=== PATIENT | female | born 1930 | race African-American/Black ===

== ENCOUNTER 2016-09-16 14:06 | Inpatient (IN) ==
--- NOTE | 2016-09-16 14:27 | Emergency Department Note ---
Disposition Clinical Impression: EBONIE (acute kidney injury), Small bowel obstruction, Chronic anemia, Ascites Disposition: Admitted As Inpatient Condition: Fair Referrals: NO,PCP [Non-Partnered Physician] - Forms: Work/School Release, ED Satisfaction Letter General Adult HPI - General Chief complaint: ED Abdominal Pain Stated complaint: Bowel obstruction Time Seen by Provider: 09/16/16 14:14 Source: patient Limitations: no limitations - History of Present Illness Pain Scale: 8 - Related Data Home Medications Medication Instructions Recorded Confirmed Aspirin 81 mg PO DAILY 04/06/15 02/02/16 Atorvastatin [Lipitor] 40 mg PO DAILY 04/06/15 02/02/16 Isosorbide DInitrate [Isosorbide 20 mg PO TID 04/06/15 02/02/16 Dinitrate] Losartan [Cozaar] 50 mg PO DAILY 04/06/15 02/02/16 Nitroglycerin 0.4 mg SL Q5MIN PRN 04/06/15 02/02/16 Beclomethasone Diprop 40mcg [QVAR 1 puff IH BID 02/02/16 02/02/16 40 mcg] Carvedilol [Coreg] 6.25 mg PO BIDWM 02/02/16 02/02/16 Furosemide [Lasix] 40 mg PO Q48H 02/02/16 02/02/16 Ipratropium/Albuterol Neb [Duoneb] 3 ml IH TID 02/02/16 02/02/16 Oxygen 2 l NS HS 02/02/16 02/02/16 Previous Rx's Medication Instructions Recorded HydrALAZINE 50 mg PO TID #0 04/07/15 Potassium Chloride 10 meq PO BIDWM #0 04/07/15 Ticagrelor [Brilinta] 90 mg PO BID #60 tablet 04/07/15 Allergies Allergy/AdvReac Type Severity Reaction Status Date / Time amlodipine [From [facility]] Allergy SWELLING Verified 07/31/15 07:55 IN LEGS lisinopril Allergy Cough Verified 04/06/15 06:45 Past Medical History - Past Medical History Medical history: Reports: arthritis, coronary artery disease, hyperlipidemia, hypertension, renal disease Surgical history: Reports: angioplasty/stent, appendectomy, cataract, hysterectomy Psychiatric history: Reports: no psych history - Social History Smoking Status: Never smoker Smokeless Tobacco Status: No Alcohol use: Reports: none Drug use: Reports: none Physical Exam - General Limitations: no limitations General appearance: alert Course Vital Signs Temperature 97.4 F L 09/16/16 14:08 Pulse Rate 70 09/16/16 14:08 Respiratory Rate 16 09/16/16 14:08 Blood Pressure 146/72 09/16/16 14:08 O2 Sat by Pulse Oximetry 89 09/16/16 14:08 Temperature 97.4 F L 09/16/16 14:08 Pulse Rate 61 09/16/16 18:26 Respiratory Rate 16 09/16/16 14:08 Blood Pressure 168/72 09/16/16 18:26 O2 Sat by Pulse Oximetry 94 09/16/16 18:26 Oxygen Delivery Oxygen Delivery Nasal Cannula Medical Decision Making - Lab Data Result diagrams: 09/16/16 15:08 09/16/16 15:08 Lab Results 09/16/16 09/16/16 09/16/16 Range/Units 15:00 15:08 15:08 WBC 5.7 (4.3-11.1) K/mcL RBC 2.99 L (3.82-4.97) M/mcL Hgb 8.3 L (11.5-15.4) g/dL Hct 27.2 L (35.3-44.9) % MCV 91.0 (83.0-100.0) fL MCH 27.8 L (28.0-33.3) pg MCHC 30.5 L (31.6-35.5) g/dL RDW 14.6 H (11.5-14.5) % Plt Count 253 (140-400) K/mcL MPV 10.1 (9.4-12.4) fL Immature Gran % 0.2 (0-4) % Seg Neutrophils % 72.0 % Lymphocytes % 16.4 % Monocytes % 10.6 % Eosinophils % 0.5 % Basophils % 0.3 % Neutrophils # 4.1 (1.6-8.9) K/mcL Lymphocytes # 0.9 (0.6-4.6) K/mcL Monocytes # 0.6 (0.0-1.3) K/mcL Eosinophils # 0.0 (0.0-0.6) K/mcL Basophils # 0.0 (0.0-0.2) K/mcL PT 11.9 (9.4-12.1) Seconds INR 1.1 Sodium (136-145) mEq/L Potassium (3.5-4.5) mEq/L Chloride (98-109) mEq/L Carbon Dioxide (19-29) mEq/L BUN (7-20) mg/dL Creatinine (0.57-1.11) mg/dL Est GFR ( Amer) (> 60) Est GFR (Non-Af Amer) (> 60) BUN/Creatinine Ratio (6-26) Glucose (70-99) mg/dL Calculated Osmolality (280-300) Lactic Acid (0.5-2.2) mmol/L Calcium (8.6-10.8) mg/dL Total Bilirubin (0.2-1.2) mg/dL AST (5-34) Units/L ALT (0-55) Units/L Alkaline Phosphatase (38-126) Units/L Serum Total Protein (6.0-8.3) g/dL Albumin (3.5-5.0) g/dL Globulin (2.4-3.5) g/dL Albumin/Globulin Ratio (1.1-2.2) Lipase (8-78) Units/L Urine Color Yellow (Yellow) Urine Clarity Cloudy A (Clear) Urine pH 5.5 (5.0-8.0) pH Units Ur Specific [place] 1.020 (1.010-1.025) Urine Protein Trace (Neg-Trace) mg/dL Urine Glucose (UA) Normal (Normal) mg/dL Urine Ketones Negative (Negative) mg/dL Urine Blood Trace H (Negative) Urine Nitrite Negative (Negative) Urine Bilirubin Small H (Negative) Urine Urobilinogen Normal (Normal) mg/dL Ur Leukocyte Esterase Negative (Negative) Urine Microscopic RBC 5-15 H (0-3) per hpf Urine Microscopic WBC 0-3 (0-3) per hpf Ur Squamous Epith Cells Many H (None-Few) per lpf Urine Bacteria None Seen (None-Few) per hpf Hyaline Casts None Seen (None-Few) per lpf Urine Yeast Few H (None Seen) per hpf 09/16/16 09/16/16 Range/Units 15:08 15:08 WBC (4.3-11.1) K/mcL RBC (3.82-4.97) M/mcL Hgb (11.5-15.4) g/dL Hct (35.3-44.9) % MCV (83.0-100.0) fL MCH (28.0-33.3) pg MCHC (31.6-35.5) g/dL RDW (11.5-14.5) % Plt Count (140-400) K/mcL MPV (9.4-12.4) fL Immature Gran % (0-4) % Seg Neutrophils % % Lymphocytes % % Monocytes % % Eosinophils % % Basophils % % Neutrophils # (1.6-8.9) K/mcL Lymphocytes # (0.6-4.6) K/mcL Monocytes # (0.0-1.3) K/mcL Eosinophils # (0.0-0.6) K/mcL Basophils # (0.0-0.2) K/mcL PT (9.4-12.1) Seconds INR Sodium 139 (136-145) mEq/L Potassium 4.4 (3.5-4.5) mEq/L Chloride 103 (98-109) mEq/L Carbon Dioxide 24 (19-29) mEq/L BUN 39 H (7-20) mg/dL Creatinine 2.05 H D (0.57-1.11) mg/dL Est GFR ( Amer) 28 L (> 60) Est GFR (Non-Af Amer) 23 L (> 60) BUN/Creatinine Ratio 19 (6-26) Glucose 128 H (70-99) mg/dL Calculated Osmolality 299 (280-300) Lactic Acid 1.2 (0.5-2.2) mmol/L Calcium 9.5 (8.6-10.8) mg/dL Total Bilirubin 0.6 (0.2-1.2) mg/dL AST 12 (5-34) Units/L ALT < 6 (0-55) Units/L Alkaline Phosphatase 70 (38-126) Units/L Serum Total Protein 6.9 (6.0-8.3) g/dL Albumin 3.1 L (3.5-5.0) g/dL Globulin 3.8 H (2.4-3.5) g/dL Albumin/Globulin Ratio 0.8 L (1.1-2.2) Lipase 26 (8-78) Units/L Urine Color (Yellow) Urine Clarity (Clear) Urine pH (5.0-8.0) pH Units Ur Specific [place] (1.010-1.025) Urine Protein (Neg-Trace) mg/dL Urine Glucose (UA) (Normal) mg/dL Urine Ketones (Negative) mg/dL Urine Blood (Negative) Urine Nitrite (Negative) Urine Bilirubin (Negative) Urine Urobilinogen (Normal) mg/dL Ur Leukocyte Esterase (Negative) Urine Microscopic RBC (0-3) per hpf Urine Microscopic WBC (0-3) per hpf Ur Squamous Epith Cells (None-Few) per lpf Urine Bacteria (None-Few) per hpf Hyaline Casts (None-Few) per lpf Urine Yeast (None Seen) per hpf Attestation Statement - Attestation Attestation: I examined this patient and my medical decision-making was reviewed with the FOXER/PA/Advanced Practice Nurse/Resident Physician. I agree with the documented findings, disposition and treatment plan as described except to the extent set forth below. Face to face time provided Patient presents at the recommendation of her primary care provider due to an abnormal abdominal x-ray that was obtained at urgent care. She appears in no acute distress on exam. She was sent with concern for bowel obstruction
--- NOTE | 2016-09-16 14:49 | Emergency Department Note ---
Disposition Clinical Impression: EBONIE (acute kidney injury), Small bowel obstruction, Chronic anemia Ascites Qualifiers: Ascites type: other type Qualified Code(s): R18.8 - Other ascites Disposition: Admitted As Inpatient Condition: Fair Referrals: NO,PCP [Non-Partnered Physician] - Forms: ED Satisfaction Letter, Work/School Release Time of Disposition: 18:41 Abdominal Pain HPI - General Chief Complaint: ED Abdominal Pain Stated Complaint: Bowel obstruction Time Seen by Provider: 09/16/16 14:14 Source: patient Mode of arrival: ambulatory Limitations: no limitations Nursing Notes Reviewed: Yes Vital Signs Reviewed: Yes - History of Present Illness HPI Narrative: Patient is an 86-year-old female past medical history of hypertension, hyperlipidemia, CAD, previous instructed me. She presents today due to abdominal pain and concern for possible bowel obstruction. Patient states that she has been having generalized abdominal pain for the past 4 days, last bowel movement was 4 days ago as well and was "small amounts . Her usual bowel movement. "She followed up with a primary care physician today and had an x- ray obtained that showed concern for small bowel traction. She denies any blood in her stool, she does admit to nausea and vomiting. Denies any episodes like this in the past. Denies any chest pain, shortness breath, fevers, diarrhea. No bowel movement since 4 days ago. Pain Scale: 4 - Related Data Home Medications Medication Instructions Recorded Confirmed Aspirin 81 mg PO DAILY 04/06/15 02/02/16 Atorvastatin [Lipitor] 40 mg PO DAILY 04/06/15 02/02/16 Isosorbide DInitrate [Isosorbide 20 mg PO TID 04/06/15 02/02/16 Dinitrate] Losartan [Cozaar] 50 mg PO DAILY 04/06/15 02/02/16 Nitroglycerin 0.4 mg SL Q5MIN PRN 04/06/15 02/02/16 Beclomethasone Diprop 40mcg [QVAR 1 puff IH BID 02/02/16 02/02/16 40 mcg] Carvedilol [Coreg] 6.25 mg PO BIDWM 02/02/16 02/02/16 Furosemide [Lasix] 40 mg PO Q48H 02/02/16 02/02/16 Ipratropium/Albuterol Neb [Duoneb] 3 ml IH TID 02/02/16 02/02/16 Oxygen 2 l NS HS 02/02/16 02/02/16 Previous Rx's Medication Instructions Recorded HydrALAZINE 50 mg PO TID #0 04/07/15 Potassium Chloride 10 meq PO BIDWM #0 04/07/15 Ticagrelor [Brilinta] 90 mg PO BID #60 tablet 04/07/15 Allergies Allergy/AdvReac Type Severity Reaction Status Date / Time amlodipine [From [facility]] Allergy SWELLING Verified 07/31/15 07:55 IN LEGS lisinopril Allergy Cough Verified 04/06/15 06:45 Constitutional: Denies: fever Eyes: Denies: eye pain ENT ED: Denies: ear pain Cardiovascular: Denies: chest pain, palpitations Respiratory: Denies: cough, dyspnea, wheezes Gastrointestinal: Reports: abdominal pain, nausea, vomiting, constipation. Denies: diarrhea Genitourinary: Denies: urgency, dysuria Musculoskeletal: Denies: back pain Abdominal Pain PMH - Past Medical History Medical history: Reports: arthritis, coronary artery disease, hyperlipidemia, hypertension, renal disease Female Surgical History: Reports: angioplasty/stent, appendectomy, hysterectomy Psychiatric history: Reports: no psych history - Social History Smoking status: Never smoker Alcohol use: Reports: none Drug use: Reports: none Physical Exam - General Limitations: no limitations General appearance: alert - Head Head exam: atraumatic, normocephalic, normal inspection - Eye Eye exam: Present: normal appearance, PERRL, EOMI - ENT ENT exam: normal exam, normal oropharynx, mucous membranes moist - Neck Neck exam: Present: normal inspection, full ROM, trachea midline - Chest Chest inspection: Present: normal inspection, symmetric chest wall rise - Respiratory Respiratory exam: Present: normal lung sounds bilaterally - Cardiovascular Cardiovascular exam: Present: regular rate, normal rhythm, normal heart sounds - Abdominal Exam Abdominal exam: Present: soft, tenderness (Mild generalized tenderness). Absent : distention, guarding, rebound, rigidity - Extremities Exam Extremities exam: Present: normal inspection, full ROM. Absent: tenderness, pedal edema - Neurological Exam Neurological exam: Present: alert, oriented X3 - Psychiatric Psychiatric exam: Present: normal affect, normal mood - Skin Skin exam: Present: warm, dry, intact, normal color Course Course Narrative: Vitals within normal limits on my exam. On exam, patient had mild generalized tenderness of the abdomen. Concern for small bowel section due to tape being obtained this morning. Currently, patient's nausea was controlled with Zofran that she took prior to arrival. She also states that she does not want any pain medication this time. We will obtain basic abdominal labs, basic blood work, CT of abdomen and pelvis for further assessment for bowel obstruction. 16:47 basic labs show chronic anemia that is near baseline for the patient. Patient has AK. Maintenance fluids started and 1 L normal saline bolus was given. Abdominal as within normal limits. CT scan shows signs of small bowel obstruction, currently waiting on official read. We will contact surgery for further care. Likely admit for small bowel obstruction, EBONIE, anemia. 18:13 CT showed: 1. Gastric and small bowel distension with transition distally consistent with a small-bowel obstruction. Contracted colon with colonic diverticulosis and no acute features. No obvious etiology suggesting possible adhesions. 2. Diffuse mesenteric edema and small amount of ascites. This may be related to 3rd spacing of fluid or cardiogenic edema. Cardiomegaly, small bilateral effusions and anasarca. 3. No other acute findings within the abdomen or pelvis. Moderate aortoiliac plaque disease. Status post hysterectomy. I spoke with Dr. Dubose, she requested that due to other medical issues that the patient be admitted to the hospitalist and then she agreed to be a consult. She also requested NG tube placed and NPO. Dr. Silverman accepted for admission. Abdomen/Pelvis CT 09/16/16 16:30 IMPRESSION: 1. Gastric and small bowel distension with transition distally consistent with a small-bowel obstruction. Contracted colon with colonic diverticulosis and no acute features. No obvious etiology suggesting possible adhesions. 2. Diffuse mesenteric edema and small amount of ascites. This may be related to 3rd spacing of fluid or cardiogenic edema. Cardiomegaly, small bilateral effusions and anasarca. 3. No other acute findings within the abdomen or pelvis. Moderate aortoiliac plaque disease. Status post hysterectomy. D/ / 09/16/2016 17:59:52 Zeferino Treadwell MD / tarik Interpreting Provider: Zeferino Treadwell MD Vital Signs Temperature 97.4 F L 09/16/16 14:08 Pulse Rate 70 09/16/16 14:08 Respiratory Rate 16 09/16/16 14:08 Blood Pressure 146/72 09/16/16 14:08 O2 Sat by Pulse Oximetry 89 09/16/16 14:08 Temperature 97.4 F L 09/16/16 14:08 Pulse Rate 61 09/16/16 18:26 Respiratory Rate 16 09/16/16 14:08 Blood Pressure 168/72 09/16/16 18:26 O2 Sat by Pulse Oximetry 94 09/16/16 18:26 Oxygen Delivery Oxygen Delivery Nasal Cannula Abdominal Pain - MDM Narrative Medical decision making narrative: Vitals within normal limits on my exam. On exam, patient had mild generalized tenderness of the abdomen. Concern for small bowel section due to tape being obtained this morning. Currently, patient's nausea was controlled with Zofran that she took prior to arrival. She also states that she does not want any pain medication this time. We will obtain basic abdominal labs, basic blood work, CT of abdomen and pelvis for further assessment for bowel obstruction. 16:47 basic labs show chronic anemia that is near baseline for the patient. Patient has AK. Maintenance fluids started and 1 L normal saline bolus was given. Abdominal as within normal limits. CT scan shows signs of small bowel obstruction, currently waiting on official read. We will contact surgery for further care. Likely admit for small bowel obstruction, EBONIE, anemia. 18:13 CT showed: 1. Gastric and small bowel distension with transition distally consistent with a small-bowel obstruction. Contracted colon with colonic diverticulosis and no acute features. No obvious etiology suggesting possible adhesions. 2. Diffuse mesenteric edema and small amount of ascites. This may be related to 3rd spacing of fluid or cardiogenic edema. Cardiomegaly, small bilateral effusions and anasarca. 3. No other acute findings within the abdomen or pelvis. Moderate aortoiliac plaque disease. Status post hysterectomy. I spoke with Dr. Dubose, she requested that due to other medical issues that the patient be admitted to the hospitalist and then she agreed to be a consult. She also requested NG tube placed and NPO. Dr. Silverman accepted for admission. - Medical Records Medical records reviewed: Yes I reviewed the patient's medical records. - Lab Data Lab results reviewed: Yes I reviewed the patient's lab results. Result diagrams: 09/16/16 15:08 09/16/16 15:08 Lab Results 09/16/16 09/16/16 09/16/16 Range/Units 15:00 15:08 15:08 WBC 5.7 (4.3-11.1) K/mcL RBC 2.99 L (3.82-4.97) M/mcL Hgb 8.3 L (11.5-15.4) g/dL Hct 27.2 L (35.3-44.9) % MCV 91.0 (83.0-100.0) fL MCH 27.8 L (28.0-33.3) pg MCHC 30.5 L (31.6-35.5) g/dL RDW 14.6 H (11.5-14.5) % Plt Count 253 (140-400) K/mcL MPV 10.1 (9.4-12.4) fL Immature Gran % 0.2 (0-4) % Seg Neutrophils % 72.0 % Lymphocytes % 16.4 % Monocytes % 10.6 % Eosinophils % 0.5 % Basophils % 0.3 % Neutrophils # 4.1 (1.6-8.9) K/mcL Lymphocytes # 0.9 (0.6-4.6) K/mcL Monocytes # 0.6 (0.0-1.3) K/mcL Eosinophils # 0.0 (0.0-0.6) K/mcL Basophils # 0.0 (0.0-0.2) K/mcL PT 11.9 (9.4-12.1) Seconds INR 1.1 Sodium (136-145) mEq/L Potassium (3.5-4.5) mEq/L Chloride (98-109) mEq/L Carbon Dioxide (19-29) mEq/L BUN (7-20) mg/dL Creatinine (0.57-1.11) mg/dL Est GFR ( Amer) (> 60) Est GFR (Non-Af Amer) (> 60) BUN/Creatinine Ratio (6-26) Glucose (70-99) mg/dL Calculated Osmolality (280-300) Lactic Acid (0.5-2.2) mmol/L Calcium (8.6-10.8) mg/dL Total Bilirubin (0.2-1.2) mg/dL AST (5-34) Units/L ALT (0-55) Units/L Alkaline Phosphatase (38-126) Units/L Serum Total Protein (6.0-8.3) g/dL Albumin (3.5-5.0) g/dL Globulin (2.4-3.5) g/dL Albumin/Globulin Ratio (1.1-2.2) Lipase (8-78) Units/L Urine Color Yellow (Yellow) Urine Clarity Cloudy A (Clear) Urine pH 5.5 (5.0-8.0) pH Units Ur Specific [place] 1.020 (1.010-1.025) Urine Protein Trace (Neg-Trace) mg/dL Urine Glucose (UA) Normal (Normal) mg/dL Urine Ketones Negative (Negative) mg/dL Urine Blood Trace H (Negative) Urine Nitrite Negative (Negative) Urine Bilirubin Small H (Negative) Urine Urobilinogen Normal (Normal) mg/dL Ur Leukocyte Esterase Negative (Negative) Urine Microscopic RBC 5-15 H (0-3) per hpf Urine Microscopic WBC 0-3 (0-3) per hpf Ur Squamous Epith Cells Many H (None-Few) per lpf Urine Bacteria None Seen (None-Few) per hpf Hyaline Casts None Seen (None-Few) per lpf Urine Yeast Few H (None Seen) per hpf 09/16/16 09/16/16 Range/Units 15:08 15:08 WBC (4.3-11.1) K/mcL RBC (3.82-4.97) M/mcL Hgb (11.5-15.4) g/dL Hct (35.3-44.9) % MCV (83.0-100.0) fL MCH (28.0-33.3) pg MCHC (31.6-35.5) g/dL RDW (11.5-14.5) % Plt Count (140-400) K/mcL MPV (9.4-12.4) fL Immature Gran % (0-4) % Seg Neutrophils % % Lymphocytes % % Monocytes % % Eosinophils % % Basophils % % Neutrophils # (1.6-8.9) K/mcL Lymphocytes # (0.6-4.6) K/mcL Monocytes # (0.0-1.3) K/mcL Eosinophils # (0.0-0.6) K/mcL Basophils # (0.0-0.2) K/mcL PT (9.4-12.1) Seconds INR Sodium 139 (136-145) mEq/L Potassium 4.4 (3.5-4.5) mEq/L Chloride 103 (98-109) mEq/L Carbon Dioxide 24 (19-29) mEq/L BUN 39 H (7-20) mg/dL Creatinine 2.05 H D (0.57-1.11) mg/dL Est GFR ( Amer) 28 L (> 60) Est GFR (Non-Af Amer) 23 L (> 60) BUN/Creatinine Ratio 19 (6-26) Glucose 128 H (70-99) mg/dL Calculated Osmolality 299 (280-300) Lactic Acid 1.2 (0.5-2.2) mmol/L Calcium 9.5 (8.6-10.8) mg/dL Total Bilirubin 0.6 (0.2-1.2) mg/dL AST 12 (5-34) Units/L ALT < 6 (0-55) Units/L Alkaline Phosphatase 70 (38-126) Units/L Serum Total Protein 6.9 (6.0-8.3) g/dL Albumin 3.1 L (3.5-5.0) g/dL Globulin 3.8 H (2.4-3.5) g/dL Albumin/Globulin Ratio 0.8 L (1.1-2.2) Lipase 26 (8-78) Units/L Urine Color (Yellow) Urine Clarity (Clear) Urine pH (5.0-8.0) pH Units Ur Specific [place] (1.010-1.025) Urine Protein (Neg-Trace) mg/dL Urine Glucose (UA) (Normal) mg/dL Urine Ketones (Negative) mg/dL Urine Blood (Negative) Urine Nitrite (Negative) Urine Bilirubin (Negative) Urine Urobilinogen (Normal) mg/dL Ur Leukocyte Esterase (Negative) Urine Microscopic RBC (0-3) per hpf Urine Microscopic WBC (0-3) per hpf Ur Squamous Epith Cells (None-Few) per lpf Urine Bacteria (None-Few) per hpf Hyaline Casts (None-Few) per lpf Urine Yeast (None Seen) per hpf - Radiology Data Radiology results reviewed: Yes I reviewed the patient's radiology results. Abdomen/Pelvis CT 09/16/16 16:30 IMPRESSION: 1. Gastric and small bowel distension with transition distally consistent with a small-bowel obstruction. Contracted colon with colonic diverticulosis and no acute features. No obvious etiology suggesting possible adhesions. 2. Diffuse mesenteric edema and small amount of ascites. This may be related to 3rd spacing of fluid or cardiogenic edema. Cardiomegaly, small bilateral effusions and anasarca. 3. No other acute findings within the abdomen or pelvis. Moderate aortoiliac plaque disease. Status post hysterectomy. D/ / 09/16/2016 17:59:52 Zeferino Treadwell MD / evertonrtmary Interpreting Provider: Zeferino Treadwell MD - EKG Data EKG attestation: Yes I reviewed and interpreted this EKG. EKG results narrative: 09/16/2016 at 14:39. Sinus rhythm. Rate 63. MS interval 181. QRS 150. QTc 465. Left axis deviation. One QRS. No acute ST elevation or depression from previous EKG on 02/02/2016. Kirit - Kirit Situation: Demographics, MOA Background: Presenting Complaint, Relevant PMH, Meds, & Allergies Assessment: Vital Signs, Course and respsone to treatment, Exam Concerns, Patient/Family Expectation, Pertinant Lab Results, Outstanding Labs Recommendation: Barrier(s) to disposition, Recommendation based on pending studies, treatments, or consults Kirit Report Given to: Dr. Andra Beth Repor Time: 18:41
[2016-09-16 15:07] LABS: Bilirubin,Urine Small (Negative); Blood,Urine Trace (Negative); Clarity,Urine Cloudy (Clear); Color,Urine Yellow (Yellow); Glucose,Urine (UA) Normal (Normal); Ketones,Urine Negative (Negative); Leukocyte Esterase,Urine Negative (Negative); Nitrite,Urine Negative (Negative); PH,Urine 5.5 pH Units (5.0-8.0); Protein,Urine Trace mg/dL (Neg-Trace); Urobilinogen,Urine Normal (Normal)
[2016-09-16 15:08] LABS: Bacteria,Urine None Seen per hpf (None-Few); Hyaline Casts,Urine None Seen per lpf (None-Few); Squamous Epithelial Cell,Urine Many per lpf (None-Few); WBC,Urine 0-3 per hpf (0-3)
[2016-09-16 15:16] LABS: Basophils % 0.3 %; Eosinophils % 0.5 %; Hematocrit 27.2 % (35.3-44.9); Hemoglobin 8.3 g/dL (11.5-15.4); Immature Granulocytes % 0.2 % (0-4); Lymphocytes # 0.9 K/mcL (0.6-4.6); Lymphocytes % 16.4 %; Mean Corpuscular HGB Conc 30.5 g/dL (31.6-35.5); Mean Corpuscular Hemoglobin 27.8 pg (28.0-33.3); Mean Platelet Volume 10.1 fL (9.4-12.4); Monocytes # 0.6 K/mcL (0.0-1.3); Monocytes % 10.6 %; Neutrophils # 4.1 K/mcL (1.6-8.9); Platelet Count 253 K/mcL (140-400); Red Blood Count 2.99 M/mcL (3.82-4.97); Red Cell Distribution Width 14.6 % (11.5-14.5)
[2016-09-16] MEDS: 0.9 % Sodium Chloride 1,000 ML IVC SCH ×2 (15:16→20:56)
[2016-09-16 15:19] LABS: Yeast,Urine Few per hpf (None Seen)
[2016-09-16 15:23] LABS: INR 1.1; Prothrombin Time 11.9 Seconds (9.4-12.1)
[2016-09-16 15:30] LABS: Albumin 3.1 g/dL (3.5-5.0); Albumin/Globulin Ratio 0.8 (1.1-2.2); Alkaline Phosphatase 70 Units/L (38-126); Aspartate Amino Transferase 12 Units/L (5-34); BUN/Creatinine Ratio 19 (6-26); Bilirubin,Total 0.6 mg/dL (0.2-1.2); Blood Urea Nitrogen 39 mg/dL (7-20); Calcium 9.5 mg/dL (8.6-10.8); Carbon Dioxide 24 mEq/L (19-29); Chloride 103 mEq/L (98-109); Globulin 3.8 g/dL (2.4-3.5); Glucose 128 mg/dL (70-99); Lipase 26 Units/L (8-78); Osmolality,Calculated 299 (280-300); Potassium 4.4 mEq/L (3.5-4.5); Sodium 139 mEq/L (136-145); Total Protein 6.9 g/dL (6.0-8.3); eGFR For African Americans 28 (> 60); eGFR For Non-African Americans 23 (> 60)
[2016-09-16 15:31] LABS: Alanine Aminotransferase < 6 Units/L (0-55)
[2016-09-16] MEDS ORDERED: 0.9 % Sodium Chloride 1,000 ML IVC ONE (16:47)
--- NOTE | 2016-09-16 18:23 | Electrocardiograph Report ---
[facility] [employer] Test Date: 2016-09-16 Pat Name: Nancy Strickland Department: [id number] Room: Gender: F Field Agent: : [id number] Requested By: Dennis Sebastian Order Number: [id number] Reading MD: Chely Ray DO Measurements Intervals [place] Rate: 63 P: 56 AR: 181 QRS: -36 QRSD: 150 T: 142 QT: 457 QTc: 465 Interpretive Statements SINUS RHYTHM MARKED LEFT AXIS DEVIATION LEFT BUNDLE BRANCH BLOCK Electronically Signed On 09-16-2016 18:22:08 EDT by Chely Ray DO
--- NOTE | 2016-09-16 20:19 | Internal Med History&Physical ---
Date of Encounter: 09/16/16 Time of Encounter: 20:15 Assessment and Plan (1) Small bowel obstruction Current visit: Yes Status: Acute Clinical and radiological findings consistent with small bowel obstruction. Patient had some relief after insertion of NG tube. Continue nothing by mouth. Evaluation by surgery requested, will follow recommendations. IV fluids. Pain control as needed. DVT prophylaxis. Telemetry monitoring. Monitor electrolytes. Supplement electrolytes accordingly. Avoid nephrotoxic agents. GI prophylaxis. Discussed with patient. (2) EBONIE (acute kidney injury) Current visit: Yes Status: Acute Baseline GFR 5, toda'y GFR 28. Likely pre renal in light of poor oral intake and vomiting. Will avoid nephrotoxic agents and give iv fluids. (3) CAD (coronary artery disease) Current visit: No Status: Acute Chest pain free. Qualifiers: Coronary Disease-Associated Artery/Lesion type: [place] artery [place] vs. transplanted heart: [place] heart Associated angina: with unstable angina Qualified Code(s): I25.110 - Atherosclerotic heart disease of [place] coronary artery with unstable angina pectoris (4) Paroxysmal a-fib Current visit: No Status: Acute Prior chart reviewed, cardiology did not recommend prison anticoagulation. Patient on aspirin only. (5) DVT prophylaxis Current visit: Yes Status: Acute Heparin sq. Internal Medicine - H&P: HPI Chief complaint: abd pain Admitted From: Emergency Dept Plans for Post Hospital Care: Home History of present illness: Ms. Strickland is a 86 year old female with medical history significant for HTN, HLD CAD s/p PCI with intracoronary stents and baloon angioplasty (in 2014) presents with complaints of abdominal pain which started 4 days ago. Abdomen the pain is generalized and is associated with nausea and vomiting. Patient states that she vomited 4 times. She also states that yesterday she was feeling hot, however she did not check her temperature. She denies rash, diarrhea, loss of consciousness, chest pain. Patient states that her last bowel movement was 4 days ago. She followed up with a primary care physician today and had an x-ray obtained that showed concern for small bowel obstruction. She presents to the emergency department and initial evaluation, blood pressure was 151/64, heart rate was 65 month OC observation was 99%. Initial blood work revealed a hemoglobin of 8.3, hematocrit 3827.2, WBC count 5.7, platelet count 257. Sodium 139, potassium 4.4, chloride 103, bicarbonate 24, BUN 39, creatinine 2.05, glucose 128. Admitting 2.1, lactic acid 1.2, lipase 26. CT of the abdomen revealed findings consistent with possible small bowel obstruction. The emergency department staff discussed the case with the surgeon public relations representative, recommendation was made to place an NG tube. During my encounter with patient she was pain free. Past Med Surg Social Fam HX - Past Medical History Medical history: arthritis, coronary artery disease, hyperlipidemia, hypertension, renal disease Psychiatric history: no psych history - Past Surgical History Surgical History: angioplasty/stent, appendectomy, cataract, hysterectomy - Social History Smoking Status: Never smoker Smokeless Tobacco Status: No Alcohol use: none Drug use: none - Family History Brother Adopted: No Family Member Ethnicity: Non- Living Status: Hx Family Cardiac Disorders: Yes Hx Family Respiratory Disorders: No Hx Family Cancer: Yes Hx Family GI Disorders: No Hx Family Endocrine Disorder: Yes Hx Family Neuromuscular Disorders: No Hx Family Neurologic Disorders: No Hx Family HEENT Disorders: No Hx Family Autoimmune Disorders: No Internal Medicine - H&P: Meds Aspirin 81 mg PO DAILY 04/06/15 [History] Atorvastatin [Lipitor] 40 mg PO DAILY 04/06/15 [History] Isosorbide DInitrate [Isosorbide Dinitrate] 20 mg PO TID 04/06/15 [History] Losartan [Cozaar] 50 mg PO BID 04/06/15 [History] Nitroglycerin 0.4 mg SL Q5MIN PRN 04/06/15 [History] HydrALAZINE 50 mg PO TID #0 04/07/15 [Rx] Potassium Chloride 10 meq PO BIDWM #0 04/07/15 [Rx] Beclomethasone Diprop 40mcg [QVAR 40 mcg] 1 puff IH BID 02/02/16 [History] Ipratropium/Albuterol Neb [Duoneb] 3 ml IH TID 02/02/16 [History] Oxygen 2 l NS HS 02/02/16 [History] Carvedilol [Coreg] 25 mg PO BID PRN 09/16/16 [History] Chlorthalidone [Chlorthalidone] 25 mg PO DAILY 09/16/16 [History] Cyanocobalamin (B-12) [Vitamin B12] 1,000 mcg PO DAILY 09/16/16 [History] Ergocalciferol (VITAMIN D2) [Vitamin D2] 50,000 unit PO QWEEK 09/16/16 [History] Ondansetron ODT [Zofran ODT] 4 mg PO TID PRN 09/16/16 [History] Allergies amlodipine [From [facility]] Allergy (Verified 07/31/15 07:55) SWELLING IN LEGS lisinopril Allergy (Verified 04/06/15 06:45) Cough All Systems PM: A 10-system review of systems was performed and is negative for pertinent findings except as documented above in the HPI. - Constitutional Constitutional: as per HPI, no chills, no fever(s), no night sweats - EENT Eyes: as per HPI, no change in vision, no discharge, no pain, no photophobia Ears: as per HPI, no ear discharge, no ear pain, no tinnitus Nose, mouth and throat: as per HPI, no dysphagia, no nasal discharge, no neck pain, no sore throat - Breasts Breasts: as per HPI - Cardiovascular Cardiovascular ROS IM: as per HPI, no chest pain, no diaphoresis, no dyspnea, no lightheadedness, no palpitations, no syncope - Respiratory Respiratory: as per HPI, no cough, no dyspnea, no wheezing, no excessive phlegm production - Gastrointestinal Gastrointestinal: as per HPI, abdominal pain, constipation, vomiting, no diarrhea, no hematemesis, no hematochezia, no melena, no nausea - Genitourinary Genitourinary: as per HPI, no change in urinary stream, no dysuria, no flank pain, no hematuria Menstruation: as per HPI - Musculoskeletal Musculoskeletal ROS IM: as per HPI, no numbness, no tingling - Integumentary Integumentary IM: as per HPI, no rash, no unusual bruising - Neurological Neurological ROS: as per HPI, no confusion, no convulsions, no focal weakness, no numbness, no tingling, no tremor(s) - Psychiatric Psychiatric: as per HPI - Endocrine Endocrine IM: as per HPI - Hematologic/Lymphatic Hematologic/Lymphatic: as per HPI, no easy bruising - Allergic/Immunologic Allergic/Immunologic: as per HPI - Constitutional Vitals: Temp Pulse Resp BP Pulse Ox 97.4 F L 61 16 168/72 94 09/16/16 14:08 09/16/16 18:26 09/16/16 19:13 09/16/16 19:13 09/16/16 18:26 General appearance: Present: cooperative, A&O X 3, pleasant, no acute distress Exam: NG tube placed - Head Head exam: Present: atraumatic, normocephalic - Eye Eye exam: Present: PERRL, conjuntiva pink, sclera anicteric Pupils: Present: PERRL - Neck Neck exam general surgery: Present: supple, trachea midline. Absent: lymphadenopathy - Respiratory Respiratory exam: Present: CTAB. Absent: accessory muscle use, rales, rhonchi, wheezes - Cardiovascular Cardiovascular exam: Present: RRR, +S1, +S2. Absent: diastolic murmur, gallop, rubs, systolic murmur - GI/Abdominal GI/Abdominal exam: Present: normal bowel sounds, soft, no peritoneal signs. Absent: distended, tenderness - Extremities Exam Extremities exam: Present: warm, radial pulses palpable and symetrical. Absent : calf tenderness, cyanotic, pedal edema - Neurological Exam Neurological exam: Present: CN II-XII intact, oriented X3, no focal deficits. Absent: pronater drift, facial droop, speech deficit - Skin Skin exam: Present: dry, intact Internal Med - H&P Results - Labs CBC & Chem 7: 09/16/16 15:08 09/16/16 15:08
[2016-09-16] MEDS ORDERED: *HR* Morphine 2 MG/ML SYRINGE IVP PRN (20:27)
[2016-09-16] MEDS ORDERED: Ondansetron 4 MG/2 ML VIAL IVP PRN (20:27)
[2016-09-16] MEDS ORDERED: Naloxone 0.4 MG/ML INJ IVP PRN (20:27)
[2016-09-16] MEDS ORDERED: Nitroglycerin 0.4 MG TAB.SUBL SL PRN (20:30)
[2016-09-16] MEDS: *HR* Heparin 5,000 UNIT/ML VIAL SQ SCH (20:56)
[2016-09-17] MEDS: Ipratropium/Albuterol Neb 3 ML IH SCH ×2 (01:39→10:27)
[2016-09-17] MEDS: *HR* Heparin 5,000 UNIT/ML VIAL SQ SCH ×2 (05:00→17:33)
[2016-09-17 05:04] LABS: Basophils % 0.2 %; Eosinophils % 0.4 %; Hematocrit 27.2 % (35.3-44.9); Hemoglobin 8.3 g/dL (11.5-15.4); Immature Granulocytes % 0.2 % (0-4); Lymphocytes # 0.8 K/mcL (0.6-4.6); Lymphocytes % 16.2 %; Mean Corpuscular HGB Conc 30.5 g/dL (31.6-35.5); Mean Corpuscular Hemoglobin 27.5 pg (28.0-33.3); Mean Corpuscular Volume 90.1 fL (83.0-100.0); Mean Platelet Volume 10.4 fL (9.4-12.4); Monocytes # 0.6 K/mcL (0.0-1.3); Monocytes % 11.8 %; Neutrophils # 3.4 K/mcL (1.6-8.9); Platelet Count 257 K/mcL (140-400); Red Blood Count 3.02 M/mcL (3.82-4.97); Red Cell Distribution Width 14.5 % (11.5-14.5); Segmented Neutrophils % 71.2 %
[2016-09-17 05:07] LABS: INR 1.1; Prothrombin Time 11.9 Seconds (9.4-12.1)
[2016-09-17] MEDS: Famotidine 20 MG/2 ML VIAL IVP SCH (05:09)
[2016-09-17 05:23] LABS: Albumin 2.8 g/dL (3.5-5.0); Albumin/Globulin Ratio 0.8 (1.1-2.2); Alkaline Phosphatase 66 Units/L (38-126); Aspartate Amino Transferase 12 Units/L (5-34); BUN/Creatinine Ratio 20 (6-26); Bilirubin,Total 0.6 mg/dL (0.2-1.2); Blood Urea Nitrogen 36 mg/dL (7-20); Carbon Dioxide 24 mEq/L (19-29); Chloride 106 mEq/L (98-109); Globulin 3.5 g/dL (2.4-3.5); Glucose 101 mg/dL (70-99); Magnesium 1.8 mg/dL (1.6-2.6); Osmolality,Calculated 298 (280-300); Potassium 4.2 mEq/L (3.5-4.5); Sodium 140 mEq/L (136-145); Total Protein 6.3 g/dL (6.0-8.3); eGFR For African Americans 33 (> 60); eGFR For Non-African Americans 27 (> 60)
[2016-09-17 05:38] LABS: Alanine Aminotransferase < 6 Units/L (0-55)
[2016-09-17] MEDS: 0.9 % Sodium Chloride 1,000 ML IVC SCH ×3 (05:54→23:47)
[2016-09-17] MEDS ORDERED: Ipratropium/Albuterol Neb 3 ML IH PRN (10:34)
--- NOTE | 2016-09-17 15:45 | Internal Med Progress Note ---
Date of Encounter: 09/17/16 Time of Encounter: 11:00 - Assessment and plan (1) Small bowel obstruction Current Visit: Yes Status: Acute Assessment and plan: Repeat x-ray done today showed dilated small bowel loops. Surgery following. Continue conservative management for now. Remains nothing by mouth. Moderate risk for complications. (2) EBONIE (acute kidney injury) Current Visit: Yes Status: Acute Assessment and plan: Renal function is improving. Creatinine 1.79 today. Continue IV hydration. (3) CAD (coronary artery disease) Current Visit: No Status: Chronic Assessment and plan: Oral medications are currently being held due to nothing by mouth status. Will add IV beta dylon. No chest pain at this time. Qualifiers: Coronary Disease-Associated Artery/Lesion type: [place] artery [place] vs. transplanted heart: [place] heart Associated angina: with unstable angina Qualified Code(s): I25.110 - Atherosclerotic heart disease of [place] coronary artery with unstable angina pectoris (4) HTN (hypertension) Current Visit: Yes Status: Chronic Assessment and plan: Accelerated hypertension currently. Most likely due to withdrawal from beta dylon and pain related to small bowel obstruction. We will place patient on scheduled dose of IV Lopressor and also add hydralazine IV when necessary for systolic blood pressure greater than 160 Qualifiers: Hypertension type: essential hypertension Qualified Code(s): I10 - Essential (primary) hypertension (5) Paroxysmal a-fib Current Visit: No Status: Chronic Assessment and plan: Rate controlled and regular currently. - Subjective Interval history: Patient is awake and alert. Feels better today. Abdominal discomfort improving. NG tube in place and gastric output is now minimal. Has not passed any flatus or bowel movement yet. - Constitutional Vitals: Temp Pulse Resp BP Pulse Ox 97.9 F 58 16 172/69 97 09/17/16 11:25 09/17/16 11:25 09/17/16 11:25 09/17/16 11:25 09/17/16 11:25 General appearance: Present: cooperative, mild distress, A&O X 3, pleasant, no acute distress, answers questions appropriately - ENT Additional comments: NG tube in place - Neck Neck exam general surgery: Present: supple, trachea midline. Absent: lymphadenopathy - Respiratory Respiratory exam: Present: CTAB. Absent: accessory muscle use, rales, rhonchi, wheezes - Cardiovascular Cardiovascular exam: Present: RRR, +S1, +S2. Absent: diastolic murmur, gallop, rubs, systolic murmur - GI/Abdominal GI/Abdominal exam: Present: diminished bowel sounds, soft, tenderness (Mild generalized), no peritoneal signs - Extremities Exam Extremities exam: Present: warm, radial pulses palpable and symetrical. Absent : calf tenderness, cyanotic, pedal edema - Neurological Exam Neurological exam: Present: alert, oriented X3, no focal deficits. Absent: facial droop, speech deficit - Skin Skin exam: Present: dry, intact Internal Medicine: Result - Labs CBC & Chem 7: 09/17/16 04:25 09/17/16 04:25 Labs: Short CBC 09/17/16 Range/Units 04:25 WBC 4.8 (4.3-11.1) K/mcL Hgb 8.3 L (11.5-15.4) g/dL Hct 27.2 L (35.3-44.9) % Plt Count 257 (140-400) K/mcL Neutrophils # 3.4 (1.6-8.9) K/mcL BMP 09/17/16 04:25 Sodium 140 Potassium 4.2 Chloride 106 Carbon Dioxide 24 BUN 36 H Creatinine 1.79 H Glucose 101 H Calcium 9.0 Liver Function 09/17/16 Range/Units 04:25 Total Bilirubin 0.6 (0.2-1.2) mg/dL AST 12 (5-34) Units/L ALT < 6 (0-55) Units/L Alkaline Phosphatase 66 (38-126) Units/L Albumin 2.8 L (3.5-5.0) g/dL - ABG Interpretation ABG results: PT/INR, D-dimer PT 11.9 Seconds (9.4-12.1) 09/17/16 04:25 - Impressions Impressions KUB X-Ray 09/16/16 20:48 IMPRESSION: Tip and side port of the enteric tube in the gastric body. D/ / Mateo Terry MD / Mateo Terry MD Interpreting Provider: Mateo Terry MD X-Ray 09/17/16 07:00 IMPRESSION: Persistent small bowel distention right side of the abdomen. NG tube remains in place with the distal tip and proximal side-port in the gastric body/fundus. D/ / 09/17/2016 08:33:43 Stevie Jensen MD / julia Interpreting Provider: Stevie Jensen MD Consult Discharge Plan - Plan Referrals: William Galvan MD [Primary Care Provider] - - Attending Attestation This document has been at least partially created by [employer] recognition technology by Dr. Rehman. Errors in grammar, wording or other phrases may exist. If errors are found after the documentation is signed, they will be addressed individually in the addendum section of this document when appropriate.
--- NOTE | 2016-09-17 16:11 | General Surgery Consult Note ---
Date of Encounter: 09/17/16 Time of Encounter: 12:20 Assessment and Plan (1) Small bowel obstruction Current Visit: Yes Status: Acute discussed with patient and her that we will do conservative measures currently npo, ivf hydration prn pain control antiemetics ngt decompression with HOB 30 degrees serial abdominal exams History of Present Illness Consult date: 09/17/16 Reason for consult: abdominal pain History of present illness: Patient is a 86 yo female who presented with abdominal pain, nausea and vomiting. She started this past Monday with lower abdominal crampy pain that radiated across both sides of her abdomen. She was having multiple episodes of nausea and vomiting that day and just thought it was due to something she ate. She saw her PCP the next day or two and imaging was ordered. She was called and told to present to the ED that she had a small bowel obstruction. She denies flatus or bm since at least this past Monday or Monday. She has no fevers, chiills or night sweats. She denies any urinary hesitency or burning with urination. She has never had a bowel obstruction before. Her only previous abdominal surgery was a hysterectomy. She states her last colonoscopy was within the last year with Dr Santana and no pathology found. She feels better since the ngt has been placed and currently denies abdominal pain or nausea. She has lost about 20 lbs over the last 5-6 months. Past Med Surg Social Fam HX - Past Medical History Source: patient Medical history: arthritis, coronary artery disease, hyperlipidemia, hypertension, renal disease Psychiatric history: no psych history - Past Surgical History Surgical History: angioplasty/stent, appendectomy, cataract, hysterectomy - Social History Smoking Status: Never smoker Smokeless Tobacco Status: No Alcohol use: none Drug use: none - Family History Brother Adopted: No Family Member Ethnicity: Non- Living Status: Hx Family Cardiac Disorders: Yes Hx Family Respiratory Disorders: No Hx Family Cancer: Yes Hx Family GI Disorders: No Hx Family Endocrine Disorder: Yes Hx Family Neuromuscular Disorders: No Hx Family Neurologic Disorders: No Hx Family HEENT Disorders: No Hx Family Autoimmune Disorders: No Hx Family Medical Disorders: Yes Medications and Allergies Aspirin 81 mg PO DAILY 04/06/15 [History] Atorvastatin [Lipitor] 40 mg PO DAILY 04/06/15 [History] Isosorbide DInitrate [Isosorbide Dinitrate] 20 mg PO TID 04/06/15 [History] Losartan [Cozaar] 50 mg PO BID 04/06/15 [History] Nitroglycerin 0.4 mg SL Q5MIN PRN 04/06/15 [History] HydrALAZINE 50 mg PO TID #0 04/07/15 [Rx] Potassium Chloride 10 meq PO BIDWM #0 04/07/15 [Rx] Beclomethasone Diprop 40mcg [QVAR 40 mcg] 1 puff IH BID 02/02/16 [History] Ipratropium/Albuterol Neb [Duoneb] 3 ml IH TID 02/02/16 [History] Oxygen 2 l NS HS 02/02/16 [History] Carvedilol [Coreg] 25 mg PO BID PRN 09/16/16 [History] Chlorthalidone [Chlorthalidone] 25 mg PO DAILY 09/16/16 [History] Cyanocobalamin (B-12) [Vitamin B12] 1,000 mcg PO DAILY 09/16/16 [History] Ergocalciferol (VITAMIN D2) [Vitamin D2] 50,000 unit PO QWEEK 09/16/16 [History] Ondansetron ODT [Zofran ODT] 4 mg PO TID PRN 09/16/16 [History] Allergies amlodipine [From [facility]] Allergy (Verified 07/31/15 07:55) SWELLING IN LEGS lisinopril Allergy (Verified 04/06/15 06:45) Cough Review of Systems All systems PM: reviewed and no additional remarkable complaints except as stated All systems PM: A 10-system review of systems was performed and is negative for pertinent findings except as documented above in the HPI. General Surgery Exam Initial Vital Signs Temp Pulse Resp BP Pulse Ox 97.4 F L 70 16 146/72 89 09/16/16 14:08 09/16/16 14:08 09/16/16 14:08 09/16/16 14:08 09/16/16 14:08 - General physical appearance well developed, well nourished, no distress, no pain - Eyes PERRL, normal ocular movement - ENT dry mucosa, atraumatic, normocephalic - Neck trachea midline - Respiratory normal expansion, clear to auscultation - Cardiovascular Cardiovascular exam: Present: RRR, no murmurs/rubs/gallops - Abdomen Abdomen general surgery: Present: soft, tender (minimally). Absent: bowel sounds present, tympanic, guarding, rebound - Integumentary Integumentary general surgery: Present: warm and dry - Neurologic Present: CN 2-12 grossly intact - Musculoskeletal Present: normal posture - Psychiatric Psychiatric general surgery: Present: A&Ox3, speech is normal Exam Initial Vital Signs Temp Pulse Resp BP Pulse Ox 97.4 F L 70 16 146/72 89 09/16/16 14:08 09/16/16 14:08 09/16/16 14:08 09/16/16 14:08 09/16/16 14:08 Results - Labs 09/17/16 04:25 09/17/16 04:25 Vital Signs Temp Pulse Resp BP Pulse Ox 09/17/16 15:50 97.1 F L 60 16 182/70 95 09/17/16 11:25 97.9 F 58 16 172/69 97 09/17/16 10:27 16 172/69 98 09/17/16 09:44 73 160/66 09/17/16 09:08 87 194/82 09/17/16 07:13 97.7 F 65 16 184/77 98 09/17/16 04:04 97.9 F 67 14 175/71 96 09/17/16 01:39 16 97 09/17/16 00:48 98.8 F 76 17 179/70 96 09/16/16 20:16 97.8 F 63 12 187/75 100 09/16/16 19:13 16 168/72 09/16/16 18:26 61 168/72 94 Intake and Output 09/17/16 09/17/16 09/17/16 07:59 15:59 23:59 Intake Total 1000 / 1000 1000 / 1000 Output Total 550 / 550 200 / 200 0 / 0 Balance 450 / 450 800 / 800 0 / 0 Intake: IV Fluids 1000 / 1000 1000 / 1000 0.9 % Sodium Chloride 1, 1000 / 1000 1000 / 1000 000 ML @ 125 mls/hr IVC . Q8H JAMIL Rx#:[id number] Oral 0 / 0 Output: Urine 300 / 300 200 / 200 Gastric Tube Lavage 0 / 0 Amount Left Nare 0 / 0 Gastric Drainage 250 / 250 0 / 0 Other: Weight 66.224 kg Blood Glucose* 100 99 Patient Weight 09/17/16 23:59 Weight 66.224 kg Short CBC 09/17/16 Range/Units 04:25 WBC 4.8 (4.3-11.1) K/mcL Hgb 8.3 L (11.5-15.4) g/dL Hct 27.2 L (35.3-44.9) % Plt Count 257 (140-400) K/mcL Neutrophils # 3.4 (1.6-8.9) K/mcL BMP 09/17/16 Range/Units 04:25 Sodium 140 (136-145) mEq/L Potassium 4.2 (3.5-4.5) mEq/L Chloride 106 (98-109) mEq/L Carbon Dioxide 24 (19-29) mEq/L BUN 36 H (7-20) mg/dL Creatinine 1.79 H (0.57-1.11) mg/dL Glucose 101 H (70-99) mg/dL Calcium 9.0 (8.6-10.8) mg/dL Liver Function 09/17/16 Range/Units 04:25 Total Bilirubin 0.6 (0.2-1.2) mg/dL AST 12 (5-34) Units/L ALT < 6 (0-55) Units/L Alkaline Phosphatase 66 (38-126) Units/L Albumin 2.8 L (3.5-5.0) g/dL - Imaging CT scan - abdomen: report reviewed, image reviewed US - abdomen: report reviewed, image reviewed Consult Discharge Plan - Plan Referrals: William Galvan MD [Primary Care Provider] -
[2016-09-17] MEDS: *HR* Metoprolol 5 MG/5 ML VIAL IVP SCH ×2 (17:33→23:49)
[2016-09-17] MEDS ORDERED: *HR* Metoprolol 5 MG/5 ML VIAL IVP SCH (18:00)
[2016-09-18] MEDS: 0.9 % Sodium Chloride 1,000 ML IVC SCH ×2 (03:01→12:51)
[2016-09-18] MEDS: *HR* Heparin 5,000 UNIT/ML VIAL SQ SCH ×2 (05:32→17:38)
[2016-09-18] MEDS: Famotidine 20 MG/2 ML VIAL IVP SCH (05:32)
[2016-09-18] MEDS: *HR* Metoprolol 5 MG/5 ML VIAL IVP SCH ×3 (05:33→17:37)
[2016-09-18 05:57] LABS: Basophils % 0.1 %; Hematocrit 30.7 % (35.3-44.9); Hemoglobin 9.3 g/dL (11.5-15.4); Immature Granulocytes % 0.7 % (0-4); Lymphocytes # 0.5 K/mcL (0.6-4.6); Lymphocytes % 4.9 %; Mean Corpuscular HGB Conc 30.3 g/dL (31.6-35.5); Mean Corpuscular Hemoglobin 27.7 pg (28.0-33.3); Mean Corpuscular Volume 91.4 fL (83.0-100.0); Mean Platelet Volume 10.1 fL (9.4-12.4); Monocytes # 0.9 K/mcL (0.0-1.3); Monocytes % 8.5 %; Platelet Count 255 K/mcL (140-400); Red Blood Count 3.36 M/mcL (3.82-4.97); Red Cell Distribution Width 14.7 % (11.5-14.5); Segmented Neutrophils % 85.8 %
[2016-09-18 05:59] LABS: Neutrophils # 8.6 K/mcL (1.6-8.9)
[2016-09-18 06:11] LABS: Magnesium 1.7 mg/dL (1.6-2.6); Potassium 4.1 mEq/L (3.5-4.5)
[2016-09-18] MEDS ORDERED: *HR* Metoprolol 5 MG/5 ML VIAL IVP SCH (07:35)
--- NOTE | 2016-09-18 13:00 | Internal Med Progress Note ---
Date of Encounter: 09/18/16 Time of Encounter: 12:30 - Assessment and plan (1) Small bowel obstruction Current Visit: Yes Status: Acute Assessment and plan: No significant overall improvement. KUB x-ray does not show any significant air -fluid levels today. Continue conservative management with NG tube to low intermittent suction. Keep nothing by mouth. Supportive care. Continue IV hydration. Moderate risk for complications. (2) EBONIE (acute kidney injury) Current Visit: Yes Status: Acute Assessment and plan: Renal function remained stable. Patient does have underlying chronic kidney disease stage III based on review of her labs over the past year. Continue IV hydration as patient remains nothing by mouth. Will follow renal function. Avoid nephrotoxic agents. (3) CAD (coronary artery disease) Current Visit: No Status: Chronic Assessment and plan: Continue IV metoprolol. No chest pain at this time Qualifiers: Coronary Disease-Associated Artery/Lesion type: [place] artery [place] vs. transplanted heart: [place] heart Associated angina: with unstable angina Qualified Code(s): I25.110 - Atherosclerotic heart disease of [place] coronary artery with unstable angina pectoris (4) HTN (hypertension) Current Visit: Yes Status: Chronic Assessment and plan: Remains uncontrolled but improved. On IV hydralazine and IV metoprolol. Continue to monitor. No chest pain or shortness of breath. Qualifiers: Hypertension type: essential hypertension Qualified Code(s): I10 - Essential (primary) hypertension (5) Paroxysmal a-fib Current Visit: No Status: Chronic Assessment and plan: Controlled. - Subjective Interval history: Patient has not had any bowel movements and has not passed flatus yet. No new episodes of emesis. She had about 200 mL output overnight through the NG tube. Denies any worsening of abdominal discomfort at this time. - Constitutional Vitals: Temp Pulse Resp BP Pulse Ox 97.8 F 57 16 173/71 98 09/18/16 10:19 09/18/16 11:30 09/18/16 10:32 09/18/16 10:19 09/18/16 10:32 General appearance: Present: cooperative, mild distress, A&O X 3, pleasant, no acute distress, answers questions appropriately - Eye Eye exam: Present: PERRL, conjuntiva pink, sclera anicteric Pupils: Present: PERRL - Neck Neck exam general surgery: Present: supple, trachea midline. Absent: lymphadenopathy - Respiratory Respiratory exam: Present: CTAB. Absent: accessory muscle use, rales, rhonchi, wheezes - Cardiovascular Cardiovascular exam: Present: RRR, +S1, +S2, systolic murmur. Absent: diastolic murmur, gallop, rubs - GI/Abdominal GI/Abdominal exam: Present: distended, hypoactive bowel sounds, soft, tenderness (Generalized), no peritoneal signs - Extremities Exam Extremities exam: Present: warm, radial pulses palpable and symetrical. Absent : calf tenderness, cyanotic, pedal edema - Neurological Exam Neurological exam: Present: alert, oriented X3, no focal deficits. Absent: facial droop, speech deficit Internal Medicine: Result - Labs CBC & Chem 7: 09/18/16 05:43 09/18/16 05:43 Labs: Short CBC 09/18/16 Range/Units 05:43 WBC 10.0 D (4.3-11.1) K/mcL Hgb 9.3 L (11.5-15.4) g/dL Hct 30.7 L (35.3-44.9) % Plt Count 255 (140-400) K/mcL Neutrophils # 8.6 (1.6-8.9) K/mcL BMP 09/18/16 05:43 Sodium 143 Potassium 4.1 Chloride 109 Carbon Dioxide 22 BUN 38 H Creatinine 1.59 H Glucose 98 Calcium 9.0 - ABG Interpretation ABG results: PT/INR, D-dimer PT 11.9 Seconds (9.4-12.1) 09/17/16 04:25 - Impressions Impressions KUB X-Ray 09/18/16 07:36 IMPRESSION: 1. Nonspecific bowel gas pattern, with generalized paucity of bowel gas limiting the exam. 2. NG tube stable in position compared to 09/17/2016. D/ / 09/18/2016 08:37:42 Zeferino Pat MD / julia Interpreting Provider: Zeferino Pat MD X-Ray 09/18/16 10:44 IMPRESSION: NG tube present with distal tip and side-port in the region of the gastric body. D/ / 09/18/2016 11:06:25 Zeferino Pat MD / julia Interpreting Provider: Zeferino Pat MD - VTE Documentation of Mechanical Device: Intermittent pneumatic compression device Consult Discharge Plan - Plan Referrals: William Galvan MD [Primary Care Provider] - - Attending Attestation This document has been at least partially created by [employer] recognition technology by Dr. Rehman. Errors in grammar, wording or other phrases may exist. If errors are found after the documentation is signed, they will be addressed individually in the addendum section of this document when appropriate.
--- NOTE | 2016-09-18 14:40 | General Surgery Progress Note ---
Date of Encounter: 09/18/16 Time of Encounter: 14:00 - Assessment and Plan (1) Small bowel obstruction Current Visit: Yes Status: Acute no improvement in last 24 hrs, will continue with conservative therapy currently npo, ivf hydration prn pain control antiemetics ngt decompression with HOB 30 degrees serial abdominal exams Subjective Narrative: patient denies any flatus or bm she denies any abdominal pain she really isnt trying to wake and talk to me denies nausea Objective Vital Signs - Last 8 Hours Temp Pulse Resp BP Pulse Ox 09/18/16 11:30 57 09/18/16 10:32 16 98 09/18/16 10:19 97.8 F 67 16 173/71 99 Intake and Output 09/17/16 09/18/16 09/18/16 23:59 07:59 15:59 Intake Total 1000 / 1000 1000 / 1000 Output Total 0 / 0 600 / 600 Balance 1000 / 1000 -600 / -600 1000 / 1000 Intake: IV Fluids 1000 / 1000 1000 / 1000 0.9 % Sodium Chloride 1, 1000 / 1000 1000 / 1000 000 ML @ 70 mls/hr IVC . [id number] JAMIL Rx#: [id number] Output: Urine 400 / 400 Gastric Tube Lavage 0 / 0 0 / 0 Amount Left Nare 0 / 0 0 / 0 Gastric Drainage 0 / 0 200 / 200 Other: # Voids 1 Blood Glucose* 98 102 91 - General physical appearance well developed, well nourished, no distress - Eyes PERRL, normal ocular movement - ENT dry mucosa, atraumatic, normocephalic - Neck Neck exam: trachea midline - Respiratory normal expansion, clear to auscultation - Cardiovascular Cardiovascular exam: Present: RRR - Abdomen Abdomen: Present: soft, non tender. Absent: bowel sounds present - Integumentary no rash, no growths - Neurologic CN 2-12 grossly intact - Musculoskeletal normal posture - Psychiatric oriented to time, oriented to person, oriented to place, memory intact - Labs 09/18/16 05:43 09/18/16 05:43 Short CBC 09/18/16 Range/Units 05:43 WBC 10.0 D (4.3-11.1) K/mcL Hgb 9.3 L (11.5-15.4) g/dL Hct 30.7 L (35.3-44.9) % Plt Count 255 (140-400) K/mcL Neutrophils # 8.6 (1.6-8.9) K/mcL BMP 09/18/16 Range/Units 05:43 Sodium 143 (136-145) mEq/L Potassium 4.1 (3.5-4.5) mEq/L Chloride 109 (98-109) mEq/L Carbon Dioxide 22 (19-29) mEq/L BUN 38 H (7-20) mg/dL Creatinine 1.59 H (0.57-1.11) mg/dL Glucose 98 (70-99) mg/dL Calcium 9.0 (8.6-10.8) mg/dL Vital Signs Temp Pulse Resp BP Pulse Ox 09/18/16 11:30 57 09/18/16 10:32 16 98 09/18/16 10:19 97.8 F 67 16 173/71 99 09/18/16 06:35 97.8 F 70 16 167/71 98 09/18/16 02:45 98.2 F 75 17 169/71 97 09/18/16 00:52 178/71 09/17/16 23:18 98.4 F 74 18 178/70 97 09/17/16 21:01 95 09/17/16 18:10 100 173/67 09/17/16 17:40 76 178/67 09/17/16 15:50 97.1 F L 60 16 182/70 95 Intake and Output 09/17/16 09/18/16 09/18/16 23:59 07:59 15:59 Intake Total 1000 / 1000 1000 / 1000 Output Total 0 / 0 600 / 600 Balance 1000 / 1000 -600 / -600 1000 / 1000 Intake: IV Fluids 1000 / 1000 1000 / 1000 0.9 % Sodium Chloride 1, 1000 / 1000 1000 / 1000 000 ML @ 70 mls/hr IVC . [id number] JAMIL Rx#: [id number] Output: Urine 400 / 400 Gastric Tube Lavage 0 / 0 0 / 0 Amount Left Nare 0 / 0 0 / 0 Gastric Drainage 0 / 0 200 / 200 Other: # Voids 1 Blood Glucose* 98 102 91 - VTE Documentation of Mechanical Device: Intermittent pneumatic compression device Consult Discharge Plan - Plan Referrals: William Galvan MD [Primary Care Provider] -
[2016-09-18] MEDS ORDERED: NACL 0.9% IVC ONE (15:15)
[2016-09-18] MEDS ORDERED: D5 IVC ONE (15:15)
[2016-09-18] MEDS: Potassium Chloride 10 MEQ in D5% in 0.9% NACL 1,000 ML IVC SCH (16:18)
[2016-09-19] MEDS: *HR* Metoprolol 5 MG/5 ML VIAL IVP SCH ×5 (00:21→23:52)
[2016-09-19 04:56] LABS: Basophils % 0.1 %; Eosinophils % 0.1 %; Hematocrit 30.1 % (35.3-44.9); Hemoglobin 9.3 g/dL (11.5-15.4); Immature Granulocytes % 0.4 % (0-4); Lymphocytes # 0.5 K/mcL (0.6-4.6); Lymphocytes % 5.5 %; Mean Corpuscular HGB Conc 30.9 g/dL (31.6-35.5); Mean Corpuscular Hemoglobin 27.8 pg (28.0-33.3); Mean Corpuscular Volume 90.1 fL (83.0-100.0); Monocytes # 0.9 K/mcL (0.0-1.3); Monocytes % 10.2 %; Neutrophils # 7.2 K/mcL (1.6-8.9); Platelet Count 245 K/mcL (140-400); Red Blood Count 3.34 M/mcL (3.82-4.97); Red Cell Distribution Width 14.9 % (11.5-14.5); Segmented Neutrophils % 83.7 %
[2016-09-19 05:15] LABS: Calcium 8.9 mg/dL (8.6-10.8); Potassium 3.8 mEq/L (3.5-4.5)
[2016-09-19] MEDS: Potassium Chloride 10 MEQ in D5% in 0.9% NACL 1,000 ML IVC SCH (06:09)
[2016-09-19] MEDS: Famotidine 20 MG/2 ML VIAL IVP SCH (06:10)
[2016-09-19] MEDS: *HR* Heparin 5,000 UNIT/ML VIAL SQ SCH ×2 (06:10→18:37)
[2016-09-19] MEDS: D5% in 0.45% NACL w KCl 10 MEQ/1,000 ML MLS IVC SCH ×2 (09:16→19:44)
[2016-09-19] MEDS ORDERED: Bisacodyl 10 MG RECTAL SUPPOSITORY RC STA (12:40)
--- NOTE | 2016-09-19 13:34 | Internal Med Progress Note ---
Date of Encounter: 09/19/16 Time of Encounter: 10:20 - Assessment and plan (1) Small bowel obstruction Current Visit: Yes Status: Acute Assessment and plan: Continue supportive care. Surgery following. No improvement in patient's symptoms. IV hydration. Moderate risk for complications. (2) EBONIE (acute kidney injury) Current Visit: Yes Status: Acute Assessment and plan: renal function remains stable. Will increase IV fluids as patient is showing signs of dehydration with dry mucous membranes. (3) CAD (coronary artery disease) Current Visit: No Status: Chronic Assessment and plan: No chest pain. On IV metoprolol. Qualifiers: Coronary Disease-Associated Artery/Lesion type: [place] artery [place] vs. transplanted heart: [place] heart Associated angina: with unstable angina Qualified Code(s): I25.110 - Atherosclerotic heart disease of [place] coronary artery with unstable angina pectoris (4) HTN (hypertension) Current Visit: Yes Status: Chronic Assessment and plan: Remains uncontrolled despite use of intravenous hydralazine and intravenous metoprolol. We will increase metoprolol dosage to 10 mg every 6 hours. Qualifiers: Hypertension type: essential hypertension Qualified Code(s): I10 - Essential (primary) hypertension (5) Paroxysmal a-fib Current Visit: No Status: Chronic - Subjective Interval history: Patient lying in bed. Has not had any flatus or bowel movement yet. Decreasing output through NG tube. Continues to have abdominal distention. - Constitutional Vitals: Temp Pulse Resp BP Pulse Ox 98.9 F 72 16 190/73 98 09/19/16 11:00 09/19/16 11:00 09/19/16 11:00 09/19/16 11:00 09/19/16 11:00 General appearance: Present: cooperative, mild distress, A&O X 3, pleasant, no acute distress, answers questions appropriately - ENT ENT exam: Present: mucous membranes dry - Respiratory Respiratory exam: Present: CTAB. Absent: accessory muscle use, rales, rhonchi, wheezes - Cardiovascular Cardiovascular exam: Present: RRR, +S1, +S2. Absent: diastolic murmur, gallop, rubs, systolic murmur - GI/Abdominal GI/Abdominal exam: Present: distended, hypoactive bowel sounds, soft, tenderness , no peritoneal signs - Neurological Exam Neurological exam: Present: alert, oriented X3, no focal deficits. Absent: facial droop, speech deficit - Skin Skin exam: Present: dry, intact Internal Medicine: Result - Labs CBC & Chem 7: 09/19/16 04:43 09/19/16 04:43 Labs: Short CBC 09/19/16 Range/Units 04:43 WBC 8.5 (4.3-11.1) K/mcL Hgb 9.3 L (11.5-15.4) g/dL Hct 30.1 L (35.3-44.9) % Plt Count 245 (140-400) K/mcL Neutrophils # 7.2 (1.6-8.9) K/mcL BMP 09/19/16 04:43 Sodium 144 Potassium 3.8 Chloride 112 H Carbon Dioxide 22 BUN 42 H Creatinine 1.58 H Glucose 161 H Calcium 8.9 - ABG Interpretation ABG results: PT/INR, D-dimer PT 11.9 Seconds (9.4-12.1) 09/17/16 04:25 - Impressions Impressions KUB X-Ray 09/18/16 10:44 IMPRESSION: NG tube present with distal tip and side-port in the region of the gastric body. D/ / 09/18/2016 11:06:25 Zeferino Pat MD / julia Interpreting Provider: Zeferino Pat MD - VTE Documentation of Mechanical Device: Intermittent pneumatic compression device Consult Discharge Plan - Plan Referrals: William Galvan MD [Primary Care Provider] - 09/26/16 9:45 am - Attending Attestation This document has been at least partially created by [employer] recognition technology by Dr. Rehman. Errors in grammar, wording or other phrases may exist. If errors are found after the documentation is signed, they will be addressed individually in the addendum section of this document when appropriate.
--- NOTE | 2016-09-19 14:14 | General Surgery Progress Note ---
Date of Encounter: 09/19/16 Time of Encounter: 12:15 - Assessment and Plan (1) Small bowel obstruction Current Visit: Yes Status: Acute Patient still without bowel sounds, bm, or flatus minor abdominal tenderness diffusely on exam with continued distention history of hysterectomy approximately 20 years prior, no other abdominal surgeries NG output 220 ml last 24 hours possible ileus 2/2 UTI. Will check urinalysis afebrile, wbc 8.5 continue supportive measures at this time urinalysis npo, ivf hydration prn pain control antiemetics ngt decompression with HOB 30 degrees serial abdominal exam Subjective Narrative: Patient seen and examined. Awake but is slow to respond to questions. States she is not having any abdominal pain but just feels full. She has not had any bowel movements or flatus. There were no bowel sounds on exam. She is having some slight nausea. No vomiting. NG in place with 200ml output last 24 hours. no change in symptoms, no nausea, no passing flatus Objective Vital Signs - Last 8 Hours Temp Pulse Resp BP Pulse Ox 09/19/16 11:00 98.9 F 72 16 190/73 98 09/19/16 07:31 97.5 F L 96 15 191/75 96 Intake and Output 09/18/16 09/19/16 09/19/16 23:59 07:59 15:59 Intake Total 250 / 250 1000 / 1000 Output Total 300 / 300 650 / 650 Balance 250 / 250 700 / 700 -650 / -650 Intake: IV Fluids 250 / 250 1000 / 1000 0.9 % Sodium Chloride 1, 250 / 250 000 ML @ 70 mls/hr IVC . [id number] JAMIL Rx#: [id number] KCl 10 MEQ In D5% And 0.9 1000 / 1000 % Nacl 1000 Ml 1,000 ML @ 75 mls/hr IVC .[id number] JAMIL Rx#:[id number] Output: Urine 100 / 100 650 / 650 Gastric Drainage 200 / 200 Other: Meal NPO # Voids 1 Weight 69.173 kg Blood Glucose* 147 148 170 Patient Weight 09/19/16 23:59 Weight 69.173 kg - General physical appearance well developed, well nourished, no distress - Eyes PERRL, normal ocular movement - ENT normal mucosa, normocephalic - Neck Neck exam: trachea midline - Respiratory normal expansion, clear to auscultation - Cardiovascular Cardiovascular exam: Present: RRR - Abdomen Abdomen: Present: soft, non tender. Absent: bowel sounds present, distended - Integumentary no rash, no growths - Neurologic CN 2-12 grossly intact - Musculoskeletal normal posture - Psychiatric oriented to time, oriented to person, oriented to place, memory intact - Additional Exam - General physical appearance well developed, well nourished, no distress - Eyes PERRL, normal ocular movement - ENT dry mucosa, atraumatic, normocephalic - Neck Neck exam: trachea midline - Respiratory normal expansion, clear to auscultation - Cardiovascular Cardiovascular exam: Present: RRR - Abdomen Abdomen: Present: soft, non tender. Absent: bowel sounds - Integumentary no rash, no growths - Neurologic CN 2-12 grossly intact - Musculoskeletal normal posture - Psychiatric oriented to time, oriented to person, oriented to place, memory intact - Labs 09/20/16 04:27 09/20/16 04:27 Diabetes panel 09/19/16 Range/Units 04:43 Sodium 144 (136-145) mEq/L Potassium 3.8 (3.5-4.5) mEq/L Chloride 112 H (98-109) mEq/L Carbon Dioxide 22 (19-29) mEq/L BUN 42 H (7-20) mg/dL Creatinine 1.58 H (0.57-1.11) mg/dL Glucose 161 H (70-99) mg/dL Calcium 8.9 (8.6-10.8) mg/dL Calcium panel 09/19/16 Range/Units 04:43 Calcium 8.9 (8.6-10.8) mg/dL Pituitary panel 09/19/16 Range/Units 04:43 Sodium 144 (136-145) mEq/L Potassium 3.8 (3.5-4.5) mEq/L Chloride 112 H (98-109) mEq/L Carbon Dioxide 22 (19-29) mEq/L BUN 42 H (7-20) mg/dL Creatinine 1.58 H (0.57-1.11) mg/dL Glucose 161 H (70-99) mg/dL Calcium 8.9 (8.6-10.8) mg/dL Adrenal panel 09/19/16 Range/Units 04:43 Sodium 144 (136-145) mEq/L Potassium 3.8 (3.5-4.5) mEq/L Chloride 112 H (98-109) mEq/L Carbon Dioxide 22 (19-29) mEq/L BUN 42 H (7-20) mg/dL Creatinine 1.58 H (0.57-1.11) mg/dL Glucose 161 H (70-99) mg/dL Calcium 8.9 (8.6-10.8) mg/dL - VTE Documentation of Mechanical Device: Intermittent pneumatic compression device Consult Discharge Plan - Plan Referrals: William Galvan MD [Primary Care Provider] - 09/26/16 9:45 am - Attending Attestation I examined this patient and my medical decision-making was reviewed with the SPINDLE SANDER/PA/Advanced Practice Nurse/Resident Physician. I agree with the documented findings, disposition and treatment plan as described except to the extent set forth below.
[2016-09-19 16:24] LABS: Bilirubin,Urine Small (Negative); Blood,Urine Small (Negative); Clarity,Urine Cloudy (Clear); Color,Urine Yellow (Yellow); Glucose,Urine (UA) Normal (Normal); Ketones,Urine Negative (Negative); Leukocyte Esterase,Urine Negative (Negative); Nitrite,Urine Negative (Negative); PH,Urine 5.5 pH Units (5.0-8.0); Protein,Urine Trace mg/dL (Neg-Trace); Specific Gravity,Urine 1.018 (1.010-1.025); Urobilinogen,Urine Normal (Normal)
[2016-09-19 16:27] LABS: Bacteria,Urine Few per hpf (None-Few); Hyaline Casts,Urine None Seen per lpf (None-Few); Squamous Epithelial Cell,Urine Many per lpf (None-Few)
[2016-09-20 05:07] LABS: Hematocrit 32.2 % (35.3-44.9); Hemoglobin 9.7 g/dL (11.5-15.4); Mean Corpuscular HGB Conc 30.1 g/dL (31.6-35.5); Mean Corpuscular Hemoglobin 27.2 pg (28.0-33.3); Mean Corpuscular Volume 90.4 fL (83.0-100.0); Mean Platelet Volume 10.6 fL (9.4-12.4); Platelet Count 248 K/mcL (140-400); Red Blood Count 3.56 M/mcL (3.82-4.97)
[2016-09-20 05:20] LABS: Potassium 3.5 mEq/L (3.5-4.5)
[2016-09-20 05:38] LABS: Lymphocytes # 0.2 K/mcL (0.6-4.6); Monocytes # 0.3 K/mcL (0.0-1.3); Reactive Lymphocytes Present (Not Present)
[2016-09-20 05:39] LABS: Platelet Estimate Normal (Normal)
[2016-09-20] MEDS: Famotidine 20 MG/2 ML VIAL IVP SCH (06:00)
[2016-09-20] MEDS: *HR* Metoprolol 5 MG/5 ML VIAL IVP SCH ×4 (06:00→23:50)
[2016-09-20] MEDS: *HR* Heparin 5,000 UNIT/ML VIAL SQ SCH ×2 (06:02→18:13)
[2016-09-20] MEDS: D5% in 0.45% NACL w KCl 10 MEQ/1,000 ML MLS IVC SCH ×2 (08:28→22:01)
--- NOTE | 2016-09-20 15:43 | General Surgery Progress Note ---
Date of Encounter: 09/20/16 Time of Encounter: 15:40 - Assessment and Plan (1) Small bowel obstruction Current Visit: Yes Status: Acute Patient still without bowel sounds, bm, or flatus minor abdominal tenderness diffusely on exam with continued distention moderate NG output Possible ileus afebrile, wbc 8.5 Not likely to have a UTI with urinalysis having no leukocyte esterase, no nitrite, 3-5 wbc, and few bacteria Repeat abdominal radiography: Relative paucity of bowel gas with fluid opacified small bowel loops. The overall exam appears stable compared to the prior study. KUB: Nonspecific bowel gas pattern. Small bowel follow thru with gastrografin tomorrow continue supportive measures at this time npo, ivf hydration prn pain control antiemetics ngt decompression with HOB 30 degrees serial abdominal exam Subjective Patient reports: no flatus, no bowel movement, afebrile Narrative: Patient seen and examined. Appears sleepy. Opens eyes to questions but then closes them again. Scant NG output. No flatus. No bm. Hypoactive bowel sounds. Afebrile. ngt advanced today by nursing and 400cc output since then, pt sleepy and doesnt want to wake to talk with me. Denies abdominal pain or nausea. No flatus or bm Objective Vital Signs - Last 8 Hours Temp Pulse Resp BP Pulse Ox 09/20/16 12:33 97.8 F 80 16 179/96 97 09/20/16 07:44 97.5 F L 78 190/78 97 Intake and Output 09/19/16 09/20/16 09/20/16 23:59 07:59 15:59 Intake Total 1000 / 1000 1000 / 1000 0 / 0 Output Total 0 / 0 350 / 350 Balance 1000 / 1000 650 / 650 0 / 0 Intake: IV Fluids 1000 / 1000 1000 / 1000 KCl 10mEq in D5-0.45 NaCl 1000 / 1000 1000 / 1000 10 meq In 1,000 ml @ 100 mls/hr IVC .Q10H JAMIL Rx# :[id number] Oral 0 / 0 0 / 0 0 / 0 Output: Urine 0 / 0 350 / 350 Other: Meal NPO for lunch Percent of Meal Consumed 0% Weight 70.1 kg Blood Glucose* 143 151 Patient Weight 09/20/16 23:59 Weight 70.1 kg - General physical appearance well nourished, no distress - Eyes PERRL, normal ocular movement - ENT normal mucosa, normocephalic - Neck Neck exam: trachea midline - Respiratory normal expansion, clear to auscultation - Cardiovascular Cardiovascular exam: Present: RRR - Abdomen Abdomen: Present: soft, non tender. Absent: bowel sounds present, distended - Integumentary no rash, no growths - Neurologic CN 2-12 grossly intact - Musculoskeletal normal posture - Psychiatric oriented to time, oriented to person, oriented to place, memory intact - Additional Exam - General physical appearance well developed, well nourished, asleep - Eyes PERRL, normal ocular movement - ENT normal mucosa, normocephalic - Neck Neck exam: trachea midline - Respiratory normal expansion, clear to auscultation - Cardiovascular Cardiovascular exam: Present: RRR - Abdomen Abdomen: Present: soft, non tender. Absent: bowel sounds present, distended - Integumentary no rash, no growths - Neurologic CN 2-12 grossly intact - Musculoskeletal normal posture - Psychiatric oriented to time, oriented to person, oriented to place, memory intact - Labs 09/20/16 04:27 09/20/16 04:27 Short CBC 09/20/16 Range/Units 04:27 WBC 5.6 (4.3-11.1) K/mcL Hgb 9.7 L (11.5-15.4) g/dL Hct 32.2 L (35.3-44.9) % Plt Count 248 (140-400) K/mcL Neutrophils # 5.0 (1.6-8.9) K/mcL BMP 09/20/16 Range/Units 04:27 Sodium 146 H (136-145) mEq/L Potassium 3.5 (3.5-4.5) mEq/L Chloride 115 H (98-109) mEq/L Carbon Dioxide 19 (19-29) mEq/L BUN 38 H (7-20) mg/dL Creatinine 1.47 H (0.57-1.11) mg/dL Glucose 151 H (70-99) mg/dL Calcium 9.0 (8.6-10.8) mg/dL Vital Signs Temp Pulse Resp BP Pulse Ox 09/20/16 19:12 98.1 F 77 15 174/76 98 09/20/16 12:33 97.8 F 80 16 179/96 97 09/20/16 07:44 97.5 F L 78 190/78 97 09/20/16 03:23 98.1 F 77 14 172/78 97 09/20/16 00:03 98.1 F 63 14 174/68 98 Intake and Output 09/20/16 09/20/16 09/20/16 07:59 15:59 23:59 Intake Total 1000 / 1000 0 / 0 Output Total 350 / 350 1000 / 1000 Balance 650 / 650 0 / 0 -1000 / -1000 Intake: IV Fluids 1000 / 1000 KCl 10mEq in D5-0.45 NaCl 1000 / 1000 10 meq In 1,000 ml @ 100 mls/hr IVC .Q10H JAMIL Rx# :[id number] Oral 0 / 0 0 / 0 Output: Urine 350 / 350 500 / 500 Gastric Tube Lavage 500 / 500 Amount Left Nare 500 / 500 Other: Meal NPO for lunch Percent of Meal Consumed 0% Weight 70.1 kg Blood Glucose* 143 151 157 Patient Weight 09/20/16 23:59 Weight 70.1 kg - VTE Documentation of Mechanical Device: Intermittent pneumatic compression device Consult Discharge Plan - Plan Referrals: William Galvan MD [Primary Care Provider] - 09/26/16 9:45 am - Attending Attestation I examined this patient and my medical decision-making was reviewed with the EDUCATIONAL INTERPRETER/PA/Advanced Practice Nurse/Resident Physician. I agree with the documented findings, disposition and treatment plan as described except to the extent set forth below.
--- NOTE | 2016-09-20 17:48 | Internal Med Progress Note ---
Date of Encounter: 09/20/16 Time of Encounter: 10:30 - Assessment and plan (1) Small bowel obstruction Current Visit: Yes Status: Acute Assessment and plan: Continue supportive care. Surgery following. Slight improvement in her imaging this morning, however clinically she has not improved. Abdomen is distended with hypoactive bowel sounds. She is not flatulent and has not had any bowel movements. At this point, possible development of an ileus. NG placement and the correct spot, advanced this morning. (2) HTN (hypertension) Current Visit: Yes Status: Chronic Assessment and plan: Remains uncontrolled despite use of intravenous hydralazine and intravenous metoprolol. Metoprolol dosage was increased yesterday, today hydralazine scheduling was changed to be more frequent. She remains nothing by mouth. At home, patient is on losartan 50 mg twice a day, isosorbide dinitrate 20 mg 3 times a day, hydralazine 50 mg 3 times a day, carvedilol 25 mg twice a day as needed. These medications will be resumed once the patient is able to take by mouth. In the meantime, continue IV hydralazine and metoprolol. Qualifiers: Hypertension type: essential hypertension Qualified Code(s): I10 - Essential (primary) hypertension (3) CAD (coronary artery disease) Current Visit: No Status: Chronic Assessment and plan: No chest pain. On IV metoprolol. Qualifiers: Coronary Disease-Associated Artery/Lesion type: [place] artery [place] vs. transplanted heart: [place] heart Associated angina: with unstable angina Qualified Code(s): I25.110 - Atherosclerotic heart disease of [place] coronary artery with unstable angina pectoris (4) CKD (chronic kidney disease), stage III Current Visit: No Status: Chronic Assessment and plan: Mild acute kidney injury superimposed on chronic kidney disease stage III upon presentation, resolved, now consistent with her baseline. (5) Mild dehydration Current Visit: No Status: Resolved (6) Fatigue Current Visit: No Status: Acute Assessment and plan: Likely secondary to essentially being bedridden and without by mouth intake 5 days. Continue IV fluids, surgery on board. She will remain nothing by mouth. We will likely bring OT and PT on board pending clinical outcomes. Qualifiers: Fatigue type: unspecified Qualified Code(s): R53.83 - Other fatigue (7) Paroxysmal a-fib Current Visit: No Status: Chronic Assessment and plan: Rate controlled, aspirin only for anticoagulation (8) Chronic anemia Current Visit: Yes Status: Chronic Assessment and plan: Stable and consistent with her baseline, we will continue to trend (9) DVT prophylaxis Current Visit: Yes Status: Acute Assessment and plan: Subcutaneous heparin - Subjective Interval history: Patient seen and examined. On examination, patient sitting upright in bed. Patient states she feels very weak and tired and has many questions about plan of care. Her is at the bedside and also has questions regarding plan of care. Patient denies nausea or vomiting at this time. Her biggest complaint is her NG tube. - Constitutional Vitals: Temp Pulse Resp BP Pulse Ox 97.8 F 80 16 179/96 97 09/20/16 12:33 09/20/16 12:33 09/20/16 12:33 09/20/16 12:33 09/20/16 12:33 General appearance: Present: cooperative, mild distress (2/2 pain/NG tube discomfort), A&O X 3, pleasant, answers questions appropriately - Head Head exam: Present: atraumatic, normocephalic - Eye Eye exam: Present: PERRL, conjuntiva pink, sclera anicteric Pupils: Present: PERRL - Neck Neck exam general surgery: Present: supple, trachea midline. Absent: lymphadenopathy - Respiratory Respiratory exam: Present: CTAB. Absent: accessory muscle use, rales, respiratory distress, rhonchi, wheezes - Cardiovascular Cardiovascular exam: Present: RRR, +S1, +S2. Absent: diastolic murmur, gallop, rubs, systolic murmur - GI/Abdominal GI/Abdominal exam: Present: distended, hypoactive bowel sounds, soft, no peritoneal signs. Absent: tenderness (nontender with deep palpation) - Extremities Exam Extremities exam: Present: warm, radial pulses palpable and symetrical. Absent : calf tenderness, cyanotic, pedal edema - Neurological Exam Neurological exam: Present: alert, CN II-XII intact, oriented X3, no focal deficits, strengths equal and symetr throughout. Absent: pronater drift, facial droop, speech deficit - Skin Skin exam: Present: dry, intact, pallor, warm Internal Medicine: Result - Labs CBC & Chem 7: 09/20/16 04:27 09/20/16 04:27 Labs: Short CBC 09/20/16 Range/Units 04:27 WBC 5.6 (4.3-11.1) K/mcL Hgb 9.7 L (11.5-15.4) g/dL Hct 32.2 L (35.3-44.9) % Plt Count 248 (140-400) K/mcL Neutrophils # 5.0 (1.6-8.9) K/mcL BMP 09/20/16 04:27 Sodium 146 H Potassium 3.5 Chloride 115 H Carbon Dioxide 19 BUN 38 H Creatinine 1.47 H Glucose 151 H Calcium 9.0 - ABG Interpretation ABG results: PT/INR, D-dimer PT 11.9 Seconds (9.4-12.1) 09/17/16 04:25 - Impressions Impressions Abdomen X-Ray 09/20/16 08:34 IMPRESSION: 1. The enteric tube has been retracted with the tip now in the distal esophagus, this should be repositioned. 2. Relative paucity of bowel gas with fluid opacified small bowel loops. The overall exam appears stable compared to the prior study. D/ / 09/20/2016 10:22:04 All Hood MD / [email or web address] Interpreting Provider: All Hood MD X-Ray 09/20/16 11:44 IMPRESSION: NG tube tip and proximal side-port within the body of the stomach. Nonspecific bowel gas pattern. D/ / 09/20/2016 12:48:51 Jonatan Mosquera MD / [email or web address] Interpreting Provider: Jonatan Mosquera MD - VTE Documentation of Mechanical Device: Intermittent pneumatic compression device Consult Discharge Plan - Plan Referrals: William Galvan MD [Primary Care Provider] - 09/26/16 9:45 am
[2016-09-21] MEDS: *HR* Metoprolol 5 MG/5 ML VIAL IVP SCH ×4 (05:28→23:37)
[2016-09-21] MEDS: Famotidine 20 MG/2 ML VIAL IVP SCH (05:29)
[2016-09-21] MEDS: *HR* Heparin 5,000 UNIT/ML VIAL SQ SCH ×2 (05:43→18:26)
[2016-09-21 06:04] LABS: Hematocrit 31.7 % (35.3-44.9); Hemoglobin 9.7 g/dL (11.5-15.4); Mean Corpuscular HGB Conc 30.6 g/dL (31.6-35.5); Mean Corpuscular Hemoglobin 27.8 pg (28.0-33.3); Mean Corpuscular Volume 90.8 fL (83.0-100.0); Mean Platelet Volume 10.7 fL (9.4-12.4); Monocytes # 0.6 K/mcL (0.0-1.3); Platelet Count 233 K/mcL (140-400); Red Blood Count 3.49 M/mcL (3.82-4.97); Red Cell Distribution Width 15.3 % (11.5-14.5)
[2016-09-21 07:03] LABS: Lymphocytes # 0.8 K/mcL (0.6-4.6); Neutrophils # 4.3 K/mcL (1.6-8.9)
[2016-09-21 07:04] LABS: Platelet Estimate Normal (Normal); Reactive Lymphocytes Present (Not Present)
[2016-09-21] MEDS: D5% in 0.45% NACL w KCl 10 MEQ/1,000 ML MLS IVC SCH (08:04)
--- NOTE | 2016-09-21 09:39 | General Surgery Progress Note ---
Date of Encounter: 09/21/16 Time of Encounter: 17:46 - Assessment and Plan (1) Small bowel obstruction Current Visit: Yes Status: Acute Patient still without bowel sounds, bm, or flatus minor abdominal tenderness diffusely on exam with continued distention moderate NG output -850 yesterday Possible ileus vs mechanical obstruction afebrile, wbc wnl Small bowel follow thru with gastrografin pending continue supportive measures at this time npo, ivf hydration prn pain control antiemetics ngt decompression with HOB 30 degrees serial abdominal exam small bowel obstruction hasn't resolved. SBFT shows distal small bowel obstruction similar to CT results. Will plan for an exploratory laparotomy tomorrow, risks and benefits discussed with patient and , patient unable to sign consent, signed continue npo picc and tpn ordered for tomorrow ngt decompression/HOB 30* kub in am Subjective Narrative: Patient seen and examined. She is very sleepy and difficult to arouse. Her is in the room and is very concerned for her well being. Small bowel follow thru ordered and pending. Nursing states she did have one episode of vomiting overnight. Afebrile. WBC 5.7. patient doesnt want to seem to talk to me, will answer her , denies nausea or abdominal pain Objective Vital Signs - Last 8 Hours Temp Pulse Resp BP Pulse Ox 09/21/16 08:16 98 09/21/16 07:44 97.0 F L 73 15 176/68 98 09/21/16 04:02 97.7 F 77 16 170/72 98 Intake and Output 09/20/16 09/21/16 09/21/16 23:59 07:59 15:59 Intake Total 1000 / 1000 1000 / 1000 Output Total 1350 / 1350 350 / 350 Balance -350 / -350 -350 / -350 1000 / 1000 Intake: IV Fluids 1000 / 1000 1000 / 1000 KCl 10mEq in D5-0.45 NaCl 1000 / 1000 1000 / 1000 10 meq In 1,000 ml @ 100 mls/hr IVC .Q10H JAMIL Rx# :[id number] Oral 0 / 0 Output: Urine 500 / 500 Gastric Tube Lavage 850 / 850 350 / 350 Amount Left Nare 850 / 850 350 / 350 Other: Meal NPO Weight 69.853 kg Blood Glucose* 154 148 Patient Weight 04/05/17 23:59 Weight 69.853 kg - General physical appearance no distress, no pain - Eyes PERRL, normal ocular movement - ENT dry mucosa, atraumatic, normocephalic - Neck Neck exam: trachea midline - Respiratory normal expansion, normal respiratory effort - Cardiovascular Cardiovascular exam: Present: RRR - Abdomen Abdomen: Present: bowel sounds present (faint), soft, non tender, distended. Absent: guarding, rebound - Integumentary no rash, no growths - Neurologic CN 2-12 grossly intact - Musculoskeletal normal posture - Psychiatric oriented to person (sbft images reviewed and discussed with radiology and patient/) - Additional Exam - General physical appearance well nourished, no distress - Eyes PERRL, normal ocular movement - ENT normal mucosa, normocephalic - Neck Neck exam: trachea midline - Respiratory normal expansion, clear to auscultation - Cardiovascular Cardiovascular exam: Present: RRR - Abdomen Abdomen: Present: soft, non tender. Absent: bowel sounds present, distended - Integumentary no rash, no growths - Neurologic CN 2-12 grossly intact, sleepy, - Musculoskeletal normal posture - Psychiatric oriented to time, oriented to person, oriented to place, memory intact - Labs 09/21/16 05:44 09/21/16 05:44 Vital Signs Temp Pulse Resp BP Pulse Ox 09/21/16 15:23 97.4 F L 69 18 175/71 96 09/21/16 11:00 98.1 F 73 15 186/79 98 09/21/16 08:16 98 09/21/16 07:44 97.0 F L 73 15 176/68 98 09/21/16 04:02 97.7 F 77 16 170/72 98 09/20/16 23:20 98.2 F 75 15 175/65 97 09/20/16 19:12 98.1 F 77 15 174/76 98 Intake and Output 09/21/16 09/21/16 09/21/16 07:59 15:59 23:59 Intake Total 1300 / 1300 Output Total 350 / 350 450 / 450 Balance -350 / -350 850 / 850 Intake: IV Fluids 1300 / 1300 KCl 10mEq in D5-0.45 NaCl 1300 / 1300 10 meq In 1,000 ml @ 100 mls/hr IVC .Q10H JAMIL Rx# :[id number] Output: Urine 450 / 450 Gastric Tube Lavage 350 / 350 Amount Left Nare 350 / 350 Other: Meal NPO Weight 69.853 kg Blood Glucose* 148 149 Patient Weight 09/21/16 23:59 Weight 69.853 kg Short CBC 09/21/16 Range/Units 05:44 WBC 5.7 (4.3-11.1) K/mcL Hgb 9.7 L (11.5-15.4) g/dL Hct 31.7 L (35.3-44.9) % Plt Count 233 (140-400) K/mcL Neutrophils # 4.3 (1.6-8.9) K/mcL BMP 09/21/16 Range/Units 05:44 Sodium 146 H (136-145) mEq/L Potassium 3.0 L (3.5-4.5) mEq/L Chloride 112 H (98-109) mEq/L Carbon Dioxide 25 (19-29) mEq/L BUN 38 H (7-20) mg/dL Creatinine 1.44 H (0.57-1.11) mg/dL Glucose 152 H (70-99) mg/dL Calcium 9.0 (8.6-10.8) mg/dL - VTE Documentation of Mechanical Device: Intermittent pneumatic compression device Consult Discharge Plan - Plan Referrals: William Galvan MD [Primary Care Provider] - 09/26/16 9:45 am - Attending Attestation I examined this patient and my medical decision-making was reviewed with the MACHINE COIL ASSEMBLER/PA/Advanced Practice Nurse/Resident Physician. I agree with the documented findings, disposition and treatment plan as described except to the extent set forth below.
[2016-09-21] MEDS: Potassium Chloride 40 MEQ in D5% in 0.45% NACL 1,000 ML IVC SCH ×2 (11:34→22:45)
--- NOTE | 2016-09-21 17:25 | Internal Med Progress Note ---
Date of Encounter: 09/21/16 Time of Encounter: 09:30 - Assessment and plan (1) Small bowel obstruction Current Visit: Yes Status: Acute Assessment and plan: Continue supportive care. Surgery following. Small bowel follow-through appears to have been consistent with a small bowel obstruction. She will remain nothing by mouth with NG tube in place. Possible surgery tomorrow at surgery's discretion. On examination, she is alert and oriented 3 but states she is miserable and weak. Will involve OT and PT consultations prior to disposition but she is not ready for evaluations at this point. Abdomen remains distended with hypoactive bowel sounds. No flatulence or bowel movements. Diffuse tenderness. Appreciate surgery recommendations. ITS Impressions Small Bowel X-Ray 09/21/16 05:00 IMPRESSION: Diffuse prominence of small bowel with extension of contrast material nearly throughout the small bowel on initial 2 hour image without progression into large bowel. No change room attendant time over the course of the next 6 hours. Study ended at this point. Findings appear similar to prior CT exam 09/16/2016 and are compatible with small bowel obstruction. On CT exam, there was transition to normal caliber/collapsed small bowel to right lower quadrant involving distal ileum without obvious etiology. No obvious etiology is seen on this exam. Clinical correlation suggested and if clinically indicated, continued follow-up with additional KUBs can be obtained to see if there is further progression of oral contrast into large bowel. D/ / 09/21/2016 17:05:59 Christopher Lao MD / chandana Interpreting Provider: Christopher Lao MD (2) HTN (hypertension) Current Visit: Yes Status: Chronic Assessment and plan: Remains uncontrolled despite use of intravenous hydralazine and intravenous metoprolol. Metoprolol dosage was increased and hydralazine scheduling was changed to be more frequent. She remains nothing by mouth. At home, patient is on losartan 50 mg twice a day, isosorbide dinitrate 20 mg 3 times a day, hydralazine 50 mg 3 times a day, carvedilol 25 mg twice a day as needed. These medications will be resumed once the patient is able to take by mouth. In the meantime, continue IV hydralazine and metoprolol. Qualifiers: Hypertension type: essential hypertension Qualified Code(s): I10 - Essential (primary) hypertension (3) CAD (coronary artery disease) Current Visit: No Status: Chronic Assessment and plan: No chest pain. On IV metoprolol. Qualifiers: Coronary Disease-Associated Artery/Lesion type: [place] artery [place] vs. transplanted heart: [place] heart Associated angina: with unstable angina Qualified Code(s): I25.110 - Atherosclerotic heart disease of [place] coronary artery with unstable angina pectoris (4) CKD (chronic kidney disease), stage III Current Visit: No Status: Chronic Assessment and plan: Mild acute kidney injury superimposed on chronic kidney disease stage III upon presentation, resolved, now consistent with her baseline. (5) Mild dehydration Current Visit: No Status: Resolved Assessment and plan: Continue IV fluids. Patient remains nothing by mouth. (6) Fatigue Current Visit: No Status: Acute Assessment and plan: Likely secondary to essentially being bedridden and without by mouth intake 8 days. Continue IV fluids, surgery on board. She will remain nothing by mouth. We will likely bring OT and PT on board pending clinical outcomes. Qualifiers: Fatigue type: unspecified Qualified Code(s): R53.83 - Other fatigue (7) Paroxysmal a-fib Current Visit: No Status: Chronic Assessment and plan: Rate controlled, aspirin only for anticoagulation (8) Chronic anemia Current Visit: Yes Status: Chronic Assessment and plan: Stable and consistent with her baseline, we will continue to trend (9) DVT prophylaxis Current Visit: Yes Status: Acute Assessment and plan: Subcutaneous heparin (10) Hypokalemia Current Visit: Yes Status: Acute Assessment and plan: D545 with 10 of KCl changed to D545 with 40 of KCl. We will recheck in the morning. - Subjective Interval history: Patient seen and examined. On examination, patient resting supine in bed with her eyes closed. She opens her eyes to voice and is alert and oriented 3. She states she is miserable and feels extremely weak. Her is concerned that she has not eaten or drank anything for at least 8 days. - Constitutional Vitals: Temp Pulse Resp BP Pulse Ox 97.4 F L 69 18 175/71 96 09/21/16 15:23 09/21/16 15:23 09/21/16 15:23 09/21/16 15:23 09/21/16 15:23 General appearance: Present: cooperative, mild distress (2/2 pain/NG tube discomfort), A&O X 3, pleasant, answers questions appropriately - Head Head exam: Present: atraumatic, normocephalic - Eye Eye exam: Present: PERRL, conjuntiva pink, sclera anicteric Pupils: Present: PERRL - Neck Neck exam general surgery: Present: supple, trachea midline. Absent: lymphadenopathy - Respiratory Respiratory exam: Present: CTAB. Absent: accessory muscle use, rales, respiratory distress, rhonchi, wheezes - Cardiovascular Cardiovascular exam: Present: RRR, +S1, +S2. Absent: diastolic murmur, gallop, rubs, systolic murmur - GI/Abdominal GI/Abdominal exam: Present: distended, hypoactive bowel sounds, soft, tenderness (diffuse), no peritoneal signs - Extremities Exam Extremities exam: Present: warm, radial pulses palpable and symetrical. Absent : calf tenderness, cyanotic, pedal edema - Neurological Exam Neurological exam: Present: alert, altered (Listless but oriented 3), CN II- XII intact, oriented X3, no focal deficits, strengths equal and symetr throughout. Absent: pronater drift, facial droop, speech deficit - Skin Skin exam: Present: dry, intact, pallor, warm Internal Medicine: Result - Labs CBC & Chem 7: 09/21/16 05:44 09/21/16 05:44 Labs: Short CBC 09/21/16 Range/Units 05:44 WBC 5.7 (4.3-11.1) K/mcL Hgb 9.7 L (11.5-15.4) g/dL Hct 31.7 L (35.3-44.9) % Plt Count 233 (140-400) K/mcL Neutrophils # 4.3 (1.6-8.9) K/mcL BMP 09/21/16 05:44 Sodium 146 H Potassium 3.0 L Chloride 112 H Carbon Dioxide 25 BUN 38 H Creatinine 1.44 H Glucose 152 H Calcium 9.0 - ABG Interpretation ABG results: PT/INR, D-dimer PT 11.9 Seconds (9.4-12.1) 09/17/16 04:25 - Impressions Impressions Small Bowel X-Ray 09/21/16 05:00 IMPRESSION: Diffuse prominence of small bowel with extension of contrast material nearly throughout the small bowel on initial 2 hour image without progression into large bowel. No change room attendant time over the course of the next 6 hours. Study ended at this point. Findings appear similar to prior CT exam 09/16/2016 and are compatible with small bowel obstruction. On CT exam, there was transition to normal caliber/collapsed small bowel to right lower quadrant involving distal ileum without obvious etiology. No obvious etiology is seen on this exam. Clinical correlation suggested and if clinically indicated, continued follow-up with additional KUBs can be obtained to see if there is further progression of oral contrast into large bowel. D/ / 09/21/2016 17:05:59 Christopher Lao MD [facility] Interpreting Provider: Christopher Lao MD - VTE Documentation of Mechanical Device: Intermittent pneumatic compression device Consult Discharge Plan - Plan Referrals: William Galvan MD [Primary Care Provider] - 09/26/16 9:45 am
[2016-09-21] MEDS: Metoclopramide 10 MG/2 ML VIAL IVP SCH ×2 (18:25→23:38)
[2016-09-22] MEDS: Potassium Chloride 40 MEQ in D5% in 0.45% NACL 1,000 ML IVC SCH (04:10)
[2016-09-22 04:44] LABS: INR 1.1; Prothrombin Time 11.8 Seconds (9.4-12.1)
[2016-09-22 04:56] LABS: Calcium 9.4 mg/dL (8.6-10.8); Magnesium 1.7 mg/dL (1.6-2.6); Potassium 3.4 mEq/L (3.5-4.5)
[2016-09-22] MEDS: Famotidine 20 MG/2 ML VIAL IVP SCH (06:06)
[2016-09-22] MEDS: Metoclopramide 10 MG/2 ML VIAL IVP SCH ×3 (06:06→20:27)
[2016-09-22] MEDS: *HR* Metoprolol 5 MG/5 ML VIAL IVP SCH ×3 (06:07→20:57)
[2016-09-22 06:15] LABS: Eosinophils # 0.2 K/mcL (0.0-0.6); Hematocrit 32.4 % (35.3-44.9); Hemoglobin 9.8 g/dL (11.5-15.4); Mean Corpuscular HGB Conc 30.2 g/dL (31.6-35.5); Mean Corpuscular Hemoglobin 27.3 pg (28.0-33.3); Mean Corpuscular Volume 90.3 fL (83.0-100.0); Mean Platelet Volume 10.8 fL (9.4-12.4); Platelet Count 243 K/mcL (140-400); Red Blood Count 3.59 M/mcL (3.82-4.97); Red Cell Distribution Width 15.3 % (11.5-14.5)
[2016-09-22] MEDS: *HR* Heparin 5,000 UNIT/ML VIAL SQ SCH ×2 (06:19→20:57)
[2016-09-22 07:03] LABS: Lymphocytes # 1.1 K/mcL (0.6-4.6); Monocytes # 0.3 K/mcL (0.0-1.3); Neutrophils # 6.3 K/mcL (1.6-8.9)
[2016-09-22 07:04] LABS: Platelet Estimate Normal (Normal); Reactive Lymphocytes Present (Not Present)
[2016-09-22] MEDS ORDERED: D10% in Water 500 ML IVC PRN ×2 (10:30→23:54)
[2016-09-22] MEDS ORDERED: Lidocaine -MPF 1% 5 ML AMPUL INFILT ONE (11:18)
--- NOTE | 2016-09-22 13:10 | Anesthesia Evaluation PreOp ---
Date of Encounter: 09/22/16 Time of Encounter: 13:08 - Past History Planned Operation: ex lap Cardiac History: UT, HTN, Hyperlipidemia, Cardiac Stent, Other (nuc stress 02/01 : neg ischemia, ef 50. LHC 04/02: sosa to lad. echo 08/04: mod lvh, severely dilated l atrium, ef 55) Pulmonary History: Denies Any Significant HX (poor historian, unable to stay focused on questions, maybe 2/2 pain meds) GRAPHIC ILLUSTRATOR History: Other (glaucoma) Other Medical History: Renal (ckd stage III) Anesthesia History: No Prior Anesthetic Complications, Past Anesthesia (appy, hysterect) Alcohol Use: none Drug use: none Medications and Allergies Aspirin 81 mg PO DAILY 04/06/15 [History] Atorvastatin [Lipitor] 40 mg PO DAILY 04/06/15 [History] Isosorbide DInitrate [Isosorbide Dinitrate] 20 mg PO TID 04/06/15 [History] Losartan [Cozaar] 50 mg PO BID 04/06/15 [History] Nitroglycerin 0.4 mg SL Q5MIN PRN 04/06/15 [History] HydrALAZINE 50 mg PO TID #0 04/07/15 [Rx] Potassium Chloride 10 meq PO BIDWM #0 04/07/15 [Rx] Beclomethasone Diprop 40mcg [QVAR 40 mcg] 1 puff IH BID 02/02/16 [History] Ipratropium/Albuterol Neb [Duoneb] 3 ml IH TID 02/02/16 [History] Oxygen 2 l NS HS 02/02/16 [History] Carvedilol [Coreg] 25 mg PO BID PRN 09/16/16 [History] Chlorthalidone [Chlorthalidone] 25 mg PO DAILY 09/16/16 [History] Cyanocobalamin (B-12) [Vitamin B12] 1,000 mcg PO DAILY 09/16/16 [History] Ergocalciferol (VITAMIN D2) [Vitamin D2] 50,000 unit PO QWEEK 09/16/16 [History] Ondansetron ODT [Zofran ODT] 4 mg PO TID PRN 09/16/16 [History] Allergies amlodipine [From [facility]] Allergy (Verified 07/31/15 07:55) SWELLING IN LEGS lisinopril Allergy (Verified 04/06/15 06:45) Cough - Meds/Allergy Pre-op Review Medications Reviewed: Yes Allergies Reviewed: Yes Beta Blockers on Current Med List: Yes If Beta Blockers taken, Date/Time (Last Dose taken): coreg 12:15 Anesthesia Results - Labs 09/22/16 05:44 09/22/16 04:02 - Imaging EKG: report reviewed (sr, lad, lbbb) Anesthesia Exam Vital Signs/O2 Sat/Glucose, Most Current Temp Pulse Resp BP Pulse Ox 09/22/16 12:12 98.2 F 82 16 178/72 98 Height: 1.68 Weight: 25 NPO (# of Hours): >8 - HEENT Pupil (Motor): Pupils equal, EOMI Mallampati: II Teeth: Poor dentition Oral Opening: Greater than 3 - GRAPHIC ILLUSTRATOR LOC: Confused, Disoriented GRAPHIC ILLUSTRATOR Motor: Normal RUE (full assessment is unk, pt won't cooperate), Normal LUE, Normal RLE, Normal LLE, Normal Face GRAPHIC ILLUSTRATOR Sensory: Normal: RUE, LUE, RLE, LLE, Face - Cardiac Rhythm: Regular Murmur: None - Pulmonary Breath Sounds: bilateral Clear Respiratory Effort: Symmetrical Anesthesia Assess/Plan ASA Score: 3 Modified Elysian Scale for Level of Consciousness: Cooperative, oriented, and tranquil Anesthetic Plan: General Monitoring Plan: Standard Monitors Recovery Plan: PACU
[2016-09-22] MEDS ORDERED: Ringers Solution, Lactated 1,000 ML IVC SCH (13:30)
[2016-09-22] MEDS ORDERED: *HR* Propofol 200 MG/20 ML VIAL IVP ONE (13:33)
[2016-09-22] MEDS ORDERED: EPHEDrine 50 MG/ML VIAL ONE (13:33)
[2016-09-22] MEDS ORDERED: Lidocaine -MPF 4% 5 ML AMPUL ONE (13:33)
[2016-09-22] MEDS ORDERED: *HR* Phenylephrine 10 MG/ML VIAL ONE (13:33)
[2016-09-22] MEDS ORDERED: Lidocaine -MPF 2% 2 ML VIAL ONE (13:33)
[2016-09-22] MEDS ORDERED: *HR* FentaNYL (PF) 100 MCG/2 ML VIAL ONE (13:33)
[2016-09-22] MEDS ORDERED: *HR* Rocuronium Bromide 50 MG/5 ML VIAL ONE ×2 (13:33→15:19)
[2016-09-22] MEDS ORDERED: Ketamine *HR* 500 MG/10 ML MDV ONE (13:51)
--- NOTE | 2016-09-22 14:14 | Internal Med Progress Note ---
Date of Encounter: 09/22/16 Time of Encounter: 09:30 - Assessment and plan (1) Small bowel obstruction Current Visit: Yes Status: Acute Assessment and plan: Conservative measures were ineffective. Plan is for surgery later today per surgical team Dr. Dubose. Small bowel follow-through abnormal from yesterday. Patient continues to deny pain. Will initiate TPN later today. 09/21/16 Continue supportive care. Surgery following. Small bowel follow-through appears to have been consistent with a small bowel obstruction. She will remain nothing by mouth with NG tube in place. Possible surgery tomorrow at surgery's discretion. On examination, she is alert and oriented 3 but states she is miserable and weak. Will involve OT and PT consultations prior to disposition but she is not ready for evaluations at this point. Abdomen remains distended with hypoactive bowel sounds. No flatulence or bowel movements. Diffuse tenderness. Appreciate surgery recommendations. ITS Impressions Small Bowel X-Ray 09/21/16 05:00 IMPRESSION: Diffuse prominence of small bowel with extension of contrast material nearly throughout the small bowel on initial 2 hour image without progression into large bowel. No ticket dispenser changer time over the course of the next 6 hours. Study ended at this point. Findings appear similar to prior CT exam 09/16/2016 and are compatible with small bowel obstruction. On CT exam, there was transition to normal caliber/collapsed small bowel to right lower quadrant involving distal ileum without obvious etiology. No obvious etiology is seen on this exam. Clinical correlation suggested and if clinically indicated, continued follow-up with additional KUBs can be obtained to see if there is further progression of oral contrast into large bowel. D/ / 09/21/2016 17:05:59 Christopher Lao MD / [facility] Interpreting Provider: Christopher Lao MD (2) HTN (hypertension) Current Visit: Yes Status: Chronic Assessment and plan: Remains uncontrolled despite use of intravenous hydralazine and intravenous metoprolol. Metoprolol dosage was increased and hydralazine scheduling was changed to be more frequent. She remains nothing by mouth. At home, patient is on losartan 50 mg twice a day, isosorbide dinitrate 20 mg 3 times a day, hydralazine 50 mg 3 times a day, carvedilol 25 mg twice a day as needed. These medications will be resumed once the patient is able to take by mouth. In the meantime, continue IV hydralazine and metoprolol. Qualifiers: Hypertension type: essential hypertension Qualified Code(s): I10 - Essential (primary) hypertension (3) CAD (coronary artery disease) Current Visit: No Status: Chronic Assessment and plan: No chest pain. On IV metoprolol. Qualifiers: Coronary Disease-Associated Artery/Lesion type: [place] artery [place] vs. transplanted heart: [place] heart Associated angina: with unstable angina Qualified Code(s): I25.110 - Atherosclerotic heart disease of [place] coronary artery with unstable angina pectoris (4) CKD (chronic kidney disease), stage III Current Visit: No Status: Chronic Assessment and plan: Mild acute kidney injury superimposed on chronic kidney disease stage III upon presentation, initially resolved, but mild acute kidney injury overnight, initiating TPN today, will trend. (5) Mild dehydration Current Visit: No Status: Acute Assessment and plan: Continue IV fluids. Patient remains nothing by mouth. Nutrition on board, initiating TPN today. (6) Fatigue Current Visit: No Status: Acute Assessment and plan: Likely secondary to essentially being bedridden and without by mouth intake 8 days. Continue IV fluids, surgery on board. Plan is for surgery later today, we will bring OT and PT on board pending clinical outcomes. Qualifiers: Fatigue type: unspecified Qualified Code(s): R53.83 - Other fatigue (7) Paroxysmal a-fib Current Visit: No Status: Chronic Assessment and plan: Rate controlled, aspirin only for anticoagulation (8) Chronic anemia Current Visit: Yes Status: Chronic Assessment and plan: Stable and consistent with her baseline, we will continue to trend (9) DVT prophylaxis Current Visit: Yes Status: Acute Assessment and plan: Subcutaneous heparin (10) Hypokalemia Current Visit: Yes Status: Acute Assessment and plan: D545 with 10 of KCl changed to D545 with 40 of KCl yesterday. Nearly resolved. We will continue to trend. Magnesium levels normal. (11) Depression Current Visit: Yes Status: Chronic Assessment and plan: was tearful this morning. He states for over the past year, patient has started to fall asleep during the day on a more frequent basis. He also states that she has slowly transitioned to only taking small amounts of liquids and has not really been eating solid food. states she is also lost weight and has not been interested and the typical clubs and extracurricular activities she usually takes part in. Throughout this admission, patient has had a flat affect. We will readdress issue of depression after her surgery when she is more alert. - Subjective Interval history: Patient seen and examined. On examination, patient resting supine in bed with her eyes closed. She opens her eyes to voice and is alert and oriented 3. She is not overly conversant however she does answer questions appropriately. Her states that she woke up around 5:00 this morning and they had a very lengthy conversation. He states that she was alert and oriented and consistent with her baseline during this conversation. Patient states that she is tired and still feels weak. - Constitutional Vitals: Temp Pulse Resp BP Pulse Ox 98.2 F 82 16 178/72 98 09/22/16 12:12 09/22/16 12:12 09/22/16 12:12 09/22/16 12:12 09/22/16 12:12 General appearance: Present: cooperative, A&O X 3, pleasant, no acute distress, answers questions appropriately - Head Head exam: Present: atraumatic, normocephalic - Eye Eye exam: Present: PERRL, conjuntiva pink, sclera anicteric Pupils: Present: PERRL - Neck Neck exam general surgery: Present: supple, trachea midline. Absent: lymphadenopathy - Respiratory Respiratory exam: Present: decreased breath sounds. Absent: accessory muscle use, rales, respiratory distress, rhonchi, wheezes - Cardiovascular Cardiovascular exam: Present: RRR, +S1, +S2. Absent: diastolic murmur, gallop, rubs, systolic murmur - GI/Abdominal GI/Abdominal exam: Present: distended, hypoactive bowel sounds, soft, no peritoneal signs. Absent: tenderness - Extremities Exam Extremities exam: Present: warm, radial pulses palpable and symetrical. Absent : calf tenderness, cyanotic, pedal edema - Neurological Exam Neurological exam: Present: alert, altered (Drowsy, listless), CN II-XII intact , oriented X3, no focal deficits, strengths equal and symetr throughout. Absent : pronater drift, facial droop, speech deficit - Skin Skin exam: Present: dry, intact, pallor, warm Internal Medicine: Result - Labs CBC & Chem 7: 09/22/16 05:44 09/22/16 04:02 Labs: Short CBC 09/22/16 Range/Units 05:44 WBC 7.9 (4.3-11.1) K/mcL Hgb 9.8 L (11.5-15.4) g/dL Hct 32.4 L (35.3-44.9) % Plt Count 243 (140-400) K/mcL Neutrophils # 6.3 (1.6-8.9) K/mcL BMP 09/22/16 04:02 Sodium 148 H Potassium 3.4 L Chloride 113 H Carbon Dioxide 25 BUN 37 H Creatinine 1.56 H Glucose 109 H Calcium 9.4 - ABG Interpretation ABG results: PT/INR, D-dimer PT 11.8 Seconds (9.4-12.1) 09/22/16 04:02 - Impressions Impressions Small Bowel X-Ray 09/21/16 05:00 IMPRESSION: Diffuse prominence of small bowel with extension of contrast material nearly throughout the small bowel on initial 2 hour image without progression into large bowel. No ticket dispenser changer time over the course of the next 6 hours. Study ended at this point. Findings appear similar to prior CT exam 09/16/2016 and are compatible with small bowel obstruction. On CT exam, there was transition to normal caliber/collapsed small bowel to right lower quadrant involving distal ileum without obvious etiology. No obvious etiology is seen on this exam. Clinical correlation suggested and if clinically indicated, continued follow-up with additional KUBs can be obtained to see if there is further progression of oral contrast into large bowel. D/ / 09/21/2016 17:05:59 Christopher Lao MD / [facility]ana Interpreting Provider: Christopher Lao MD X-Ray 09/22/16 07:00 IMPRESSION: No definite colonic contrast is seen consistent with small bowel obstruction. D/ / Marvin Kasper MD / Marvin Kasper MD Interpreting Provider: Marvin Kasper MD X-Ray 09/22/16 09:23 IMPRESSION: Again no definite colonic contrast is identified. No free air or contrast extravasation. D/ / Zeferino Sanchez MD / Zeferino Sanchez MD Interpreting Provider: Zeferino Sanchez MD - VTE Documentation of Mechanical Device: Intermittent pneumatic compression device Consult Discharge Plan - Plan Referrals: William Galvan MD [Primary Care Provider] - 09/26/16 9:45 am
[2016-09-22] MEDS ORDERED: Ondansetron 4 MG/2 ML VIAL IVP ONE (14:16)
[2016-09-22] MEDS ORDERED: *HR* HYDROmorphone (PF) 1 MG/ML SYRINGE IVP PRN (14:16)
[2016-09-22] MEDS ORDERED: Albuterol 2.5 MG/3 ML NEBULIZER IH ONE (14:16)
[2016-09-22] MEDS ORDERED: *HR* Meperidine 25 MG/ML SYRINGE IVP PRN (14:16)
[2016-09-22] MEDS ORDERED: *HR* Labetalol 100 MG/20 ML MDV IVP PRN ×2 (14:16→23:54)
[2016-09-22] MEDS ORDERED: Naloxone 0.4 MG/ML INJ IVP PRN ×3 (14:16→23:54)
[2016-09-22] MEDS ORDERED: Dexamethasone 4 MG/ML VIAL ONE (14:36)
[2016-09-22] MEDS ORDERED: Ondansetron 4 MG/2 ML VIAL ONE (14:36)
--- NOTE | 2016-09-22 16:41 | Operative Note ---
Date of procedure: 09/22/16 Pre-op diagnosis: Small bowel obstruction Post-op diagnosis: same (and left ovarian mass, right ovarian mass) Procedure: Exploratory laparotomy, lysis of adhesions for 1 hour, right salpingoophorectomy , left oophorectomy Complications: none immediate Anesthesia: MADDI Surgeon: Nelly Dubose Co-Surgeon: Boni Deluna Estimated blood loss (cc): 25 IV fluids (cc): 2,100 Urine output (cc): 235 Specimen: left ovary, rigth ovary and fallopian tube Disposition: PACU Procedure in Detail: Makayla the operating suite and placed supine on the operating table. Sign in was performed and everyone was in agreement. Anesthesia was induced and patient was endotracheally intubated by anesthesia without incident. Berger catheter was placed by the circulating nurse. The abdomen was prepped and draped in the usual sterile fashion. Timeout was performed again everyone was in agreement. An infraumbilical incision through skin and the subcutaneous tissue the midline was made with a 15 blade. We dissected through the subcutaneous tissue to the anterior abdominal wall linea alba fascia with the Bovie. We entered the fascia in the midline with the Bovie. Wilton's were placed on either side of the fascia for retraction and the incision was extended. Using large Rich retractors for retraction the small bowel was eviscerated and run from the ligament of Treitz down to the ileum. The ileum was densely adherent and adhesed to the right ovary as well as the pelvis. Lysis of adhesions to free the ileum was performed for approximately one hour using Metzenbaum scissors and the Bovie. There was one adhesive band that wrapped around a portion of the ileum constricting area and this was released with the Bovie. We were able to free up several loops of small bowel from the pelvis and the terminal ileum which was densely adherent to an enlarged right ovary. The left ovary with the size of a grapefruit and adherent to the rectum and sigmoid as well as the left abdominal wall. Dr. Deluna was called in to the operation at this point. The right ovary was taken off the right lateral wall peritoneum with the Bovie. The right infundibulopelvic ligament was located as well as the right ureter. A right angle and a Lindsay clamp were placed on the right infundibulopelvic ligament it was transected with Metzenbaum scissors and suture ligated with 0 Vicryl. The left ovary was gently bluntly, sharply, and dissected with the Bovie off the sigmoid colon and rectum. Using the Bovie we dissected the peritoneum off the left pelvic sidewall and the left ureter was identified which was densely adherent to the lateral aspect of the left ovarian mass. Using gentle blunt dissection and Metzenbaum scissors the left ureter was freed from the ovarian mass. The left infundibulopelvic ligament was doubly clamped with Lindsay's transected with Metzenbaum scissors and suture- ligated with 0 Vicryl. The left ovarian mass was gently bluntly dissected from the pelvis as well as using cautery. Dr. Deluna then left the case. The pelvis was copiously irrigated with sterile saline. A 10 mm JONATHAN drain was placed in the pelvis through an incision in the right lower quadrant abdominal wall and secured to the skin within 2-0 silk stitch. The small bowel was again run from the ligament of Treitz down to the terminal ileum ensuring there were no small bowel injuries. Small bowel succus was milked from the middle of the ileum to the terminal ileum into the cecum to ensure flow. The midline fascia was closed with 2 separate #1 nylon looped running PDS stitches meeting in the middle. The subcutaneous tissue was irrigated with sterile saline. The subcutaneous tissue was reapproximated with 3-0 Vicryl interrupted stitches and the skin was closed with roseann. 4 x 4 gauze and Medipore tape were applied as a dressing to the midline. Drain sponge and Medipore tape were applied to the JONATHAN site. The Berger catheter and NG tube remained with the patient. She tolerated the procedure well and was extubated and awoken in the OR by anesthesia. She was taken to PACU in stable condition. All lap and instrument counts are correct at end of the case.
[2016-09-22] MEDS ORDERED: Clinimix E 5%-15% SOLUTION 2,000 ML with MVI, adult with vitamin K 10 ML IVC SCH ×2 (17:00→23:54)
--- NOTE | 2016-09-22 17:50 | Anesthesia Evaluation Post Op ---
Date of Encounter: 09/22/16 Time of Encounter: 17:49 - Vital Signs Vital Signs: Vital Signs/O2 Sat/Glucose, Most Current Temp Pulse Resp BP Pulse Ox 09/22/16 17:40 72 18 132/62 94 09/22/16 17:30 97.8 F 73 18 127/61 94 09/22/16 17:20 71 20 128/60 94 09/22/16 17:10 75 20 122/60 95 09/22/16 17:00 97.7 F 75 22 116/57 97 09/22/16 16:50 78 20 114/55 96 09/22/16 16:40 85 22 94/53 95 09/22/16 16:30 97.2 F L 73 22 79/48 95 - Lungs Lungs: Clear Ascult./Percussion - Airway Airway: Non-obstructed - Cardiovascular Regular Rate - Mental Status Mental Status: Asleep with brisk response to light stimulation - Pain Pain Scale: 0 - Nausea Vomiting Nausea Vomiting: Not Present - Hydration Hydration: NPO Notes: 09/22/16 17:50 pt to remain on NC with titration to sat >92% with cont pulse ox x 24hrs - Discharge PostOp Status: Transfer Patient to floor
[2016-09-22] MEDS ORDERED: Ipratropium/Albuterol Neb 3 ML IH PRN (23:54)
[2016-09-22] MEDS ORDERED: 0.9 % Sodium Chloride 1,000 ML IVC SCH (23:54)
[2016-09-22] MEDS ORDERED: Ondansetron 4 MG/2 ML VIAL IVP PRN (23:54)
[2016-09-22] MEDS ORDERED: *HR* Morphine 2 MG/ML SYRINGE IVP PRN (23:54)
[2016-09-22] MEDS ORDERED: Nitroglycerin 0.4 MG TAB.SUBL SL PRN (23:54)
[2016-09-23 00:13] LABS: Basophils % 0.2 %; Hematocrit 33.6 % (35.3-44.9); Hemoglobin 10.2 g/dL (11.5-15.4); Immature Granulocytes % 1.1 % (0-4); Lymphocytes # 0.5 K/mcL (0.6-4.6); Lymphocytes % 4.7 %; Mean Corpuscular HGB Conc 30.4 g/dL (31.6-35.5); Mean Corpuscular Hemoglobin 27.8 pg (28.0-33.3); Mean Corpuscular Volume 91.6 fL (83.0-100.0); Mean Platelet Volume 10.4 fL (9.4-12.4); Monocytes # 0.6 K/mcL (0.0-1.3); Monocytes % 5.2 %; Platelet Count 230 K/mcL (140-400); Red Blood Count 3.67 M/mcL (3.82-4.97); Red Cell Distribution Width 15.7 % (11.5-14.5); Segmented Neutrophils % 88.8 %
[2016-09-23 00:14] LABS: Neutrophils # 10.1 K/mcL (1.6-8.9)
[2016-09-23 00:24] LABS: Alanine Aminotransferase < 6 Units/L (0-55); Albumin 2.2 g/dL (3.5-5.0); Albumin/Globulin Ratio 0.7 (1.1-2.2); Alkaline Phosphatase 70 Units/L (38-126); Aspartate Amino Transferase 11 Units/L (5-34); BUN/Creatinine Ratio 21 (6-26); Bilirubin,Total 0.5 mg/dL (0.2-1.2); Blood Urea Nitrogen 42 mg/dL (7-20); Calcium 8.5 mg/dL (8.6-10.8); Carbon Dioxide 28 mEq/L (19-29); Chloride 116 mEq/L (98-109); Glucose 218 mg/dL (70-99); Magnesium 1.6 mg/dL (1.6-2.6); Osmolality,Calculated 325 (280-300); Phosphorous 3.3 mg/dL (2.3-4.7); Potassium 3.7 mEq/L (3.5-4.5); Sodium 149 mEq/L (136-145); Total Protein 5.2 g/dL (6.0-8.3); Triglycerides 99 mg/dL (< 150); eGFR For African Americans 29 (> 60); eGFR For Non-African Americans 24 (> 60)
[2016-09-23] MEDS: Ringers Solution, Lactated 1,000 ML IVC SCH (00:29)
[2016-09-23 00:32] LABS: Platelet Estimate Normal (Normal)
[2016-09-23 00:34] LABS: Reactive Lymphocytes Present (Not Present)
[2016-09-23] MEDS: *HR* Metoprolol 5 MG/5 ML VIAL IVP SCH ×4 (00:53→17:49)
[2016-09-23] MEDS: Acetaminophen IV 1,000 MG/100 ML INFUS..BTL IVPB SCH ×3 (00:54→16:22)
[2016-09-23] MEDS: Famotidine 20 MG/2 ML VIAL IVP SCH (05:58)
[2016-09-23] MEDS ORDERED: D10% in Water 500 ML IVC PRN (11:11)
[2016-09-23] MEDS ORDERED: D5% in Water 1,000 ML IVC PRN (11:13)
[2016-09-23] MEDS ORDERED: *HR* Dextrose 50 % in Water (Syg) 50 ML SYRINGE IVP PRN (11:13)
[2016-09-23] MEDS ORDERED: Dextrose Gel 15 GM PO PRN ×2 (11:13)
[2016-09-23] MEDS: Insulin LISPRO 300 UNITS/3 ML VIAL SQ SCH ×3 (12:48→20:44)
[2016-09-23] MEDS ORDERED: 0.9 % Sodium Chloride 500 ML IVC ONE (13:48)
--- NOTE | 2016-09-23 16:50 | General Surgery Progress Note ---
Date of Encounter: 09/23/16 Time of Encounter: 12:30 - Assessment and Plan (1) Small bowel obstruction Current Visit: Yes Status: Acute POD #1 from Exploratory laparotomy, lysis of adhesions for 1 hour, right salpingoophorectomy, left oophorectomy with Dr. Dubose Continue bowel rest while awaiting return of bowel function NG tube to LIWS IV fluids- 500ml 0.9NS fluid bolus now TPN- managment per escrow manager Insulin coverage increased to medium scale every 4 hours Supportive care/pain control Blackwell catheter to SD for strict I&Os Repeat am labs (2) EBONIE (acute kidney injury) Current Visit: Yes Status: Acute 0.9NS 500ml fluid bolus Blackwell catheter to SD for strict I&O Avoid nephrotoxic medications Repeat am labs (3) DVT prophylaxis Current Visit: Yes Status: Acute EPCDs to bilateral lower extremities for DVT prophylaxis (4) Ovarian mass, left Current Visit: Yes Status: Acute CA 125 elevated at 183, await pathology (5) Ovarian mass, right Current Visit: Yes Status: Acute CA 125 elevated at 183, await pathology Subjective Patient reports: no new complaints, no flatus, no bowel movement, afebrile, other (Patient resting comfortably; limited response to verbal stimulus (slowly improvingP) Narrative: very sleepy and doesnt wake much to talk, will answer a few yes and no questions , denies abdominal pain, states no nausea Objective Vital Signs - Last 8 Hours Temp Pulse Resp BP Pulse Ox 09/23/16 15:07 98.6 F 81 14 127/63 96 09/23/16 13:35 145/66 09/23/16 12:15 98.1 F 82 19 128/64 96 09/23/16 10:15 98.2 F 78 20 150/66 96 Intake and Output 09/23/16 09/23/16 09/23/16 07:59 15:59 23:59 Intake Total 100 / 100 850 / 850 0 / 0 Output Total 305 / 305 Balance 70 / 70 545 / 545 0 / 0 Intake: IV Fluids 100 / 100 850 / 850 0 / 0 0.9 % Sodium Chloride 500 500 / 500 ML @ 250 mls/hr IVC .Q2H ONE Rx#:[id number] Ofirmev 1,000 mg In 100 100 / 100 100 / 100 ml @ 400 mls/hr IVPB Q8HR [facility] Rx#:[id number] Intralipid 20% 250 ML @ 250 / 250 21 mls/hr IVPB DAILY@1700 [facility] Rx#:[id number] Oral 0 / 0 Output: Gastric Tube Lavage 100 / 100 Amount Left Nare 100 / 100 Catheter 0 / 0 125 / 125 Wound Drainage 30 / 30 80 / 80 Left Abdomen 30 / 30 80 / 80 Other: Meal NPO Weight 71.9 kg Blood Glucose* 217 141 Patient Weight 09/23/16 23:59 Weight 71.9 kg - General physical appearance well developed, no distress, other (resting comfortably, lethargic; improving response to verbal stimulus) - Eyes PERRL, normal ocular movement - ENT dry mucosa, atraumatic, normocephalic - Neck Neck exam: trachea midline - Respiratory normal respiratory effort, clear to auscultation - Cardiovascular Cardiovascular exam: Present: RRR - Abdomen Abdomen: Present: soft, tender (expected post-operative tenderness), wound (JONATHAN drain with serousang. drainage noted (110ml since midnight); NG tube to LIWS with 100ml of bilious drainage noted.). Absent: bowel sounds present, guarding , rebound - Incision Incision: Present: clean and dry, intact - Genitourinary other (blackwell catheter to SD with clear, yellow urine noted (125ml noted since midnight)) - Neurologic CN 2-12 grossly intact - Musculoskeletal other (deconditioning noted) - Psychiatric oriented to person - Labs 09/23/16 00:03 09/23/16 00:03 Short CBC 09/23/16 Range/Units 00:03 WBC 11.4 H (4.3-11.1) K/mcL Hgb 10.2 L (11.5-15.4) g/dL Hct 33.6 L (35.3-44.9) % Plt Count 230 (140-400) K/mcL Neutrophils # 10.1 H (1.6-8.9) K/mcL BMP 09/23/16 Range/Units 00:03 Sodium 149 H (136-145) mEq/L Potassium 3.7 (3.5-4.5) mEq/L Chloride 116 H (98-109) mEq/L Carbon Dioxide 28 (19-29) mEq/L BUN 42 H (7-20) mg/dL Creatinine 2.01 H (0.57-1.11) mg/dL Glucose 218 H (70-99) mg/dL Calcium 8.5 L (8.6-10.8) mg/dL Liver Function 09/23/16 Range/Units 00:03 Total Bilirubin 0.5 (0.2-1.2) mg/dL AST 11 (5-34) Units/L ALT < 6 (0-55) Units/L Alkaline Phosphatase 70 (38-126) Units/L Albumin 2.2 L (3.5-5.0) g/dL Vital Signs Temp Pulse Resp BP Pulse Ox 09/23/16 15:07 98.6 F 81 14 127/63 96 09/23/16 13:35 145/66 09/23/16 12:15 98.1 F 82 19 128/64 96 09/23/16 10:15 98.2 F 78 20 150/66 96 09/23/16 08:26 98.0 F 75 16 143/67 95 09/23/16 03:39 97.9 F 84 20 127/67 96 09/23/16 02:15 119/75 09/22/16 22:36 97.5 F L 79 20 144/73 95 09/22/16 21:10 97.7 F 72 18 123/58 94 09/22/16 20:10 97.8 F 97 18 130/73 94 09/22/16 19:10 97.7 F 96 18 138/76 93 09/22/16 18:40 98.0 F 85 16 138/71 94 09/22/16 18:10 97.6 F 110 16 132/95 94 09/22/16 18:00 97.5 F L 73 18 141/72 94 Intake and Output 09/23/16 09/23/16 09/23/16 07:59 15:59 23:59 Intake Total 100 / 100 850 / 850 100 / 100 Output Total 30 / 30 305 / 305 Balance 70 / 70 545 / 545 100 / 100 Intake: IV Fluids 100 / 100 850 / 850 100 / 100 0.9 % Sodium Chloride 500 500 / 500 ML @ 250 mls/hr IVC .Q2H [facility] Rx#:[id number] Ofirmev 1,000 mg In 100 100 / 100 100 / 100 100 / 100 ml @ 400 mls/hr IVPB Q8HR [facility] Rx#:[id number] Intralipid 20% 250 ML @ 250 / 250 21 mls/hr IVPB DAILY@1700 [facility] Rx#:[id number] Oral 0 / 0 0 / 0 Output: Gastric Tube Lavage 100 / 100 Amount Left Nare 100 / 100 Catheter 0 / 0 125 / 125 Wound Drainage 30 / 30 80 / 80 Left Abdomen 30 / 30 80 / 80 Other: Meal NPO NPO Weight 71.9 kg Blood Glucose* 217 141 Patient Weight 09/23/16 23:59 Weight 71.9 kg - VTE Documentation of Mechanical Device: Intermittent pneumatic compression device Consult Discharge Plan - Plan Referrals: William Galvan MD [Primary Care Provider] - - Attending Attestation I examined this patient and my medical decision-making was reviewed with the HAM ROLLING MACHINE OPERATOR/PA/Advanced Practice Nurse/Resident Physician. I agree with the documented findings, disposition and treatment plan as described except to the extent set forth below. I examined this patient and my medical decision-making was reviewed with the HAM ROLLING MACHINE OPERATOR/PA/Advanced Practice Nurse/Resident Physician. I agree with the documented findings, disposition and treatment plan as described except to the extent set forth below.
[2016-09-23] MEDS ORDERED: Clinimix E 5%-20% SOLUTION 2,000 ML with MVI, adult with vitamin K 10 ML IVC SCH (17:00)
--- NOTE | 2016-09-23 17:37 | Internal Med Progress Note ---
Date of Encounter: 09/23/16 Time of Encounter: 15:00 - Assessment and plan (1) HTN (hypertension) Current Visit: Yes Status: Chronic Assessment and plan: Continue IV metoprolol and hydralazine while the patient is nothing by mouth. Resume oral meds when she has reliable oral intake. Qualifiers: Hypertension type: essential hypertension Qualified Code(s): I10 - Essential (primary) hypertension (2) CKD (chronic kidney disease), stage III Current Visit: No Status: Chronic Assessment and plan: Monitor kidney function. Avoid nephrotoxins including contrast dye and NSAIDs. Adjust medication dosing according to GFR. (3) Paroxysmal a-fib Current Visit: No Status: Chronic Assessment and plan: Rate controlled, aspirin only for anticoagulation (4) EBONIE (acute kidney injury) Current Visit: Yes Status: Acute Assessment and plan: renal function worse from yesterday. Continue with IV fluids and TPN electrolytes. (5) Small bowel obstruction Current Visit: Yes Status: Acute Assessment and plan: 09/23/2016: Patient underwent exploratory laparotomy with lysis of adhesions small bowel resection yesterday. She tolerated the procedure well. Continue nothing by mouth. Follow-up with surgery. Continue intravenous fluids. She is at high risk for morbidity or mortality and complications due to change in mental status and treatment with IV opiates for pain. 09/22/2016: Conservative measures were ineffective. Plan is for surgery later today per surgical team Dr. Dubose. Small bowel follow-through abnormal from yesterday. Patient continues to deny pain. Will initiate TPN later today. 09/21/16 Continue supportive care. Surgery following. Small bowel follow-through appears to have been consistent with a small bowel obstruction. She will remain nothing by mouth with NG tube in place. Possible surgery tomorrow at surgery's discretion. On examination, she is alert and oriented 3 but states she is miserable and weak. Will involve OT and PT consultations prior to disposition but she is not ready for evaluations at this point. Abdomen remains distended with hypoactive bowel sounds. No flatulence or bowel movements. Diffuse tenderness. Appreciate surgery recommendations. (6) DVT prophylaxis Current Visit: Yes Status: Acute Assessment and plan: Subcutaneous heparin - Subjective Interval history: Is the first time I am evaluating this patient. All problems are new to me today. She was admitted 7 days ago and treated conservatively for small bowel obstruction and today she had an exploratory laparotomy with lysis of adhesions and resection of small bowel. She tolerated the procedure well and is being evaluated postop. She cannot provide any history due to sedation. She is nonverbal. History was obtained from the patient's family at the bedside. They stated that she wakes up and will nod and will follow simple commands. She does not complain of pain. - Constitutional Vitals: Temp Pulse Resp BP Pulse Ox 98.6 F 81 14 127/63 96 09/23/16 15:07 09/23/16 15:07 09/23/16 15:07 09/23/16 15:07 09/23/16 15:07 Exam: Sedated, follows simple commands, she appears in no acute distress. - Eye Eye exam: Present: PERRL, conjuntiva pink, sclera anicteric Pupils: Present: PERRL - Neck Neck exam general surgery: Present: supple, trachea midline. Absent: lymphadenopathy - Respiratory Respiratory exam: Present: CTAB. Absent: accessory muscle use, rales, rhonchi, wheezes - Cardiovascular Cardiovascular exam: Present: RRR, +S1, +S2. Absent: diastolic murmur, gallop, rubs, systolic murmur - GI/Abdominal GI/Abdominal exam: Present: diminished bowel sounds (Surgical incision covered with dressing clean dry and intact. JONATHAN drain in place.), normal bowel sounds, soft, no peritoneal signs. Absent: distended, tenderness - Extremities Exam Extremities exam: Present: warm, radial pulses palpable and symetrical. Absent : calf tenderness, cyanotic, pedal edema - Skin Skin exam: Present: dry, intact Internal Medicine: Result - Labs CBC & Chem 7: 09/23/16 00:03 09/23/16 00:03 Labs: Short CBC 09/23/16 Range/Units 00:03 WBC 11.4 H (4.3-11.1) K/mcL Hgb 10.2 L (11.5-15.4) g/dL Hct 33.6 L (35.3-44.9) % Plt Count 230 (140-400) K/mcL Neutrophils # 10.1 H (1.6-8.9) K/mcL BMP 09/23/16 00:03 Sodium 149 H Potassium 3.7 Chloride 116 H Carbon Dioxide 28 BUN 42 H Creatinine 2.01 H Glucose 218 H Calcium 8.5 L Liver Function 09/23/16 Range/Units 00:03 Total Bilirubin 0.5 (0.2-1.2) mg/dL AST 11 (5-34) Units/L ALT < 6 (0-55) Units/L Alkaline Phosphatase 70 (38-126) Units/L Albumin 2.2 L (3.5-5.0) g/dL - ABG Interpretation ABG results: PT/INR, D-dimer PT 11.8 Seconds (9.4-12.1) 09/22/16 04:02 - VTE Documentation of Mechanical Device: Intermittent pneumatic compression device Consult Discharge Plan - Plan Referrals: William Galvan MD [Primary Care Provider] -
[2016-09-24] MEDS: Acetaminophen IV 1,000 MG/100 ML INFUS..BTL IVPB SCH ×4 (00:05→23:27)
[2016-09-24] MEDS: Insulin LISPRO 300 UNITS/3 ML VIAL SQ SCH ×7 (00:08→23:30)
[2016-09-24] MEDS: 0.9 % Sodium Chloride 1,000 ML IVC SCH ×3 (00:08→23:12)
[2016-09-24] MEDS: *HR* Metoprolol 5 MG/5 ML VIAL IVP SCH ×5 (00:09→23:36)
[2016-09-24 04:03] LABS: Hematocrit 28.9 % (35.3-44.9); Hemoglobin 8.7 g/dL (11.5-15.4); Mean Corpuscular HGB Conc 30.1 g/dL (31.6-35.5); Mean Corpuscular Hemoglobin 28.1 pg (28.0-33.3); Mean Corpuscular Volume 93.2 fL (83.0-100.0); Mean Platelet Volume 11.4 fL (9.4-12.4); Nucleated Red Blood Cells 0.2 /100 WBC (0); Platelet Count 178 K/mcL (140-400); Red Cell Distribution Width 15.9 % (11.5-14.5)
[2016-09-24 04:15] LABS: Calcium 8.7 mg/dL (8.6-10.8); Magnesium 1.3 mg/dL (1.6-2.6); Phosphorous 2.5 mg/dL (2.3-4.7); Potassium 3.3 mEq/L (3.5-4.5)
[2016-09-24 04:44] LABS: Eosinophils # 0.2 K/mcL (0.0-0.6); Lymphocytes # 0.9 K/mcL (0.6-4.6); Monocytes # 0.7 K/mcL (0.0-1.3); Neutrophils # 9.4 K/mcL (1.6-8.9); Platelet Estimate Normal (Normal)
[2016-09-24] MEDS: *HR* Heparin 5,000 UNIT/ML VIAL SQ SCH ×2 (05:28→17:39)
[2016-09-24] MEDS: Famotidine 20 MG/2 ML VIAL IVP SCH (05:31)
[2016-09-24] MEDS ORDERED: 0.9 % Sodium Chloride 500 ML IVC ONE ×2 (09:47→12:02)
[2016-09-24] MEDS ORDERED: Magnesium Sulfate 2 GM in D5% in Water 100 ML IVPB ONE (09:47)
[2016-09-24 10:40] LABS: Hematocrit 29.3 % (35.3-44.9); Hemoglobin 8.4 g/dL (11.5-15.4)
[2016-09-24] MEDS ORDERED: Clinimix E 5%-20% SOLUTION 2,000 ML with MVI, adult with vitamin K 10 ML IVC SCH (17:00)
--- NOTE | 2016-09-24 17:20 | General Surgery Progress Note ---
Date of Encounter: 09/24/16 Time of Encounter: 10:25 - Assessment and Plan (1) Small bowel obstruction Current Visit: Yes Status: Acute POD #2 from Exploratory laparotomy, lysis of adhesions, right salpingoophorectomy, left oophorectomy with Dr. Dubose Continue bowel rest while awaiting return of bowel function NG tube to LIWS IV fluids TPN- managment per seamer panty hose Insulin coverage increased to medium scale every 4 hours Supportive care/pain control Berger catheter to SD for strict I&Os Repeat am labs (2) EBONIE (acute kidney injury) Current Visit: Yes Status: Acute bolus IVF, continue hydration, EBONIE JONATHAN creatinine checked - normal, Berger catheter to SD for strict I&O Avoid nephrotoxic medications Repeat am labs (3) DVT prophylaxis Current Visit: Yes Status: Acute EPCDs to bilateral lower extremities for DVT prophylaxis (4) Ovarian mass, left Current Visit: Yes Status: Acute CA 125 elevated at 183, await pathology (5) Ovarian mass, right Current Visit: Yes Status: Acute CA 125 elevated at 183, await pathology (6) Anemia Current Visit: Yes Status: Acute patient anemia likely from CKD, dilutional, even a little postoperative, trend Hb vitals stable currently Qualifiers: Other causes of anemia: chronic disease, kidney Qualified Code(s): N18.9 - Chronic kidney disease, unspecified; D63.1 - Anemia in chronic kidney disease (7) CKD (chronic kidney disease), stage III Current Visit: No Status: Chronic monitor Cr and uop Subjective Narrative: patient still very sleepy will awaken and answer questions denies abdominal pain or flatus denies nausea Objective Vital Signs - Last 8 Hours Temp Pulse Resp BP Pulse Ox 09/24/16 15:53 97.8 F 86 18 149/62 96 09/24/16 14:00 70 145/62 09/24/16 11:42 97.7 F 83 20 140/58 98 09/24/16 10:26 98.2 F 90 20 150/69 96 Intake and Output 09/24/16 09/24/16 09/24/16 07:59 15:59 23:59 Intake Total 1813 / 1813 1626 / 1626 100 / 100 Output Total 335 / 335 891 / 891 Balance 1478 / 1478 735 / 735 100 / 100 Intake: IV Fluids 1813 / 1813 1626 / 1626 100 / 100 0.9 % Sodium Chloride 1, 422 / 422 000 ML @ 75 mls/hr IVC . [id number] [facility] Rx#: [id number] 0.9 % Sodium Chloride 500 1000 / 1000 ML @ 1875 mls/hr IVC . Q16M ONE Rx#:[id number] Clinimix E 5%-20% 1463 / 1463 SOLUTION 2,000 ML @ 50 mls/hr IVC .Q24H [facility] with M.v.i. Adult 10 ml Rx#: [id number] Ofirmev 1,000 mg In 100 100 / 100 100 / 100 100 / 100 ml @ 400 mls/hr IVPB Q8HR [facility] Rx#:[id number] Intralipid 20% 250 ML @ 250 / 250 21 mls/hr IVPB DAILY@1700 [facility] Rx#:[id number] Magnesium Sulfate 2 GM In 104 / 104 Dextrose 5% 100 ML @ 100 mls/hr IVPB ONCE ONE Rx# :[id number] Oral 0 / 0 0 / 0 0 / 0 Output: Urine 0 / 0 275 / 275 Urethral (Berger) 75 / 75 Catheter 225 / 225 375 / 375 Gastric Drainage 90 / 90 Wound Drainage 110 / 110 151 / 151 Left Abdomen 110 / 110 151 / 151 Other: Meal NPO NPO Percent of Meal Consumed 0% Weight 72 kg Blood Glucose* 149 170 135 Patient Weight 09/24/16 23:59 Weight 72 kg - General physical appearance well developed, well nourished, no distress, no pain - Eyes PERRL - ENT dry mucosa, atraumatic, normocephalic - Neck Neck exam: trachea midline - Respiratory normal expansion, clear to auscultation - Cardiovascular Cardiovascular exam: Present: RRR - Abdomen Abdomen: Present: soft, tender (appropriate post op tenderness, minimal). Absent: bowel sounds present - Incision Incision: Present: clean and dry, intact - Integumentary no rash, no growths - Neurologic CN 2-12 grossly intact - Musculoskeletal normal posture - Psychiatric oriented to person - Labs 09/24/16 10:28 09/24/16 03:30 Vital Signs Temp Pulse Resp BP Pulse Ox 09/24/16 15:53 97.8 F 86 18 149/62 96 09/24/16 14:00 70 145/62 09/24/16 11:42 97.7 F 83 20 140/58 98 09/24/16 10:26 98.2 F 90 20 150/69 96 09/24/16 08:14 98.0 F 98 22 131/71 98 09/24/16 08:05 96 09/24/16 05:24 104 20 133/64 93 09/24/16 04:21 98.7 F 103 22 145/69 94 09/24/16 02:14 104 135/71 09/23/16 23:56 99.1 F 110 14 153/81 94 09/23/16 22:05 102 152/71 93 09/23/16 19:37 98.7 F 85 14 146/67 96 Intake and Output 09/24/16 09/24/16 09/24/16 07:59 15:59 23:59 Intake Total 1813 / 1813 1626 / 1626 100 / 100 Output Total 335 / 335 891 / 891 Balance 1478 / 1478 735 / 735 100 / 100 Intake: IV Fluids 1813 / 1813 1626 / 1626 100 / 100 0.9 % Sodium Chloride 1, 422 / 422 000 ML @ 75 mls/hr IVC . [id number] [facility] Rx#: [id number] 0.9 % Sodium Chloride 500 1000 / 1000 ML @ 1875 mls/hr IVC . Q16M [facility] Rx#:[id number] Clinimix E 5%-20% 1463 / 1463 SOLUTION 2,000 ML @ 50 mls/hr IVC .Q24H [facility] with M.v.i. Adult 10 ml Rx#: [id number] Ofirmev 1,000 mg In 100 100 / 100 100 / 100 100 / 100 ml @ 400 mls/hr IVPB Q8HR [facility] Rx#:[id number] Intralipid 20% 250 ML @ 250 / 250 21 mls/hr IVPB DAILY@1700 [facility] Rx#:[id number] Magnesium Sulfate 2 GM In 104 / 104 Dextrose 5% 100 ML @ 100 mls/hr IVPB ONCE [facility] Rx# :[id number] Oral 0 / 0 0 / 0 0 / 0 Output: Urine 0 / 0 275 / 275 Urethral (Berger) 75 / 75 Catheter 225 / 225 375 / 375 Gastric Drainage 90 / 90 Wound Drainage 110 / 110 151 / 151 Left Abdomen 110 / 110 151 / 151 Other: Meal NPO NPO Percent of Meal Consumed 0% Weight 72 kg Blood Glucose* 149 170 135 Patient Weight 09/24/16 23:59 Weight 72 kg Short CBC 09/24/16 09/24/16 Range/Units 10:28 03:30 WBC 11.7 H (4.3-11.1) K/mcL Hgb 8.4 L 8.7 L D (11.5-15.4) g/dL Hct 29.3 L 28.9 L (35.3-44.9) % Plt Count 178 (140-400) K/mcL Neutrophils # 9.4 H (1.6-8.9) K/mcL BMP 09/24/16 Range/Units 03:30 Sodium 148 H (136-145) mEq/L Potassium 3.3 L (3.5-4.5) mEq/L Chloride 116 H (98-109) mEq/L Carbon Dioxide 24 (19-29) mEq/L BUN 53 H D (7-20) mg/dL Creatinine 2.29 H (0.57-1.11) mg/dL Glucose 144 H (70-99) mg/dL Calcium 8.7 (8.6-10.8) mg/dL - VTE Documentation of Mechanical Device: Intermittent pneumatic compression device Consult Discharge Plan - Plan Referrals: William Galvan MD [Primary Care Provider] -
--- NOTE | 2016-09-24 17:44 | Internal Med Progress Note ---
Date of Encounter: 09/24/16 Time of Encounter: 13:00 - Assessment and plan (1) HTN (hypertension) Current Visit: Yes Status: Chronic Assessment and plan: Continue IV metoprolol and hydralazine while the patient is nothing by mouth. Resume oral meds when she has reliable oral intake. Qualifiers: Hypertension type: essential hypertension Qualified Code(s): I10 - Essential (primary) hypertension (2) CKD (chronic kidney disease), stage III Current Visit: No Status: Chronic Assessment and plan: Monitor kidney function. Avoid nephrotoxins including contrast dye and NSAIDs. Adjust medication dosing according to GFR. (3) Paroxysmal a-fib Current Visit: No Status: Chronic Assessment and plan: Rate controlled, aspirin only for anticoagulation (4) EBONIE (acute kidney injury) Current Visit: Yes Status: Acute Assessment and plan: renal function worse from yesterday. She appears to be dehydrated, she is losing fluid from the NG tube and JONATHAN drain and only receiving 50 mL per hour. We will give a bolus of 1000 mL normal saline and repeat Chem-7. We will increase IV fluid rate, continue TPN electrolytes. We will proceed more judicious IV fluid hydration given consideration to her history of cardiomyopathy with ejection fraction of 25% previously, per her last echocardiogram in July 2015 found in her records her EF had improved to 55-60%. (5) Small bowel obstruction Current Visit: Yes Status: Acute Assessment and plan: 09/24/2016: Continue postop recovery. Continue with NG tube. IV fluids and TPN. Discussed the case with the surgeon. 09/23/2016: Patient underwent exploratory laparotomy with lysis of adhesions small bowel resection yesterday. She tolerated the procedure well. Continue nothing by mouth. Follow-up with surgery. Continue intravenous fluids. She is at high risk for morbidity or mortality and complications due to change in mental status and treatment with IV opiates for pain. 09/22/2016: Conservative measures were ineffective. Plan is for surgery later today per surgical team Dr. Dubose. Small bowel follow-through abnormal from yesterday. Patient continues to deny pain. Will initiate TPN later today. 09/21/16 Continue supportive care. Surgery following. Small bowel follow-through appears to have been consistent with a small bowel obstruction. She will remain nothing by mouth with NG tube in place. Possible surgery tomorrow at surgery's discretion. On examination, she is alert and oriented 3 but states she is miserable and weak. Will involve OT and PT consultations prior to disposition but she is not ready for evaluations at this point. Abdomen remains distended with hypoactive bowel sounds. No flatulence or bowel movements. Diffuse tenderness. Appreciate surgery recommendations. (6) DVT prophylaxis Current Visit: Yes Status: Acute Assessment and plan: Subcutaneous heparin - Subjective Interval history: 09/24/2016: She is more awake today but cannot provide any history due to sedation. She reports abdominal pain, grimaces when I press on her stomach. Denies nausea. She has an NG tube. 09/23/2016: The patient was admitted 7 days ago and treated conservatively for small bowel obstruction and today she had an exploratory laparotomy with lysis of adhesions and resection of small bowel. She tolerated the procedure well and is being evaluated postop. She cannot provide any history due to sedation. She is nonverbal. History was obtained from the patient's family at the bedside. They stated that she wakes up and will nod and will follow simple commands. She does not complain of pain. - Constitutional Vitals: Temp Pulse Resp BP Pulse Ox 97.8 F 86 18 149/62 96 09/24/16 15:53 09/24/16 15:53 09/24/16 15:53 09/24/16 15:53 09/24/16 15:53 General appearance: Present: cooperative, A&O X 3, pleasant, no acute distress, answers questions appropriately - Eye Eye exam: Present: PERRL, conjuntiva pink, sclera anicteric Pupils: Present: PERRL - Respiratory Respiratory exam: Present: decreased breath sounds, CTAB. Absent: accessory muscle use, rales, rhonchi, wheezes - Cardiovascular Cardiovascular exam: Present: irregular rhythm, +S1, +S2. Absent: diastolic murmur, gallop, rubs, systolic murmur - GI/Abdominal GI/Abdominal exam: Present: hypoactive bowel sounds, tenderness. Absent: distended, rebound, no peritoneal signs - Extremities Exam Extremities exam: Present: warm, radial pulses palpable and symetrical. Absent : calf tenderness, cyanotic, pedal edema - Neurological Exam Additional comments: Sedated, arousable - Skin Skin exam: Present: dry, intact Internal Medicine: Result - Labs CBC & Chem 7: 09/24/16 10:28 09/24/16 03:30 Labs: Short CBC 09/24/16 09/24/16 Range/Units 03:30 10:28 WBC 11.7 H (4.3-11.1) K/mcL Hgb 8.7 L D 8.4 L (11.5-15.4) g/dL Hct 28.9 L 29.3 L (35.3-44.9) % Plt Count 178 (140-400) K/mcL Neutrophils # 9.4 H (1.6-8.9) K/mcL BMP 09/24/16 03:30 Sodium 148 H Potassium 3.3 L Chloride 116 H Carbon Dioxide 24 BUN 53 H D Creatinine 2.29 H Glucose 144 H Calcium 8.7 - ABG Interpretation ABG results: PT/INR, D-dimer PT 11.8 Seconds (9.4-12.1) 09/22/16 04:02 - VTE Documentation of Mechanical Device: Intermittent pneumatic compression device Consult Discharge Plan - Plan Referrals: William Galvan MD [Primary Care Provider] -
[2016-09-24 18:31] LABS: Calcium 8.9 mg/dL (8.6-10.8); Potassium 3.4 mEq/L (3.5-4.5)
[2016-09-25] MEDS: Insulin LISPRO 300 UNITS/3 ML VIAL SQ SCH ×6 (04:12→23:47)
[2016-09-25 04:15] LABS: Hematocrit 29.7 % (35.3-44.9); Hemoglobin 8.8 g/dL (11.5-15.4); Mean Corpuscular HGB Conc 29.6 g/dL (31.6-35.5); Mean Corpuscular Hemoglobin 27.6 pg (28.0-33.3); Mean Corpuscular Volume 93.1 fL (83.0-100.0); Mean Platelet Volume 11.3 fL (9.4-12.4); Monocytes # 1.2 K/mcL (0.0-1.3); Nucleated Red Blood Cells 0.1 /100 WBC (0); Platelet Count 165 K/mcL (140-400); Red Blood Count 3.19 M/mcL (3.82-4.97); Red Cell Distribution Width 16.1 % (11.5-14.5)
[2016-09-25 04:26] LABS: Magnesium 1.9 mg/dL (1.6-2.6); Phosphorous 2.8 mg/dL (2.3-4.7); Potassium 3.3 mEq/L (3.5-4.5)
[2016-09-25 04:32] LABS: Eosinophils # 0.3 K/mcL (0.0-0.6); Neutrophils # 10.9 K/mcL (1.6-8.9); Platelet Estimate Normal (Normal); Reactive Lymphocytes Present (Not Present)
[2016-09-25] MEDS: *HR* Metoprolol 5 MG/5 ML VIAL IVP SCH ×4 (05:34→23:46)
[2016-09-25] MEDS: *HR* Heparin 5,000 UNIT/ML VIAL SQ SCH ×2 (05:35→17:44)
[2016-09-25] MEDS: Famotidine 20 MG/2 ML VIAL IVP SCH (05:38)
[2016-09-25] MEDS: 0.9 % Sodium Chloride 1,000 ML IVC SCH (05:39)
[2016-09-25] MEDS: Acetaminophen IV 1,000 MG/100 ML INFUS..BTL IVPB SCH ×3 (08:39→23:46)
--- NOTE | 2016-09-25 10:00 | Internal Med Progress Note ---
Date of Encounter: 09/25/16 Time of Encounter: 09:58 - Assessment and plan (1) HTN (hypertension) Current Visit: Yes Status: Chronic Assessment and plan: Continue IV metoprolol and hydralazine while the patient is nothing by mouth. Resume oral meds when she has reliable oral intake. Qualifiers: Hypertension type: essential hypertension Qualified Code(s): I10 - Essential (primary) hypertension (2) CKD (chronic kidney disease), stage III Current Visit: No Status: Chronic Assessment and plan: Monitor kidney function. Avoid nephrotoxins including contrast dye and NSAIDs. Adjust medication dosing according to GFR. Continue on IV fluids. Consult nephrology. Strict I's and O's. Replete electrolytes. (3) Paroxysmal a-fib Current Visit: No Status: Chronic (4) EBONIE (acute kidney injury) Current Visit: Yes Status: Acute Assessment and plan: 09/25/2016: Continue with IV fluids. Consult nephrology. 09/24/2016: renal function worse from yesterday. She appears to be dehydrated, she is losing fluid from the NG tube and JONATHAN drain and only receiving 50 mL per hour. We will give a bolus of 1000 mL normal saline and repeat Chem-7. We will increase IV fluid rate, continue TPN electrolytes. We will proceed more judicious IV fluid hydration given consideration to her history of cardiomyopathy with ejection fraction of 25% previously, per her last echocardiogram in July 2015 found in her records her EF had improved to 55-60%. (5) Small bowel obstruction Current Visit: Yes Status: Acute Assessment and plan: 09/24/2016: Continue postop recovery. Continue with NG tube. IV fluids and TPN. Discussed the case with the surgeon. 09/23/2016: Patient underwent exploratory laparotomy with lysis of adhesions small bowel resection yesterday. She tolerated the procedure well. Continue nothing by mouth. Follow-up with surgery. Continue intravenous fluids. She is at high risk for morbidity or mortality and complications due to change in mental status and treatment with IV opiates for pain. 09/22/2016: Conservative measures were ineffective. Plan is for surgery later today per surgical team Dr. Dubose. Small bowel follow-through abnormal from yesterday. Patient continues to deny pain. Will initiate TPN later today. 09/21/16 Continue supportive care. Surgery following. Small bowel follow-through appears to have been consistent with a small bowel obstruction. She will remain nothing by mouth with NG tube in place. Possible surgery tomorrow at surgery's discretion. On examination, she is alert and oriented 3 but states she is miserable and weak. Will involve OT and PT consultations prior to disposition but she is not ready for evaluations at this point. Abdomen remains distended with hypoactive bowel sounds. No flatulence or bowel movements. Diffuse tenderness. Appreciate surgery recommendations. (6) DVT prophylaxis Current Visit: Yes Status: Acute Assessment and plan: Subcutaneous heparin and SCDs. (7) Healthcare-associated pneumonia Current Visit: Yes Status: Acute Assessment and plan: 09/25/2016: This is a new problem today. Chest x-ray shows bilateral infiltrates. White blood cell count going up. History of recent endotracheal intubation, abdominal surgery and slow recovery, she is at very high risk for healthcare associated pneumonia. I will check blood cultures stat.. I will start treatment with renally adjusted cefepime and Zyvox. I would avoid vancomycin due to impaired kidney function. Continue supplemental oxygen by nasal cannula 2 L/m. - Subjective Interval history: 09/25/2016: Patient cannot provide history due to sedation. She is arousable but mostly nonverbal. She grimaces when I palpate her abdomen. 09/24/2016: She is more awake today but cannot provide any history due to sedation. She reports abdominal pain, grimaces when I press on her stomach. Denies nausea. She has an NG tube. 09/23/2016: The patient was admitted 7 days ago and treated conservatively for small bowel obstruction and today she had an exploratory laparotomy with lysis of adhesions and resection of small bowel. She tolerated the procedure well and is being evaluated postop. She cannot provide any history due to sedation. She is nonverbal. History was obtained from the patient's family at the bedside. They stated that she wakes up and will nod and will follow simple commands. She does not complain of pain. - Constitutional Vitals: Temp Pulse Resp BP Pulse Ox 97.5 F L 84 19 145/68 97 09/25/16 07:51 09/25/16 07:51 09/25/16 07:51 09/25/16 07:51 09/25/16 07:51 General appearance: Present: A&O X 0, no acute distress - Eye Eye exam: Present: PERRL, conjuntiva pink, sclera anicteric Pupils: Present: PERRL - Respiratory Respiratory exam: Present: decreased breath sounds, CTAB. Absent: accessory muscle use, rales, rhonchi, wheezes - Cardiovascular Cardiovascular exam: Present: RRR, +S1, +S2. Absent: diastolic murmur, gallop, rubs, systolic murmur - GI/Abdominal GI/Abdominal exam: Present: diminished bowel sounds, normal bowel sounds, soft, tenderness, no peritoneal signs. Absent: distended - Extremities Exam Extremities exam: Present: warm, radial pulses palpable and symetrical. Absent : calf tenderness, cyanotic, pedal edema - Skin Skin exam: Present: dry, intact Internal Medicine: Result - Labs CBC & Chem 7: 09/25/16 04:00 09/25/16 04:00 Labs: Short CBC 09/24/16 09/25/16 Range/Units 10:28 04:00 WBC 14.4 H (4.3-11.1) K/mcL Hgb 8.4 L 8.8 L (11.5-15.4) g/dL Hct 29.3 L 29.7 L (35.3-44.9) % Plt Count 165 (140-400) K/mcL Neutrophils # 10.9 H (1.6-8.9) K/mcL BMP 09/24/16 09/25/16 18:13 04:00 Sodium 147 H 145 Potassium 3.4 L 3.3 L Chloride 116 H 115 H Carbon Dioxide 24 25 BUN 55 H 53 H Creatinine 2.10 H 2.09 H Glucose 129 H 146 H Calcium 8.9 9.0 - ABG Interpretation ABG results: PT/INR, D-dimer PT 11.8 Seconds (9.4-12.1) 09/22/16 04:02 - Impressions Impressions I have personally reviewed the chest x-ray and find evidence of bilateral infiltrates concerning for pneumonia and small pleural effusions. Steve Barth Chest X-Ray 09/25/16 08:16 IMPRESSION: Bilateral lobe airspace opacities which likely represent infiltrates with bilateral pleural effusions, left worse than right. Follow up to resolution is suggested. D/ / 09/25/2016 08:58:45 Eliana Velez MD / blake Interpreting Provider: Eliana Velez MD KUB X-Ray 09/25/16 08:16 IMPRESSION: 1. Persistent contrast noted in the colon, compatible with an ileus. D/ / 09/25/2016 08:54:47 Jay Thorne MD / blake Interpreting Provider: Jay Thorne MD - VTE Documentation of Mechanical Device: Intermittent pneumatic compression device Consult Discharge Plan - Plan Referrals: William Galvan MD [Primary Care Provider] -
--- NOTE | 2016-09-25 10:39 | General Surgery Progress Note ---
Date of Encounter: 09/25/16 Time of Encounter: 10:37 - Assessment and Plan (1) Small bowel obstruction Current Visit: Yes Status: Acute POD #3 from Exploratory laparotomy, lysis of adhesions for 1 hour, right salpingoophorectomy, left oophorectomy with Dr. Dubose Continue bowel rest while awaiting return of bowel function NG tube to LIWS IV fluids TPN- managment per banking services clerk Insulin coverage increased to medium scale every 4 hours Supportive care/pain control Blackwell catheter to SD for strict I&Os Repeat am labs Increase in WBC- 11.7>14.4 (urine culture, CXR, KUB, Doppler RUE) (2) EBONIE (acute kidney injury) Current Visit: Yes Status: Acute 2.10>2.09 Blackwell catheter to SD for strict I&O Avoid nephrotoxic medications Repeat am labs Nephrology consulted- Dr. Cam notified (3) Healthcare-associated pneumonia Current Visit: Yes Status: Acute CXR reviewed- Cefepime added per medicine service schedule aerosols (4) DVT prophylaxis Current Visit: Yes Status: Acute EPCDs to bilateral lower extremities for DVT prophylaxis Heparin 5,000 units SQ twice daily for DVT prophylaxis Subjective Patient reports: no new complaints, afebrile, other (Patient resting comfortably ; limited response to verbal stimulus (unchanged)) Objective Vital Signs - Last 8 Hours Temp Pulse Resp BP Pulse Ox 09/25/16 07:51 97.5 F L 84 19 145/68 97 09/25/16 05:27 97.9 F 90 20 145/72 97 Intake and Output 09/24/16 09/25/16 09/25/16 23:59 07:59 15:59 Intake Total 902 / 902 673 / 673 0 / 0 Output Total 320 / 320 250 / 250 0 / 0 Balance 582 / 582 423 / 423 0 / 0 Intake: IV Fluids 902 / 902 673 / 673 0.9 % Sodium Chloride 1, 155 / 155 423 / 423 000 ML @ 75 mls/hr IVC . [id number] JAM[facility] Rx#: [id number] Clinimix E 5%-20% 547 / 547 SOLUTION 2,000 ML @ 50 mls/hr IVC .Q24H JAMIL with M.v.i. Adult 10 ml Rx#: [id number] Ofirmev 1,000 mg In 100 200 / 200 ml @ 400 mls/hr IVPB Q8HR [facility] Rx#:[id number] Intralipid 20% 250 ML @ 250 / 250 21 mls/hr IVPB DAILY@1700 [facility] Rx#:[id number] Oral 0 / 0 0 / 0 0 / 0 Output: Urine 100 / 100 45 / 45 0 / 0 Urethral (Blackwell) 45 / 45 Catheter 125 / 125 205 / 205 Gastric Drainage 75 / 75 Wound Drainage 20 / 20 0 / 0 Left Abdomen 20 / 20 0 / 0 Other: Meal NPO NPO Percent of Meal Consumed 0% Blood Glucose* 157 141 - General physical appearance well developed, no distress, other (resting comfortably) - Eyes normal ocular movement - ENT dry mucosa, atraumatic, normocephalic - Neck Neck exam: trachea midline - Cardiovascular Cardiovascular exam: Present: RRR - Abdomen Abdomen: Present: bowel sounds present (minimal, hypoactive), soft, tender ( expected post-operative tenderness), wound (NG tube to LIWS (minimal drainage); JONATHAN drain with serous drainage (100ml since midnight)) - Incision Incision: Present: clean and dry, intact - Genitourinary other (blackwell catheter to SD with clear, yellow urine noted) - Integumentary no rash, no growths - Neurologic CN 2-12 grossly intact - Musculoskeletal other (deconditioning noted) - Psychiatric oriented to person - Labs 09/25/16 04:00 09/25/16 04:00 Diabetes panel 09/24/16 09/25/16 Range/Units 18:13 04:00 Sodium 147 H 145 (136-145) mEq/L Potassium 3.4 L 3.3 L (3.5-4.5) mEq/L Chloride 116 H 115 H (98-109) mEq/L Carbon Dioxide 24 25 (19-29) mEq/L BUN 55 H 53 H (7-20) mg/dL Creatinine 2.10 H 2.09 H (0.57-1.11) mg/dL Glucose 129 H 146 H (70-99) mg/dL Calcium 8.9 9.0 (8.6-10.8) mg/dL Calcium panel 09/24/16 09/25/16 Range/Units 18:13 04:00 Calcium 8.9 9.0 (8.6-10.8) mg/dL Phosphorus 2.8 (2.3-4.7) mg/dL Pituitary panel 09/24/16 09/25/16 Range/Units 18:13 04:00 Sodium 147 H 145 (136-145) mEq/L Potassium 3.4 L 3.3 L (3.5-4.5) mEq/L Chloride 116 H 115 H (98-109) mEq/L Carbon Dioxide 24 25 (19-29) mEq/L BUN 55 H 53 H (7-20) mg/dL Creatinine 2.10 H 2.09 H (0.57-1.11) mg/dL Glucose 129 H 146 H (70-99) mg/dL Calcium 8.9 9.0 (8.6-10.8) mg/dL Adrenal panel 09/24/16 09/25/16 Range/Units 18:13 04:00 Sodium 147 H 145 (136-145) mEq/L Potassium 3.4 L 3.3 L (3.5-4.5) mEq/L Chloride 116 H 115 H (98-109) mEq/L Carbon Dioxide 24 25 (19-29) mEq/L BUN 55 H 53 H (7-20) mg/dL Creatinine 2.10 H 2.09 H (0.57-1.11) mg/dL Glucose 129 H 146 H (70-99) mg/dL Calcium 8.9 9.0 (8.6-10.8) mg/dL - VTE Documentation of Mechanical Device: Intermittent pneumatic compression device Consult Discharge Plan - Plan Referrals: William Galvan MD [Primary Care Provider] - - Attending Attestation I examined this patient and my medical decision-making was reviewed with the RN RESOURCE NURSE/PA/Advanced Practice Nurse/Resident Physician. I agree with the documented findings, disposition and treatment plan as described except to the extent set forth below. I examined this patient and my medical decision-making was reviewed with the RN RESOURCE NURSE/PA/Advanced Practice Nurse/Resident Physician. I agree with the documented findings, disposition and treatment plan as described except to the extent set forth below.
[2016-09-25] MEDS: Cefepime HCl 2,000 MG in D5% in Water (Mini-Bag+) 100 ML IVPB SCH (11:01)
--- NOTE | 2016-09-25 12:48 | Nephrology Consult Note ---
Date of Encounter: 09/25/16 Time of Encounter: 09:45 Assessment and Plan (1) EBONIE (acute kidney injury) Current Visit: Yes Status: Acute Nonoliguric EBONIE on CKD stage III Renal risk factors include: infections with now HCAP, hemodynamic with BP changes (she is typically more hypertensive), ?post-renal Will check a renal U/S to rule out any potential new hydronephrosis Volume status: she is near euvolemic without fluid overload, but the chest imaging did reveal pleural effusions and now with HCAP Agree with broadening the Antibiotic spectrum. I suspect her SCr has worsened in the last few days d/t the newly developing HCAP. Hypoalbuminemia: agree with TPN Continue to follow a renal conservative and protective strategy. No urgent indications for ASSISTANT GROCERY. Dose Rx by GFR. Avoid Nephrotoxins as able. Strict I/Os, daily weights. Thank you for consulting the [facility] group. My colleague Dr. Ortiz will be on-call starting Monday at 8am. (2) Healthcare-associated pneumonia Current Visit: Yes Status: Acute (3) Hypokalemia Current Visit: Yes Status: Acute (4) HTN (hypertension) Current Visit: Yes Status: Chronic Qualifiers: Hypertension type: essential hypertension Qualified Code(s): I10 - Essential (primary) hypertension (5) CKD (chronic kidney disease), stage III Current Visit: No Status: Chronic History of Present Illness - Reason for Consult Consult date: 09/25/16 Acute Kidney Injury, Chronic Kidney Disease Requesting physician: Neo Barth - Chief Complaint EBONIE on CKD stage III - History of Present Illness Nancy is a pleasant 86 y/o lady with a pmh of CKD stage III ( she recently established with Dr. Ortiz at [facility]), AFib and et al who presented several days ago with abdominal pain. Nephrology was consulted for worsening EBONIE on CKD stage III over the last few days. She required an emergent ex lap and required opherectomy for a very large ovary and it was found that her ureter and bowels were tightly adhered. In her recent work up with Dr. Ortiz as an outpt, she had a renal U/S that demonstrated no overt hydronephrosis, but mild pelviectasis. She was not able to prove any history d/t her AMS, which has been present largely for the entire hospitalization. The , who has been to the pt for about 65 yr, said that she is typically active and regularly goes out to dinner. Over the last few days, her WBC has been rising and her JONATHAN drain as been putting out increased drainage (the Cr level of the JONATHAN drain was WNL). She was diagnosed with HCAP today in discussion with the hospitalist and placed on broad spectrum antibiotics. No recent contrast exposures such as LHC and the recent CT abd was actually without contrast. She does not take NSAIDs routinely, and there is no ESRD in the family per report. Past Med Surg Social Fam HX - Past Medical History Medical history: arthritis, coronary artery disease, hyperlipidemia, hypertension, renal disease Psychiatric history: no psych history - Past Surgical History Surgical History: angioplasty/stent, appendectomy, cataract, hysterectomy - Social History Smoking Status: Never smoker Smokeless Tobacco Status: No Alcohol use: none Drug use: none - Family History Brother Adopted: No Family Member Ethnicity: Non- Living Status: Hx Family Cardiac Disorders: Yes Hx Family Respiratory Disorders: No Hx Family Cancer: Yes Hx Family GI Disorders: No Hx Family Endocrine Disorder: Yes Hx Family Neuromuscular Disorders: No Hx Family Neurologic Disorders: No Hx Family HEENT Disorders: No Hx Family Autoimmune Disorders: No Hx Family Medical Disorders: Yes Medications and Allergies Aspirin 81 mg PO DAILY 04/06/15 [History] Atorvastatin [Lipitor] 40 mg PO DAILY 04/06/15 [History] Isosorbide DInitrate [Isosorbide Dinitrate] 20 mg PO TID 04/06/15 [History] Losartan [Cozaar] 50 mg PO BID 04/06/15 [History] Nitroglycerin 0.4 mg SL Q5MIN PRN 04/06/15 [History] HydrALAZINE 50 mg PO TID #0 04/07/15 [Rx] Potassium Chloride 10 meq PO BIDWM #0 04/07/15 [Rx] Beclomethasone Diprop 40mcg [QVAR 40 mcg] 1 puff IH BID 02/02/16 [History] Ipratropium/Albuterol Neb [Duoneb] 3 ml IH TID 02/02/16 [History] Oxygen 2 l NS HS 02/02/16 [History] Carvedilol [Coreg] 25 mg PO BID PRN 09/16/16 [History] Chlorthalidone [Chlorthalidone] 25 mg PO DAILY 09/16/16 [History] Cyanocobalamin (B-12) [Vitamin B12] 1,000 mcg PO DAILY 09/16/16 [History] Ergocalciferol (VITAMIN D2) [Vitamin D2] 50,000 unit PO QWEEK 09/16/16 [History] Ondansetron ODT [Zofran ODT] 4 mg PO TID PRN 09/16/16 [History] Allergies amlodipine [From [facility]] Allergy (Verified 07/31/15 07:55) SWELLING IN LEGS lisinopril Allergy (Verified 04/06/15 06:45) Cough Review of Systems ROS unobtainable: due to mental status Exam - Vital Signs Vital signs: Initial Vital Signs Temp Pulse Resp BP Pulse Ox 97.4 F L 70 16 146/72 89 09/16/16 14:08 09/16/16 14:08 09/16/16 14:08 09/16/16 14:08 09/16/16 14:08 Vital Signs - Last 8 Hours Temp Pulse Resp BP Pulse Ox 09/25/16 11:57 98.2 F 84 18 149/68 95 09/25/16 07:51 97.5 F L 84 19 145/68 97 09/25/16 05:27 97.9 F 90 20 145/72 97 Intake and Output 09/24/16 09/25/16 09/25/16 23:59 07:59 15:59 Intake Total 902 / 902 673 / 673 0 / 0 Output Total 320 / 320 250 / 250 0 / 0 Balance 582 / 582 423 / 423 0 / 0 Intake: IV Fluids 902 / 902 673 / 673 0.9 % Sodium Chloride 1, 155 / 155 423 / 423 000 ML @ 75 mls/hr IVC . [id number] [facility] Rx#: [id number] Clinimix E 5%-20% 547 / 547 SOLUTION 2,000 ML @ 50 mls/hr IVC .Q24H [facility] with M.v.i. Adult 10 ml Rx#: [id number] Ofirmev 1,000 mg In 100 200 / 200 ml @ 400 mls/hr IVPB Q8HR [facility] Rx#:[id number] Intralipid 20% 250 ML @ 250 / 250 21 mls/hr IVPB DAILY@1700 [facility] Rx#:[id number] Oral 0 / 0 0 / 0 0 / 0 Output: Urine 100 / 100 45 / 45 0 / 0 Urethral ([place]) 45 / 45 Catheter 125 / 125 205 / 205 Gastric Drainage 75 / 75 Wound Drainage 20 / 20 0 / 0 0 / 0 Left Abdomen 20 / 20 0 / 0 0 / 0 Other: Meal NPO NPO Percent of Meal Consumed 0% Blood Glucose* 157 166 - General Appearance General appearance: well-developed, obese, chronically ill, fatigue, frail EENT: ATNC, PERRL, mucous membranes dry Neck: no carotid bruit, supple Respiratory: clear Cardiology: no murmurs, edema (trace ankle edema b/l), regular rate, irregular rhythm, normal S1, normal S2 Gastrointestinal: no tenderness, distended Integumentary: warm and dry Neurologic: confused, disoriented Musculoskeletal: no deformities, no erythema, no cyanosis Results - Lab Results 09/25/16 04:00 09/25/16 04:00 Most recent lab results Calcium 9.0 mg/dL (8.6-10.8) 09/25/16 04:00 Phosphorus 2.8 mg/dL (2.3-4.7) 09/25/16 04:00 Magnesium 1.9 mg/dL (1.6-2.6) 09/25/16 04:00 I reviewed the above autogenerated data, including inpatient and outpatient progress notes. Her PCP is Dr. Galvan and her primary machine mover is Dr. Ortiz. I reviewed the meds, labs, vitals, imaging. Consult Discharge Plan - Plan Referrals: William Galvan MD [Primary Care Provider] -
[2016-09-25] MEDS: Ipratropium/Albuterol Neb 3 ML IH SCH ×2 (16:31→22:02)
[2016-09-25] MEDS ORDERED: Clinimix E 5%-20% SOLUTION 2,000 ML with MVI, adult with vitamin K 10 ML IVC SCH (17:00)
[2016-09-25] MEDS: Ringers Solution, Lactated 1,000 ML IVC SCH (18:24)
[2016-09-26] MEDS: Ringers Solution, Lactated 1,000 ML IVC SCH
[2016-09-26] MEDS: Ipratropium/Albuterol Neb 3 ML IH SCH ×4 (03:54→22:05)
[2016-09-26] MEDS: Insulin LISPRO 300 UNITS/3 ML VIAL SQ SCH ×5 (04:14→20:16)
[2016-09-26 05:41] LABS: Hematocrit 27.2 % (35.3-44.9); Hemoglobin 8.4 g/dL (11.5-15.4); Mean Corpuscular HGB Conc 30.9 g/dL (31.6-35.5); Mean Corpuscular Hemoglobin 28.3 pg (28.0-33.3); Mean Platelet Volume 11.5 fL (9.4-12.4); Nucleated Red Blood Cells 0.1 /100 WBC (0); Platelet Count 142 K/mcL (140-400); Red Blood Count 2.97 M/mcL (3.82-4.97); Red Cell Distribution Width 16.3 % (11.5-14.5)
[2016-09-26 06:00] LABS: Calcium 9.3 mg/dL (8.6-10.8); Magnesium 1.7 mg/dL (1.6-2.6)
[2016-09-26] MEDS: *HR* Metoprolol 5 MG/5 ML VIAL IVP SCH ×3 (06:00→18:45)
[2016-09-26] MEDS: Famotidine 20 MG/2 ML VIAL IVP SCH (06:00)
[2016-09-26 06:02] LABS: Phosphorous 3.2 mg/dL (2.3-4.7); Potassium 3.6 mEq/L (3.5-4.5)
[2016-09-26 06:16] LABS: Mean Corpuscular Volume 91.6 fL (83.0-100.0)
[2016-09-26] MEDS: *HR* Heparin 5,000 UNIT/ML VIAL SQ SCH ×2 (06:16→18:49)
[2016-09-26 06:17] LABS: Eosinophils # 0.7 K/mcL (0.0-0.6); Monocytes # 1.7 K/mcL (0.0-1.3); Neutrophils # 12.4 K/mcL (1.6-8.9); Platelet Estimate Normal (Normal)
--- NOTE | 2016-09-26 10:21 | Nephrology Progress Note ---
Date of Encounter: 09/26/16 Time of Encounter: 10:10 - Assessment and Plan (1) EBONIE (acute kidney injury) Current Visit: Yes Status: Acute Nonoliguric EBONIE on CKD stage III, SCr stable today compared to yesterday. Renal risk factors include: infectious status with HCAP, hypertension Dr. Cam previously mentioned rechecking a renal U/S to rule out any new hydronephrosis. Discussed with Dr. Ortiz that as patient having good UOP and stable SCr we will wait on repeat US. Hypoalbuminemia: continue with TPN Plan: Continue to follow a renal conservative and protective strategy. 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 Dose Rx by GFR. Avoid Nephrotoxins as able. Strict I/Os, daily weights. (2) Healthcare-associated pneumonia Current Visit: Yes Status: Acute Management per primary medicine service. Dose Rx by GFR. Avoid Nephrotoxins as able. (3) Small bowel obstruction Current Visit: Yes Status: Acute POD #4 from Exploratory laparotomy, lysis of adhesions, right salpingoophorectomy, left oophorectomy with Dr. Dubose Management per surgery service. (4) Hypokalemia Current Visit: Yes Status: Acute Improved, K+ 3.3>3.6 (5) CKD (chronic kidney disease), stage III Current Visit: No Status: Chronic (6) HTN (hypertension) Current Visit: Yes Status: Chronic Qualifiers: Hypertension type: essential hypertension Qualified Code(s): I10 - Essential (primary) hypertension (7) Paroxysmal a-fib Current Visit: No Status: Chronic Management per primary service. (8) DVT prophylaxis Current Visit: Yes Status: Acute SVDs and SQ heparin per medicine team. Subjective Principal diagnosis: EBONIE Interval history: Afebrile. Remains somnolent, though notes brief lucid period yesterday evening. SCr with slight improvement from 2.09 ->2.04. UOP of approx 1L yesterday, net positive fluid of 37ml yesterday. Objective - Vital Signs Vital signs: Vital Signs Temp Pulse Resp BP Pulse Ox 09/26/16 08:38 98.5 F 83 18 157/73 95 09/26/16 06:11 154/75 09/26/16 03:55 20 97 09/26/16 03:49 97.8 F 77 18 134/71 97 09/26/16 02:39 141/71 09/25/16 23:28 97.1 F L 81 18 151/73 97 09/25/16 22:02 20 98 09/25/16 21:26 99 09/25/16 19:55 98.2 F 77 18 147/76 99 09/25/16 16:32 18 97 09/25/16 14:58 98.4 F 75 18 132/65 97 09/25/16 14:14 83 3 135/68 09/25/16 11:57 98.2 F 84 18 149/68 95 Intake and Output 09/25/16 09/26/16 09/26/16 23:59 07:59 15:59 Intake Total 100 / 100 100 / 100 Output Total 460 / 460 760 / 760 290 / 290 Balance -360 / -360 -660 / -660 -290 / -290 Intake: IV Fluids 100 / 100 100 / 100 Ofirmev 1,000 mg In 100 100 / 100 100 / 100 ml @ 400 mls/hr IVPB Q8HR [facility] Rx#:[id number] Oral 0 / 0 0 / 0 Output: Urine 0 / 0 Catheter 350 / 350 200 / 200 200 / 200 Gastric Drainage 500 / 500 50 / 50 Wound Drainage 110 / 110 60 / 60 40 / 40 Left Abdomen 0 / 0 Right Abdomen 110 / 110 60 / 60 40 / 40 Other: Blood Glucose* 173 132 138 - General Appearance General appearance: Present: appears started age, frail EENT: Present: ATNC, mucous membranes dry Additional Comments: NG in Left nostril. Cardiology: Present: holosystolic murmur, edema (1+ pedal edema), regular rate Gastrointestinal: Present: tenderness (expected post-operative) Integumentary: Present: no rash, warm and dry Neurologic: Present: disoriented (Will open eyes to verbal stimulation, does not follow commands) Musculoskeletal: Present: no erythema, no cyanosis - Lab 09/26/16 05:30 09/26/16 05:30 Most recent lab results Calcium 9.3 mg/dL (8.6-10.8) 09/26/16 05:30 Phosphorus 3.2 mg/dL (2.3-4.7) 09/26/16 05:30 Magnesium 1.7 mg/dL (1.6-2.6) 09/26/16 05:30 - VTE Documentation of Mechanical Device: Intermittent pneumatic compression device Consult Discharge Plan - Plan Referrals: William Galvan MD [Primary Care Provider] -
[2016-09-26] MEDS: Cefepime HCl 2,000 MG in D5% in Water (Mini-Bag+) 100 ML IVPB SCH (10:22)
[2016-09-26] MEDS: 0.9 % Sodium Chloride 1,000 ML IVC SCH ×2 (11:49→17:15)
--- NOTE | 2016-09-26 13:51 | General Surgery Progress Note ---
Date of Encounter: 09/26/16 Time of Encounter: 13:49 - Assessment and Plan (1) Small bowel obstruction Current Visit: Yes Status: Acute POD #4 from Exploratory laparotomy, lysis of adhesions for 1 hour, right salpingoophorectomy, left oophorectomy with Dr. Dubose Continue bowel rest while awaiting return of bowel function NG tube to LIWS IV fluids TPN- managment per assembler garment form Insulin coverage increased to medium scale every 4 hours Supportive care/pain control Blackwell catheter to SD for strict I&Os Repeat am labs Increase in WBC- 11.7>14.4>16.7 with 12 bands (CXR consistent with HCAP), started on Abx Dopplers negative for DVT RUE Urine culture negative (2) EBONIE (acute kidney injury) Current Visit: Yes Status: Acute 2.10>2.09>2.04 Blackwell catheter to SD for strict I&O Avoid nephrotoxic medications Repeat am labs Nephrology consulted- Dr. Cam following (3) Healthcare-associated pneumonia Current Visit: Yes Status: Acute CXR reviewed- Cefepime and Zyvox schedule aerosols (4) DVT prophylaxis Current Visit: Yes Status: Acute EPCDs to bilateral lower extremities for DVT prophylaxis Heparin 5,000 units SQ twice daily for DVT prophylaxis Subjective Patient reports: afebrile, other (Patient resting comfortably. Limited response to verbal stimulus (unchanged)) Narrative: resting quietly wakens to answer a few questions denies nausea or abdominal pain no flatus or bm Objective Vital Signs - Last 8 Hours Temp Pulse Resp BP Pulse Ox 09/26/16 11:03 98.5 F 90 24 157/71 97 09/26/16 08:38 98.5 F 83 18 157/73 95 09/26/16 06:11 154/75 Intake and Output 09/25/16 09/26/16 09/26/16 23:59 07:59 15:59 Intake Total 100 / 100 400 / 400 Output Total 460 / 460 760 / 760 290 / 290 Balance -360 / -360 -360 / -360 -290 / -290 Intake: IV Fluids 100 / 100 400 / 400 Ofirmev 1,000 mg In 100 100 / 100 100 / 100 ml @ 400 mls/hr IVPB Q8HR [facility] Rx#:[id number] Zyvox 600mg/300mL 600 mg 300 / 300 In 300 ml @ 150 mls/hr IVPB Q12H [facility] Rx#: [id number] Oral 0 / 0 0 / 0 Output: Urine 0 / 0 Catheter 350 / 350 200 / 200 200 / 200 Gastric Drainage 500 / 500 50 / 50 Wound Drainage 110 / 110 60 / 60 40 / 40 Left Abdomen 0 / 0 Right Abdomen 110 / 110 60 / 60 40 / 40 Other: Blood Glucose* 173 132 179 - General physical appearance well developed, no distress - Eyes PERRL, normal ocular movement - ENT dry mucosa, atraumatic, normocephalic - Neck Neck exam: trachea midline - Respiratory normal respiratory effort, clear to auscultation, other (diminished bibasilar bases) - Cardiovascular Cardiovascular exam: Present: RRR - Abdomen Abdomen: Present: bowel sounds present, soft, non tender, wound (JONATHAN drain to bulb suction with serous drainage noted (100ml noted since midnight); NG tube to LIWS (550ml bilious drainage since midnight)) - Incision Incision: Present: clean and dry, intact - Genitourinary other (blackwell catheter to SD with clear, yellow urine noted) - Integumentary no rash, no growths - Neurologic CN 2-12 grossly intact - Musculoskeletal other (deconditioning noted) - Psychiatric other (Unable to assess) - Labs 09/27/16 12:25 09/28/16 04:00 Diabetes panel 09/26/16 Range/Units 05:30 Sodium 144 (136-145) mEq/L Potassium 3.6 (3.5-4.5) mEq/L Chloride 113 H (98-109) mEq/L Carbon Dioxide 23 (19-29) mEq/L BUN 73 H D (7-20) mg/dL Creatinine 2.04 H (0.57-1.11) mg/dL Glucose 116 H (70-99) mg/dL Calcium 9.3 (8.6-10.8) mg/dL Calcium panel 09/26/16 Range/Units 05:30 Calcium 9.3 (8.6-10.8) mg/dL Phosphorus 3.2 (2.3-4.7) mg/dL Pituitary panel 09/26/16 Range/Units 05:30 Sodium 144 (136-145) mEq/L Potassium 3.6 (3.5-4.5) mEq/L Chloride 113 H (98-109) mEq/L Carbon Dioxide 23 (19-29) mEq/L BUN 73 H D (7-20) mg/dL Creatinine 2.04 H (0.57-1.11) mg/dL Glucose 116 H (70-99) mg/dL Calcium 9.3 (8.6-10.8) mg/dL Adrenal panel 09/26/16 Range/Units 05:30 Sodium 144 (136-145) mEq/L Potassium 3.6 (3.5-4.5) mEq/L Chloride 113 H (98-109) mEq/L Carbon Dioxide 23 (19-29) mEq/L BUN 73 H D (7-20) mg/dL Creatinine 2.04 H (0.57-1.11) mg/dL Glucose 116 H (70-99) mg/dL Calcium 9.3 (8.6-10.8) mg/dL - VTE Documentation of Mechanical Device: Intermittent pneumatic compression device Consult Discharge Plan - Plan Referrals: William Galvan MD [Primary Care Provider] - - Attending Attestation I examined this patient and my medical decision-making was reviewed with the BASE CLOTH INSPECTOR/PA/Advanced Practice Nurse/Resident Physician. I agree with the documented findings, disposition and treatment plan as described except to the extent set forth below. I examined this patient and my medical decision-making was reviewed with the BASE CLOTH INSPECTOR/PA/Advanced Practice Nurse/Resident Physician. I agree with the documented findings, disposition and treatment plan as described except to the extent set forth below.
--- NOTE | 2016-09-26 15:04 | Pulmonology Consult Note ---
Date of Encounter: 09/26/16 Time of Encounter: 02:45 Assessment and Plan (1) Pleural effusion due to another disorder Current Visit: Yes Status: Acute Suspect etiology other than pneumonia for effusions. BL effusions were evident on CT abd prior to onset of any other respiratory symptoms. Given the lack of fever, sputum production, hypoxia, would consider other causes of elevated WBC. Effusions are more likely to be transudative and and related to heart failure in setting of IVF or related to her ongoing intra-abdominal process. They appear fairly small and are probably not the cause of any respiratory issues she may be experiencing. With her current altered mental status, recommend against thoracentesis at this point in favor of further observation and management of other disorders. Recommend limited use of IVF, given the uncertainty of her cardiac function, and consideration of diuresis. Will continue to follow and if pt begins to show more clinical indicators of pneumonia or worsening respiratory status, will revisit the option of thoracentesis. History of Present Illness Consult date: 09/26/16 Requesting physician: Nelly Dubose Reason for consult: pleural effusion Chief complaint: BL Pleural Effusion History of present illness: Consulted by General Surgery Service for evaluation of an 86y/o female with SBO s/p exploratory laparotomy with adhesion take down and biopsy of ovarian mass. Pt is somnolent during the exam so her provided HPI. He states that her mental status has been altered continuously since surgery with the exception of several hours yesterday during a visit with family. Otherwise, she has largely remained somnolent. states that she has not complained of pain other than some mild/moderate post-operative discomfort and has denied dyspnea. Pt has not had a productive cough, fever, or progressive hypoxemia. Has been started on empiric abx for concern for HCAP. Past Med Surg Social Fam HX - Past Medical History Medical history: arthritis, coronary artery disease, hyperlipidemia, hypertension, renal disease Psychiatric history: no psych history - Past Surgical History Surgical History: angioplasty/stent, appendectomy, cataract, hysterectomy - Social History Smoking Status: Never smoker Smokeless Tobacco Status: No Alcohol use: none Drug use: none - Family History Brother Adopted: No Family Member Ethnicity: Non- Living Status: Hx Family Cardiac Disorders: Yes Hx Family Respiratory Disorders: No Hx Family Cancer: Yes Hx Family GI Disorders: No Hx Family Endocrine Disorder: Yes Hx Family Neuromuscular Disorders: No Hx Family Neurologic Disorders: No Hx Family HEENT Disorders: No Hx Family Autoimmune Disorders: No Hx Family Medical Disorders: Yes Medications and Allergies Aspirin 81 mg PO DAILY 04/06/15 [History] Atorvastatin [Lipitor] 40 mg PO DAILY 04/06/15 [History] Isosorbide DInitrate [Isosorbide Dinitrate] 20 mg PO TID 04/06/15 [History] Losartan [Cozaar] 50 mg PO BID 04/06/15 [History] Nitroglycerin 0.4 mg SL Q5MIN PRN 04/06/15 [History] HydrALAZINE 50 mg PO TID #0 04/07/15 [Rx] Potassium Chloride 10 meq PO BIDWM #0 04/07/15 [Rx] Beclomethasone Diprop 40mcg [QVAR 40 mcg] 1 puff IH BID 02/02/16 [History] Ipratropium/Albuterol Neb [Duoneb] 3 ml IH TID 02/02/16 [History] Oxygen 2 l NS HS 02/02/16 [History] Carvedilol [Coreg] 25 mg PO BID PRN 09/16/16 [History] Chlorthalidone [Chlorthalidone] 25 mg PO DAILY 09/16/16 [History] Cyanocobalamin (B-12) [Vitamin B12] 1,000 mcg PO DAILY 09/16/16 [History] Ergocalciferol (VITAMIN D2) [Vitamin D2] 50,000 unit PO QWEEK 09/16/16 [History] Ondansetron ODT [Zofran ODT] 4 mg PO TID PRN 09/16/16 [History] Allergies amlodipine [From Norvasc] Allergy (Verified 07/31/15 07:55) SWELLING IN LEGS lisinopril Allergy (Verified 04/06/15 06:45) Cough ROS unobtainable: due to mental status All Systems: A 10-system review of systems was performed and is negative for pertinent findings except as documented above in the HPI. Physical Examination Vital Signs: Vital Signs, Last 4 Hours Temp Pulse Resp BP Pulse Ox 09/26/16 14:52 97.9 F 103 20 158/72 99 09/26/16 11:03 98.5 F 90 24 157/71 97 General appearance: lethargic (Rousable to loud voice but minimally interactive) Eyes: nonicteric Neck: supple, no lymphadenopathy Effort: mildly labored Auscultation: bilateral: clear (Anterior lung sounds.) Cardiovascular: other (Tachycardic with bounding heart sounds. No MRG) Gastrointestinal: other Extremities: no cyanosis, edema (pittine edema in all ext) Gait: other (not observable) unable to assess due to mental status (somnolent) Results - Laboratory Findings CBC and BMP: 09/26/16 05:30 09/26/16 05:30 PT/INR, D-dimer PT 11.8 Seconds (9.4-12.1) 09/22/16 04:02 Abnormal lab findings: Abnormal lab results WBC 16.7 K/mcL (4.3-11.1) H 09/26/16 05:30 RBC 2.97 M/mcL (3.82-4.97) L 09/26/16 05:30 Hgb 8.4 g/dL (11.5-15.4) L 09/26/16 05:30 Hct 27.2 % (35.3-44.9) L 09/26/16 05:30 MCHC 30.9 g/dL (31.6-35.5) L 09/26/16 05:30 RDW 16.3 % (11.5-14.5) H 09/26/16 05:30 Band Neutrophils % 12.0 % (0-4) H 09/26/16 05:30 Metamyelocytes % 4.0 % (0) H 09/24/16 03:30 Neutrophils # 12.4 K/mcL (1.6-8.9) H 09/26/16 05:30 Monocytes # 1.7 K/mcL (0.0-1.3) H 09/26/16 05:30 Eosinophils # 0.7 K/mcL (0.0-0.6) H 09/26/16 05:30 Nucleated RBCs/100 WBC 0.1 /100 WBC (0) H 09/26/16 05:30 Reactive Lymphocytes Present (Not Present) A 09/25/16 04:00 Chloride 113 mEq/L (98-109) H 09/26/16 05:30 BUN 73 mg/dL (7-20) H D 09/26/16 05:30 Creatinine 2.04 mg/dL (0.57-1.11) H 09/26/16 05:30 Est GFR ( Amer) 28 (> 60) L 09/26/16 05:30 Est GFR (Non-Af Amer) 23 (> 60) L 09/26/16 05:30 BUN/Creatinine Ratio 36 (6-26) H 09/26/16 05:30 Glucose 116 mg/dL (70-99) H 09/26/16 05:30 POC Glucose 138 (58-89) H 09/26/16 08:39 Calculated Osmolality 321 (280-300) H 09/26/16 05:30 Serum Total Protein 5.2 g/dL (6.0-8.3) L 09/23/16 00:03 Albumin 2.2 g/dL (3.5-5.0) L 09/23/16 00:03 Albumin/Globulin Ratio 0.7 (1.1-2.2) L 09/23/16 00:03 Prealbumin 7.0 mg/dL (16.0-38.0) L 09/23/16 00:03 CA 125 Ag Serial Mntr 183 U/mL (0-35) H 09/23/16 00:01 Urine Clarity Cloudy (Clear) A 09/19/16 16:00 Urine Blood Small (Negative) H 09/19/16 16:00 Urine Bilirubin Small (Negative) H 09/19/16 16:00 Urine Microscopic RBC 5-15 per hpf (0-3) H 09/19/16 16:00 Urine Microscopic WBC 3-5 per hpf (0-3) H 09/19/16 16:00 Ur Squamous Epith Cells Many per lpf (None-Few) H 09/19/16 16:00 Urine Yeast Few per hpf (None Seen) H 09/16/16 15:00 - Microbiology Findings Microbiology Findings: Microbiology, Last 48 Hours 09/25/16 12:02 Urine Culture - Final Urine,[place] No growth. - Diagnostic Findings Chest x-ray: image reviewed - Clinical Findings Intake & Output: Intake & Output 09/25/16 09/26/16 09/26/16 23:59 07:59 15:59 Intake Total 100 / 100 400 / 400 Output Total 460 / 460 760 / 760 630 / 630 Balance -360 / -360 -360 / -360 -630 / -630 Consult Discharge Plan - Plan Referrals: William Galvan MD [Primary Care Provider] -
[2016-09-26] MEDS ORDERED: Clinimix E 5%-20% SOLUTION 2,000 ML with MVI, adult with vitamin K 10 ML IVC SCH (17:00)
--- NOTE | 2016-09-26 19:12 | Internal Med Progress Note ---
Date of Encounter: 09/26/16 Time of Encounter: 11:00 - Assessment and plan (1) HTN (hypertension) Current Visit: Yes Status: Chronic Assessment and plan: Continue IV metoprolol and hydralazine while the patient is nothing by mouth. Resume oral meds when she has reliable oral intake. Qualifiers: Hypertension type: essential hypertension Qualified Code(s): I10 - Essential (primary) hypertension (2) CKD (chronic kidney disease), stage III Current Visit: No Status: Chronic Assessment and plan: Monitor kidney function. Avoid nephrotoxins including contrast dye and NSAIDs. Adjust medication dosing according to GFR. Continue on IV fluids. Consult nephrology. Strict I's and O's. Replete electrolytes. (3) Paroxysmal a-fib Current Visit: No Status: Chronic Assessment and plan: Rate controlled, aspirin only for anticoagulation (4) EBONIE (acute kidney injury) Current Visit: Yes Status: Acute Assessment and plan: 09/26/2016: Continue with IV fluids and TPN. Appreciate nephrology recommendations. 09/24/2016: renal function worse from yesterday. She appears to be dehydrated, she is losing fluid from the NG tube and JONATHAN drain and only receiving 50 mL per hour. We will give a bolus of 1000 mL normal saline and repeat Chem-7. We will increase IV fluid rate, continue TPN electrolytes. We will proceed more judicious IV fluid hydration given consideration to her history of cardiomyopathy with ejection fraction of 25% previously, per her last echocardiogram in July 2015 found in her records her EF had improved to 55-60%. (5) Small bowel obstruction Current Visit: Yes Status: Acute Assessment and plan: 09/24/2016: Continue postop recovery. Continue with NG tube. IV fluids and TPN. Discussed the case with the surgeon. 09/23/2016: Patient underwent exploratory laparotomy with lysis of adhesions small bowel resection yesterday. She tolerated the procedure well. Continue nothing by mouth. Follow-up with surgery. Continue intravenous fluids. She is at high risk for morbidity or mortality and complications due to change in mental status and treatment with IV opiates for pain. 09/22/2016: Conservative measures were ineffective. Plan is for surgery later today per surgical team Dr. Dubose. Small bowel follow-through abnormal from yesterday. Patient continues to deny pain. Will initiate TPN later today. 09/21/16 Continue supportive care. Surgery following. Small bowel follow-through appears to have been consistent with a small bowel obstruction. She will remain nothing by mouth with NG tube in place. Possible surgery tomorrow at surgery's discretion. On examination, she is alert and oriented 3 but states she is miserable and weak. Will involve OT and PT consultations prior to disposition but she is not ready for evaluations at this point. Abdomen remains distended with hypoactive bowel sounds. No flatulence or bowel movements. Diffuse tenderness. Appreciate surgery recommendations. (6) DVT prophylaxis Current Visit: Yes Status: Acute Assessment and plan: Subcutaneous heparin and SCDs. (7) Healthcare-associated pneumonia Current Visit: Yes Status: Acute Assessment and plan: 09/26/2016: Continue broad-spectrum antibiotic coverage with cefepime and Zyvox. Agree with pulmonary consultation by general surgery. Oxygen by nasal cannula. Follow-up cultures and sensitivities. 09/25/2016: Chest x-ray shows bilateral infiltrates. White blood cell count going up. History of recent endotracheal intubation, abdominal surgery and slow recovery, she is at very high risk for healthcare associated pneumonia. I will check blood cultures stat.. I will start treatment with renally adjusted cefepime and Zyvox. I would avoid vancomycin due to impaired kidney function. Continue supplemental oxygen by nasal cannula 2 L/m. - Subjective Interval history: 09/26/2016: Patient cannot provide history due to her mental status. She is arousable but can only answer yes and no questions. She denies abdominal pain. 09/24/2016: She is more awake today but cannot provide any history due to sedation. She reports abdominal pain, grimaces when I press on her stomach. Denies nausea. She has an NG tube. 09/23/2016: The patient was admitted 7 days ago and treated conservatively for small bowel obstruction and today she had an exploratory laparotomy with lysis of adhesions and resection of small bowel. She tolerated the procedure well and is being evaluated postop. She cannot provide any history due to sedation. She is nonverbal. History was obtained from the patient's family at the bedside. They stated that she wakes up and will nod and will follow simple commands. She does not complain of pain. - Constitutional Vitals: Temp Pulse Resp BP Pulse Ox 97.9 F 103 18 158/72 98 09/26/16 14:52 09/26/16 14:52 09/26/16 16:45 09/26/16 14:52 09/26/16 16:45 General appearance: Present: A&O X 0, no acute distress - Respiratory Respiratory exam: Present: decreased breath sounds, CTAB. Absent: accessory muscle use, rales, rhonchi, wheezes - Cardiovascular Cardiovascular exam: Present: RRR, +S1, +S2. Absent: diastolic murmur, gallop, rubs, systolic murmur - GI/Abdominal GI/Abdominal exam: Present: diminished bowel sounds, normal bowel sounds, soft, tenderness, no peritoneal signs. Absent: distended - Extremities Exam Extremities exam: Present: pedal edema ( trace lower extremity edema, 1+ upper extremity edema), warm, radial pulses palpable and symetrical. Absent: calf tenderness, cyanotic Internal Medicine: Result - Labs CBC & Chem 7: 09/26/16 05:30 09/26/16 05:30 Labs: Short CBC 09/26/16 Range/Units 05:30 WBC 16.7 H (4.3-11.1) K/mcL Hgb 8.4 L (11.5-15.4) g/dL Hct 27.2 L (35.3-44.9) % Plt Count 142 (140-400) K/mcL Neutrophils # 12.4 H (1.6-8.9) K/mcL BMP 09/26/16 05:30 Sodium 144 Potassium 3.6 Chloride 113 H Carbon Dioxide 23 BUN 73 H D Creatinine 2.04 H Glucose 116 H Calcium 9.3 - ABG Interpretation ABG results: PT/INR, D-dimer PT 11.8 Seconds (9.4-12.1) 09/22/16 04:02 - VTE Documentation of Mechanical Device: Intermittent pneumatic compression device Consult Discharge Plan - Plan Referrals: William Galavn MD [Primary Care Provider] -
[2016-09-26 23:26] LABS: ABG Base Excess -0.2 mEq/L (-2.0 to 3.0); ABG HCO3 24.8 mEQ/L (21-27); ABG Oxygen Saturation 96 % (95-98); ABG PCO2 41 mmHg (35-45); ABG PH 7.39 pH Units (7.32-7.45); ABG PO2 82 mmHg (85-104); ABG TCO2 26.1 mEq/L (20-26)
[2016-09-26 23:27] LABS: Blood Gas FiO2 21 %
[2016-09-27] MEDS: 0.9 % Sodium Chloride 1,000 ML IVC SCH (00:25)
[2016-09-27] MEDS: Insulin LISPRO 300 UNITS/3 ML VIAL SQ SCH ×6 (00:49→21:32)
[2016-09-27] MEDS: *HR* Metoprolol 5 MG/5 ML VIAL IVP SCH ×4 (01:05→17:56)
[2016-09-27] MEDS: Ipratropium/Albuterol Neb 3 ML IH SCH ×4 (03:22→21:45)
[2016-09-27 03:24] LABS: Eosinophils # 0.3 K/mcL (0.0-0.6); Hematocrit 24.3 % (35.3-44.9); Hemoglobin 7.5 g/dL (11.5-15.4); Mean Corpuscular HGB Conc 30.9 g/dL (31.6-35.5); Mean Corpuscular Hemoglobin 27.9 pg (28.0-33.3); Mean Corpuscular Volume 90.3 fL (83.0-100.0); Platelet Count 144 K/mcL (140-400); Red Blood Count 2.69 M/mcL (3.82-4.97)
[2016-09-27 03:34] LABS: Calcium 9.1 mg/dL (8.6-10.8); Magnesium 1.7 mg/dL (1.6-2.6); Phosphorous 3.4 mg/dL (2.3-4.7); Potassium 3.7 mEq/L (3.5-4.5)
[2016-09-27 04:00] LABS: Lymphocytes # 0.8 K/mcL (0.6-4.6); Neutrophils # 11.5 K/mcL (1.6-8.9)
[2016-09-27 04:01] LABS: Platelet Estimate Normal (Normal)
[2016-09-27] MEDS: Famotidine 20 MG/2 ML VIAL IVP SCH (05:42)
[2016-09-27] MEDS: *HR* Heparin 5,000 UNIT/ML VIAL SQ SCH ×2 (05:42→18:06)
--- NOTE | 2016-09-27 10:29 | Nephrology Progress Note ---
Date of Encounter: 09/27/16 Time of Encounter: 09:50 - Assessment and Plan (1) EBONIE (acute kidney injury) Current Visit: Yes Status: Acute Nonoliguric EBONIE on CKD stage III, SCr continues to slowly improve. Hypoalbuminemia: continue/restart with TPN as tolerated Plan: Continue to follow a renal conservative and protective strategy. No urgent indications for [employer]. Dose Rx by GFR. Avoid Nephrotoxins as able. Strict I/Os, daily weights. (2) Healthcare-associated pneumonia Current Visit: Yes Status: Acute pneumonia vs pulmonary edema. Management per primary medicine service. Dose Rx by GFR. Avoid Nephrotoxins as able. (3) Small bowel obstruction Current Visit: Yes Status: Acute POD #5 from Exploratory laparotomy, lysis of adhesions, right salpingoophorectomy, left oophorectomy with Dr. Dubose Management per surgery service. (4) Hypokalemia Current Visit: Yes Status: Resolved Improved, K+ 3.3>3.6>3.7 (5) CKD (chronic kidney disease), stage III Current Visit: No Status: Chronic (6) HTN (hypertension) Current Visit: Yes Status: Chronic Qualifiers: Hypertension type: essential hypertension Qualified Code(s): I10 - Essential (primary) hypertension (7) Paroxysmal a-fib Current Visit: No Status: Chronic Management per primary service. (8) DVT prophylaxis Current Visit: Yes Status: Acute SVDs and SQ heparin per medicine team. Subjective Principal diagnosis: Bowel Obstruction, EBONIE Interval history: Afebrile. Remains somnolent, though responsive to verbal stmuli with appropriate verbal response; when asked how she was doing patient states "not to bad". SCr with improvement from 2.09 ->2.04->1.91. UOP of approx 740ml yesterday, net positive fluid of 860ml yesterday. Objective - Vital Signs Vital signs: Vital Signs Temp Pulse Resp BP Pulse Ox 09/27/16 08:00 96 09/27/16 07:40 97.7 F 93 20 139/70 96 09/27/16 03:24 97.9 F 91 22 163/73 99 09/27/16 03:23 16 98 09/27/16 00:40 92 174/75 98 09/27/16 00:16 26 09/26/16 22:05 16 98 09/26/16 21:53 98.5 F 97 16 160/69 97 09/26/16 16:45 18 98 09/26/16 14:52 97.9 F 103 20 158/72 99 09/26/16 11:25 18 94 09/26/16 11:03 98.5 F 90 24 157/71 97 Intake and Output 09/26/16 09/27/16 09/27/16 23:59 07:59 15:59 Intake Total 300 / 300 0 / 0 0 / 0 Output Total 0 / 0 1900 / 1900 375 / 375 Balance 300 / 300 -1900 / -1900 -375 / -375 Intake: IV Fluids 300 / 300 Zyvox 600mg/300mL 600 mg 300 / 300 In 300 ml @ 150 mls/hr IVPB Q12H [facility] Rx#: [id number] Oral 0 / 0 0 / 0 0 / 0 Output: Urine 0 / 0 0 / 0 0 / 0 Urethral (Berger) 0 / 0 0 / 0 0 / 0 Catheter 1550 / 1550 Gastric Drainage 275 / 275 375 / 375 Wound Drainage 0 / 0 75 / 75 0 / 0 Right Abdomen 0 / 0 75 / 75 0 / 0 Other: Blood Glucose* 119 - General Appearance General appearance: Present: well-developed, appears started age, frail EENT: Present: ATNC, mucous membranes dry Respiratory: Present: course breath sounds, rhonchi Cardiology: Present: holosystolic murmur, edema (trace pedal edema bilaterally.) Integumentary: Present: no rash, warm and dry Additional Comments: Somnolent, but easily arousable. Musculoskeletal: Present: no erythema, no cyanosis - Lab 09/27/16 03:00 09/27/16 03:00 Most recent lab results ABG pH 7.39 pH Units (7.32-7.45) 09/26/16 23:15 ABG pCO2 41 mmHg (35-45) 09/26/16 23:15 ABG pO2 82 mmHg (85-104) L 09/26/16 23:15 ABG HCO3 24.8 mEQ/L (21-27) 09/26/16 23:15 ABG O2 Saturation 96 % (95-98) 09/26/16 23:15 Calcium 9.1 mg/dL (8.6-10.8) 09/27/16 03:00 Phosphorus 3.4 mg/dL (2.3-4.7) 09/27/16 03:00 Magnesium 1.7 mg/dL (1.6-2.6) 09/27/16 03:00 - VTE Documentation of Mechanical Device: Intermittent pneumatic compression device Consult Discharge Plan - Plan Referrals: William Galvan MD [Primary Care Provider] -
[2016-09-27] MEDS: Cefepime HCl 2,000 MG in D5% in Water (Mini-Bag+) 100 ML IVPB SCH (11:02)
--- NOTE | 2016-09-27 11:59 | General Surgery Progress Note ---
Date of Encounter: 09/27/16 Time of Encounter: 18:30 - Assessment and Plan (1) Small bowel obstruction Current Visit: Yes Status: Acute POD #5 from Exploratory laparotomy, lysis of adhesions for 1 hour, right salpingoophorectomy, left oophorectomy with Dr. Dubose Pathology reviewed with family per Dr. Dubose 09/26 Continue bowel rest while awaiting return of bowel function NG tube to LIWS IV fluids TPN- managment per mainstreaming facilitator Insulin coverage- continue medium scale every 4 hours Supportive care/pain control Berger catheter to SD for strict I&Os Repeat am labs decreasw in WBC- 11.7>14.4>16.7>13.8 with 4 bands (CXR consistent with HCAP), on Abx Dopplers negative for DVT RUE Urine culture negative (2) EBONIE (acute kidney injury) Current Visit: Yes Status: Acute 2.10>2.09>2.04>1.91 Berger catheter to SD for strict I&O Avoid nephrotoxic medications Repeat am labs Nephrology consulted- Dr. Cam following (3) Healthcare-associated pneumonia Current Visit: Yes Status: Acute CXR reviewed- Cefepime and Zyvox schedule aerosols (4) DVT prophylaxis Current Visit: Yes Status: Acute EPCDs to bilateral lower extremities for DVT prophylaxis Heparin 5,000 units SQ twice daily for DVT prophylaxis Subjective Patient reports: no new complaints, afebrile, other (Patient resting comfortably ; More awake and conversant today; Unsure of passing flatus; Denies any nausea) Objective Vital Signs - Last 8 Hours Temp Pulse Resp BP Pulse Ox 09/27/16 10:44 98.0 F 70 20 162/66 97 09/27/16 08:00 96 09/27/16 07:40 97.7 F 93 20 139/70 96 Intake and Output 09/26/16 09/27/16 09/27/16 23:59 07:59 15:59 Intake Total 300 / 300 0 / 0 0 / 0 Output Total 0 / 0 1900 / 1900 525 / 525 Balance 300 / 300 -1900 / -1900 -525 / -525 Intake: IV Fluids 300 / 300 Zyvox 600mg/300mL 600 mg 300 / 300 In 300 ml @ 150 mls/hr IVPB Q12H [facility] Rx#: [id number] Oral 0 / 0 0 / 0 0 / 0 Output: Urine 0 / 0 0 / 0 0 / 0 Urethral (Berger) 0 / 0 0 / 0 0 / 0 Catheter 1550 / 1550 150 / 150 Gastric Drainage 275 / 275 375 / 375 Wound Drainage 0 / 0 75 / 75 0 / 0 Right Abdomen 0 / 0 75 / 75 0 / 0 Other: Blood Glucose* 119 155 - General physical appearance well developed, no distress, no pain - Eyes normal ocular movement - ENT dry mucosa, atraumatic, normocephalic - Neck Neck exam: trachea midline - Respiratory normal respiratory effort, clear to auscultation, other (diminished bibasilar bases) - Cardiovascular Cardiovascular exam: Present: RRR - Abdomen Abdomen: Present: bowel sounds present (hypoactive), soft, non tender, wound ( JONATHAN drain to bulb suction with serous drainage noted (75ml noted since midnight) ; NG tube to LIWS with bilious drainage noted (650ml documented since midnight) ) - Incision Incision: Present: clean and dry, intact - Genitourinary other (fole catheter to SD with clear, yellow urine noted (1900ml noted since midnight)) - Integumentary no rash, no growths - Neurologic CN 2-12 grossly intact - Musculoskeletal other (deconditioning noted) - Psychiatric oriented to person, oriented to place - Labs 09/27/16 12:25 09/28/16 04:00 Diabetes panel 09/27/16 Range/Units 03:00 Sodium 143 (136-145) mEq/L Potassium 3.7 (3.5-4.5) mEq/L Chloride 113 H (98-109) mEq/L Carbon Dioxide 22 (19-29) mEq/L BUN 71 H (7-20) mg/dL Creatinine 1.91 H (0.57-1.11) mg/dL Glucose 119 H (70-99) mg/dL Calcium 9.1 (8.6-10.8) mg/dL Calcium panel 09/27/16 Range/Units 03:00 Calcium 9.1 (8.6-10.8) mg/dL Phosphorus 3.4 (2.3-4.7) mg/dL Pituitary panel 09/27/16 Range/Units 03:00 Sodium 143 (136-145) mEq/L Potassium 3.7 (3.5-4.5) mEq/L Chloride 113 H (98-109) mEq/L Carbon Dioxide 22 (19-29) mEq/L BUN 71 H (7-20) mg/dL Creatinine 1.91 H (0.57-1.11) mg/dL Glucose 119 H (70-99) mg/dL Calcium 9.1 (8.6-10.8) mg/dL Adrenal panel 09/27/16 Range/Units 03:00 Sodium 143 (136-145) mEq/L Potassium 3.7 (3.5-4.5) mEq/L Chloride 113 H (98-109) mEq/L Carbon Dioxide 22 (19-29) mEq/L BUN 71 H (7-20) mg/dL Creatinine 1.91 H (0.57-1.11) mg/dL Glucose 119 H (70-99) mg/dL Calcium 9.1 (8.6-10.8) mg/dL - VTE Documentation of Mechanical Device: Intermittent pneumatic compression device Consult Discharge Plan - Plan Referrals: William Galvan MD [Primary Care Provider] - - Attending Attestation I examined this patient and my medical decision-making was reviewed with the FELT HANGER/PA/Advanced Practice Nurse/Resident Physician. I agree with the documented findings, disposition and treatment plan as described except to the extent set forth below. I examined this patient and my medical decision-making was reviewed with the FELT HANGER/PA/Advanced Practice Nurse/Resident Physician. I agree with the documented findings, disposition and treatment plan as described except to the extent set forth below.
[2016-09-27 12:36] LABS: Hematocrit 24.8 % (35.3-44.9); Hemoglobin 7.7 g/dL (11.5-15.4)
--- NOTE | 2016-09-27 15:51 | Pulmonology Progress Note ---
Date of Encounter: 09/27/16 Time of Encounter: 09:35 Assessment and Plan (1) Pleural effusion due to another disorder Current Visit: Yes Status: Acute Suspect that effusions are due to process other than HCAP. Review of prior imaging shows SL effusions present on CT Abd on Sep 16 prior to onset of current symptoms. It is more likely that her effusions are transudative and related to either abdominal process or heart failure. Pt has clinically improved in the past 24 hours which coincides with approx -3L fluid balance. Still recommend against thoracentesis at this point in favor of conservative management and follow up after resolution of abd issues and volume status. It would still be reasonable to attempt further net (-) fluid balance over the next 24 hours. SCr has improved with reduction in intravascular volume so would not be overly concerned about the use of Lasix if needed. (2) Healthcare-associated pneumonia Current Visit: Yes Status: Acute Current presentation could be consistent with HCAP as leukocytosis has improved since initiation of abx, but lack of productive cough, fever, or culture makes it uncertain. Hypoxemia could be attributable to heart failure and leukocytosis to abd pathology. However, given the uncertainty it is reasonable to continue empiric antiobiosis to cover for hospital acquired organisms. Cx data remains negative. Accurate respiratory cx will difficult to obtain owing to lack of cough but if sputum production increases, recommend resp cx be obtained. Subjective Principal diagnosis: Bowel Obstruction, EBONIE Interval history: Evaluated yesterday for BL pleural effusions with dx of suspected HCAP. Since last encounter, pt had another period of improved mental status, according to her , but has since returned to her prior somnolent state. Otherwise, has had no acute events in the past 24 hours. Has been initiated on empiric abx of suspected HCAP and has shown an interval decrement in her leukocytosis. Remains afebrile without productive cough. Objective PUL Vital signs: Last Vital Signs Temp 98.0 F 09/27/16 14:51 Pulse 98 09/27/16 14:51 Resp 17 09/27/16 14:51 BP 138/65 09/27/16 14:51 Pulse Ox 98 09/27/16 14:51 Auscultation: bilateral: clear (anterior lung sounds) Cardiovascular: regular rate and rhythm Gastrointestinal: other Extremities: no cyanosis, no clubbing (mild pitting edema in all extremities) Gait: other (non-ambulatory) other (somnolent but arousable to loud voice) Results - Laboratory Findings CBC and BMP: 09/27/16 12:25 09/27/16 03:00 ABG ABG pH 7.39 pH Units (7.32-7.45) 09/26/16 23:15 ABG pCO2 41 mmHg (35-45) 09/26/16 23:15 ABG pO2 82 mmHg (85-104) L 09/26/16 23:15 ABG O2 Saturation 96 % (95-98) 09/26/16 23:15 PT/INR, D-dimer PT 11.8 Seconds (9.4-12.1) 09/22/16 04:02 Abnormal lab findings: Abnormal lab results WBC 13.8 K/mcL (4.3-11.1) H 09/27/16 03:00 RBC 2.69 M/mcL (3.82-4.97) L 09/27/16 03:00 Hgb 7.7 g/dL (11.5-15.4) L 09/27/16 12:25 Hct 24.8 % (35.3-44.9) L 09/27/16 12:25 MCH 27.9 pg (28.0-33.3) L 09/27/16 03:00 MCHC 30.9 g/dL (31.6-35.5) L 09/27/16 03:00 RDW 16.0 % (11.5-14.5) H 09/27/16 03:00 Metamyelocytes % 4.0 % (0) H 09/24/16 03:30 Myelocytes % 2.0 % (0) H 09/27/16 03:00 Neutrophils # 11.5 K/mcL (1.6-8.9) H 09/27/16 03:00 Nucleated RBCs/100 WBC 0.1 /100 WBC (0) H 09/26/16 05:30 Reactive Lymphocytes Present (Not Present) A 09/25/16 04:00 ABG pO2 82 mmHg (85-104) L 09/26/16 23:15 ABG Total CO2 26.1 mEq/L (20-26) H 09/26/16 23:15 Chloride 113 mEq/L (98-109) H 09/27/16 03:00 BUN 71 mg/dL (7-20) H 09/27/16 03:00 Creatinine 1.91 mg/dL (0.57-1.11) H 09/27/16 03:00 Est GFR ( Amer) 30 (> 60) L 09/27/16 03:00 Est GFR (Non-Af Amer) 25 (> 60) L 09/27/16 03:00 BUN/Creatinine Ratio 37 (6-26) H 09/27/16 03:00 Glucose 119 mg/dL (70-99) H 09/27/16 03:00 POC Glucose 155 (58-89) H 09/27/16 11:30 Calculated Osmolality 318 (280-300) H 09/27/16 03:00 B-Natriuretic Peptide 151 pg/mL (0-100) H 09/27/16 03:00 Serum Total Protein 5.2 g/dL (6.0-8.3) L 09/23/16 00:03 Albumin 2.2 g/dL (3.5-5.0) L 09/23/16 00:03 Albumin/Globulin Ratio 0.7 (1.1-2.2) L 09/23/16 00:03 Prealbumin 7.0 mg/dL (16.0-38.0) L 09/23/16 00:03 CA 125 Ag Serial Mntr 183 U/mL (0-35) H 09/23/16 00:01 Urine Clarity Cloudy (Clear) A 09/19/16 16:00 Urine Blood Small (Negative) H 09/19/16 16:00 Urine Bilirubin Small (Negative) H 09/19/16 16:00 Urine Microscopic RBC 5-15 per hpf (0-3) H 09/19/16 16:00 Urine Microscopic WBC 3-5 per hpf (0-3) H 09/19/16 16:00 Ur Squamous Epith Cells Many per lpf (None-Few) H 09/19/16 16:00 Urine Yeast Few per hpf (None Seen) H 09/16/16 15:00 - Microbiology Findings Microbiology Findings: Microbiology, Last 48 Hours 09/25/16 12:00 Blood Culture - Preliminary Peripheral Central Cath, Picc No growth. 09/25/16 11:47 Blood Culture - Preliminary Peripheral Venipuncture No growth. 09/25/16 12:02 Urine Culture - Final Urine,Berger Port No growth. - Clinical Findings Intake & Output: Intake & Output 09/26/16 09/27/16 09/27/16 23:59 07:59 15:59 Intake Total 300 / 300 0 / 0 0 / 0 Output Total 0 / 0 1900 / 1900 1135 / 1135 Balance 300 / 300 -1900 / -1900 -1135 / -1135 - VTE Documentation of Mechanical Device: Intermittent pneumatic compression device Consult Discharge Plan - Plan Referrals: William Galvan MD [Primary Care Provider] -
[2016-09-27] MEDS ORDERED: Clinimix E 5%-20% SOLUTION 2,000 ML with MVI, adult with vitamin K 10 ML IVC SCH (17:00)
[2016-09-27] MEDS ORDERED: 0.9 % Sodium Chloride 500 ML ONE (18:05)
--- NOTE | 2016-09-27 18:45 | Internal Med Progress Note ---
Date of Encounter: 09/27/16 Time of Encounter: 11:00 - Assessment and plan (1) HTN (hypertension) Current Visit: Yes Status: Chronic Assessment and plan: Continue IV metoprolol and hydralazine while the patient is nothing by mouth. Resume oral meds when she has reliable oral intake. Qualifiers: Hypertension type: essential hypertension Qualified Code(s): I10 - Essential (primary) hypertension (2) CKD (chronic kidney disease), stage III Current Visit: No Status: Chronic Assessment and plan: Monitor kidney function. Avoid nephrotoxins including contrast dye and NSAIDs. Adjust medication dosing according to GFR. Continue on IV fluids. Consult nephrology. Strict I's and O's. Replete electrolytes. (3) Paroxysmal a-fib Current Visit: No Status: Chronic Assessment and plan: Rate controlled, aspirin only for anticoagulation (4) EBONIE (acute kidney injury) Current Visit: Yes Status: Acute Assessment and plan: 09/26/2016: Continue with IV fluids and TPN. Appreciate nephrology recommendations. 09/24/2016: renal function worse from yesterday. She appears to be dehydrated, she is losing fluid from the NG tube and JONATHAN drain and only receiving 50 mL per hour. We will give a bolus of 1000 mL normal saline and repeat Chem-7. We will increase IV fluid rate, continue TPN electrolytes. We will proceed more judicious IV fluid hydration given consideration to her history of cardiomyopathy with ejection fraction of 25% previously, per her last echocardiogram in July 2015 found in her records her EF had improved to 55-60%. (5) Small bowel obstruction Current Visit: Yes Status: Acute Assessment and plan: 09/27/2016: Continue with postoperative care. Patient still having an NG tube. Continue with IV fluids and TPN. 09/24/2016: Continue postop recovery. Continue with NG tube. IV fluids and TPN. Discussed the case with the surgeon. 09/23/2016: Patient underwent exploratory laparotomy with lysis of adhesions small bowel resection yesterday. She tolerated the procedure well. Continue nothing by mouth. Follow-up with surgery. Continue intravenous fluids. She is at high risk for morbidity or mortality and complications due to change in mental status and treatment with IV opiates for pain. 09/22/2016: Conservative measures were ineffective. Plan is for surgery later today per surgical team Dr. Dubose. Small bowel follow-through abnormal from yesterday. Patient continues to deny pain. Will initiate TPN later today. 09/21/16 Continue supportive care. Surgery following. Small bowel follow-through appears to have been consistent with a small bowel obstruction. She will remain nothing by mouth with NG tube in place. Possible surgery tomorrow at surgery's discretion. On examination, she is alert and oriented 3 but states she is miserable and weak. Will involve OT and PT consultations prior to disposition but she is not ready for evaluations at this point. Abdomen remains distended with hypoactive bowel sounds. No flatulence or bowel movements. Diffuse tenderness. Appreciate surgery recommendations. (6) DVT prophylaxis Current Visit: Yes Status: Acute Assessment and plan: Subcutaneous heparin and SCDs. (7) Healthcare-associated pneumonia Current Visit: Yes Status: Acute Assessment and plan: 09/27/2016: She is improving with Zyvox and cefepime. We will follow up blood cultures (negative to date) sputum culture. Follow up with pulmonary. If no growth consider discontinuing antibiotics in 24-48 hours. 09/26/2016: Continue broad-spectrum antibiotic coverage with cefepime and Zyvox. Agree with pulmonary consultation by general surgery. Oxygen by nasal cannula. Follow-up cultures and sensitivities. 09/25/2016: Chest x-ray shows bilateral infiltrates. White blood cell count going up. History of recent endotracheal intubation, abdominal surgery and slow recovery, she is at very high risk for healthcare associated pneumonia. I will check blood cultures stat.. I will start treatment with renally adjusted cefepime and Zyvox. I would avoid vancomycin due to impaired kidney function. Continue supplemental oxygen by nasal cannula 2 L/m. - Subjective Interval history: 09/27/2016: Patient is more alert today, denies abdominal pain. Denies nausea. 09/26/2016: Patient cannot provide history due to her mental status. She is arousable but can only answer yes and no questions. She denies abdominal pain. 09/24/2016: She is more awake today but cannot provide any history due to sedation. She reports abdominal pain, grimaces when I press on her stomach. Denies nausea. She has an NG tube. 09/23/2016: The patient was admitted 7 days ago and treated conservatively for small bowel obstruction and today she had an exploratory laparotomy with lysis of adhesions and resection of small bowel. She tolerated the procedure well and is being evaluated postop. She cannot provide any history due to sedation. She is nonverbal. History was obtained from the patient's family at the bedside. They stated that she wakes up and will nod and will follow simple commands. She does not complain of pain. - Constitutional Vitals: Temp Pulse Resp BP Pulse Ox 97.7 F 79 19 146/71 97 09/27/16 18:31 09/27/16 18:31 09/27/16 18:31 09/27/16 18:31 09/27/16 18:16 General appearance: Present: A&O X 1, no acute distress - Head Head exam: Present: atraumatic, normocephalic - Eye Eye exam: Present: PERRL, conjuntiva pink, sclera anicteric Pupils: Present: PERRL - Respiratory Respiratory exam: Present: decreased breath sounds, CTAB. Absent: accessory muscle use, rales, rhonchi, wheezes - Cardiovascular Cardiovascular exam: Present: RRR, +S1, +S2. Absent: diastolic murmur, gallop, rubs, systolic murmur - GI/Abdominal GI/Abdominal exam: Present: diminished bowel sounds, soft, no peritoneal signs. Absent: distended, tenderness Additional comments: Surgical incision closed with roseann. - Extremities Exam Extremities exam: Present: pedal edema, warm, radial pulses palpable and symetrical. Absent: calf tenderness, cyanotic Internal Medicine: Result - Labs CBC & Chem 7: 09/27/16 12:25 09/27/16 03:00 Labs: Short CBC 09/27/16 09/27/16 Range/Units 03:00 12:25 WBC 13.8 H (4.3-11.1) K/mcL Hgb 7.5 L 7.7 L (11.5-15.4) g/dL Hct 24.3 L 24.8 L (35.3-44.9) % Plt Count 144 (140-400) K/mcL Neutrophils # 11.5 H (1.6-8.9) K/mcL BMP 09/27/16 03:00 Sodium 143 Potassium 3.7 Chloride 113 H Carbon Dioxide 22 BUN 71 H Creatinine 1.91 H Glucose 119 H Calcium 9.1 - ABG Interpretation ABG results: ABG ABG pH 7.39 pH Units (7.32-7.45) 09/26/16 23:15 ABG pCO2 41 mmHg (35-45) 09/26/16 23:15 ABG pO2 82 mmHg (85-104) L 09/26/16 23:15 ABG O2 Saturation 96 % (95-98) 09/26/16 23:15 PT/INR, D-dimer PT 11.8 Seconds (9.4-12.1) 09/22/16 04:02 - Impressions Impressions Chest X-Ray 09/26/16 20:10 IMPRESSION: Patchy parenchymal opacities which may represent asymmetric edema versus scattered areas atelectasis. Small left effusion. Minimal change D/ / Patricio Bethea MD / Patricio Bethea MD Interpreting Provider: Patricio Bethea MD - VTE Documentation of Mechanical Device: Intermittent pneumatic compression device Consult Discharge Plan - Plan Referrals: William Galvan MD [Primary Care Provider] -
[2016-09-28] MEDS: Insulin LISPRO 300 UNITS/3 ML VIAL SQ SCH ×6 (00:46→21:37)
[2016-09-28] MEDS: *HR* Metoprolol 5 MG/5 ML VIAL IVP SCH ×4 (00:46→18:56)
[2016-09-28] MEDS: Ipratropium/Albuterol Neb 3 ML IH SCH ×4 (04:00→21:18)
[2016-09-28 05:03] LABS: Calcium 9.5 mg/dL (8.6-10.8); Magnesium 1.7 mg/dL (1.6-2.6); Phosphorous 3.1 mg/dL (2.3-4.7); Potassium 3.7 mEq/L (3.5-4.5)
[2016-09-28] MEDS: Famotidine 20 MG/2 ML VIAL IVP SCH (07:49)
[2016-09-28] MEDS: *HR* Heparin 5,000 UNIT/ML VIAL SQ SCH ×2 (07:51→18:57)
--- NOTE | 2016-09-28 10:19 | Nephrology Progress Note ---
Date of Encounter: 09/28/16 Time of Encounter: 09:35 - Assessment and Plan (1) EBONIE (acute kidney injury) Current Visit: Yes Status: Acute Nonoliguric EBONIE on CKD stage III, SCr continues to slowly improve. Hypoalbuminemia: continue/restart with TPN as tolerated Plan: Continue to follow a renal conservative and protective strategy. Dose Rx by GFR. Avoid Nephrotoxins as able. Strict I/Os, daily weights. (2) Healthcare-associated pneumonia Current Visit: Yes Status: Acute pneumonia vs pulmonary edema. Management per primary medicine service. Dose Rx by GFR. Avoid Nephrotoxins as able. (3) Small bowel obstruction Current Visit: Yes Status: Acute POD #6 from Exploratory laparotomy, lysis of adhesions, right salpingoophorectomy, left oophorectomy with Dr. Dubose Management per surgery service. (4) Hypokalemia Current Visit: Yes Status: Resolved Improved, K+ 3.3>3.6>>3.7 (5) CKD (chronic kidney disease), stage III Current Visit: No Status: Chronic (6) HTN (hypertension) Current Visit: Yes Status: Chronic Qualifiers: Hypertension type: essential hypertension Qualified Code(s): I10 - Essential (primary) hypertension (7) Paroxysmal a-fib Current Visit: No Status: Chronic Management per primary service. (8) DVT prophylaxis Current Visit: Yes Status: Acute SVDs and SQ heparin per medicine team. Subjective Principal diagnosis: Bowel Obstruction, EBONIE Interval history: Afebrile. reports with assistance patient was able to get up and sit on edge of the bed for a while. reports more lucid intervals. Patient sleepy soundly on exam. Objective - Vital Signs Vital signs: Vital Signs Temp Pulse Resp BP Pulse Ox 09/28/16 07:13 98.0 F 90 17 163/70 95 09/28/16 04:00 18 95 09/28/16 03:13 98.6 F 88 14 159/76 96 09/28/16 00:17 97.9 F 90 14 173/76 95 09/27/16 21:45 16 96 09/27/16 21:29 98.4 F 79 20 168/77 97 09/27/16 21:00 98.4 F 79 20 168/77 97 09/27/16 18:31 97.7 F 79 19 146/71 09/27/16 18:16 97.8 F 79 19 145/63 97 09/27/16 16:07 16 98 09/27/16 14:51 98.0 F 98 17 138/65 98 09/27/16 12:21 96 149/67 09/27/16 10:54 24 97 09/27/16 10:44 98.0 F 70 20 162/66 97 Intake and Output 09/27/16 09/28/16 09/28/16 23:59 07:59 15:59 Intake Total 350 / 350 550 / 550 Output Total 0 / 0 1510 / 1510 Balance 350 / 350 -960 / -960 Intake: IV Fluids 550 / 550 Intralipid 20% 250 ML @ 250 / 250 21 mls/hr IVPB DAILY@1700 [facility] Rx#:[id number] Zyvox 600mg/300mL 600 mg 300 / 300 In 300 ml @ 150 mls/hr IVPB Q12H [facility] Rx#: [id number] Oral 0 / 0 0 / 0 Blood Product 350 / 350 Rbcs Leuko Poor As-1 350 / 350 Unit [id number] Output: Gastric Tube Lavage 0 / 0 Amount Left Nare 0 / 0 Catheter 1450 / 1450 Gastric Drainage 0 / 0 Wound Drainage 0 / 0 60 / 60 Right Abdomen 0 / 0 60 / 60 Other: Meal NPO NPO Blood Glucose* 153 124 - General Appearance General appearance: Present: well-developed, appears started age, frail EENT: Present: ATNC, mucous membranes dry Respiratory: Present: course breath sounds, rhonchi Cardiology: Present: holosystolic murmur, edema (trace pedal edema bilaterally) , regular rate, regular rhythm Integumentary: Present: no rash, warm and dry Musculoskeletal: Present: no deformities, no erythema, no cyanosis, no clubbing - Lab 09/27/16 12:25 09/28/16 04:00 Most recent lab results ABG pH 7.39 pH Units (7.32-7.45) 09/26/16 23:15 ABG pCO2 41 mmHg (35-45) 09/26/16 23:15 ABG pO2 82 mmHg (85-104) L 09/26/16 23:15 ABG HCO3 24.8 mEQ/L (21-27) 09/26/16 23:15 ABG O2 Saturation 96 % (95-98) 09/26/16 23:15 Calcium 9.5 mg/dL (8.6-10.8) 09/28/16 04:00 Phosphorus 3.1 mg/dL (2.3-4.7) 09/28/16 04:00 Magnesium 1.7 mg/dL (1.6-2.6) 09/28/16 04:00 - VTE Documentation of Mechanical Device: Intermittent pneumatic compression device Consult Discharge Plan - Plan Referrals: William Galvan MD [Primary Care Provider] -
[2016-09-28] MEDS: Cefepime HCl 2,000 MG in D5% in Water (Mini-Bag+) 100 ML IVPB SCH (10:23)
--- NOTE | 2016-09-28 10:37 | General Surgery Progress Note ---
Date of Encounter: 09/28/16 Time of Encounter: 18:20 - Assessment and Plan (1) Small bowel obstruction Current Visit: Yes Status: Acute POD #6 from Exploratory laparotomy, lysis of adhesions for 1 hour, right salpingoophorectomy, left oophorectomy with Dr. Dubose Pathology reviewed with family per Dr. Dubose 09/26 Remove NG tube Clear liquids with protein supplements TID with trays May consider swallow evaluation if necessary TPN- managment per tile picker Insulin coverage- continue medium scale every 4 hours Supportive care/pain control Blackwell catheter to SD for strict I&Os Repeat am labs Increase in WBC- 11.7>14.4>16.7>13.8 with 4 bands (CXR consistent with HCAP) Dopplers negative for DVT RUE Urine culture negative (2) EBONIE (acute kidney injury) Current Visit: Yes Status: Acute 2.10>2.09>2.04>1.91>1.90 Blackwell catheter to SD for strict I&O Avoid nephrotoxic medications Repeat am labs Nephrology consulted- Dr. Cam following (3) Healthcare-associated pneumonia Current Visit: Yes Status: Acute CXR reviewed- Cefepime and Zyvox schedule aerosols (4) DVT prophylaxis Current Visit: Yes Status: Acute EPCDs to bilateral lower extremities for DVT prophylaxis Heparin 5,000 units SQ twice daily for DVT prophylaxis Subjective Patient reports: no new complaints, feels better, no bowel movement, afebrile, other (Patient sat up on the edge of the bed this morning with therapy, continues to be more alert and conversant.) Narrative: pt states unsure if passed flatus, no bm sat at edge of bed today is thirsty no abdominal pain or nausea Objective Vital Signs - Last 8 Hours Temp Pulse Resp BP Pulse Ox 09/28/16 07:13 98.0 F 90 17 163/70 95 09/28/16 04:00 18 95 09/28/16 03:13 98.6 F 88 14 159/76 96 Intake and Output 09/27/16 09/28/16 09/28/16 23:59 07:59 15:59 Intake Total 350 / 350 550 / 550 Output Total 0 / 0 1510 / 1510 Balance 350 / 350 -960 / -960 Intake: IV Fluids 550 / 550 Intralipid 20% 250 ML @ 250 / 250 21 mls/hr IVPB DAILY@1700 [facility] Rx#:[id number] Zyvox 600mg/300mL 600 mg 300 / 300 In 300 ml @ 150 mls/hr IVPB Q12H [facility] Rx#: [id number] Oral 0 / 0 0 / 0 Blood Product 350 / 350 Rbcs Leuko Poor As-1 350 / 350 Unit [id number] Output: Gastric Tube Lavage 0 / 0 Amount Left Nare 0 / 0 Catheter 1450 / 1450 Gastric Drainage 0 / 0 Wound Drainage 0 / 0 60 / 60 Right Abdomen 0 / 0 60 / 60 Other: Meal NPO NPO Blood Glucose* 153 124 - General physical appearance well developed, no distress - Eyes PERRL, normal ocular movement - ENT dry mucosa, atraumatic, normocephalic - Neck Neck exam: trachea midline - Respiratory normal respiratory effort, clear to auscultation, other (diminished bibasilar bases) - Cardiovascular Cardiovascular exam: Present: RRR - Abdomen Abdomen: Present: bowel sounds present, soft, tender (minimal tenderness with examination, expected), wound (JONATHAN drain to bulb suction with serous drainage noted (60ml noted since midnight); NG tube to LIWS (no drainage noted today)) - Incision Incision: Present: clean and dry, intact - Genitourinary other (blackwell catheter to SD with clear, yellow urine noted) - Integumentary no growths - Neurologic CN 2-12 grossly intact - Musculoskeletal other (deconditioning noted) - Psychiatric oriented to person, oriented to place - Labs 09/29/16 03:30 09/29/16 03:30 Diabetes panel 09/28/16 Range/Units 04:00 Sodium 142 (136-145) mEq/L Potassium 3.7 (3.5-4.5) mEq/L Chloride 110 H (98-109) mEq/L Carbon Dioxide 24 (19-29) mEq/L BUN 66 H (7-20) mg/dL Creatinine 1.90 H (0.57-1.11) mg/dL Glucose 87 (70-99) mg/dL Calcium 9.5 (8.6-10.8) mg/dL Calcium panel 09/28/16 Range/Units 04:00 Calcium 9.5 (8.6-10.8) mg/dL Phosphorus 3.1 (2.3-4.7) mg/dL Pituitary panel 09/28/16 Range/Units 04:00 Sodium 142 (136-145) mEq/L Potassium 3.7 (3.5-4.5) mEq/L Chloride 110 H (98-109) mEq/L Carbon Dioxide 24 (19-29) mEq/L BUN 66 H (7-20) mg/dL Creatinine 1.90 H (0.57-1.11) mg/dL Glucose 87 (70-99) mg/dL Calcium 9.5 (8.6-10.8) mg/dL Adrenal panel 09/28/16 Range/Units 04:00 Sodium 142 (136-145) mEq/L Potassium 3.7 (3.5-4.5) mEq/L Chloride 110 H (98-109) mEq/L Carbon Dioxide 24 (19-29) mEq/L BUN 66 H (7-20) mg/dL Creatinine 1.90 H (0.57-1.11) mg/dL Glucose 87 (70-99) mg/dL Calcium 9.5 (8.6-10.8) mg/dL - VTE Documentation of Mechanical Device: Intermittent pneumatic compression device Consult Discharge Plan - Plan Referrals: William Galvan MD [Primary Care Provider] - - Attending Attestation I examined this patient and my medical decision-making was reviewed with the DIRECTOR [employer]/PA/Advanced Practice Nurse/Resident Physician. I agree with the documented findings, disposition and treatment plan as described except to the extent set forth below. I examined this patient and my medical decision-making was reviewed with the DIRECTOR [employer]/PA/Advanced Practice Nurse/Resident Physician. I agree with the documented findings, disposition and treatment plan as described except to the extent set forth below.
--- NOTE | 2016-09-28 13:40 | Pulmonology Progress Note ---
Date of Encounter: 09/28/16 Time of Encounter: 11:50 Assessment and Plan (1) Pleural effusion due to another disorder Current Visit: Yes Status: Acute Overall clinically improved. Very low suspicion that effusions are related to HCAP and recommend against percutaneous drainage and favor treatment of other causes. No respiratory distress at this point. Recommend repeat chest imaging (PA/Lat if able to tolerat) for re-evaluation of effusions. If there is evidence of improvement, would follow clinically until resolution. (2) Healthcare-associated pneumonia Current Visit: Yes Status: Acute Clinically improving but unclear if this is related to resolution of an infectious process or other causes. In either case, would plan to discontinue empiric abx after 5 day course. Subjective Principal diagnosis: Bowel Obstruction, EBONIE Interval history: Improved mental status today. Now speaking and more interactive. Remains somewhat lethargic. Denies dyspnea, stating that her breathing improved following removal of NG tube. Denies cough, sputum production. Objective PUL Vital signs: Last Vital Signs Temp 98.9 F 09/28/16 10:50 Pulse 78 09/28/16 10:50 Resp 15 09/28/16 11:20 BP 136/92 09/28/16 10:50 Pulse Ox 94 09/28/16 11:20 General appearance: lethargic Eyes: nonicteric Effort: normal Auscultation: bilateral: clear Cardiovascular: regular rate and rhythm Gastrointestinal: non-tender Extremities: no cyanosis, no clubbing, edema other mood appropriate Results - Laboratory Findings CBC and BMP: 09/27/16 12:25 09/28/16 04:00 ABG ABG pH 7.39 pH Units (7.32-7.45) 09/26/16 23:15 ABG pCO2 41 mmHg (35-45) 09/26/16 23:15 ABG pO2 82 mmHg (85-104) L 09/26/16 23:15 ABG O2 Saturation 96 % (95-98) 09/26/16 23:15 PT/INR, D-dimer PT 11.8 Seconds (9.4-12.1) 09/22/16 04:02 Abnormal lab findings: Abnormal lab results WBC 13.8 K/mcL (4.3-11.1) H 09/27/16 03:00 RBC 2.69 M/mcL (3.82-4.97) L 09/27/16 03:00 Hgb 7.7 g/dL (11.5-15.4) L 09/27/16 12:25 Hct 24.8 % (35.3-44.9) L 09/27/16 12:25 MCH 27.9 pg (28.0-33.3) L 09/27/16 03:00 MCHC 30.9 g/dL (31.6-35.5) L 09/27/16 03:00 RDW 16.0 % (11.5-14.5) H 09/27/16 03:00 Metamyelocytes % 4.0 % (0) H 09/24/16 03:30 Myelocytes % 2.0 % (0) H 09/27/16 03:00 Neutrophils # 11.5 K/mcL (1.6-8.9) H 09/27/16 03:00 Nucleated RBCs/100 WBC 0.1 /100 WBC (0) H 09/26/16 05:30 Reactive Lymphocytes Present (Not Present) A 09/25/16 04:00 ABG pO2 82 mmHg (85-104) L 09/26/16 23:15 ABG Total CO2 26.1 mEq/L (20-26) H 09/26/16 23:15 Chloride 110 mEq/L (98-109) H 09/28/16 04:00 BUN 66 mg/dL (7-20) H 09/28/16 04:00 Creatinine 1.90 mg/dL (0.57-1.11) H 09/28/16 04:00 Est GFR ( Amer) 31 (> 60) L 09/28/16 04:00 Est GFR (Non-Af Amer) 25 (> 60) L 09/28/16 04:00 BUN/Creatinine Ratio 35 (6-26) H 09/28/16 04:00 POC Glucose 183 (58-89) H 09/28/16 11:07 Calculated Osmolality 312 (280-300) H 09/28/16 04:00 B-Natriuretic Peptide 151 pg/mL (0-100) H 09/27/16 03:00 Serum Total Protein 5.2 g/dL (6.0-8.3) L 09/23/16 00:03 Albumin 2.2 g/dL (3.5-5.0) L 09/23/16 00:03 Albumin/Globulin Ratio 0.7 (1.1-2.2) L 09/23/16 00:03 Prealbumin 7.0 mg/dL (16.0-38.0) L 09/23/16 00:03 CA 125 Ag Serial Mntr 183 U/mL (0-35) H 09/23/16 00:01 Urine Clarity Cloudy (Clear) A 09/19/16 16:00 Urine Blood Small (Negative) H 09/19/16 16:00 Urine Bilirubin Small (Negative) H 09/19/16 16:00 Urine Microscopic RBC 5-15 per hpf (0-3) H 09/19/16 16:00 Urine Microscopic WBC 3-5 per hpf (0-3) H 09/19/16 16:00 Ur Squamous Epith Cells Many per lpf (None-Few) H 09/19/16 16:00 Urine Yeast Few per hpf (None Seen) H 09/16/16 15:00 - Microbiology Findings Microbiology Findings: Microbiology, Last 48 Hours 09/25/16 12:00 Blood Culture - Preliminary Peripheral Central Cath, Picc No growth. 09/25/16 11:47 Blood Culture - Preliminary Peripheral Venipuncture No growth. 09/25/16 12:02 Urine Culture - Final Urine,[place] No growth. - Clinical Findings Intake & Output: Intake & Output 09/27/16 09/28/16 09/28/16 23:59 07:59 15:59 Intake Total 350 / 350 550 / 550 400 / 400 Output Total 0 / 0 1510 / 1510 450 / 450 Balance 350 / 350 -960 / -960 -50 / -50 - VTE Documentation of Mechanical Device: Intermittent pneumatic compression device Consult Discharge Plan - Plan Referrals: William Galvan MD [Primary Care Provider] -
[2016-09-28] MEDS ORDERED: Clinimix E 5%-20% SOLUTION 2,000 ML with MVI, adult with vitamin K 10 ML IVC SCH (17:00)
--- NOTE | 2016-09-28 20:19 | Internal Med Progress Note ---
Date of Encounter: 09/28/16 Time of Encounter: 09:45 - Assessment and plan (1) Small bowel obstruction Current Visit: Yes Status: Acute Assessment and plan: 09/28/2016: NG tube removed. Patient is started on clear liquid diet No bowel movement. Patient patient is passing gas. Appreciate surgery input. Continue with IV fluids and TPN. 09/23/2016: Patient underwent exploratory laparotomy with lysis of adhesions small bowel resection yesterday. She tolerated the procedure well. Continue nothing by mouth. Follow-up with surgery. Continue intravenous fluids. (2) Acute on chronic respiratory failure with hypoxemia Current Visit: Yes Status: Acute Assessment and plan: Secondary to bacterial pneumonia. Continue empiric antibiotics. She uses 2 L of oxygen at home. She is now requiring 3 L. Wean oxygen to keep SaO2 above 92 %. (3) Healthcare-associated pneumonia Current Visit: Yes Status: Acute Assessment and plan: 09/28/2016: Clinic improving. Continue empiric Zyvox and cefepime. Blood cultures are negative so far. 09/25/2016: Chest x-ray shows bilateral infiltrates. White blood cell count going up. Patient is started on broad spectrum antibiotics with cefepime and Cipro. Continue albuterol Atrovent nebulizations. (4) EBONIE (acute kidney injury) Current Visit: Yes Status: Acute Assessment and plan: 09/26/2016: Continue with TPN. Appreciate nephrology recommendations. History of cardiomyopathy with ejection fraction of 25% previously. Her last echocardiogram in July 2015 found in her records her EF had improved to 55- 60%. - Subjective Interval history: She reports abdominal pain. This has improved compared to admission. No bowel movements. - Constitutional Vitals: Temp Pulse Resp BP Pulse Ox 98.4 F 81 18 158/67 96 09/28/16 18:00 09/28/16 18:00 09/28/16 18:00 09/28/16 18:00 09/28/16 18:00 General appearance: Present: A&O X 1, no acute distress - Respiratory Respiratory exam: Present: rales (At lung basis.), rhonchi - Cardiovascular Cardiovascular exam: Present: RRR - GI/Abdominal GI/Abdominal exam: Present: distended, hypoactive bowel sounds, soft, tenderness (Mild diffuse tenderness) - Extremities Exam Extremities exam: Present: pedal edema Additional comments: Upper extremity edema 1+. - Back Exam Back exam: Absent: CVA tenderness (L), CVA tenderness (R) - Neurological Exam Neurological exam: Present: alert. Absent: facial droop, speech deficit Internal Medicine: Result - Labs CBC & Chem 7: 09/27/16 12:25 09/28/16 04:00 Labs: BMP 09/28/16 04:00 Sodium 142 Potassium 3.7 Chloride 110 H Carbon Dioxide 24 BUN 66 H Creatinine 1.90 H Glucose 87 Calcium 9.5 - ABG Interpretation ABG results: ABG ABG pH 7.39 pH Units (7.32-7.45) 09/26/16 23:15 ABG pCO2 41 mmHg (35-45) 09/26/16 23:15 ABG pO2 82 mmHg (85-104) L 09/26/16 23:15 ABG O2 Saturation 96 % (95-98) 09/26/16 23:15 PT/INR, D-dimer PT 11.8 Seconds (9.4-12.1) 09/22/16 04:02 - VTE Documentation of Mechanical Device: Intermittent pneumatic compression device Consult Discharge Plan - Plan Referrals: William Galvan MD [Primary Care Provider] -
[2016-09-29] MEDS: Insulin LISPRO 300 UNITS/3 ML VIAL SQ SCH ×6 (00:49→17:40)
[2016-09-29] MEDS: *HR* Metoprolol 5 MG/5 ML VIAL IVP SCH ×4 (00:49→17:40)
[2016-09-29] MEDS: Ipratropium/Albuterol Neb 3 ML IH SCH ×4 (03:46→21:38)
[2016-09-29 04:11] LABS: Basophils % 0.2 %; Eosinophils # 0.4 K/mcL (0.0-0.6); Eosinophils % 2.5 %; Hematocrit 27.8 % (35.3-44.9); Hemoglobin 8.7 g/dL (11.5-15.4); Immature Granulocytes % 3.9 % (0-4); Lymphocytes # 1.2 K/mcL (0.6-4.6); Lymphocytes % 7.2 %; Mean Corpuscular HGB Conc 31.3 g/dL (31.6-35.5); Mean Corpuscular Hemoglobin 28.2 pg (28.0-33.3); Mean Platelet Volume 11.6 fL (9.4-12.4); Monocytes # 0.9 K/mcL (0.0-1.3); Monocytes % 5.5 %; Neutrophils # 12.9 K/mcL (1.6-8.9); Platelet Count 155 K/mcL (140-400); Red Blood Count 3.09 M/mcL (3.82-4.97); Red Cell Distribution Width 15.3 % (11.5-14.5); Segmented Neutrophils % 80.7 %
[2016-09-29 04:27] LABS: Calcium 9.4 mg/dL (8.6-10.8); Magnesium 1.9 mg/dL (1.6-2.6); Phosphorous 3.8 mg/dL (2.3-4.7); Potassium 3.8 mEq/L (3.5-4.5)
[2016-09-29] MEDS: Famotidine 20 MG/2 ML VIAL IVP SCH (06:17)
[2016-09-29] MEDS: *HR* Heparin 5,000 UNIT/ML VIAL SQ SCH ×2 (06:18→17:40)
[2016-09-29] MEDS: Cefepime HCl 2,000 MG in D5% in Water (Mini-Bag+) 100 ML IVPB SCH (10:34)
--- NOTE | 2016-09-29 10:45 | Nephrology Progress Note ---
Date of Encounter: 09/29/16 Time of Encounter: 10:20 - Assessment and Plan (1) EBONIE (acute kidney injury) Current Visit: Yes Status: Acute Nonoliguric EBONIE on CKD stage III, SCr improved some, but appears to stable around SCr 1.9. Plan: Continue to follow a renal conservative and protective strategy. Dose Rx by GFR. Avoid Nephrotoxins as able. Strict I/Os, daily weights. (2) Healthcare-associated pneumonia Current Visit: Yes Status: Acute pneumonia vs pulmonary edema. Management per primary medicine service. Dose Rx by GFR. Avoid Nephrotoxins as able. (3) Small bowel obstruction Current Visit: Yes Status: Acute POD #7 from Exploratory laparotomy, lysis of adhesions, right salpingoophorectomy, left oophorectomy with Dr. Dubose Management per surgery service. (4) Hypokalemia Current Visit: Yes Status: Resolved Improved, K+ 3.3>>3.8 (5) CKD (chronic kidney disease), stage III Current Visit: No Status: Chronic (6) HTN (hypertension) Current Visit: Yes Status: Chronic Qualifiers: Hypertension type: essential hypertension Qualified Code(s): I10 - Essential (primary) hypertension (7) Paroxysmal a-fib Current Visit: No Status: Chronic Management per primary service. (8) DVT prophylaxis Current Visit: Yes Status: Acute SVDs and SQ heparin per medicine team. Subjective Principal diagnosis: Bowel Obstruction, EBONIE Interval history: This AM was the first time I have seen patient sitting up in bed, fully awake. She states she is feeling better, though still tired. and patient are planning to discuss options for inpatient rehab today. Objective - Vital Signs Vital signs: Vital Signs Temp Pulse Resp BP Pulse Ox 09/29/16 09:03 97.9 F 72 18 158/67 98 09/29/16 08:52 76 18 148/74 96 09/29/16 05:57 85 161/72 09/29/16 03:49 18 93 09/29/16 02:46 97.9 F 80 14 154/56 96 09/29/16 00:21 97.7 F 83 14 166/70 95 09/28/16 22:04 83 168/64 09/28/16 21:20 18 95 09/28/16 18:00 98.4 F 81 18 158/67 96 09/28/16 16:02 98.3 F 81 18 149/63 99 09/28/16 15:48 16 97 09/28/16 14:30 68 152/76 09/28/16 11:20 15 94 09/28/16 10:50 98.9 F 78 17 136/92 95 Intake and Output 09/28/16 09/29/16 09/29/16 23:59 07:59 15:59 Intake Total 966 / 966 0 / 0 168 / 168 Output Total 503 / 503 440 / 440 Balance 463 / 463 -440 / -440 168 / 168 Intake: IV Fluids 966 / 966 Clinimix E 5%-20% 966 / 966 SOLUTION 2,000 ML @ 65 mls/hr IVC .Q24H [facility] with M.v.i. Adult 10 ml Rx#: [id number] Oral 0 / 0 168 / 168 Output: Catheter 375 / 375 400 / 400 Wound Drainage 128 / 128 40 / 40 Right Abdomen 128 / 128 40 / 40 Other: Meal Breakfast Weight 72.2 kg Blood Glucose* 137 122 174 Patient Weight 09/29/16 23:59 Weight 72.2 kg - General Appearance General appearance: Present: well-developed, appears started age, frail EENT: Present: ATNC, mucous membranes moist, hearing intact, vision intact Respiratory: Present: rhonchi Cardiology: Present: holosystolic murmur, edema (1+ pedal edema bilaterally), regular rate, regular rhythm Integumentary: Present: no rash, warm and dry Neurologic: Present: no focal deficit Additional Comments: awake, alert, interactive Musculoskeletal: Present: no deformities, no erythema, no cyanosis, no clubbing Psychiatric: Present: mood/affect appropriate, cooperative - Lab 09/29/16 03:30 09/29/16 03:30 Most recent lab results ABG pH 7.39 pH Units (7.32-7.45) 09/26/16 23:15 ABG pCO2 41 mmHg (35-45) 09/26/16 23:15 ABG pO2 82 mmHg (85-104) L 09/26/16 23:15 ABG HCO3 24.8 mEQ/L (21-27) 09/26/16 23:15 ABG O2 Saturation 96 % (95-98) 09/26/16 23:15 Calcium 9.4 mg/dL (8.6-10.8) 09/29/16 03:30 Phosphorus 3.8 mg/dL (2.3-4.7) 09/29/16 03:30 Magnesium 1.9 mg/dL (1.6-2.6) 09/29/16 03:30 - VTE Documentation of Mechanical Device: Intermittent pneumatic compression device Consult Discharge Plan - Plan Referrals: William Galvan MD [Primary Care Provider] -
--- NOTE | 2016-09-29 11:32 | Pulmonology Progress Note ---
Date of Encounter: 09/29/16 Time of Encounter: 11:00 Assessment and Plan (1) Pleural effusion due to another disorder Current Visit: Yes Status: Acute Overall clinically improved. Very low suspicion that effusions are related to HCAP and recommend against percutaneous drainage and favor treatment of other causes. No respiratory distress at this point. Recommend repeat chest imaging (PA/Lat if able to tolerat) for re-evaluation of effusions. If there is evidence of improvement, would follow clinically until resolution. (2) Healthcare-associated pneumonia Current Visit: Yes Status: Acute Clinically improving but unclear if this is related to resolution of an infectious process or other causes. In either case, would plan to discontinue empiric abx after 5 day course. Subjective Principal diagnosis: Bowel Obstruction, EBONIE Interval history: Continued improvement in mental status today. Now speaking and interactive but admits to fatigue and weakness. Denies dyspnea, cough, mucus production. Received PRBC transfusion yesterday. Objective PUL Vital signs: Last Vital Signs Temp 97.9 F 09/29/16 09:03 Pulse 72 09/29/16 09:03 Resp 18 09/29/16 09:03 BP 158/67 09/29/16 09:03 Pulse Ox 98 09/29/16 09:03 General appearance: no acute distress, lethargic Eyes: nonicteric Effort: normal Auscultation: bilateral: clear, diminished breath sounds (in bases) Gastrointestinal: non-tender Extremities: no cyanosis, no clubbing, edema normal mental status, non-focal exam mood appropriate, affect normal Results - Laboratory Findings CBC and BMP: 09/29/16 03:30 09/29/16 03:30 ABG ABG pH 7.39 pH Units (7.32-7.45) 09/26/16 23:15 ABG pCO2 41 mmHg (35-45) 09/26/16 23:15 ABG pO2 82 mmHg (85-104) L 09/26/16 23:15 ABG O2 Saturation 96 % (95-98) 09/26/16 23:15 PT/INR, D-dimer PT 11.8 Seconds (9.4-12.1) 09/22/16 04:02 Abnormal lab findings: Abnormal lab results WBC 16.0 K/mcL (4.3-11.1) H 09/29/16 03:30 RBC 3.09 M/mcL (3.82-4.97) L 09/29/16 03:30 Hgb 8.7 g/dL (11.5-15.4) L 09/29/16 03:30 Hct 27.8 % (35.3-44.9) L 09/29/16 03:30 MCHC 31.3 g/dL (31.6-35.5) L 09/29/16 03:30 RDW 15.3 % (11.5-14.5) H 09/29/16 03:30 Metamyelocytes % 4.0 % (0) H 09/24/16 03:30 Myelocytes % 2.0 % (0) H 09/27/16 03:00 Neutrophils # 12.9 K/mcL (1.6-8.9) H 09/29/16 03:30 Nucleated RBCs/100 WBC 0.1 /100 WBC (0) H 09/26/16 05:30 Reactive Lymphocytes Present (Not Present) A 09/25/16 04:00 ABG pO2 82 mmHg (85-104) L 09/26/16 23:15 ABG Total CO2 26.1 mEq/L (20-26) H 09/26/16 23:15 BUN 72 mg/dL (7-20) H 09/29/16 03:30 Creatinine 1.92 mg/dL (0.57-1.11) H 09/29/16 03:30 Est GFR ( Amer) 30 (> 60) L 09/29/16 03:30 Est GFR (Non-Af Amer) 25 (> 60) L 09/29/16 03:30 BUN/Creatinine Ratio 38 (6-26) H 09/29/16 03:30 POC Glucose 122 (58-89) H 09/29/16 04:29 Calculated Osmolality 313 (280-300) H 09/29/16 03:30 B-Natriuretic Peptide 151 pg/mL (0-100) H 09/27/16 03:00 Serum Total Protein 5.2 g/dL (6.0-8.3) L 09/23/16 00:03 Albumin 2.2 g/dL (3.5-5.0) L 09/23/16 00:03 Albumin/Globulin Ratio 0.7 (1.1-2.2) L 09/23/16 00:03 Prealbumin 7.0 mg/dL (16.0-38.0) L 09/23/16 00:03 CA 125 Ag Serial Mntr 183 U/mL (0-35) H 09/23/16 00:01 Urine Clarity Cloudy (Clear) A 09/19/16 16:00 Urine Blood Small (Negative) H 09/19/16 16:00 Urine Bilirubin Small (Negative) H 09/19/16 16:00 Urine Microscopic RBC 5-15 per hpf (0-3) H 09/19/16 16:00 Urine Microscopic WBC 3-5 per hpf (0-3) H 09/19/16 16:00 Ur Squamous Epith Cells Many per lpf (None-Few) H 09/19/16 16:00 Urine Yeast Few per hpf (None Seen) H 09/16/16 15:00 - Clinical Findings Intake & Output: Intake & Output 09/28/16 09/29/16 09/29/16 23:59 07:59 15:59 Intake Total 966 / 966 0 / 0 168 / 168 Output Total 503 / 503 440 / 440 Balance 463 / 463 -440 / -440 168 / 168 Weight 72.2 kg - VTE Documentation of Mechanical Device: Intermittent pneumatic compression device Consult Discharge Plan - Plan Referrals: William Galvan MD [Primary Care Provider] -
--- NOTE | 2016-09-29 14:50 | General Surgery Progress Note ---
Date of Encounter: 09/29/16 Time of Encounter: 12:50 - Assessment and Plan (1) Small bowel obstruction Current Visit: Yes Status: Acute POD #7 from Exploratory laparotomy, lysis of adhesions for 1 hour, right salpingoophorectomy, left oophorectomy with Dr. Dubose Pathology reviewed with family per Dr. Dubose 09/26 Clear liquids with protein supplements TID with trays TPN- managment per scientific software developer Insulin coverage- continue medium scale every 4 hours Supportive care/pain control Lbackwell catheter to SD for strict I&Os Repeat am labs Increase in WBC- 11.7>14.4>16.7>13.8>16 (2) EBONIE (acute kidney injury) Current Visit: Yes Status: Acute 2.10>2.09>2.04>1.91>1.90>1.92 Blackwell catheter to SD for strict I&O Avoid nephrotoxic medications Repeat am labs Nephrology consulted- Dr. Cam following (3) Healthcare-associated pneumonia Current Visit: Yes Status: Acute CXR reviewed- Cefepime schedule aerosols (4) DVT prophylaxis Current Visit: Yes Status: Acute EPCDs to bilateral lower extremities for DVT prophylaxis Heparin 5,000 units SQ twice daily for DVT prophylaxis Subjective Patient reports: no new complaints, feels better, tolerating liquids well, flatus, no bowel movement, afebrile Narrative: sitting up in chair denies pain no nausea unsure if having flatus Objective Vital Signs - Last 8 Hours Temp Pulse Resp BP Pulse Ox 09/29/16 12:00 97.9 F 72 16 132/79 96 09/29/16 09:58 16 94 09/29/16 09:03 97.9 F 72 18 158/67 98 09/29/16 08:52 76 18 148/74 96 Intake and Output 09/28/16 09/29/16 09/29/16 23:59 07:59 15:59 Intake Total 966 / 966 0 / 0 628 / 628 Output Total 503 / 503 440 / 440 800 / 800 Balance 463 / 463 -440 / -440 -172 / -172 Intake: IV Fluids 966 / 966 100 / 100 Clinimix E 5%-20% 966 / 966 SOLUTION 2,000 ML @ 65 mls/hr IVC .Q24H [facility] with M.v.i. Adult 10 ml Rx#: [id number] Maxipime 2,000 MG In 100 / 100 Dextrose 5% (Minibag+) 100 ML 100 ML @ 200 mls/ hr IVPB Q24H [facility] Rx#: [id number] Oral 0 / 0 528 / 528 Output: Catheter 375 / 375 400 / 400 550 / 550 Wound Drainage 128 / 128 40 / 40 250 / 250 Right Abdomen 128 / 128 40 / 40 250 / 250 Other: Meal Breakfast Percent of Meal Consumed 25% Weight 72.2 kg Blood Glucose* 137 122 172 Patient Weight 09/29/16 23:59 Weight 72.2 kg - General physical appearance well developed, no distress, no pain - Eyes normal ocular movement - ENT normal mucosa, atraumatic, normocephalic - Neck Neck exam: trachea midline - Respiratory normal respiratory effort, clear to auscultation, other (diminished bibasilar bases) - Cardiovascular Cardiovascular exam: Present: RRR - Abdomen Abdomen: Present: bowel sounds present, soft, tender (minimal, expected post- operative tenderness), wound (JONATHAN drain to bulb suction with serous drainage noted (290ml since midnight)) - Incision Incision: Present: clean and dry, intact - Genitourinary other (blackwell catheter to SD with clear, yellow urine noted) - Neurologic CN 2-12 grossly intact - Musculoskeletal normal posture, other (deconditioning noted) - Psychiatric oriented to person, oriented to place, speech is normal - Labs 09/30/16 03:10 09/30/16 03:10 Diabetes panel 09/29/16 Range/Units 03:30 Sodium 141 (136-145) mEq/L Potassium 3.8 (3.5-4.5) mEq/L Chloride 109 (98-109) mEq/L Carbon Dioxide 23 (19-29) mEq/L BUN 72 H (7-20) mg/dL Creatinine 1.92 H (0.57-1.11) mg/dL Glucose 96 (70-99) mg/dL Calcium 9.4 (8.6-10.8) mg/dL Triglycerides 87 (< 150) mg/dL Calcium panel 09/29/16 Range/Units 03:30 Calcium 9.4 (8.6-10.8) mg/dL Phosphorus 3.8 (2.3-4.7) mg/dL Pituitary panel 09/29/16 Range/Units 03:30 Sodium 141 (136-145) mEq/L Potassium 3.8 (3.5-4.5) mEq/L Chloride 109 (98-109) mEq/L Carbon Dioxide 23 (19-29) mEq/L BUN 72 H (7-20) mg/dL Creatinine 1.92 H (0.57-1.11) mg/dL Glucose 96 (70-99) mg/dL Calcium 9.4 (8.6-10.8) mg/dL Adrenal panel 09/29/16 Range/Units 03:30 Sodium 141 (136-145) mEq/L Potassium 3.8 (3.5-4.5) mEq/L Chloride 109 (98-109) mEq/L Carbon Dioxide 23 (19-29) mEq/L BUN 72 H (7-20) mg/dL Creatinine 1.92 H (0.57-1.11) mg/dL Glucose 96 (70-99) mg/dL Calcium 9.4 (8.6-10.8) mg/dL - VTE Documentation of Mechanical Device: Intermittent pneumatic compression device Consult Discharge Plan - Plan Referrals: William Galvan MD [Primary Care Provider] - - Attending Attestation I examined this patient and my medical decision-making was reviewed with the CRYPTOLOGIC SUPPORT SPECIALIST/PA/Advanced Practice Nurse/Resident Physician. I agree with the documented findings, disposition and treatment plan as described except to the extent set forth below. I examined this patient and my medical decision-making was reviewed with the CRYPTOLOGIC SUPPORT SPECIALIST/PA/Advanced Practice Nurse/Resident Physician. I agree with the documented findings, disposition and treatment plan as described except to the extent set forth below.
[2016-09-29] MEDS ORDERED: Clinimix E 5%-20% SOLUTION 2,000 ML with MVI, adult with vitamin K 10 ML IVC SCH (17:00)
--- NOTE | 2016-09-29 18:36 | Internal Med Progress Note ---
Date of Encounter: 09/29/16 Time of Encounter: 14:30 - Assessment and plan (1) Small bowel obstruction Current Visit: Yes Status: Acute Assessment and plan: 09/29/16: Patients passing gas. No bowel movement. Appreciate surgery input. Continue with liquid diet, IV fluids and TPN. 09/28/2016: NG tube removed. Patient started clear liquid diet. 09/23/2016: Patient underwent exploratory laparotomy with lysis of adhesions small bowel resection yesterday. She tolerated the procedure well. Continue nothing by mouth. Follow-up with surgery. Continue intravenous fluids. (2) Acute on chronic respiratory failure with hypoxemia Current Visit: Yes Status: Acute Assessment and plan: Secondary to bacterial pneumonia and acute heart failure. She uses 2 L of oxygen at home. She is now requiring 3 L. Continue empiric antibiotics and start IV lasix. Wean oxygen to keep SaO2 above 92%. (3) Healthcare-associated pneumonia Current Visit: Yes Status: Acute Assessment and plan: 09/28/2016: Clinic improving. Continue empiric Zyvox and cefepime. Blood cultures are negative so far. 09/25/2016: Chest x-ray shows bilateral infiltrates. White blood cell count going up. Patient is started on broad spectrum antibiotics with cefepime and Cipro. Continue albuterol Atrovent nebulizations. (4) EBONIE (acute kidney injury) Current Visit: Yes Status: Acute Assessment and plan: Nonoliguric acute kidney. CK-MB is stage III. Multifactorial from fluid losses and cardiorenal syndrome. Kidney function stable. Nephrotoxic agents as possible. Close monitoring. Appreciate nephrology recommendations. (5) Paroxysmal a-fib Current Visit: No Status: Chronic Assessment and plan: Heart rate is adequate. Continue metoprolol. - Subjective Interval history: Patient just went to sleep. Her has no nasal bedside and answering all questions. He reports that patient had a good day today. Her abdominal pain is better. She sat on the chair for a while. - Constitutional Vitals: Temp Pulse Resp BP Pulse Ox 97.9 F 72 18 132/79 92 09/29/16 12:00 09/29/16 12:00 09/29/16 15:40 09/29/16 12:00 09/29/16 15:40 General appearance: Present: A&O X 1, no acute distress Exam: Patient is sleeping peacefully. - Respiratory Respiratory exam: Present: decreased breath sounds (at lung bases) - Cardiovascular Cardiovascular exam: Present: RRR - GI/Abdominal GI/Abdominal exam: Present: normal bowel sounds, soft. Absent: distended, tenderness - Extremities Exam Additional comments: Upper extremity swelling. - Neurological Exam Neurological exam: Present: alert. Absent: facial droop, speech deficit Internal Medicine: Result - Labs CBC & Chem 7: 09/29/16 03:30 09/29/16 03:30 Labs: Short CBC 09/29/16 Range/Units 03:30 WBC 16.0 H (4.3-11.1) K/mcL Hgb 8.7 L (11.5-15.4) g/dL Hct 27.8 L (35.3-44.9) % Plt Count 155 (140-400) K/mcL Neutrophils # 12.9 H (1.6-8.9) K/mcL BMP 09/29/16 03:30 Sodium 141 Potassium 3.8 Chloride 109 Carbon Dioxide 23 BUN 72 H Creatinine 1.92 H Glucose 96 Calcium 9.4 - ABG Interpretation ABG results: ABG ABG pH 7.39 pH Units (7.32-7.45) 09/26/16 23:15 ABG pCO2 41 mmHg (35-45) 09/26/16 23:15 ABG pO2 82 mmHg (85-104) L 09/26/16 23:15 ABG O2 Saturation 96 % (95-98) 09/26/16 23:15 PT/INR, D-dimer PT 11.8 Seconds (9.4-12.1) 09/22/16 04:02 - Impressions Impressions Chest X-Ray 09/29/16 15:43 IMPRESSION: 1. Stable chest x-ray findings likely reflecting congestive failure. D/ / 09/29/2016 17:21:25 Jose Ruiz MD / bcarter Interpreting Provider: Jose Ruiz MD - VTE Documentation of Mechanical Device: Intermittent pneumatic compression device Consult Discharge Plan - Plan Referrals: William Galvan MD [Primary Care Provider] -
[2016-09-29 19:17] LABS: Bilirubin,Urine Negative (Negative); Blood,Urine Large (Negative); Clarity,Urine Cloudy (Clear); Color,Urine Yellow (Yellow); Glucose,Urine (UA) Normal (Normal); Ketones,Urine Negative (Negative); Leukocyte Esterase,Urine Negative (Negative); Nitrite,Urine Negative (Negative); PH,Urine 5.5 pH Units (5.0-8.0); Protein,Urine 100 mg/dL (Neg-Trace); Specific Gravity,Urine 1.016 (1.010-1.025); Urobilinogen,Urine Normal (Normal)
[2016-09-29 19:19] LABS: Hyaline Casts,Urine None Seen per lpf (None-Few); Squamous Epithelial Cell,Urine Many per lpf (None-Few)
[2016-09-29 19:36] LABS: Bacteria,Urine Moderate per hpf (None-Few); RBC,Urine 50-100 per hpf (0-3)
[2016-09-29] MEDS: Furosemide 20 MG/2 ML VIAL IVP SCH (20:39)
[2016-09-30] MEDS: Insulin LISPRO 300 UNITS/3 ML VIAL SQ SCH ×6 (00:25→20:19)
[2016-09-30] MEDS: *HR* Metoprolol 5 MG/5 ML VIAL IVP SCH ×2 (00:26→06:04)
[2016-09-30 03:20] LABS: Basophils % 0.1 %; Eosinophils # 0.3 K/mcL (0.0-0.6); Eosinophils % 2.1 %; Hematocrit 25.6 % (35.3-44.9); Hemoglobin 7.8 g/dL (11.5-15.4); Immature Granulocytes % 2.9 % (0-4); Immature Platelets 4.8 % (1.1-6.1); Lymphocytes # 0.9 K/mcL (0.6-4.6); Lymphocytes % 6.6 %; Mean Corpuscular HGB Conc 30.5 g/dL (31.6-35.5); Mean Corpuscular Hemoglobin 27.5 pg (28.0-33.3); Mean Corpuscular Volume 90.1 fL (83.0-100.0); Mean Platelet Volume 10.8 fL (9.4-12.4); Monocytes # 0.8 K/mcL (0.0-1.3); Monocytes % 5.7 %; Neutrophils # 11.2 K/mcL (1.6-8.9); Platelet Count 159 K/mcL (140-400); Red Blood Count 2.84 M/mcL (3.82-4.97); Red Cell Distribution Width 14.9 % (11.5-14.5); Segmented Neutrophils % 82.6 %
[2016-09-30 03:32] LABS: Calcium 9.3 mg/dL (8.6-10.8); Potassium 3.8 mEq/L (3.5-4.5)
[2016-09-30] MEDS: Ipratropium/Albuterol Neb 3 ML IH SCH ×4 (03:54→21:36)
[2016-09-30] MEDS: *HR* Heparin 5,000 UNIT/ML VIAL SQ SCH ×2 (06:04→17:23)
[2016-09-30] MEDS: Famotidine 20 MG/2 ML VIAL IVP SCH (06:04)
[2016-09-30] MEDS: Furosemide 20 MG/2 ML VIAL IVP SCH ×2 (07:33→17:23)
[2016-09-30] MEDS: Cefepime HCl 2,000 MG in D5% in Water (Mini-Bag+) 100 ML IVPB SCH (07:59)
--- NOTE | 2016-09-30 10:23 | General Surgery Progress Note ---
Date of Encounter: 09/30/16 Time of Encounter: 08:40 - Assessment and Plan (1) Small bowel obstruction Current Visit: Yes Status: Acute s/p from Exploratory laparotomy, lysis of adhesions for 1 hour, right salpingoophorectomy, left oophorectomy with Dr. Dubose Pathology reviewed with family per Dr. Dubose 09/26 start fulls with protein supplements TID with trays TPN- managment per bottom presser Insulin coverage- continue medium scale every 4 hours Supportive care/pain control Berger catheter to SD for strict I&Os Repeat am labs Increase in WBC- 11.7>14.4>16.7>13.8>16 - Abx per hospitalist for pneumonia start po pain medication (2) EBONIE (acute kidney injury) Current Visit: Yes Status: Acute improving Berger catheter to SD for strict I&O Avoid nephrotoxic medications Repeat am labs Nephrology consulted- Dr. 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 (6) HTN (hypertension) Current Visit: Yes Status: Chronic restart home medication, monitor prn B-dylon Qualifiers: Hypertension type: essential hypertension Qualified Code(s): I10 - Essential (primary) hypertension Subjective Patient reports: no new complaints, feels better, still having pain, pain is less, tolerating liquids well, flatus, bowel movement, afebrile Objective Vital Signs - Last 8 Hours Temp Pulse Resp BP Pulse Ox 09/30/16 06:36 73 146/70 09/30/16 05:33 98.4 F 75 14 147/65 97 09/30/16 03:54 16 99 09/30/16 02:44 74 149/69 Intake and Output 09/29/16 09/30/16 09/30/16 23:59 07:59 15:59 Intake Total 988 / 988 250 / 250 360 / 360 Output Total 350 / 350 1325 / 1325 Balance 638 / 638 -1075 / -1075 / 360 Intake: IV Fluids 988 / 988 250 / 250 Clinimix E 5%-20% 988 / 988 SOLUTION 2,000 ML @ 65 mls/hr IVC .Q24H [facility] with M.v.i. Adult 10 ml Rx#: [id number] Intralipid 20% 250 ML @ 250 / 250 21 mls/hr IVPB DAILY@1700 [facility] Rx#:[id number] Oral 0 / 0 0 / 0 360 / 360 Output: Catheter 300 / 300 1250 / 1250 Wound Drainage 50 / 50 75 / 75 Right Abdomen 50 / 50 75 / 75 Other: Meal Breakfast Percent of Meal Consumed 90% Stool Size Small Stool Color Black # Bowel Movements 1 Blood Glucose* 162 167 - General physical appearance well developed, no distress - Eyes PERRL, normal ocular movement - ENT normal mucosa, normocephalic - Neck Neck exam: trachea midline - Respiratory normal expansion, clear to auscultation - Cardiovascular Cardiovascular exam: Present: RRR - Abdomen Abdomen: Present: bowel sounds present, soft, tender (appropriate post op tenderness) - Incision Incision: Present: clean and dry, intact - Integumentary no growths - Neurologic CN 2-12 grossly intact - Musculoskeletal normal posture - Psychiatric oriented to time, oriented to person, oriented to place, speech is normal, memory intact - Labs 09/30/16 03:10 09/30/16 03:10 Short CBC 09/30/16 Range/Units 03:10 WBC 13.5 H (4.3-11.1) K/mcL Hgb 7.8 L (11.5-15.4) g/dL Hct 25.6 L (35.3-44.9) % Plt Count 159 (140-400) K/mcL Neutrophils # 11.2 H (1.6-8.9) K/mcL BMP 09/30/16 Range/Units 03:10 Sodium 139 (136-145) mEq/L Potassium 3.8 (3.5-4.5) mEq/L Chloride 107 (98-109) mEq/L Carbon Dioxide 26 (19-29) mEq/L BUN 78 H (7-20) mg/dL Creatinine 1.74 H (0.57-1.11) mg/dL Glucose 94 (70-99) mg/dL Calcium 9.3 (8.6-10.8) mg/dL Urine 09/29/16 Range/Units 19:00 Urine Color Yellow (Yellow) Urine Clarity Cloudy A (Clear) Urine pH 5.5 (5.0-8.0) pH Units Ur Specific [place] 1.016 (1.010-1.025) Urine Protein 100 H (Neg-Trace) mg/dL Urine Glucose (UA) Normal (Normal) mg/dL Vital Signs Temp Pulse Resp BP Pulse Ox 09/30/16 06:36 73 146/70 09/30/16 05:33 98.4 F 75 14 147/65 97 09/30/16 03:54 16 99 09/30/16 02:44 74 149/69 09/30/16 00:21 98.1 F 82 18 156/69 96 09/29/16 22:42 81 14 155/75 98 09/29/16 21:38 14 98 09/29/16 19:50 98.4 F 79 14 93/56 98 09/29/16 19:00 99 F 74 16 164/65 99 09/29/16 15:40 18 92 09/29/16 12:00 97.9 F 72 16 132/79 96 Intake and Output 09/29/16 09/30/16 09/30/16 23:59 07:59 15:59 Intake Total 988 / 988 250 / 250 360 / 360 Output Total 350 / 350 1325 / 1325 Balance 638 / 638 -1075 / -1075 360 / 360 Intake: IV Fluids 988 / 988 250 / 250 Clinimix E 5%-20% 988 / 988 SOLUTION 2,000 ML @ 65 mls/hr IVC .Q24H [facility] with M.v.i. Adult 10 ml Rx#: [id number] Intralipid 20% 250 ML @ 250 / 250 21 mls/hr IVPB DAILY@1700 [facility] Rx#:[id number] Oral 0 / 0 0 / 0 360 / 360 Output: Catheter 300 / 300 1250 / 1250 Wound Drainage 50 / 50 75 / 75 Right Abdomen 50 / 50 75 / 75 Other: Meal Breakfast Percent of Meal Consumed 90% Stool Size Small Stool Color Black # Bowel Movements 1 Blood Glucose* 162 167 - VTE Documentation of Mechanical Device: Intermittent pneumatic compression device Consult Discharge Plan - Plan Referrals: Okolie,Thomas, MD [Primary Care Provider] -
[2016-09-30] MEDS ORDERED: *HR* HYDROcodone/Acet 5/325 mg TABLET PO PRN (10:26)
[2016-09-30] MEDS ORDERED: *HR* Metoprolol 5 MG/5 ML VIAL IVP PRN (10:29)
[2016-09-30] MEDS ORDERED: *HR* Morphine 2 MG/ML SYRINGE IVP PRN (10:29)
--- NOTE | 2016-09-30 10:38 | Nephrology Progress Note ---
Date of Encounter: 09/30/16 Time of Encounter: 10:30 - Assessment and Plan (1) EBONIE (acute kidney injury) Current Visit: Yes Status: Acute Nonoliguric EBONIE on CKD stage III, SCr continues to slowly improve. Plan: Continue to follow a renal conservative and protective strategy. Dose Rx by GFR. Avoid Nephrotoxins as able. Strict I/Os, daily weights. (2) Healthcare-associated pneumonia Current Visit: Yes Status: Acute pneumonia vs pulmonary edema. Management per primary medicine service. Dose Rx by GFR. Avoid Nephrotoxins as able. (3) Small bowel obstruction Current Visit: Yes Status: Acute POD #8 from Exploratory laparotomy, lysis of adhesions, right salpingoophorectomy, left oophorectomy with Dr. Dubose Management per surgery service. (4) Hypokalemia Current Visit: Yes Status: Resolved Improved, K+ 3.3>>3.8 (5) CKD (chronic kidney disease), stage III Current Visit: No Status: Chronic (6) HTN (hypertension) Current Visit: Yes Status: Chronic Qualifiers: Hypertension type: essential hypertension Qualified Code(s): I10 - Essential (primary) hypertension (7) Paroxysmal a-fib Current Visit: No Status: Chronic Management per primary service. (8) DVT prophylaxis Current Visit: Yes Status: Acute SVDs and SQ heparin per medicine team. Subjective Principal diagnosis: Bowel Obstruction, EBONIE Interval history: Patient awake and alert, sitting in chair this AM. Reports bowel movement. Reports improvement in dyspnea. No events overnight. Objective - Vital Signs Vital signs: Vital Signs Temp Pulse Resp BP Pulse Ox 09/30/16 06:36 73 146/70 09/30/16 05:33 98.4 F 75 14 147/65 97 09/30/16 03:54 16 99 09/30/16 02:44 74 149/69 09/30/16 00:21 98.1 F 82 18 156/69 96 09/29/16 22:42 81 14 155/75 98 09/29/16 21:38 14 98 09/29/16 19:50 98.4 F 79 14 93/56 98 09/29/16 19:00 99 F 74 16 164/65 99 09/29/16 15:40 18 92 09/29/16 12:00 97.9 F 72 16 132/79 96 Intake and Output 04/09/30/16 09/30/16 23:59 07:59 15:59 Intake Total 988 / 988 250 / 250 360 / 360 Output Total 350 / 350 1325 / 1325 Balance 638 / 638 -1075 / -1075 360 / 360 Intake: IV Fluids 988 / 988 250 / 250 Clinimix E 5%-20% 988 / 988 SOLUTION 2,000 ML @ 65 mls/hr IVC .Q24H [facility] with M.v.i. Adult 10 ml Rx#: [id number] Intralipid 20% 250 ML @ 250 / 250 21 mls/hr IVPB DAILY@1700 [facility] Rx#:[id number] Oral 0 / 0 0 / 0 360 / 360 Output: Catheter 300 / 300 1250 / 1250 Wound Drainage 50 / 50 75 / 75 Right Abdomen 50 / 50 75 / 75 Other: Meal Breakfast Percent of Meal Consumed 90% Stool Size Small Stool Color Black # Bowel Movements 1 Blood Glucose* 162 167 - General Appearance General appearance: Present: well-developed, appears started age, frail EENT: Present: ATNC, mucous membranes moist, hearing intact, vision intact Respiratory: Present: rhonchi Cardiology: Present: edema (2+ bilateral pitting pretibial edema) Integumentary: Present: no rash, warm and dry Neurologic: Present: no focal deficit Additional Comments: awake, alert, interactive Musculoskeletal: Present: no deformities, no erythema, no cyanosis, no clubbing Psychiatric: Present: mood/affect appropriate, cooperative - Lab 09/30/16 03:10 09/30/16 03:10 Most recent lab results ABG pH 7.39 pH Units (7.32-7.45) 09/26/16 23:15 ABG pCO2 41 mmHg (35-45) 09/26/16 23:15 ABG pO2 82 mmHg (85-104) L 09/26/16 23:15 ABG HCO3 24.8 mEQ/L (21-27) 09/26/16 23:15 ABG O2 Saturation 96 % (95-98) 09/26/16 23:15 Calcium 9.3 mg/dL (8.6-10.8) 09/30/16 03:10 Phosphorus 3.8 mg/dL (2.3-4.7) 09/29/16 03:30 Magnesium 1.9 mg/dL (1.6-2.6) 09/29/16 03:30 - VTE Documentation of Mechanical Device: Intermittent pneumatic compression device Consult Discharge Plan - Plan Referrals: William Galvan MD [Primary Care Provider] -
[2016-09-30] MEDS: hydrALAZINE 10 MG TABLET PO SCH ×2 (15:54→21:03)
--- NOTE | 2016-09-30 16:28 | Internal Med Progress Note ---
Date of Encounter: 09/30/16 Time of Encounter: 09:30 - Assessment and plan (1) Small bowel obstruction Current Visit: Yes Status: Acute Assessment and plan: 09/30/16: Patients is having bowel movements. Appreciate surgery input. advance diet to full liquid. Stop TPN this afternoon. 09/28/2016: NG tube removed. Patient started clear liquid diet. 09/23/2016: Patient underwent exploratory laparotomy with lysis of adhesions small bowel resection yesterday. She tolerated the procedure well. Continue nothing by mouth. Follow-up with surgery. Continue intravenous fluids. (2) Acute on chronic respiratory failure with hypoxemia Current Visit: Yes Status: Acute Assessment and plan: Secondary to bacterial pneumonia and acute heart failure. She uses 2 L of oxygen via NC at home. She required 3 L NC. clinically improving slowly. Now back to her baseline oxygen at 2 L. Continue empiric antibiotics (Cefepime for a total of 7 days) and IV lasix. (3) Healthcare-associated pneumonia Current Visit: Yes Status: Acute Assessment and plan: bacterial PNA. 09/25/2016: Chest x-ray shows bilateral infiltrates. White blood cell count trended up. Patient started on broad spectrum antibiotics with cefepime and Zyvox. She received 3 days of Zyvox. She was de-escalated to only Cefepime on 09/29 with no issues. continue cefepime for a total of 7 days. plan as above (4) EBONIE (acute kidney injury) Current Visit: Yes Status: Acute Assessment and plan: Nonoliguric acute kidney. CK-MB is stage III. Multifactorial from fluid losses and cardiorenal syndrome. Kidney function is stable. avoid Nephrotoxic agents as possible. Close monitoring. Appreciate nephrology recommendations. (5) Paroxysmal a-fib Current Visit: No Status: Chronic Assessment and plan: Heart rate is adequate. Continue metoprolol. - Subjective Interval history: Patient is passing gas and had a bowel movement this morning. She is eating well. No nausea. no vomiting. - Constitutional Vitals: Temp Pulse Resp BP Pulse Ox 98.1 F 69 16 138/70 90 09/30/16 15:29 09/30/16 15:29 09/30/16 15:33 09/30/16 15:29 09/30/16 15:33 General appearance: Present: A&O X 1, no acute distress - Eye Eye exam: Present: PERRL, sclera anicteric - Neck Neck exam general surgery: Present: supple, trachea midline. Absent: lymphadenopathy - Respiratory Respiratory exam: Present: rales (at lung bases) - Cardiovascular Cardiovascular exam: Present: RRR - GI/Abdominal GI/Abdominal exam: Present: distended, normal bowel sounds, soft Additional comments: dressing covering abdominal surgical wound. - Extremities Exam Extremities exam: Present: pedal edema - Back Exam Back exam: Absent: CVA tenderness (L), CVA tenderness (R) - Neurological Exam Neurological exam: Present: alert, no focal deficits, strengths equal and symetr throughout. Absent: facial droop, speech deficit - Skin Skin exam: Absent: rash Internal Medicine: Result - Labs CBC & Chem 7: 09/30/16 03:10 09/30/16 03:10 Labs: Short CBC 09/30/16 Range/Units 03:10 WBC 13.5 H (4.3-11.1) K/mcL Hgb 7.8 L (11.5-15.4) g/dL Hct 25.6 L (35.3-44.9) % Plt Count 159 (140-400) K/mcL Neutrophils # 11.2 H (1.6-8.9) K/mcL BMP 09/30/16 03:10 Sodium 139 Potassium 3.8 Chloride 107 Carbon Dioxide 26 BUN 78 H Creatinine 1.74 H Glucose 94 Calcium 9.3 Urine 09/29/16 Range/Units 19:00 Urine Color Yellow (Yellow) Urine Clarity Cloudy A (Clear) Urine pH 5.5 (5.0-8.0) pH Units Ur Specific [place] 1.016 (1.010-1.025) Urine Protein 100 H (Neg-Trace) mg/dL Urine Glucose (UA) Normal (Normal) mg/dL - ABG Interpretation ABG results: ABG ABG pH 7.39 pH Units (7.32-7.45) 09/26/16 23:15 ABG pCO2 41 mmHg (35-45) 09/26/16 23:15 ABG pO2 82 mmHg (85-104) L 09/26/16 23:15 ABG O2 Saturation 96 % (95-98) 09/26/16 23:15 PT/INR, D-dimer PT 11.8 Seconds (9.4-12.1) 09/22/16 04:02 - Impressions Impressions Chest X-Ray 09/29/16 15:43 IMPRESSION: 1. Stable chest x-ray findings likely reflecting congestive failure. D/ / 09/29/2016 17:21:25 Jose Ruiz MD / tarik Interpreting Provider: Jose Ruiz MD - VTE Documentation of Mechanical Device: Intermittent pneumatic compression device Consult Discharge Plan - Plan Referrals: William Galvan MD [Primary Care Provider] -
[2016-10-01] MEDS: Insulin LISPRO 300 UNITS/3 ML VIAL SQ SCH ×4 (00:01→12:45)
[2016-10-01] MEDS: Ipratropium/Albuterol Neb 3 ML IH SCH ×4 (04:24→21:09)
[2016-10-01 04:35] LABS: Basophils % 0.1 %; Eosinophils # 0.2 K/mcL (0.0-0.6); Eosinophils % 2.1 %; Hematocrit 20.8 % (35.3-44.9); Hemoglobin 6.6 g/dL (11.5-15.4); Immature Granulocytes % 2.6 % (0-4); Lymphocytes # 0.8 K/mcL (0.6-4.6); Lymphocytes % 8.1 %; Mean Corpuscular HGB Conc 31.7 g/dL (31.6-35.5); Mean Corpuscular Hemoglobin 28.3 pg (28.0-33.3); Mean Corpuscular Volume 89.3 fL (83.0-100.0); Mean Platelet Volume 11.4 fL (9.4-12.4); Monocytes # 0.6 K/mcL (0.0-1.3); Neutrophils # 8.5 K/mcL (1.6-8.9); Platelet Count 155 K/mcL (140-400); Red Blood Count 2.33 M/mcL (3.82-4.97); Red Cell Distribution Width 14.7 % (11.5-14.5); Segmented Neutrophils % 81.1 %
[2016-10-01 05:01] LABS: Calcium 8.9 mg/dL (8.6-10.8); Magnesium 1.5 mg/dL (1.6-2.6); Potassium 3.8 mEq/L (3.5-4.5)
[2016-10-01] MEDS: *HR* Heparin 5,000 UNIT/ML VIAL SQ SCH (06:13)
[2016-10-01] MEDS: Aspirin 81 MG TAB.CHEW PO SCH (09:26)
[2016-10-01] MEDS: Furosemide 20 MG/2 ML VIAL IVP SCH ×2 (09:26→18:30)
[2016-10-01] MEDS: Cefepime HCl 2,000 MG in D5% in Water (Mini-Bag+) 100 ML IVPB SCH (09:27)
[2016-10-01] MEDS: hydrALAZINE 10 MG TABLET PO SCH ×3 (09:28→20:56)
[2016-10-01 10:31] LABS: Hematocrit 21.6 % (35.3-44.9); Hemoglobin 6.9 g/dL (11.5-15.4)
--- NOTE | 2016-10-01 11:09 | General Surgery Progress Note ---
Date of Encounter: 10/01/16 Time of Encounter: 11:07 - Assessment and Plan (1) Small bowel obstruction Current Visit: Yes Status: Acute Her anemia has continued. She is now symptomatic. I discussed with her and her about transfusion. Subjective Patient reports: no new complaints, feels better (Pt does feel a little light headed this am as she sits in her chair.), flatus Objective Vital Signs - Last 8 Hours Temp Pulse Resp BP Pulse Ox 10/01/16 09:09 99 10/01/16 07:41 97.5 F L 66 16 116/61 99 10/01/16 05:02 97.2 F L 69 15 124/54 96 10/01/16 04:24 16 96 Intake and Output 09/30/16 10/01/16 10/01/16 23:59 07:59 15:59 Intake Total 0 / 0 120 / 120 Output Total 700 / 700 520 / 520 Balance -498 / -498 -520 / -520 120 / 120 Intake: IV Fluids Clinimix E 5%-20% SOLUTION 2,000 ML @ 65 mls/hr IVC .Q24H JAMIL with M.v.i. Adult 10 ml Rx#: [id number] Oral 0 / 0 0 / 0 120 / 120 Output: Urine 400 / 400 Urethral (Berger) 400 / 400 Catheter 300 / 300 500 / 500 Wound Drainage 0 / 0 20 / 20 Right Abdomen 0 / 0 20 / 20 Other: Meal Dinner Breakfast Percent of Meal Consumed 10% 50% Stool Size Smear Small Stool Consistency liquid Stool Color Brown Brown Green # Bowel Movements 1 Weight 72.3 kg Blood Glucose* 104 107 Patient Weight 10/01/16 23:59 Weight 72.3 kg - General physical appearance well developed, no distress - Eyes PERRL - Abdomen Abdomen: Present: soft, non tender - Labs 10/01/16 10:20 10/01/16 04:10 Diabetes panel 10/01/16 Range/Units 04:10 Sodium 140 (136-145) mEq/L Potassium 3.8 (3.5-4.5) mEq/L Chloride 106 (98-109) mEq/L Carbon Dioxide 27 (19-29) mEq/L BUN 80 H (7-20) mg/dL Creatinine 1.92 H (0.57-1.11) mg/dL Glucose 94 (70-99) mg/dL Calcium 8.9 (8.6-10.8) mg/dL Calcium panel 10/01/16 Range/Units 04:10 Calcium 8.9 (8.6-10.8) mg/dL Pituitary panel 10/01/16 Range/Units 04:10 Sodium 140 (136-145) mEq/L Potassium 3.8 (3.5-4.5) mEq/L Chloride 106 (98-109) mEq/L Carbon Dioxide 27 (19-29) mEq/L BUN 80 H (7-20) mg/dL Creatinine 1.92 H (0.57-1.11) mg/dL Glucose 94 (70-99) mg/dL Calcium 8.9 (8.6-10.8) mg/dL Adrenal panel 10/01/16 Range/Units 04:10 Sodium 140 (136-145) mEq/L Potassium 3.8 (3.5-4.5) mEq/L Chloride 106 (98-109) mEq/L Carbon Dioxide 27 (19-29) mEq/L BUN 80 H (7-20) mg/dL Creatinine 1.92 H (0.57-1.11) mg/dL Glucose 94 (70-99) mg/dL Calcium 8.9 (8.6-10.8) mg/dL - VTE Documentation of Mechanical Device: Intermittent pneumatic compression device Consult Discharge Plan - Plan Referrals: William Galvan MD [Primary Care Provider] -
[2016-10-01 11:41] LABS: Folate 7.1 ng/mL (7.0-31.4)
[2016-10-01 11:42] LABS: % Iron Saturation 19 % (15-50); Iron 30 mcg/dL (50-170); Transferrin 110 mg/dL (180-382)
--- NOTE | 2016-10-01 11:46 | Nephrology Progress Note ---
Date of Encounter: 10/01/16 Time of Encounter: 11:43 - Assessment and Plan (1) EBONIE (acute kidney injury) Current Visit: Yes Status: Acute Creatinine is close to baseline. There is fluctuation today that is likely the result of anemia. Should improve with transfusion. (2) Anemia Current Visit: Yes Status: Acute Agree with transfusion. Qualifiers: Other causes of anemia: chronic disease, kidney Qualified Code(s): N18.9 - Chronic kidney disease, unspecified; D63.1 - Anemia in chronic kidney disease (3) Small bowel obstruction Current Visit: Yes Status: Acute per surgery. Subjective Principal diagnosis: Bowel Obstruction, EBONIE Interval history: Patient seen and evaluated. She is sitting in a chair. She has no new complaints. Objective - Vital Signs Vital signs: Vital Signs Temp Pulse Resp BP Pulse Ox 10/01/16 10:51 18 96 10/01/16 09:09 99 10/01/16 07:41 97.5 F L 66 16 116/61 99 10/01/16 05:02 97.2 F L 69 15 124/54 96 10/01/16 04:24 16 96 09/30/16 23:41 97.4 F L 64 15 128/61 97 09/30/16 21:37 15 96 09/30/16 20:47 97.4 F L 70 14 137/65 96 09/30/16 15:33 16 90 09/30/16 15:29 98.1 F 69 14 138/70 92 Intake and Output 09/30/16 10/01/16 10/01/16 23:59 07:59 15:59 Intake Total 0 / 0 120 / 120 Output Total 700 / 700 520 / 520 Balance -498 / -498 -520 / -520 120 / 120 Intake: IV Fluids Clinimix E 5%-20% SOLUTION 2,000 ML @ 65 mls/hr IVC .Q24H JAMIL with M.v.i. Adult 10 ml Rx#: [id number] Oral 0 / 0 0 / 0 120 / 120 Output: Urine 400 / 400 Urethral (Berger) 400 / 400 Catheter 300 / 300 500 / 500 Wound Drainage 0 / 0 20 / 20 Right Abdomen 0 / 0 20 / 20 Other: Meal Dinner Breakfast Percent of Meal Consumed 10% 50% Stool Size Smear Small Stool Consistency liquid Stool Color Brown Brown Green # Bowel Movements 1 Weight 72.3 kg Blood Glucose* 104 107 Patient Weight 10/01/16 23:59 Weight 72.3 kg - General Appearance General appearance: Present: well-developed, well-nourished EENT: Present: ATNC Neck: Present: supple Additional Comments: respirations are unlabored. Cardiology: Present: regular rate Integumentary: Present: warm and dry Neurologic: Present: alert and oriented x3 Additional Comments: her hands are swollen right greater than left Psychiatric: Present: mood/affect appropriate - Lab 10/01/16 10:20 10/01/16 04:10 Most recent lab results ABG pH 7.39 pH Units (7.32-7.45) 09/26/16 23:15 ABG pCO2 41 mmHg (35-45) 09/26/16 23:15 ABG pO2 82 mmHg (85-104) L 09/26/16 23:15 ABG HCO3 24.8 mEQ/L (21-27) 09/26/16 23:15 ABG O2 Saturation 96 % (95-98) 09/26/16 23:15 Calcium 8.9 mg/dL (8.6-10.8) 10/01/16 04:10 Phosphorus 3.8 mg/dL (2.3-4.7) 09/29/16 03:30 Magnesium 1.5 mg/dL (1.6-2.6) L 10/01/16 04:10 - VTE Documentation of Mechanical Device: Intermittent pneumatic compression device Consult Discharge Plan - Plan Referrals: William Galvan MD [Primary Care Provider] -
[2016-10-01 12:02] LABS: Ferritin 585 ng/ml (5-204)
[2016-10-01] MEDS ORDERED: 0.9 % Sodium Chloride 250 ML ONE ×2 (12:36→15:37)
[2016-10-01] MEDS ORDERED: Magnesium Sulfate 1 GM in D5% in Water 100 ML IVPB ONE (14:59)
[2016-10-01] MEDS ORDERED: Furosemide 20 MG/2 ML VIAL IVP ONE (15:00)
--- NOTE | 2016-10-01 15:07 | Internal Med Progress Note ---
Date of Encounter: 10/01/16 Time of Encounter: 09:45 - Assessment and plan (1) Small bowel obstruction Current Visit: Yes Status: Acute Assessment and plan: 10/01: Good oral intake this morning. Positive bowel movements. Appreciate surgery input. 09/30: Off TPN. 09/28/2016: NG tube removed. Patient started clear liquid diet. 09/23/2016: Patient underwent exploratory laparotomy with lysis of adhesions small bowel resection yesterday. She tolerated the procedure well. Continue nothing by mouth. Follow-up with surgery. Continue intravenous fluids. (2) Acute on chronic respiratory failure with hypoxemia Current Visit: Yes Status: Acute Assessment and plan: Secondary to bacterial pneumonia and acute heart failure. She uses 2 L of oxygen via NC at home. 09/25/2016: Chest x-ray shows bilateral infiltrates. She required 3 L NC. She received 3 days of Zyvox, then de-escalated to only Cefepime on 09/29 with no issues. clinically improving slowly. Now back to her baseline oxygen at 2 L. Completed Cefepime course. Continue IV lasix. (3) Healthcare-associated pneumonia Current Visit: Yes Status: Acute Assessment and plan: bacterial PNA. 09/25/2016: Chest x-ray shows bilateral infiltrates. White blood cell count trended up. Patient started on broad spectrum antibiotics with cefepime and Zyvox. She received 3 days of Zyvox. She was de-escalated to only Cefepime on 09/29 and completed this course. (4) Symptomatic anemia Current Visit: Yes Status: Acute Assessment and plan: multifactorial etiology (acute blood loss from surgery/daily blood checks, anemia of chronic disease). normal folate. high b12 and ferritin. transfuse 2 units PRBC. close monitoring of H/H. hemodynamically stable. check fecal occult blood test. check LFT. (5) EBONIE (acute kidney injury) Current Visit: Yes Status: Acute Assessment and plan: Nonoliguric acute kidney. CK-MB is stage III. Multifactorial from fluid losses and cardiorenal syndrome. Kidney function is stable. avoid Nephrotoxic agents as possible. Close monitoring. Appreciate nephrology recommendations. (6) Paroxysmal a-fib Current Visit: No Status: Chronic Assessment and plan: Heart rate is adequate. Continue metoprolol. - Subjective Interval history: Patient is eating well and had a bowel movement this morning. No nausea. no vomiting. she reports shortness of breath on exertion. her right arm is more swollen compared to left arm. - Constitutional Vitals: Temp Pulse Resp BP Pulse Ox 97.4 F L 68 18 119/60 97 10/01/16 12:55 10/01/16 14:24 10/01/16 12:55 10/01/16 14:24 10/01/16 12:43 General appearance: Present: A&O X 1, no acute distress - Respiratory Respiratory exam: Present: rales - Cardiovascular Cardiovascular exam: Present: RRR - GI/Abdominal GI/Abdominal exam: Present: normal bowel sounds, soft. Absent: distended, tenderness - Extremities Exam Additional comments: swelling in right UE > left UE. PICC line is in right arm. - Back Exam Back exam: Absent: CVA tenderness (L), CVA tenderness (R) - Neurological Exam Neurological exam: Present: alert, oriented X3, no focal deficits, strengths equal and symetr throughout. Absent: facial droop, speech deficit - Skin Skin exam: Absent: rash Internal Medicine: Result - Labs CBC & Chem 7: 10/01/16 10:20 10/01/16 04:10 Labs: Short CBC 10/01/16 10/01/16 Range/Units 04:10 10:20 WBC 10.4 (4.3-11.1) K/mcL Hgb 6.6 L 6.9 L (11.5-15.4) g/dL Hct 20.8 L 21.6 L (35.3-44.9) % Plt Count 155 (140-400) K/mcL Neutrophils # 8.5 (1.6-8.9) K/mcL BMP 10/01/16 04:10 Sodium 140 Potassium 3.8 Chloride 106 Carbon Dioxide 27 BUN 80 H Creatinine 1.92 H Glucose 94 Calcium 8.9 - ABG Interpretation ABG results: ABG ABG pH 7.39 pH Units (7.32-7.45) 09/26/16 23:15 ABG pCO2 41 mmHg (35-45) 09/26/16 23:15 ABG pO2 82 mmHg (85-104) L 09/26/16 23:15 ABG O2 Saturation 96 % (95-98) 09/26/16 23:15 PT/INR, D-dimer PT 11.8 Seconds (9.4-12.1) 09/22/16 04:02 - VTE Documentation of Mechanical Device: Intermittent pneumatic compression device Consult Discharge Plan - Plan Referrals: William Galvan MD [Primary Care Provider] -
[2016-10-02 03:25] LABS: Basophils % 0.2 %; Eosinophils # 0.2 K/mcL (0.0-0.6); Eosinophils % 2.6 %; Hematocrit 24.9 % (35.3-44.9); Hemoglobin 8.2 g/dL (11.5-15.4); Immature Granulocytes % 1.8 % (0-4); Lymphocytes # 0.7 K/mcL (0.6-4.6); Lymphocytes % 7.7 %; Mean Corpuscular HGB Conc 32.9 g/dL (31.6-35.5); Mean Corpuscular Hemoglobin 29.1 pg (28.0-33.3); Mean Corpuscular Volume 88.3 fL (83.0-100.0); Mean Platelet Volume 10.8 fL (9.4-12.4); Monocytes # 0.7 K/mcL (0.0-1.3); Monocytes % 7.5 %; Neutrophils # 7.5 K/mcL (1.6-8.9); Platelet Count 150 K/mcL (140-400); Red Blood Count 2.82 M/mcL (3.82-4.97); Red Cell Distribution Width 14.2 % (11.5-14.5); Segmented Neutrophils % 80.2 %
[2016-10-02 03:41] LABS: Albumin/Globulin Ratio 0.5 (1.1-2.2); Bilirubin,Direct 0.3 mg/dL (0.0-0.5); Bilirubin,Indirect 0.3 mg/dL (0.0-1.2); Bilirubin,Total 0.6 mg/dL (0.2-1.2); Calcium 8.6 mg/dL (8.6-10.8); Globulin 3.3 g/dL (2.4-3.5); Magnesium 1.7 mg/dL (1.6-2.6); Potassium 3.8 mEq/L (3.5-4.5); Total Protein 4.8 g/dL (6.0-8.3)
[2016-10-02 03:42] LABS: Albumin 1.5 g/dL (3.5-5.0)
[2016-10-02] MEDS: Ipratropium/Albuterol Neb 3 ML IH SCH ×4 (04:57→21:32)
[2016-10-02] MEDS: Furosemide 20 MG/2 ML VIAL IVP SCH ×2 (07:35→16:44)
[2016-10-02] MEDS: Aspirin 81 MG TAB.CHEW PO SCH (07:35)
--- NOTE | 2016-10-02 10:09 | Internal Med Progress Note ---
Date of Encounter: 10/02/16 Time of Encounter: 09:45 - Assessment and plan (1) Small bowel obstruction Current Visit: Yes Status: Acute Assessment and plan: 10/02: Appreciate surgery input. Good oral intake. Positive bowel movements. 09/23/2016: Patient underwent exploratory laparotomy with lysis of adhesions small bowel resection yesterday. She tolerated the procedure well. Continue nothing by mouth. Follow-up with surgery. Continue intravenous fluids. (2) Acute on chronic respiratory failure with hypoxemia Current Visit: Yes Status: Acute Assessment and plan: Secondary to bacterial pneumonia and acute heart failure. She uses 2 L of oxygen via NC at home. 09/25/2016: Chest x-ray shows bilateral infiltrates. She required 3 L NC. She received 3 days of Zyvox, then de-escalated to only Cefepime on 09/29 with no issues. 10/02: clinically improving slowly. Now back to her baseline oxygen at 2 L. Completed Cefepime course. Continue IV lasix. (3) Healthcare-associated pneumonia Current Visit: Yes Status: Acute Assessment and plan: bacterial PNA. 09/25/2016: Chest x-ray shows bilateral infiltrates. White blood cell count trended up. Patient started on broad spectrum antibiotics with cefepime and Zyvox. She received 3 days of Zyvox. She was de-escalated to only Cefepime on 09/29 and completed this course. (4) Symptomatic anemia Current Visit: Yes Status: Acute Assessment and plan: multifactorial etiology (acute blood loss from surgery/daily blood checks, anemia of chronic disease). normal folate. high b12 and ferritin. 10/02: transfused 2 units PRBC. H/h: 8.2/24. close monitoring of H/H. hemodynamically stable. Fecal occult blood test ordered. (5) EBONIE (acute kidney injury) Current Visit: Yes Status: Acute Assessment and plan: Nonoliguric acute kidney. CK-MB is stage III. Multifactorial from fluid losses and cardiorenal syndrome. BUN and Cr trended up likely from anemia. avoid Nephrotoxic agents as possible. Close monitoring. Appreciate nephrology recommendations. (6) Paroxysmal a-fib Current Visit: No Status: Chronic Assessment and plan: Heart rate is adequate. Continue metoprolol. - Subjective Interval history: Patient has No nausea, no vomiting. she had a bowel movement. good appetite. - Constitutional Vitals: Temp Pulse Resp BP Pulse Ox 97.6 F 65 16 130/64 94 10/02/16 08:04 10/02/16 08:04 10/02/16 08:04 10/02/16 08:04 10/02/16 08:04 General appearance: Present: A&O X 1, no acute distress - Respiratory Respiratory exam: Present: CTAB - Cardiovascular Cardiovascular exam: Present: RRR - GI/Abdominal Additional comments: soft, mild diffuse tenderness, JONATHAN drain in place. BS present. - Extremities Exam Extremities exam: Present: pedal edema - Back Exam Back exam: Absent: CVA tenderness (L), CVA tenderness (R) - Neurological Exam Neurological exam: Present: alert, oriented X3, no focal deficits, strengths equal and symetr throughout. Absent: facial droop, speech deficit - Skin Skin exam: Present: dry Internal Medicine: Result - Labs CBC & Chem 7: 10/02/16 03:20 10/02/16 03:20 Labs: Short CBC 10/01/16 10/02/16 Range/Units 10:20 03:20 WBC 9.3 (4.3-11.1) K/mcL Hgb 6.9 L 8.2 L (11.5-15.4) g/dL Hct 21.6 L 24.9 L (35.3-44.9) % Plt Count 150 (140-400) K/mcL Neutrophils # 7.5 (1.6-8.9) K/mcL BMP 10/02/16 03:20 Sodium 138 Potassium 3.8 Chloride 105 Carbon Dioxide 28 BUN 77 H Creatinine 2.15 H Glucose 86 Calcium 8.6 Liver Function 10/02/16 Range/Units 03:20 Total Bilirubin 0.6 (0.2-1.2) mg/dL Direct Bilirubin 0.3 (0.0-0.5) mg/dL AST 28 (5-34) Units/L ALT 10 (0-55) Units/L Alkaline Phosphatase 124 (38-126) Units/L Albumin 1.5 L (3.5-5.0) g/dL - ABG Interpretation ABG results: ABG ABG pH 7.39 pH Units (7.32-7.45) 09/26/16 23:15 ABG pCO2 41 mmHg (35-45) 09/26/16 23:15 ABG pO2 82 mmHg (85-104) L 09/26/16 23:15 ABG O2 Saturation 96 % (95-98) 09/26/16 23:15 PT/INR, D-dimer PT 11.8 Seconds (9.4-12.1) 09/22/16 04:02 - VTE Documentation of Mechanical Device: Intermittent pneumatic compression device Consult Discharge Plan - Plan Referrals: William Galvan MD [Primary Care Provider] -
--- NOTE | 2016-10-02 12:47 | General Surgery Progress Note ---
Date of Encounter: 10/02/16 Time of Encounter: 12:46 - Assessment and Plan (1) Small bowel obstruction Current Visit: Yes Status: Acute Patient feels somewhat better since her transfusion yesterday. She still has some fatigue however it is improved. She is continuing to have bowel movements and flatus. Subjective Patient reports: feels better Objective Vital Signs - Last 8 Hours Temp Pulse Resp BP Pulse Ox 10/02/16 11:01 16 94 10/02/16 08:04 97.6 F 65 16 130/64 94 Intake and Output 10/01/16 10/02/16 10/02/16 23:59 07:59 15:59 Intake Total 1440 / 1440 0 / 0 200 / 200 Output Total 450 / 450 350 / 350 125 / 125 Balance 990 / 990 -350 / -350 75 / 75 Intake: Oral 740 / 740 0 / 0 200 / 200 Blood Product 700 / 700 Rbcs Leuko Poor As-3 2nd 700 / 700 Unit [id number] Output: Urine 0 / 0 350 / 350 Catheter 450 / 450 125 / 125 Wound Drainage 0 / 0 0 / 0 Right Abdomen 0 / 0 0 / 0 Other: Meal Dinner Breakfast Percent of Meal Consumed 20% 25% Weight 72.2 kg Blood Glucose* 99 90 95 Patient Weight 10/02/16 23:59 Weight 72.2 kg - General physical appearance well developed, no distress - Eyes PERRL - Respiratory normal expansion - Abdomen Abdomen: Present: bowel sounds present, soft - Labs 10/02/16 03:20 10/02/16 03:20 Diabetes panel 10/02/16 10/02/16 Range/Units 03:20 03:20 Sodium 138 (136-145) mEq/L Potassium 3.8 (3.5-4.5) mEq/L Chloride 105 (98-109) mEq/L Carbon Dioxide 28 (19-29) mEq/L BUN 77 H (7-20) mg/dL Creatinine 2.15 H (0.57-1.11) mg/dL Glucose 86 (70-99) mg/dL Calcium 8.6 (8.6-10.8) mg/dL AST 28 (5-34) Units/L ALT 10 (0-55) Units/L Alkaline Phosphatase 124 (38-126) Units/L Albumin 1.5 L (3.5-5.0) g/dL Calcium panel 10/02/16 10/02/16 Range/Units 03:20 03:20 Calcium 8.6 (8.6-10.8) mg/dL Albumin 1.5 L (3.5-5.0) g/dL Pituitary panel 10/02/16 Range/Units 03:20 Sodium 138 (136-145) mEq/L Potassium 3.8 (3.5-4.5) mEq/L Chloride 105 (98-109) mEq/L Carbon Dioxide 28 (19-29) mEq/L BUN 77 H (7-20) mg/dL Creatinine 2.15 H (0.57-1.11) mg/dL Glucose 86 (70-99) mg/dL Calcium 8.6 (8.6-10.8) mg/dL Adrenal panel 10/02/16 10/02/16 Range/Units 03:20 03:20 Sodium 138 (136-145) mEq/L Potassium 3.8 (3.5-4.5) mEq/L Chloride 105 (98-109) mEq/L Carbon Dioxide 28 (19-29) mEq/L BUN 77 H (7-20) mg/dL Creatinine 2.15 H (0.57-1.11) mg/dL Glucose 86 (70-99) mg/dL Calcium 8.6 (8.6-10.8) mg/dL Total Bilirubin 0.6 (0.2-1.2) mg/dL AST 28 (5-34) Units/L ALT 10 (0-55) Units/L Alkaline Phosphatase 124 (38-126) Units/L Albumin 1.5 L (3.5-5.0) g/dL - VTE Documentation of Mechanical Device: Intermittent pneumatic compression device Consult Discharge Plan - Plan Referrals: William Galvan MD [Primary Care Provider] -
--- NOTE | 2016-10-02 13:48 | Nephrology Progress Note ---
Date of Encounter: 10/02/16 Time of Encounter: 13:45 - Assessment and Plan (1) EBONIE (acute kidney injury) Current Visit: Yes Status: Acute Creatinine was close to baseline. I'm assuming her most recent rise in creatinine is from the anemia which has been corrected. I anticipate improvement in her renal function. (2) Anemia Current Visit: Yes Status: Acute S/p transfusion. Monitor. Transfuse as needed. Qualifiers: Other causes of anemia: chronic disease, kidney Qualified Code(s): N18.9 - Chronic kidney disease, unspecified; D63.1 - Anemia in chronic kidney disease (3) Small bowel obstruction Current Visit: Yes Status: Acute per surgery. Subjective Principal diagnosis: Bowel Obstruction, EBONIE Interval history: Patient seen and evaluated. She has no new complaints other than wanting better food. Objective - Vital Signs Vital signs: Vital Signs Temp Pulse Resp BP Pulse Ox 10/02/16 11:01 16 94 10/02/16 08:04 97.6 F 65 16 130/64 94 10/01/16 23:56 97.9 F 65 14 119/55 98 10/01/16 21:09 16 99 10/01/16 19:46 97.7 F 66 14 145/68 97 10/01/16 15:55 97.1 F L 63 14 128/64 96 10/01/16 15:47 97.3 F L 62 14 116/64 99 10/01/16 15:45 97.3 F L 62 14 116/64 99 10/01/16 14:24 68 119/60 Intake and Output 10/01/16 10/02/16 10/02/16 23:59 07:59 15:59 Intake Total 1440 / 1440 0 / 0 200 / 200 Output Total 450 / 450 350 / 350 125 / 125 Balance 990 / 990 -350 / -350 75 / 75 Intake: Oral 740 / 740 0 / 0 200 / 200 Blood Product 700 / 700 Rbcs Leuko Poor As-3 2nd 700 / 700 Unit [id number] Output: Urine 0 / 0 350 / 350 Catheter 450 / 450 125 / 125 Wound Drainage 0 / 0 0 / 0 Right Abdomen 0 / 0 0 / 0 Other: Meal Dinner Breakfast Percent of Meal Consumed 20% 25% Weight 72.2 kg Blood Glucose* 99 90 95 Patient Weight 10/02/16 23:59 Weight 72.2 kg - General Appearance General appearance: Present: well-developed, well-nourished EENT: Present: ATNC Neck: Present: supple Additional Comments: respirations are unlabored. Cardiology: Present: regular rate Neurologic: Present: alert and oriented x3 Psychiatric: Present: mood/affect appropriate - Lab 10/02/16 03:20 10/02/16 03:20 Most recent lab results ABG pH 7.39 pH Units (7.32-7.45) 09/26/16 23:15 ABG pCO2 41 mmHg (35-45) 09/26/16 23:15 ABG pO2 82 mmHg (85-104) L 09/26/16 23:15 ABG HCO3 24.8 mEQ/L (21-27) 09/26/16 23:15 ABG O2 Saturation 96 % (95-98) 09/26/16 23:15 Calcium 8.6 mg/dL (8.6-10.8) 10/02/16 03:20 Phosphorus 3.8 mg/dL (2.3-4.7) 09/29/16 03:30 Magnesium 1.7 mg/dL (1.6-2.6) 10/02/16 03:20 - VTE Documentation of Mechanical Device: Intermittent pneumatic compression device Consult Discharge Plan - Plan Referrals: William Galvan MD [Primary Care Provider] -
[2016-10-02] MEDS: hydrALAZINE 25 MG TABLET PO SCH ×2 (14:47→21:38)
[2016-10-03] MEDS: Ipratropium/Albuterol Neb 3 ML IH SCH ×4 (03:51→22:33)
[2016-10-03 03:57] LABS: Basophils % 0.2 %; Eosinophils # 0.2 K/mcL (0.0-0.6); Eosinophils % 2.1 %; Hematocrit 25.4 % (35.3-44.9); Hemoglobin 8.2 g/dL (11.5-15.4); Immature Granulocytes % 0.9 % (0-4); Lymphocytes # 0.7 K/mcL (0.6-4.6); Lymphocytes % 7.6 %; Mean Corpuscular HGB Conc 32.3 g/dL (31.6-35.5); Mean Corpuscular Hemoglobin 28.5 pg (28.0-33.3); Mean Corpuscular Volume 88.2 fL (83.0-100.0); Mean Platelet Volume 11.1 fL (9.4-12.4); Monocytes # 0.7 K/mcL (0.0-1.3); Neutrophils # 7.3 K/mcL (1.6-8.9); Platelet Count 157 K/mcL (140-400); Red Blood Count 2.88 M/mcL (3.82-4.97); Red Cell Distribution Width 13.6 % (11.5-14.5); Segmented Neutrophils % 81.2 %
[2016-10-03 04:04] LABS: Calcium 8.6 mg/dL (8.6-10.8); Magnesium 1.8 mg/dL (1.6-2.6); Potassium 3.5 mEq/L (3.5-4.5)
[2016-10-03] MEDS: hydrALAZINE 25 MG TABLET PO SCH ×3 (08:36→21:24)
[2016-10-03] MEDS: Aspirin 81 MG TAB.CHEW PO SCH (08:37)
[2016-10-03] MEDS: Furosemide 20 MG/2 ML VIAL IVP SCH (09:50)
--- NOTE | 2016-10-03 09:55 | Nephrology Progress Note ---
<Josep Meneses - Last Filed: 10/03/16 16:46> Date of Encounter: 10/03/16 Time of Encounter: 09:40 - Assessment and Plan (1) EBONIE (acute kidney injury) Status: Acute Nonoliguric EBONIE on CKD stage III, Multifactorial from fluid losses and acute anemia with Hgb 6.9 requiring multiple transfusions. Plan: Continue to follow a renal conservative and protective strategy. Dose Rx by GFR. Avoid Nephrotoxins as able. Strict I/Os, daily weights. Expect patient's SCr to begin to improve, will continue to watch closely. (4) HTN (hypertension) Status: Chronic Qualifiers: Hypertension type: essential hypertension Qualified Code(s): I10 - Essential (primary) hypertension (5) Small bowel obstruction Status: Acute Exploratory laparotomy, lysis of adhesions, right salpingoophorectomy, left oophorectomy with Dr. Dubose Management per surgery service. (6) Paroxysmal a-fib Status: Chronic Management per primary service. (7) Healthcare-associated pneumonia Status: Acute pneumonia vs pulmonary edema. Management per primary medicine service. (8) CKD (chronic kidney disease), stage III Status: Chronic Subjective Principal diagnosis: Bowel Obstruction, EBONIE Interval history: Patient awake and alert, sitting in chair this AM. Reports constant and consistent dyspnea throughout the weekend. Patient received multiple units of pRBC over the weekend due to Hgb of 6.9. No acute events overnight. Objective - Vital Signs Vital signs: Vital Signs Temp Pulse Resp BP Pulse Ox 10/03/16 06:58 97.7 F 64 18 136/77 99 10/03/16 03:51 16 99 10/03/16 00:43 97.7 F 60 14 120/56 98 10/02/16 21:32 15 99 10/02/16 20:15 97.6 F 61 14 136/66 99 10/02/16 16:11 16 100 10/02/16 15:04 97.4 F L 57 15 151/77 100 10/02/16 11:01 16 94 Intake and Output 10/02/16 10/03/16 10/03/16 23:59 07:59 15:59 Intake Total 240 / 240 300 / 300 100 / 100 Output Total 675 / 675 600 / 600 Balance -435 / -435 -300 / -300 100 / 100 Intake: Oral 240 / 240 300 / 300 100 / 100 Output: Catheter 675 / 675 600 / 600 Wound Drainage 0 / 0 0 / 0 Right Abdomen 0 / 0 0 / 0 Other: Meal Dinner Breakfast Percent of Meal Consumed 15% 5% - General Appearance General appearance: Present: well-developed, well-nourished, appears started age EENT: Present: ATNC, mucous membranes moist, hearing intact, vision intact Respiratory: Present: clear Cardiology: Present: holosystolic murmur, edema (2+ BLE edema), regular rate, regular rhythm Neurologic: Present: no focal deficit Additional Comments: awake and alert Musculoskeletal: Present: no deformities, no erythema, no cyanosis Psychiatric: Present: mood/affect appropriate, cooperative - Lab 10/03/16 03:47 10/03/16 15:00 Most recent lab results ABG pH 7.39 pH Units (7.32-7.45) 09/26/16 23:15 ABG pCO2 41 mmHg (35-45) 09/26/16 23:15 ABG pO2 82 mmHg (85-104) L 09/26/16 23:15 ABG HCO3 24.8 mEQ/L (21-27) 09/26/16 23:15 ABG O2 Saturation 96 % (95-98) 09/26/16 23:15 Calcium 8.6 mg/dL (8.6-10.8) 10/03/16 03:47 Phosphorus 3.8 mg/dL (2.3-4.7) 09/29/16 03:30 Magnesium 1.8 mg/dL (1.6-2.6) 10/03/16 03:47 - VTE Documentation of Mechanical Device: Intermittent pneumatic compression device Consult Discharge Plan - Plan Instructions: Acute Kidney Injury (DC), Anemia (DC) Additional Instructions: Cleanse midline incision with soap and water and pat dry daily remove steri-strips by 10/12/16 if havent already fallen off JONATHAN drain site (RLQ) wash with soap and water daily, cover with 4x4 gauze (1) folded or 2x2 gauze and secure with tape, change daily ok to shower no tub baths no lifting more than 20 lbs for 6 weeks Regular diet [facility]: Continue with close follow up, appointment to be scheduled for next week. Weekly labs of CBC and renal panel. If signs of increased confusion, nausea, vomiting patient should return to the hospital for further evaluation. Referrals: Easton Ortiz MD [Partnered Physician] - 10/19/16 3:00 pm (1 week hospital follow up. Complete lab work (CBC, renal panel).) Nelly Dubose MD [Partnered Physician] - 10/20/16 9:55 am (surgery follow-up ) Demi Winslow CNP [Advanced Practice Nurse] - 10/19/16 1:30 pm Prescriptions: Darbepoetin [Aranesp] 40 mcg SQ QWEEK 30 Days Omeprazole [PriLOSEC] 20 mg PO DAILY@30 30 Days Saline Nasal [place] [[place] Nasal [place]] 2 spray NS Q2H PRN 30 Days PRN Reason: See Comments <Neha Contreras - Last Filed: 10/20/16 15:37> Date of Encounter: 10/03/16 Objective - Lab 10/13/16 05:02 10/13/16 05:02 Most recent lab results ABG pH 7.39 pH Units (7.32-7.45) 09/26/16 23:15 ABG pCO2 41 mmHg (35-45) 09/26/16 23:15 ABG pO2 82 mmHg (85-104) L 09/26/16 23:15 ABG HCO3 24.8 mEQ/L (21-27) 09/26/16 23:15 ABG O2 Saturation 96 % (95-98) 09/26/16 23:15 Calcium 8.3 mg/dL (8.6-10.8) L 10/13/16 05:02 Phosphorus 4.9 mg/dL (2.3-4.7) H 10/09/16 04:00 Magnesium 1.4 mg/dL (1.6-2.6) L 10/13/16 05:02 Urine Creatinine 42 mg/dL 10/06/16 03:35 - Attending Attestation I examined this patient and my medical decision-making was reviewed with the [employer]/PA/Advanced Practice Nurse/Resident Physician. I agree with the documented findings, disposition and treatment plan as described except to the extent set forth below. Pt seen and examined, agree with plan as set forth. SCr worsen due to drop in hgb, will monitor and continue renoprotective strategy . 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
--- NOTE | 2016-10-03 13:51 | General Surgery Progress Note ---
Date of Encounter: 10/03/16 Time of Encounter: 10:00 - Assessment and Plan (1) Small bowel obstruction Current Visit: Yes Status: Acute s/p from Exploratory laparotomy, lysis of adhesions for 1 hour, right salpingoophorectomy, left oophorectomy with Dr. Dubose start regular diet with supplements DC'd TPN Insulin coverage- continue medium scale every 4 hours DC blackwell, bedside commode on po medication ok to dc to rehab from a surgical standpoint when appropriate from a medication standpoint (2) EBONIE (acute kidney injury) Current Visit: Yes Status: Acute strict I/O's Avoid nephrotoxic medications Nephrology consulted- Dr. 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 (5) HTN (hypertension) Current Visit: Yes Status: Chronic on home medication, normotensive, monitor prn B-dylon Qualifiers: Hypertension type: essential hypertension Qualified Code(s): I10 - Essential (primary) hypertension (6) Bilateral lower extremity edema Current Visit: Yes Status: Acute sanjuana hose on in am, off at bedtime, elevate legs when sitting Subjective Narrative: complains of burning sensation at midline incision site no nausea or emesis passing flatus and having bm tolerating fulls Objective Vital Signs - Last 8 Hours Temp Pulse Resp BP Pulse Ox 10/03/16 10:39 98.0 F 70 16 148/79 96 10/03/16 06:58 97.7 F 64 18 136/77 99 Intake and Output 10/02/16 10/03/16 10/03/16 23:59 07:59 15:59 Intake Total 240 / 240 300 / 300 1050 / 1050 Output Total 675 / 675 600 / 600 20 / 20 Balance -435 / -435 -300 / -300 1030 / 1030 Intake: IV Fluids 950 / 950 0.45% Sodium Chloride 950 / 950 1000 Ml 1000 Ml 1,000 ML @ 500 mls/hr IVC .Q2H JAMIL Rx#:[id number] Oral 240 / 240 300 / 300 100 / 100 Output: Urine 0 / 0 Catheter 675 / 675 600 / 600 Wound Drainage 0 / 0 0 / 0 20 Right Abdomen 0 / 0 0 / 0 Other: Meal Dinner Breakfast Percent of Meal Consumed 15% 5% - General physical appearance well developed, well nourished, no distress - Eyes PERRL, normal ocular movement - ENT normal mucosa, atraumatic, normocephalic - Neck Neck exam: trachea midline - Respiratory normal expansion, normal respiratory effort - Cardiovascular Cardiovascular exam: Present: RRR - Abdomen Abdomen: Present: bowel sounds present, soft, tender (minimal approprop post op tenderness) - Incision Incision: Present: clean and dry, intact - Integumentary no rash, no growths - Neurologic CN 2-12 grossly intact - Musculoskeletal normal posture, other (edema B/L lower extremities) - Psychiatric oriented to time, oriented to person, oriented to place, speech is normal, memory intact - Labs 10/03/16 03:47 10/03/16 03:47 [ Short CBC 10/03/16 Range/Units 03:47 WBC 9.0 (4.3-11.1) K/mcL Hgb 8.2 L (11.5-15.4) g/dL Hct 25.4 L (35.3-44.9) % Plt Count 157 (140-400) K/mcL Neutrophils # 7.3 (1.6-8.9) K/mcL BMP 10/03/16 Range/Units 03:47 Sodium 136 (136-145) mEq/L Potassium 3.5 (3.5-4.5) mEq/L Chloride 103 (98-109) mEq/L Carbon Dioxide 25 (19-29) mEq/L BUN 72 H (7-20) mg/dL Creatinine 2.30 H (0.57-1.11) mg/dL Glucose 88 (70-99) mg/dL Calcium 8.6 (8.6-10.8) mg/dL Vital Signs Temp Pulse Resp BP Pulse Ox 10/03/16 10:39 98.0 F 70 16 148/79 96 10/03/16 06:58 97.7 F 64 18 136/77 99 10/03/16 03:51 16 99 10/03/16 00:43 97.7 F 60 14 120/56 98 10/02/16 21:32 15 99 10/02/16 20:15 97.6 F 61 14 136/66 99 10/02/16 16:11 16 100 10/02/16 15:04 97.4 F L 57 15 151/77 100 Intake and Output 10/02/16 10/03/16 10/03/16 23:59 07:59 15:59 Intake Total 240 / 240 300 / 300 1050 / 1050 Output Total 675 / 675 600 / 600 20 / 20 Balance -435 / -435 -300 / -300 1030 / 1030 Intake: IV Fluids 950 / 950 0.45% Sodium Chloride 950 / 950 1000 Ml 1000 Ml 1,000 ML @ 500 mls/hr IVC .Q2H JAMIL Rx#:[id number] Oral 240 / 240 300 / 300 100 / 100 Output: Urine 0 / 0 Catheter 675 / 675 600 / 600 Wound Drainage 0 / 0 0 / 0 20 / 20 Right Abdomen 0 / 0 0 / 0 20 / 20 Other: Meal Dinner Breakfast Percent of Meal Consumed 15% 5% - VTE Documentation of Mechanical Device: Intermittent pneumatic compression device Consult Discharge Plan - Plan Referrals: William Galvan MD [Primary Care Provider] -
--- NOTE | 2016-10-03 14:21 | Venous Imaging Report ---
UE Venous Duplex Patient Name:Nancy Strickland Order Number:[id number] Procedure Date:10/01/2016 Date:2Age:86 yrs Gender:Female Location:[facility] Room #: 3A51 Steam Cleaner:Bryce Mattson RVT, RDCS Referring MD:Dimple Triplett MD sewer system supervisor:William Galvan MD Reading MD:Tam Olea MD Primary Indications:swelling. PICC line there Secondary Indications: Risk Factors Yes/No Anticoagulants Yes Hx of DVT No Hx central line Yes Impressions: Normal right upper extremity deep and superficial venous exam. Recommendations: After imaging the patient returned to their room. Test completed on 08/31/2016 at 12:11:00 pm. Critical findings reported to ALEENA Casarez in person at 12:15:00 pm on 10/01/2016 by Bryce Mattson RVT, RDCS. Findings Venous Duplex Results: Right: Venous imaging of the upper extremity reveals full patency and normal vessel compressibility of the right jugular, right subclavian, right axillary, right brachial, right cephalic, right basilic, right radial and right ulnar. Doppler signals in the evaluated veins were normal. Left: Venous imaging of the upper extremity reveals full patency and normal vessel compressibility of the left subclavian. Doppler signals in the evaluated veins were normal. Upper Extremity Venous Duplex Side Vein Compress Spontaneous Flow Augment Right Jugular Normal Yes Phasic Yes Right Subclavian Normal Yes Phasic Yes Right Axillary Normal Yes Phasic Yes Right Brachial Normal Yes Phasic Yes Right Cephalic Normal Yes Phasic Yes Right Basilic Normal Yes Phasic Yes Right Radial Normal Yes Phasic Yes Right Ulnar Normal Yes Phasic Yes Left Subclavian Normal Yes Phasic Yes Updated by Tam Olea MD on 10/03/2016 2:15:43 PM electronically signed on 10/03/2016 2:16:10 PM with status of Final
[2016-10-03 15:34] LABS: Calcium 8.7 mg/dL (8.6-10.8); Potassium 3.5 mEq/L (3.5-4.5)
--- NOTE | 2016-10-03 15:56 | Internal Med Progress Note ---
Date of Encounter: 10/03/16 Time of Encounter: 11:45 - Assessment and plan (1) EBONIE (acute kidney injury) Current Visit: Yes Status: Acute Assessment and plan: Nonoliguric acute kidney. CKD is stage III. Multifactorial from fluid losses and cardiorenal syndrome. BUN and Cr trending up. short course of IV fluids ordered. Avoid Nephrotoxic agents as possible. Close monitoring. Appreciate nephrology recommendations. bmp in the afternoon (2) Small bowel obstruction Current Visit: Yes Status: Acute Assessment and plan: 10/03: Appreciate surgery input. Good oral intake. Positive bowel movements. 09/23/2016: Patient underwent exploratory laparotomy with lysis of adhesions small bowel resection yesterday. She tolerated the procedure well. Continue nothing by mouth. Follow-up with surgery. Continue intravenous fluids. (3) Acute on chronic respiratory failure with hypoxemia Current Visit: Yes Status: Acute Assessment and plan: Secondary to bacterial pneumonia and acute heart failure. She uses 2 L of oxygen via NC at home. 09/25/2016: Chest x-ray shows bilateral infiltrates. She required 3 L NC. She received 3 days of Zyvox, then de-escalated to only Cefepime on 09/29 with no issues. Completed Cefepime course. 10/03: Clinically improving slowly. Now back to her baseline oxygen at 2 L. (4) Healthcare-associated pneumonia Current Visit: Yes Status: Acute Assessment and plan: bacterial PNA. 09/25/2016: Chest x-ray shows bilateral infiltrates. White blood cell count trended up. Patient started on broad spectrum antibiotics with cefepime and Zyvox. She received 3 days of Zyvox. She was de-escalated to only Cefepime on 09/29 and completed this course. (5) Symptomatic anemia Current Visit: Yes Status: Acute Assessment and plan: multifactorial etiology (acute blood loss from surgery/daily blood checks, anemia of chronic disease). normal folate. high b12 and ferritin. 10/01: transfused 2 units PRBC. today, H/h: 8.2/25. close monitoring of H/H. hemodynamically stable. Fecal occult blood test ordered. (6) Paroxysmal a-fib Current Visit: No Status: Chronic Assessment and plan: Heart rate is adequate. Continue metoprolol. - Subjective Interval history: Patient is eating well. She started coughing overnight. - Constitutional Vitals: Temp Pulse Resp BP Pulse Ox 98.0 F 70 16 148/79 96 10/03/16 10:39 10/03/16 10:39 10/03/16 10:39 10/03/16 10:39 10/03/16 10:39 General appearance: Present: cooperative, A&O X 2, pleasant, no acute distress, answers questions appropriately - Respiratory Respiratory exam: Present: CTAB - Cardiovascular Cardiovascular exam: Present: RRR - GI/Abdominal GI/Abdominal exam: Present: normal bowel sounds, soft, tenderness (mild diffuse tenderness, surgical wounds are intact. JONATHAN drain in place.). Absent: distended - Extremities Exam Extremities exam: Present: pedal edema - Neurological Exam Neurological exam: Present: alert, no focal deficits, strengths equal and symetr throughout. Absent: facial droop, speech deficit - Skin Skin exam: Absent: rash Internal Medicine: Result - Labs CBC & Chem 7: 10/03/16 03:47 10/03/16 15:00 Labs: Short CBC 10/03/16 Range/Units 03:47 WBC 9.0 (4.3-11.1) K/mcL Hgb 8.2 L (11.5-15.4) g/dL Hct 25.4 L (35.3-44.9) % Plt Count 157 (140-400) K/mcL Neutrophils # 7.3 (1.6-8.9) K/mcL BMP 10/03/16 10/03/16 03:47 15:00 Sodium 136 136 Potassium 3.5 3.5 Chloride 103 101 Carbon Dioxide 25 27 BUN 72 H 68 H Creatinine 2.30 H 2.35 H Glucose 88 126 H Calcium 8.6 8.7 - ABG Interpretation ABG results: ABG ABG pH 7.39 pH Units (7.32-7.45) 09/26/16 23:15 ABG pCO2 41 mmHg (35-45) 09/26/16 23:15 ABG pO2 82 mmHg (85-104) L 09/26/16 23:15 ABG O2 Saturation 96 % (95-98) 09/26/16 23:15 PT/INR, D-dimer PT 11.8 Seconds (9.4-12.1) 09/22/16 04:02 - VTE Documentation of Mechanical Device: Intermittent pneumatic compression device Consult Discharge Plan - Plan Referrals: William Galvan MD [Primary Care Provider] -
[2016-10-04] MEDS: Ipratropium/Albuterol Neb 3 ML IH SCH ×5 (03:21→22:01)
[2016-10-04 03:54] LABS: Basophils % 0.3 %; Eosinophils # 0.1 K/mcL (0.0-0.6); Eosinophils % 1.5 %; Hematocrit 25.9 % (35.3-44.9); Hemoglobin 8.6 g/dL (11.5-15.4); Immature Granulocytes % 0.6 % (0-4); Immature Platelets 5.6 % (1.1-6.1); Lymphocytes # 0.5 K/mcL (0.6-4.6); Lymphocytes % 5.5 %; Mean Corpuscular HGB Conc 33.2 g/dL (31.6-35.5); Mean Corpuscular Hemoglobin 28.8 pg (28.0-33.3); Mean Corpuscular Volume 86.6 fL (83.0-100.0); Mean Platelet Volume 11.1 fL (9.4-12.4); Monocytes # 0.7 K/mcL (0.0-1.3); Monocytes % 6.8 %; Neutrophils # 8.1 K/mcL (1.6-8.9); Platelet Count 175 K/mcL (140-400); Red Blood Count 2.99 M/mcL (3.82-4.97); Red Cell Distribution Width 13.6 % (11.5-14.5); Segmented Neutrophils % 85.3 %
[2016-10-04 03:59] LABS: Calcium 8.6 mg/dL (8.6-10.8); Potassium 3.6 mEq/L (3.5-4.5)
[2016-10-04 04:18] LABS: Large Platelets Present (Not Present); Platelet Estimate Normal (Normal)
[2016-10-04] MEDS: Aspirin 81 MG TAB.CHEW PO SCH (08:19)
[2016-10-04] MEDS: hydrALAZINE 25 MG TABLET PO SCH ×3 (08:20→22:26)
--- NOTE | 2016-10-04 12:01 | General Surgery Progress Note ---
Date of Encounter: 10/04/16 Time of Encounter: 13:45 - Assessment and Plan (1) Small bowel obstruction Current Visit: Yes Status: Acute POD #12 from Exploratory laparotomy, lysis of adhesions for 1 hour, right salpingoophorectomy, left oophorectomy with Dr. Dubose Pathology reviewed with family per Dr. Dubose 09/26 Regular diet Supportive care/pain control PT/OT daily May discharge to rehab from a surgery standpoint, awaiting authorization (2) EBONIE (acute kidney injury) Current Visit: Yes Status: Acute 2.35>2.36 Avoid nephrotoxic medication Nephrology consulted Management per medicine service (3) Healthcare-associated pneumonia Current Visit: Yes Status: Resolved (4) DVT prophylaxis Current Visit: Yes Status: Acute EPCDs to bilateral lower extremities for DVT prophylaxis Subjective Patient reports: no new complaints, feels better, still having pain, pain is less, tolerating a regular diet, voiding w/o difficulty, flatus, afebrile ( incontinent), other (Out of bed to chair) Objective Vital Signs - Last 8 Hours Temp Pulse Resp BP Pulse Ox 10/04/16 11:17 98.7 F 74 16 145/71 92 10/04/16 10:19 16 97 10/04/16 07:24 98.8 F 72 14 144/70 96 10/04/16 04:44 98.7 F 81 15 138/69 96 Intake and Output 10/03/16 10/04/16 10/04/16 23:59 07:59 15:59 Intake Total 120 / 120 0 / 0 Output Total 520 / 520 / 20 25 / 25 Balance -400 / -400 -20 / -20 -25 / -25 Intake: Oral 120 / 120 0 / 0 Output: Urine 0 / 0 0 / 0 Catheter 500 / 500 Wound Drainage 20 / 20 20 / 20 25 / 25 Right Abdomen 20 / 20 20 / 20 25 / 25 Other: Meal Dinner Percent of Meal Consumed 5% # Voids 2 # Urine Diapers 0 1 Weight 72.3 kg Patient Weight 10/04/16 23:59 Weight 72.3 kg - General physical appearance well developed, well nourished, no distress - Eyes PERRL, normal ocular movement - ENT normal mucosa, atraumatic, normocephalic - Neck Neck exam: trachea midline - Respiratory normal respiratory effort, clear to auscultation - Cardiovascular Cardiovascular exam: Present: RRR - Abdomen Abdomen: Present: bowel sounds present, soft, tender (expected post-operative tenderness), wound (RLQ with small amount of serous drainage from JONATHAN drain site) - Incision Incision: Present: clean and dry, intact - Integumentary no growths - Neurologic CN 2-12 grossly intact - Musculoskeletal normal posture, other (deconditioning noted) - Psychiatric oriented to time, oriented to person, oriented to place, speech is normal, memory intact - Labs 10/05/16 03:20 10/05/16 03:20 Diabetes panel 10/03/16 10/04/16 Range/Units 15:00 03:15 Sodium 136 137 (136-145) mEq/L Potassium 3.5 3.6 (3.5-4.5) mEq/L Chloride 101 102 (98-109) mEq/L Carbon Dioxide 27 26 (19-29) mEq/L BUN 68 H 64 H (7-20) mg/dL Creatinine 2.35 H 2.36 H (0.57-1.11) mg/dL Glucose 126 H 100 H (70-99) mg/dL Calcium 8.7 8.6 (8.6-10.8) mg/dL Calcium panel 10/03/16 10/04/16 Range/Units 15:00 03:15 Calcium 8.7 8.6 (8.6-10.8) mg/dL Pituitary panel 10/03/16 10/04/16 Range/Units 15:00 03:15 Sodium 136 137 (136-145) mEq/L Potassium 3.5 3.6 (3.5-4.5) mEq/L Chloride 101 102 (98-109) mEq/L Carbon Dioxide 27 26 (19-29) mEq/L BUN 68 H 64 H (7-20) mg/dL Creatinine 2.35 H 2.36 H (0.57-1.11) mg/dL Glucose 126 H 100 H (70-99) mg/dL Calcium 8.7 8.6 (8.6-10.8) mg/dL Adrenal panel 10/03/16 10/04/16 Range/Units 15:00 03:15 Sodium 136 137 (136-145) mEq/L Potassium 3.5 3.6 (3.5-4.5) mEq/L Chloride 101 102 (98-109) mEq/L Carbon Dioxide 27 26 (19-29) mEq/L BUN 68 H 64 H (7-20) mg/dL Creatinine 2.35 H 2.36 H (0.57-1.11) mg/dL Glucose 126 H 100 H (70-99) mg/dL Calcium 8.7 8.6 (8.6-10.8) mg/dL - VTE Documentation of Mechanical Device: Graduated compression elastic hosiery Consult Discharge Plan - Plan Additional Instructions: Cleanse midline incision with soap and water and pat dry daily Regular diet Referrals: Nelly Dubose MD [Partnered Physician] - 10/12/16 11:05 am (surgery follow- up) - Attending Attestation I examined this patient and my medical decision-making was reviewed with the [employer]/PA/Advanced Practice Nurse/Resident Physician. I agree with the documented findings, disposition and treatment plan as described except to the extent set forth below. I examined this patient and my medical decision-making was reviewed with the LIBRARY CLERK [employer]/PA/Advanced Practice Nurse/Resident Physician. I agree with the documented findings, disposition and treatment plan as described except to the extent set forth below.
--- NOTE | 2016-10-04 13:44 | Nephrology Progress Note ---
<Josep Meneses - Last Filed: 10/04/16 14:07> Date of Encounter: 10/04/16 Time of Encounter: 09:20 - Assessment and Plan (1) EBONIE (acute kidney injury) Status: Acute Nonoliguric EBONIE on CKD stage III, Multifactorial from fluid losses and acute anemia with Hgb 6.9 requiring multiple transfusions. Hgb since stabilized at 8.6. Concern for ATN with EBONIE, which may take a longer to slowly see kidney function return to baseline or patient's new baseline. Plan: Continue to follow a renal conservative and protective strategy. Dose Rx by GFR. Avoid Nephrotoxins as able. Strict I/Os, daily weights. Creatinine plateau around 2.36, expect patient's SCr to begin to improve. (4) HTN (hypertension) Status: Chronic Qualifiers: Hypertension type: essential hypertension Qualified Code(s): I10 - Essential (primary) hypertension (5) Small bowel obstruction Status: Acute Exploratory laparotomy, lysis of adhesions, right salpingoophorectomy, left oophorectomy with Dr. Dubose Management per surgery service. (6) Paroxysmal a-fib Status: Chronic Management per primary service. (7) Healthcare-associated pneumonia Status: Resolved pneumonia vs pulmonary edema. Management per primary medicine service. (8) CKD (chronic kidney disease), stage III Status: Chronic Subjective Principal diagnosis: Bowel Obstruction, EBONIE Interval history: Patient awake and alert, sitting on bedside this AM. Reports she continues to feel better. Hgb stable. No acute events overnight. Objective - Vital Signs Vital signs: Vital Signs Temp Pulse Resp BP Pulse Ox 10/04/16 11:17 98.7 F 74 16 145/71 92 10/04/16 10:19 16 97 10/04/16 07:24 98.8 F 72 14 144/70 96 10/04/16 04:44 98.7 F 81 15 138/69 96 10/04/16 03:36 16 84 10/04/16 01:03 99.1 F 82 14 134/72 93 10/03/16 21:01 98.5 F 74 15 170/67 94 10/03/16 16:26 98.3 F 70 18 135/60 92 10/03/16 16:03 16 93 Intake and Output 10/03/16 10/04/16 10/04/16 23:59 07:59 15:59 Intake Total 120 / 120 0 / 0 Output Total 520 / 520 Balance -400 / -400 -20 / -20 -25 / -25 Intake: Oral 120 / 120 0 / 0 Output: Urine 0 / 0 0 / 0 Catheter 500 / 500 Wound Drainage 20 Right Abdomen Other: Meal Dinner Lunch Percent of Meal Consumed 5% 20% # Voids 2 # Urine Diapers 0 1 Weight 72.3 kg Patient Weight 10/04/16 23:59 Weight 72.3 kg - General Appearance General appearance: Present: well-developed, well-nourished, appears started age EENT: Present: ATNC, mucous membranes moist (though upper lip appears cracked, bleeding.), hearing intact, vision intact Neck: Present: supple Respiratory: Present: clear Cardiology: Present: holosystolic murmur, edema (2+ nonpitting BLE edema), regular rate, regular rhythm Integumentary: Present: no rash, warm and dry Neurologic: Present: no focal deficit Additional Comments: awake and alert. Musculoskeletal: Present: no deformities, no erythema, no cyanosis Psychiatric: Present: mood/affect appropriate, cooperative - Lab 10/04/16 03:15 10/04/16 03:15 Most recent lab results ABG pH 7.39 pH Units (7.32-7.45) 09/26/16 23:15 ABG pCO2 41 mmHg (35-45) 09/26/16 23:15 ABG pO2 82 mmHg (85-104) L 09/26/16 23:15 ABG HCO3 24.8 mEQ/L (21-27) 09/26/16 23:15 ABG O2 Saturation 96 % (95-98) 09/26/16 23:15 Calcium 8.6 mg/dL (8.6-10.8) 10/04/16 03:15 Phosphorus 3.8 mg/dL (2.3-4.7) 09/29/16 03:30 Magnesium 1.8 mg/dL (1.6-2.6) 10/03/16 03:47 - VTE Documentation of Mechanical Device: Graduated compression elastic hosiery Consult Discharge Plan - Plan Instructions: Acute Kidney Injury (DC), Anemia (DC) Additional Instructions: Cleanse midline incision with soap and water and pat dry daily remove steri-strips by 10/12/16 if havent already fallen off JONATHAN drain site (RLQ) wash with soap and water daily, cover with 4x4 gauze (1) folded or 2x2 gauze and secure with tape, change daily ok to shower no tub baths no lifting more than 20 lbs for 6 weeks Regular diet [facility]: Continue with close follow up, appointment to be scheduled for next week. Weekly labs of CBC and renal panel. If signs of increased confusion, nausea, vomiting patient should return to the hospital for further evaluation. Referrals: Easton Ortiz MD [Partnered Physician] - 10/19/16 3:00 pm (1 week hospital follow up. Complete lab work (CBC, renal panel).) Nelly Dubose MD [Partnered Physician] - 10/20/16 9:55 am (surgery follow-up ) Demi Winslow CNP [Advanced Practice Nurse] - 10/19/16 1:30 pm Prescriptions: Darbepoetin [Aranesp] 40 mcg SQ QWEEK 30 Days Omeprazole [PriLOSEC] 20 mg PO DAILY@30 30 Days Saline Nasal [place] [[place] Nasal [place]] 2 spray NS Q2H PRN 30 Days PRN Reason: See Comments <Neha Contreras - Last Filed: 10/20/16 15:41> Date of Encounter: 10/04/16 Objective - Lab 10/13/16 05:02 10/13/16 05:02 Most recent lab results ABG pH 7.39 pH Units (7.32-7.45) 09/26/16 23:15 ABG pCO2 41 mmHg (35-45) 09/26/16 23:15 ABG pO2 82 mmHg (85-104) L 09/26/16 23:15 ABG HCO3 24.8 mEQ/L (21-27) 09/26/16 23:15 ABG O2 Saturation 96 % (95-98) 09/26/16 23:15 Calcium 8.3 mg/dL (8.6-10.8) L 10/13/16 05:02 Phosphorus 4.9 mg/dL (2.3-4.7) H 10/09/16 04:00 Magnesium 1.4 mg/dL (1.6-2.6) L 10/13/16 05:02 Urine Creatinine 42 mg/dL 10/06/16 03:35 - Attending Attestation I examined this patient and my medical decision-making was reviewed with the FIELD INSTRUCTOR/PA/Advanced Practice Nurse/Resident Physician. I agree with the documented findings, disposition and treatment plan as described except to the extent set forth below. Pt seen and examined, agree with plan as set forth. SCr at plateau, would expect improvement soon. No PHYSICAL EDUCATION DEPARTMENT CHAIR needed at this time.
--- NOTE | 2016-10-04 16:18 | Internal Med Progress Note ---
Date of Encounter: 10/04/16 Time of Encounter: 14:00 - Assessment and plan (1) EBONIE (acute kidney injury) Current Visit: Yes Status: Acute Assessment and plan: Nonoliguric acute kidney. CKD is stage III. Multifactorial from fluid losses and cardiorenal syndrome. BUN and Cr plateaud. Close monitoring. Avoid Nephrotoxic agents as possible. Appreciate nephrology recommendations. (2) Small bowel obstruction Current Visit: Yes Status: Acute Assessment and plan: 10/03: Appreciate surgery input. Good oral intake. Positive bowel movements. 09/23/2016: Patient underwent exploratory laparotomy with lysis of adhesions small bowel resection yesterday. (3) Acute on chronic respiratory failure with hypoxemia Current Visit: Yes Status: Acute Assessment and plan: Secondary to bacterial pneumonia and acute heart failure. She uses 2 L of oxygen via NC at home. 09/25/2016: Chest x-ray shows bilateral infiltrates. She required 3 L NC. She received 3 days of Zyvox, then de-escalated to only Cefepime on 09/29 with no issues. Completed Cefepime course. 10/04: Improved. Now back to her baseline oxygen at 2 L. check CXR because of cough. (4) Healthcare-associated pneumonia Current Visit: Yes Status: Resolved Assessment and plan: resolved. bacterial PNA. 09/25/2016: Chest x-ray shows bilateral infiltrates. White blood cell count trended up. Patient started on broad spectrum antibiotics with cefepime and Zyvox. She received 3 days of Zyvox. She was de-escalated to only Cefepime on 09/29 and completed this course. (5) Symptomatic anemia Current Visit: Yes Status: Acute Assessment and plan: multifactorial etiology (acute blood loss from surgery/daily blood checks, anemia of chronic disease). normal folate. high b12 and ferritin. 10/01: transfused 2 units PRBC. today, H/h: 8.6/25.9. close monitoring of H/H. hemodynamically stable. Fecal occult blood test ordered. (6) Paroxysmal a-fib Current Visit: No Status: Chronic Assessment and plan: Heart rate is adequate. Continue metoprolol. - Subjective Interval history: Patient complaints of dry cough. no other complaints. she is eating well. - Constitutional Vitals: Temp Pulse Resp BP Pulse Ox 98.8 F 83 14 170/79 90 10/04/16 15:11 10/04/16 15:11 10/04/16 15:11 10/04/16 15:11 10/04/16 15:11 General appearance: Present: cooperative, A&O X 2, pleasant, no acute distress, answers questions appropriately - Respiratory Respiratory exam: Present: CTAB - Cardiovascular Cardiovascular exam: Present: RRR - GI/Abdominal GI/Abdominal exam: Present: normal bowel sounds, soft. Absent: distended, tenderness - Extremities Exam Extremities exam: Present: pedal edema (2+ LE edema) - Back Exam Back exam: Absent: CVA tenderness (L), CVA tenderness (R) - Neurological Exam Neurological exam: Present: alert, oriented X3, no focal deficits, strengths equal and symetr throughout. Absent: facial droop, speech deficit - Skin Skin exam: Absent: rash Internal Medicine: Result - Labs CBC & Chem 7: 10/04/16 03:15 10/04/16 03:15 Labs: Short CBC 10/04/16 Range/Units 03:15 WBC 9.5 (4.3-11.1) K/mcL Hgb 8.6 L (11.5-15.4) g/dL Hct 25.9 L (35.3-44.9) % Plt Count 175 (140-400) K/mcL Neutrophils # 8.1 (1.6-8.9) K/mcL BMP 10/04/16 03:15 Sodium 137 Potassium 3.6 Chloride 102 Carbon Dioxide 26 BUN 64 H Creatinine 2.36 H Glucose 100 H Calcium 8.6 - ABG Interpretation ABG results: ABG ABG pH 7.39 pH Units (7.32-7.45) 09/26/16 23:15 ABG pCO2 41 mmHg (35-45) 09/26/16 23:15 ABG pO2 82 mmHg (85-104) L 09/26/16 23:15 ABG O2 Saturation 96 % (95-98) 09/26/16 23:15 PT/INR, D-dimer PT 11.8 Seconds (9.4-12.1) 09/22/16 04:02 - VTE Documentation of Mechanical Device: Graduated compression elastic hosiery Consult Discharge Plan - Plan Additional Instructions: Cleanse midline incision with soap and water and pat dry daily Regular diet Referrals: Nelly Dubose MD [Partnered Physician] - 10/12/16 11:05 am (surgery follow- up) William Galvan MD [Primary Care Provider] -
[2016-10-04] MEDS ORDERED: Saline Nasal Spray 44 ML BOTTLE NS PRN (16:22)
[2016-10-04] MEDS: *HR* Heparin 5,000 UNIT/ML VIAL SQ SCH (17:49)
[2016-10-05 03:41] LABS: Basophils % 0.3 %; Eosinophils # 0.1 K/mcL (0.0-0.6); Eosinophils % 0.7 %; Hematocrit 25.2 % (35.3-44.9); Hemoglobin 8.2 g/dL (11.5-15.4); Immature Granulocytes % 0.5 % (0-4); Lymphocytes # 0.7 K/mcL (0.6-4.6); Lymphocytes % 9.1 %; Mean Corpuscular HGB Conc 32.5 g/dL (31.6-35.5); Mean Corpuscular Hemoglobin 28.8 pg (28.0-33.3); Mean Corpuscular Volume 88.4 fL (83.0-100.0); Mean Platelet Volume 11.1 fL (9.4-12.4); Monocytes # 0.6 K/mcL (0.0-1.3); Monocytes % 7.9 %; Neutrophils # 6.2 K/mcL (1.6-8.9); Platelet Count 193 K/mcL (140-400); Red Blood Count 2.85 M/mcL (3.82-4.97); Red Cell Distribution Width 13.8 % (11.5-14.5); Segmented Neutrophils % 81.5 %
[2016-10-05 03:53] LABS: Calcium 8.4 mg/dL (8.6-10.8); Magnesium 1.5 mg/dL (1.6-2.6); Potassium 3.5 mEq/L (3.5-4.5)
[2016-10-05 04:08] LABS: Platelet Estimate Normal (Normal); Reactive Lymphocytes Present (Not Present)
[2016-10-05] MEDS: Ipratropium/Albuterol Neb 3 ML IH SCH ×4 (04:29→22:34)
[2016-10-05] MEDS: *HR* Heparin 5,000 UNIT/ML VIAL SQ SCH ×2 (05:57→17:46)
[2016-10-05] MEDS ORDERED: Magnesium Sulfate 1 GM in D5% in Water 100 ML IVPB ONE (07:24)
[2016-10-05] MEDS ORDERED: Albumin 25% 25gram/100mL 25 GM/100 ML IV.SOLN IVPB ONE (07:26)
[2016-10-05] MEDS: hydrALAZINE 25 MG TABLET PO SCH ×3 (08:26→20:48)
[2016-10-05] MEDS: Aspirin 81 MG TAB.CHEW PO SCH (08:26)
--- NOTE | 2016-10-05 10:08 | Nephrology Progress Note ---
<Josep Meneses - Last Filed: 10/05/16 16:51> Date of Encounter: 10/05/16 Time of Encounter: 09:50 - Assessment and Plan (1) EBONIE (acute kidney injury) Status: Acute Nonoliguric EBONIE on CKD stage III, Multifactorial from fluid losses and acute anemia with Hgb 6.9 requiring multiple transfusions. Hgb since stabilized at 8.2. Poor PO intake. Concern for ATN with EBONIE, which may take a longer to slowly see kidney function return to baseline or patient's new baseline. Plan: Continue to follow a renal conservative and protective strategy. Dose Rx by GFR. Avoid Nephrotoxins as able. Strict I/Os, daily weights. Will give a 1L Normal Saline in addition to 25gm albumin given. (4) HTN (hypertension) Status: Chronic Qualifiers: Hypertension type: essential hypertension Qualified Code(s): I10 - Essential (primary) hypertension (5) Small bowel obstruction Status: Acute Exploratory laparotomy, lysis of adhesions, right salpingoophorectomy, left oophorectomy with Dr. Dubose Management per surgery service. (6) Paroxysmal a-fib Status: Chronic Management per primary service. (7) Healthcare-associated pneumonia Status: Resolved pneumonia vs pulmonary edema. Management per primary medicine service. (8) CKD (chronic kidney disease), stage III Status: Chronic Subjective Principal diagnosis: Bowel Obstruction, EBONIE Interval history: Patient seen and examined at bedside, states she feels more tired today. Hgb stable. No acute events overnight. Objective - Vital Signs Vital signs: Vital Signs Temp Pulse Resp BP Pulse Ox 10/05/16 07:42 99.0 F 70 18 115/61 91 10/05/16 04:29 99.7 F H 88 14 121/66 96 10/05/16 01:14 99.8 F H 87 16 116/53 94 10/04/16 22:01 16 94 10/04/16 20:55 98.9 F 97 15 139/65 93 10/04/16 15:11 98.8 F 83 14 170/79 90 10/04/16 11:17 98.7 F 74 16 145/71 92 10/04/16 10:19 16 97 Intake and Output 10/04/16 10/05/16 10/05/16 23:59 07:59 15:59 Intake Total 120 / 120 0 / 0 480 / 480 Output Total 0 / 0 Balance 120 / 120 0 / 0 480 / 480 Intake: Oral 120 / 120 0 / 0 480 / 480 Output: Urine 0 / 0 Other: Meal Breakfast Percent of Meal Consumed 10% # Urine Diapers 2 2 Weight 73.2 kg Patient Weight 10/05/16 23:59 Weight 73.2 kg - General Appearance General appearance: Present: well-developed, appears started age EENT: Present: ATNC, mucous membranes moist, hearing intact, vision intact Neck: Present: supple Respiratory: Present: rhonchi Cardiology: Present: holosystolic murmur, edema (pedal edema present bilaterally ), regular rate, regular rhythm Integumentary: Present: no rash, warm and dry Neurologic: Present: no focal deficit Additional Comments: awake and alert Musculoskeletal: Present: no deformities, no erythema, no cyanosis Psychiatric: Present: mood/affect appropriate, cooperative - Lab 10/05/16 03:20 10/05/16 16:10 Most recent lab results ABG pH 7.39 pH Units (7.32-7.45) 09/26/16 23:15 ABG pCO2 41 mmHg (35-45) 09/26/16 23:15 ABG pO2 82 mmHg (85-104) L 09/26/16 23:15 ABG HCO3 24.8 mEQ/L (21-27) 09/26/16 23:15 ABG O2 Saturation 96 % (95-98) 09/26/16 23:15 Calcium 8.4 mg/dL (8.6-10.8) L 10/05/16 03:20 Phosphorus 3.8 mg/dL (2.3-4.7) 09/29/16 03:30 Magnesium 1.5 mg/dL (1.6-2.6) L 10/05/16 03:20 - VTE Documentation of Mechanical Device: Graduated compression elastic hosiery Consult Discharge Plan - Plan Instructions: Acute Kidney Injury (DC), Anemia (DC) Additional Instructions: Cleanse midline incision with soap and water and pat dry daily remove steri-strips by 10/12/16 if havent already fallen off JONATHAN drain site (RLQ) wash with soap and water daily, cover with 4x4 gauze (1) folded or 2x2 gauze and secure with tape, change daily ok to shower no tub baths no lifting more than 20 lbs for 6 weeks Regular diet [facility]: Continue with close follow up, appointment to be scheduled for next week. Weekly labs of CBC and renal panel. If signs of increased confusion, nausea, vomiting patient should return to the hospital for further evaluation. Referrals: Easton Ortiz MD [Partnered Physician] - 10/19/16 3:00 pm (1 week hospital follow up. Complete lab work (CBC, renal panel).) Nelly Dubose MD [Partnered Physician] - 10/20/16 9:55 am (surgery follow-up ) Demi Winslow CNP [Advanced Practice Nurse] - 10/19/16 1:30 pm Prescriptions: Darbepoetin [Aranesp] 40 mcg SQ QWEEK 30 Days Omeprazole [PriLOSEC] 20 mg PO DAILY@30 30 Days Saline Nasal [place] [[place] Nasal [place]] 2 spray NS Q2H PRN 30 Days PRN Reason: See Comments <Neha Contreras - Last Filed: 10/20/16 15:53> Date of Encounter: 10/05/16 Objective - Lab 10/13/16 05:02 10/13/16 05:02 Most recent lab results ABG pH 7.39 pH Units (7.32-7.45) 09/26/16 23:15 ABG pCO2 41 mmHg (35-45) 09/26/16 23:15 ABG pO2 82 mmHg (85-104) L 09/26/16 23:15 ABG HCO3 24.8 mEQ/L (21-27) 09/26/16 23:15 ABG O2 Saturation 96 % (95-98) 09/26/16 23:15 Calcium 8.3 mg/dL (8.6-10.8) L 10/13/16 05:02 Phosphorus 4.9 mg/dL (2.3-4.7) H 10/09/16 04:00 Magnesium 1.4 mg/dL (1.6-2.6) L 10/13/16 05:02 Urine Creatinine 42 mg/dL 10/06/16 03:35 - Attending Attestation I examined this patient and my medical decision-making was reviewed with the COFFEE SUPERVISOR/PA/Advanced Practice Nurse/Resident Physician. I agree with the documented findings, disposition and treatment plan as described except to the extent set forth below. Pt seen and examined with SCr slightly worse at 2.61, will give a liter of saline today and watch for improvement. No SSAS DEVELOPER needed at this time
--- NOTE | 2016-10-05 11:35 | General Surgery Progress Note ---
Date of Encounter: 10/05/16 Time of Encounter: 11:32 - Assessment and Plan (1) Small bowel obstruction Current Visit: Yes Status: Acute POD #13 from Exploratory laparotomy, lysis of adhesions for 1 hour, right salpingoophorectomy, left oophorectomy Pathology reviewed with family per Dr. Dubose 09/26 Regular diet Supportive care/pain control PT/OT daily May discharge to rehab from a surgery standpoint, awaiting authorization - surgery will sign off, please call if needed roseann removed and steri strips placed ok to shower, remove steristrips in 1 week if havent fallen off (2) EBONIE (acute kidney injury) Current Visit: Yes Status: Acute Nephrology consulted Management per medicine service (3) DVT prophylaxis Current Visit: Yes Status: Acute EPCDs to bilateral lower extremities for DVT prophylaxis Subjective Patient reports: no new complaints, feels better, still having pain (minimal), tolerating a regular diet, flatus, bowel movement, afebrile Objective Vital Signs - Last 8 Hours Temp Pulse Resp BP Pulse Ox 10/05/16 11:06 98.2 F 68 16 112/59 94 10/05/16 10:29 18 95 10/05/16 07:42 99.0 F 70 18 115/61 91 10/05/16 04:29 99.7 F H 88 14 121/66 96 Intake and Output 10/04/16 10/05/16 10/05/16 23:59 07:59 15:59 Intake Total 120 / 120 0 / 0 480 / 480 Output Total 0 / 0 0 / 0 Balance 120 / 120 0 / 0 480 / 480 Intake: Oral 120 / 120 0 / 0 480 / 480 Output: Urine 0 / 0 0 / 0 Other: Meal Breakfast Percent of Meal Consumed 10% # Urine Diapers 2 2 Weight 73.2 kg Patient Weight 10/05/16 23:59 Weight 73.2 kg - General physical appearance well developed, well nourished, no distress - Eyes PERRL, normal ocular movement - ENT normal mucosa, normocephalic - Neck Neck exam: trachea midline - Respiratory normal expansion, clear to auscultation - Cardiovascular Cardiovascular exam: Present: RRR - Abdomen Abdomen: Present: bowel sounds present, soft, tender (minimal tenderness) - Incision Incision: Present: clean and dry, intact - Integumentary no rash, no growths - Neurologic CN 2-12 grossly intact - Musculoskeletal normal posture - Psychiatric oriented to time, oriented to person, memory intact - Labs 10/05/16 03:20 10/05/16 03:20 Short CBC 10/05/16 Range/Units 03:20 WBC 7.6 (4.3-11.1) K/mcL Hgb 8.2 L (11.5-15.4) g/dL Hct 25.2 L (35.3-44.9) % Plt Count 193 (140-400) K/mcL Neutrophils # 6.2 (1.6-8.9) K/mcL BMP 10/05/16 Range/Units 03:20 Sodium 135 L (136-145) mEq/L Potassium 3.5 (3.5-4.5) mEq/L Chloride 101 (98-109) mEq/L Carbon Dioxide 26 (19-29) mEq/L BUN 61 H (7-20) mg/dL Creatinine 2.61 H (0.57-1.11) mg/dL Glucose 99 (70-99) mg/dL Calcium 8.4 L (8.6-10.8) mg/dL Vital Signs Temp Pulse Resp BP Pulse Ox 10/05/16 11:06 98.2 F 68 16 112/59 94 10/05/16 10:29 18 95 10/05/16 07:42 99.0 F 70 18 115/61 91 10/05/16 04:29 99.7 F H 88 14 121/66 96 10/05/16 01:14 99.8 F H 87 16 116/53 94 10/04/16 22:01 16 94 10/04/16 20:55 98.9 F 97 15 139/65 93 10/04/16 15:11 98.8 F 83 14 170/79 90 Intake and Output 10/04/16 10/05/16 10/05/16 23:59 07:59 15:59 Intake Total 120 / 120 0 / 0 480 / 480 Output Total 0 / 0 0 / 0 Balance 120 / 120 0 / 0 480 / 480 Intake: Oral 120 / 120 0 / 0 480 / 480 Output: Urine 0 / 0 0 / 0 Other: Meal Breakfast Percent of Meal Consumed 10% # Urine Diapers 2 2 Weight 73.2 kg Patient Weight 10/05/16 23:59 Weight 73.2 kg - VTE Documentation of Mechanical Device: Graduated compression elastic hosiery Consult Discharge Plan - Plan Additional Instructions: Cleanse midline incision with soap and water and pat dry daily remove steri-strips by 10/12/16 if havent already fallen off JONATHAN drain site (RLQ) wash with soap and water daily, cover with 4x4 gauze (1) folded or 2x2 gauze and secure with tape, change daily ok to shower no tub baths no lifting more than 20 lbs for 6 weeks Regular diet Referrals: Nelly Dubose MD [Partnered Physician] - 10/12/16 11:05 am (surgery follow- up)
--- NOTE | 2016-10-05 12:09 | Internal Med Progress Note ---
Date of Encounter: 10/05/16 Time of Encounter: 12:07 - Assessment and plan (1) EBONIE (acute kidney injury) Current Visit: Yes Status: Acute Assessment and plan: Non-oliguric acute kidney. CKD is stage III. Multifactorial from fluid losses and cardiorenal syndrome. Cr trended up. sta IV albumin/IV fluids. repeat bmp at 5pm. Close monitoring. Avoid Nephrotoxic agents as possible. Appreciate nephrology recommendations. (2) Small bowel obstruction Current Visit: Yes Status: Acute Assessment and plan: 10/03: Appreciate surgery input. Good oral intake. Positive bowel movements. 09/23/2016: Patient underwent exploratory laparotomy with lysis of adhesions small bowel resection yesterday. (3) Acute on chronic respiratory failure with hypoxemia Current Visit: Yes Status: Acute Assessment and plan: Secondary to bacterial pneumonia and acute heart failure. She uses 2 L of oxygen via NC at home. 09/25/2016: Chest x-ray shows bilateral infiltrates. 10/04/2016: CXR showed improved aeration of the lung bases. She required 3 L NC. She received 3 days of Zyvox, then de-escalated to only Cefepime on 09/29 with no issues. Completed Cefepime course. 10/04: Improved. Now back to her baseline oxygen at 2 L. (4) Healthcare-associated pneumonia Current Visit: Yes Status: Resolved Assessment and plan: resolved. bacterial PNA. 09/25/2016: Chest x-ray shows bilateral infiltrates. White blood cell count trended up. Patient started on broad spectrum antibiotics with cefepime and Zyvox. She received 3 days of Zyvox. She was de-escalated to only Cefepime on 09/29 and completed this course. (5) Symptomatic anemia Current Visit: Yes Status: Acute Assessment and plan: multifactorial etiology (acute blood loss from surgery/daily blood checks, anemia of chronic disease). normal folate. high b12 and ferritin. 10/01: transfused 2 units PRBC. today, H/h: 8.6/25.9. close monitoring of H/H. hemodynamically stable. Fecal occult blood test ordered. (6) Paroxysmal a-fib Current Visit: No Status: Chronic Assessment and plan: Heart rate is adequate. Continue metoprolol. - Subjective Interval history: Patient is eating only 25% of her meals. She is trying to eat more but just has no appetite. - Constitutional Vitals: Temp Pulse Resp BP Pulse Ox 98.2 F 68 16 112/59 94 10/05/16 11:06 10/05/16 11:06 10/05/16 11:06 10/05/16 11:06 10/05/16 11:06 General appearance: Present: cooperative, A&O X 2, pleasant, no acute distress, answers questions appropriately - Respiratory Respiratory exam: Present: decreased breath sounds (at lung bases) - Cardiovascular Cardiovascular exam: Present: RRR - GI/Abdominal GI/Abdominal exam: Present: normal bowel sounds, soft, tenderness (mild tenderness). Absent: distended Additional comments: JONATHAN drain in site. - Extremities Exam Extremities exam: Present: pedal edema (2+ LE edema) - Back Exam Back exam: Absent: CVA tenderness (L), CVA tenderness (R) - Neurological Exam Neurological exam: Present: alert, oriented X3, no focal deficits, strengths equal and symetr throughout. Absent: facial droop, speech deficit Internal Medicine: Result - Labs CBC & Chem 7: 10/05/16 03:20 10/05/16 03:20 Labs: Short CBC 10/05/16 Range/Units 03:20 WBC 7.6 (4.3-11.1) K/mcL Hgb 8.2 L (11.5-15.4) g/dL Hct 25.2 L (35.3-44.9) % Plt Count 193 (140-400) K/mcL Neutrophils # 6.2 (1.6-8.9) K/mcL BMP 10/05/16 03:20 Sodium 135 L Potassium 3.5 Chloride 101 Carbon Dioxide 26 BUN 61 H Creatinine 2.61 H Glucose 99 Calcium 8.4 L - ABG Interpretation ABG results: ABG ABG pH 7.39 pH Units (7.32-7.45) 09/26/16 23:15 ABG pCO2 41 mmHg (35-45) 09/26/16 23:15 ABG pO2 82 mmHg (85-104) L 09/26/16 23:15 ABG O2 Saturation 96 % (95-98) 09/26/16 23:15 PT/INR, D-dimer PT 11.8 Seconds (9.4-12.1) 09/22/16 04:02 - Impressions Impressions Chest X-Ray 10/04/16 15:23 IMPRESSION: Improving pulmonary edema. Improved aeration of the lung bases. Stable cardiomegaly. D/ / Tam Greene MD / Tam Greene MD Interpreting Provider: Tam Greene MD - VTE Documentation of Mechanical Device: Graduated compression elastic hosiery Consult Discharge Plan - Plan Additional Instructions: Cleanse midline incision with soap and water and pat dry daily remove steri-strips by 10/12/16 if havent already fallen off JONATHAN drain site (RLQ) wash with soap and water daily, cover with 4x4 gauze (1) folded or 2x2 gauze and secure with tape, change daily ok to shower no tub baths no lifting more than 20 lbs for 6 weeks Regular diet Referrals: Nelly Dubose MD [Partnered Physician] - 10/12/16 11:05 am (surgery follow- up)
[2016-10-05] MEDS ORDERED: 0.9 % Sodium Chloride 1,000 ML IVC ONE (13:19)
[2016-10-05 16:38] LABS: Calcium 8.4 mg/dL (8.6-10.8); Potassium 3.6 mEq/L (3.5-4.5)
[2016-10-06 03:33] LABS: Basophils % 0.1 %; Eosinophils # 0.1 K/mcL (0.0-0.6); Eosinophils % 1.6 %; Hematocrit 22.8 % (35.3-44.9); Hemoglobin 7.2 g/dL (11.5-15.4); Immature Granulocytes % 0.6 % (0-4); Lymphocytes # 0.7 K/mcL (0.6-4.6); Lymphocytes % 10.1 %; Mean Corpuscular HGB Conc 31.6 g/dL (31.6-35.5); Mean Corpuscular Hemoglobin 28.2 pg (28.0-33.3); Mean Corpuscular Volume 89.4 fL (83.0-100.0); Mean Platelet Volume 10.8 fL (9.4-12.4); Monocytes # 0.5 K/mcL (0.0-1.3); Monocytes % 6.6 %; Neutrophils # 5.7 K/mcL (1.6-8.9); Platelet Count 178 K/mcL (140-400); Red Blood Count 2.55 M/mcL (3.82-4.97); Red Cell Distribution Width 14.1 % (11.5-14.5)
[2016-10-06 03:45] LABS: Calcium 8.3 mg/dL (8.6-10.8); Magnesium 1.6 mg/dL (1.6-2.6); Potassium 3.6 mEq/L (3.5-4.5)
[2016-10-06 04:01] LABS: Creatinine,Urine 42 mg/dL
[2016-10-06] MEDS: Ipratropium/Albuterol Neb 3 ML IH SCH ×4 (04:10→22:52)
[2016-10-06] MEDS: *HR* Heparin 5,000 UNIT/ML VIAL SQ SCH ×2 (05:58→18:08)
--- NOTE | 2016-10-06 09:13 | Nephrology Progress Note ---
<Josep Meneses - Last Filed: 10/06/16 18:02> Date of Encounter: 10/06/16 Time of Encounter: 09:45 - Assessment and Plan (1) EBONIE (acute kidney injury) Current Visit: Yes Status: Acute Worsening EBONIE on CKD stage III, Likely multifactorial from fluid losses and acute anemia-Hgb 6.9 at lowest requiring multiple transfusions. Poor PO intake, though noted to be better today. Concern for ATN with EBONIE. Renal US 10/05/16: no hydronephrosis. Echogenic bilateral kidneys, may be suggestive of renal disease. CrCl of 17ml/min based on original Cockcroft-Gault Plan: Continue to follow a renal conservative and protective strategy. Dose Rx by GFR. Avoid Nephrotoxins as able. Strict I/Os, daily weights. Plan to repeat Urinalysis. (2) Healthcare-associated pneumonia Current Visit: Yes Status: Resolved Improved, return to baseline home oxygen. Concern for pneumonia vs pulmonary edema. Management per primary medicine service. (3) Small bowel obstruction Current Visit: Yes Status: Resolved Exploratory laparotomy, lysis of adhesions, right salpingoophorectomy, left oophorectomy with Dr. Dubose Management per surgery service. (4) CKD (chronic kidney disease), stage III Current Visit: No Status: Chronic (5) HTN (hypertension) Current Visit: Yes Status: Chronic Qualifiers: Hypertension type: essential hypertension Qualified Code(s): I10 - Essential (primary) hypertension (6) Paroxysmal a-fib Current Visit: No Status: Chronic Management per primary service. (7) Vitamin D deficiency Current Visit: Yes Status: Acute Vitamin D found to be 9ng/ml in August 2016, patient is not on any replacement. Will start ergocalciferol 50,000 units weekly. (8) Symptomatic anemia Current Visit: Yes Status: Acute Fatigue and dyspnea on presentation. Lowest Hgb of 6.9, at which time patient received multiple transfusions. Hgb had stabilized at 8.3, but dropped to 7.2 today. No signs of active bleeding. Management per primary service, patient pending repeat H/H and occult stool testing. Subjective Principal diagnosis: Bowel Obstruction, EBONIE Interval history: Patient seen and examined today while she is up, sitting in a chair, fixing her nails/painting nails. Slight decline in Hgb to 7.2. No acute events overnight. Objective - Vital Signs Vital signs: Vital Signs Temp Pulse Resp BP Pulse Ox 10/06/16 08:10 98.7 F 66 18 156/74 95 10/06/16 04:11 17 96 10/06/16 03:35 98.3 F 69 16 146/69 95 10/05/16 23:24 98.2 F 70 15 150/81 96 10/05/16 19:31 98.6 F 66 14 143/64 98 10/05/16 17:34 16 96 10/05/16 14:52 97.3 F L 64 16 147/72 98 10/05/16 11:06 98.2 F 68 16 112/59 94 10/05/16 10:29 18 95 Intake and Output 10/05/16 10/06/16 10/06/16 23:59 07:59 15:59 Intake Total 0 / 0 1100 / 1100 500 / 500 Output Total 200 / 200 200 / 200 0 / 0 Balance -200 / -200 900 / 900 500 / 500 Intake: IV Fluids 1000 / 1000 0.9 % Sodium Chloride 1, 1000 / 1000 000 ML @ 60 mls/hr IVC . [id number] ONE Rx#: [id number] Oral 0 / 0 100 / 100 500 / 500 Output: Urine 200 / 200 200 / 200 0 / 0 Other: Stool Size Moderate Stool Consistency loose Stool Color Brown Black # Voids 1 Weight 77.139 kg Patient Weight 10/06/16 23:59 Weight 77.139 kg - General Appearance General appearance: Present: well-developed, appears started age, frail EENT: Present: ATNC, mucous membranes moist, hearing intact, vision intact Cardiology: Present: edema (2+ BLE pitting edema) Integumentary: Present: no rash, warm and dry Neurologic: Present: no focal deficit Additional Comments: awake and alert Musculoskeletal: Present: no deformities, no erythema, no cyanosis Psychiatric: Present: mood/affect appropriate, cooperative - Lab 10/06/16 14:57 10/06/16 14:57 Most recent lab results ABG pH 7.39 pH Units (7.32-7.45) 09/26/16 23:15 ABG pCO2 41 mmHg (35-45) 09/26/16 23:15 ABG pO2 82 mmHg (85-104) L 09/26/16 23:15 ABG HCO3 24.8 mEQ/L (21-27) 09/26/16 23:15 ABG O2 Saturation 96 % (95-98) 09/26/16 23:15 Calcium 8.3 mg/dL (8.6-10.8) L 10/06/16 03:25 Phosphorus 3.8 mg/dL (2.3-4.7) 09/29/16 03:30 Magnesium 1.6 mg/dL (1.6-2.6) 10/06/16 03:25 Urine Creatinine 42 mg/dL 10/06/16 03:35 - VTE Documentation of Mechanical Device: Intermittent pneumatic compression device Consult Discharge Plan - Plan Additional Instructions: Cleanse midline incision with soap and water and pat dry daily remove steri-strips by 10/12/16 if havent already fallen off JONATHAN drain site (RLQ) wash with soap and water daily, cover with 4x4 gauze (1) folded or 2x2 gauze and secure with tape, change daily ok to shower no tub baths no lifting more than 20 lbs for 6 weeks Regular diet Referrals: Nelly Dubose MD [Partnered Physician] - 10/12/16 11:05 am (surgery follow- up) <Neha Contreras - Last Filed: 10/07/16 08:06> Date of Encounter: 10/06/16 Objective - Vital Signs Vital signs: Vital Signs Temp Pulse Resp BP Pulse Ox 10/07/16 07:42 98.0 F 69 18 153/79 99 10/07/16 04:20 98.5 F 69 16 116/64 96 10/07/16 03:58 16 95 10/06/16 22:59 98.2 F 63 15 99 10/06/16 22:53 136/64 10/06/16 22:52 16 97 10/06/16 19:10 98.2 F 62 15 126/73 96 10/06/16 16:09 14 97 10/06/16 14:40 97.9 F 68 18 125/61 98 10/06/16 10:54 98.2 F 75 18 142/62 98 10/06/16 10:44 16 96 10/06/16 08:10 98.7 F 66 18 156/74 95 Intake and Output 10/06/16 10/07/16 10/07/16 23:59 07:59 15:59 Intake Total 240 / 240 1100 / 1100 Output Total 600 / 600 0 / 0 Balance -360 / -360 1100 / 1100 Intake: Oral 240 / 240 1100 / 1100 Output: Urine 600 / 600 0 / 0 Other: Meal Dinner Percent of Meal Consumed 50% Weight 77.734 kg Patient Weight 10/07/16 23:59 Weight 77.734 kg - Lab 10/07/16 03:55 10/07/16 03:55 Most recent lab results ABG pH 7.39 pH Units (7.32-7.45) 09/26/16 23:15 ABG pCO2 41 mmHg (35-45) 09/26/16 23:15 ABG pO2 82 mmHg (85-104) L 09/26/16 23:15 ABG HCO3 24.8 mEQ/L (21-27) 09/26/16 23:15 ABG O2 Saturation 96 % (95-98) 09/26/16 23:15 Calcium 8.3 mg/dL (8.6-10.8) L 10/07/16 03:55 Phosphorus 5.0 mg/dL (2.3-4.7) H 10/07/16 03:55 Magnesium 1.6 mg/dL (1.6-2.6) 10/07/16 03:55 Urine Creatinine 42 mg/dL 10/06/16 03:35 - Attending Attestation I examined this patient and my medical decision-making was reviewed with the BULL LADLE TENDER/PA/Advanced Practice Nurse/Resident Physician. I agree with the documented findings, disposition and treatment plan as described except to the extent set forth below. Pt seen and examined with worsening SCr and hgb. Will repeat UA today but workup of anemia per primary team. pRBCs transfusion best for volume at this time. Will consider imaging with CT if SCr contines to worsen. No indication of ENERGY MANAGER for now. Continue to avoid nephrotoxins if possible
[2016-10-06] MEDS: hydrALAZINE 25 MG TABLET PO SCH ×3 (09:49→22:50)
[2016-10-06] MEDS: Aspirin 81 MG TAB.CHEW PO SCH (09:49)
[2016-10-06] MEDS ORDERED: Furosemide 40 MG/4 ML VIAL IVP ONE (11:51)
[2016-10-06 13:44] LABS: Bilirubin,Urine Negative (Negative); Blood,Urine Trace (Negative); Clarity,Urine Cloudy (Clear); Color,Urine Yellow (Yellow); Glucose,Urine (UA) Normal (Normal); Ketones,Urine Negative (Negative); Leukocyte Esterase,Urine Negative (Negative); Nitrite,Urine Negative (Negative); PH,Urine 5.5 pH Units (5.0-8.0); Protein,Urine 100 mg/dL (Neg-Trace); Specific Gravity,Urine 1.011 (1.010-1.025); Urobilinogen,Urine Normal (Normal)
[2016-10-06 13:47] LABS: Squamous Epithelial Cell,Urine Many per lpf (None-Few)
[2016-10-06 14:17] LABS: Amorphous Sediment,Urine Moderate (Few); RBC,Urine 30-50 per hpf (0-3)
[2016-10-06 14:18] LABS: Bacteria,Urine Many per hpf (None-Few); Granular Casts,Urine Few per lpf (None Seen); Hyaline Casts,Urine Few per lpf (None-Few); Yeast,Urine Many per hpf (None Seen)
[2016-10-06 15:02] LABS: Hematocrit 25.2 % (35.3-44.9)
[2016-10-06 15:29] LABS: Calcium 8.6 mg/dL (8.6-10.8); Potassium 3.7 mEq/L (3.5-4.5)
--- NOTE | 2016-10-06 15:35 | Internal Med Progress Note ---
Date of Encounter: 10/06/16 Time of Encounter: 15:32 - Assessment and plan (1) EBONIE (acute kidney injury) Current Visit: Yes Status: Acute Assessment and plan: Non-oliguric acute kidney. CKD is stage III. Multifactorial from fluid losses and cardiorenal syndrome. renal US was negative for obstruction. Cr continues to trend up. Appreciate nephrology recommendations. check H/H and BMP in the afternoon. Close monitoring. Avoid Nephrotoxic agents as possible. (2) Small bowel obstruction Current Visit: Yes Status: Acute Assessment and plan: 10/03: Appreciate surgery input. Good oral intake. Positive bowel movements. 09/23/2016: Patient underwent exploratory laparotomy with lysis of adhesions small bowel resection yesterday. (3) Acute on chronic respiratory failure with hypoxemia Current Visit: Yes Status: Acute Assessment and plan: Secondary to bacterial pneumonia and acute heart failure. She uses 2 L of oxygen via NC at home. 09/25/2016: Chest x-ray shows bilateral infiltrates. 10/04/2016: CXR showed improved aeration of the lung bases. She required 3 L NC. She received 3 days of Zyvox, then de-escalated to only Cefepime on 09/29 with no issues. Completed Cefepime course. 10/04: Improved. Now back to her baseline oxygen at 2 L. (4) Healthcare-associated pneumonia Current Visit: Yes Status: Resolved Assessment and plan: resolved. bacterial PNA. 09/25/2016: Chest x-ray shows bilateral infiltrates. White blood cell count trended up. Patient started on broad spectrum antibiotics with cefepime and Zyvox. She received 3 days of Zyvox. She was de-escalated to only Cefepime on 09/29 and completed this course. (5) Symptomatic anemia Current Visit: Yes Status: Acute Assessment and plan: multifactorial etiology (acute blood loss from surgery/daily blood checks, anemia of chronic disease). normal folate. high b12 and ferritin. 10/01: transfused 2 units PRBC. today, H/h: 7.2. no signs of bleeding. close monitoring of H/H. hemodynamically stable. repeat H/H in the afternoon. Fecal occult blood test ordered. (6) Paroxysmal a-fib Current Visit: No Status: Chronic Assessment and plan: Heart rate is adequate. Continue metoprolol. - Subjective Interval history: Patient ate 50% of her lunch tray. She has some clear productive cough. pt had large bm and no bleeding - Constitutional Vitals: Temp Pulse Resp BP Pulse Ox 97.9 F 68 18 125/61 98 10/06/16 14:40 10/06/16 14:40 10/06/16 14:40 10/06/16 14:40 10/06/16 14:40 General appearance: Present: cooperative, A&O X 2, pleasant, no acute distress, answers questions appropriately - Respiratory Respiratory exam: Present: CTAB - Cardiovascular Cardiovascular exam: Present: RRR - GI/Abdominal GI/Abdominal exam: Present: normal bowel sounds, soft. Absent: distended, tenderness Additional comments: JONATHAN drain in site - Extremities Exam Extremities exam: Present: pedal edema (2+ LE edema) - Back Exam Back exam: Absent: CVA tenderness (L), CVA tenderness (R) - Neurological Exam Neurological exam: Present: alert, oriented X3, no focal deficits, strengths equal and symetr throughout. Absent: facial droop, speech deficit - Skin Skin exam: Absent: rash Internal Medicine: Result - Labs CBC & Chem 7: 10/06/16 14:57 10/06/16 14:57 Labs: Short CBC 10/06/16 10/06/16 Range/Units 03:25 14:57 WBC 7.0 (4.3-11.1) K/mcL Hgb 7.2 L 8.0 L (11.5-15.4) g/dL Hct 22.8 L 25.2 L (35.3-44.9) % Plt Count 178 (140-400) K/mcL Neutrophils # 5.7 (1.6-8.9) K/mcL BMP 10/05/16 10/06/16 10/06/16 16:10 03:25 14:57 Sodium 136 137 136 Potassium 3.6 3.6 3.7 Chloride 101 103 102 Carbon Dioxide 26 27 26 BUN 62 H 63 H 62 H Creatinine 2.86 H 2.98 H 3.19 H Glucose 113 H 102 H 141 H Calcium 8.4 L 8.3 L 8.6 Urine 10/06/16 Range/Units 13:25 Urine Color Yellow (Yellow) Urine Clarity Cloudy A (Clear) Urine pH 5.5 (5.0-8.0) pH Units Ur Specific Newman 1.011 (1.010-1.025) Urine Protein 100 H (Neg-Trace) mg/dL Urine Glucose (UA) Normal (Normal) mg/dL - ABG Interpretation ABG results: ABG ABG pH 7.39 pH Units (7.32-7.45) 09/26/16 23:15 ABG pCO2 41 mmHg (35-45) 09/26/16 23:15 ABG pO2 82 mmHg (85-104) L 09/26/16 23:15 ABG O2 Saturation 96 % (95-98) 09/26/16 23:15 PT/INR, D-dimer PT 11.8 Seconds (9.4-12.1) 09/22/16 04:02 - Impressions Impressions Retroperitoneum Ultrasound 10/05/16 17:44 IMPRESSION: 1. Echogenic bilateral kidneys, may represent medical renal disease. 2. No hydronephrosis. D/ / Osorio Wynn MD / Osorio Wynn MD Interpreting Provider: Osorio Wynn MD - VTE Documentation of Mechanical Device: Graduated compression elastic hosiery Consult Discharge Plan - Plan Additional Instructions: Cleanse midline incision with soap and water and pat dry daily remove steri-strips by 10/12/16 if havent already fallen off JONATHAN drain site (RLQ) wash with soap and water daily, cover with 4x4 gauze (1) folded or 2x2 gauze and secure with tape, change daily ok to shower no tub baths no lifting more than 20 lbs for 6 weeks Regular diet Referrals: Nelly Dubose MD [Partnered Physician] - 10/12/16 11:05 am (surgery follow- up)
[2016-10-07] MEDS: Ipratropium/Albuterol Neb 3 ML IH SCH ×4 (03:58→21:51)
[2016-10-07 04:14] LABS: Basophils % 0.3 %; Eosinophils # 0.3 K/mcL (0.0-0.6); Eosinophils % 4.3 %; Hematocrit 22.7 % (35.3-44.9); Hemoglobin 7.2 g/dL (11.5-15.4); Immature Granulocytes % 0.4 % (0-4); Lymphocytes # 0.5 K/mcL (0.6-4.6); Lymphocytes % 6.9 %; Mean Corpuscular HGB Conc 31.7 g/dL (31.6-35.5); Mean Corpuscular Hemoglobin 28.5 pg (28.0-33.3); Mean Corpuscular Volume 89.7 fL (83.0-100.0); Mean Platelet Volume 10.7 fL (9.4-12.4); Monocytes # 0.4 K/mcL (0.0-1.3); Monocytes % 5.1 %; Neutrophils # 6.4 K/mcL (1.6-8.9); Platelet Count 205 K/mcL (140-400); Red Blood Count 2.53 M/mcL (3.82-4.97); Red Cell Distribution Width 14.1 % (11.5-14.5)
[2016-10-07 04:39] LABS: Albumin/Globulin Ratio 0.6 (1.1-2.2); Bilirubin,Total 0.2 mg/dL (0.2-1.2); Calcium 8.3 mg/dL (8.6-10.8); Globulin 3.4 g/dL (2.4-3.5); Magnesium 1.6 mg/dL (1.6-2.6); Potassium 3.4 mEq/L (3.5-4.5); Total Protein 5.3 g/dL (6.0-8.3)
[2016-10-07 04:42] LABS: Albumin 1.9 g/dL (3.5-5.0)
[2016-10-07] MEDS: *HR* Heparin 5,000 UNIT/ML VIAL SQ SCH ×2 (05:52→18:35)
--- NOTE | 2016-10-07 08:51 | Nephrology Progress Note ---
Date of Encounter: 10/07/16 Time of Encounter: 09:45 - Assessment and Plan (1) EBONIE (acute kidney injury) Current Visit: Yes Status: Acute Worsening renal function with concern for hypoperfusion d/t anemia. Suspect perhaps ATN. Will discuss dialysis options with the pt as she may need it in the next 24-72 hrs. I sat with her and her and had a long conversation about dialysis options. At first she said that she did not want dialysis but after her spoke to her, she said that she may be open to it as a very last result but wanted to discuss further with her . Continue to follow a renal protective/supportive strategy. Will follow with you. Thank you. (2) Healthcare-associated pneumonia Current Visit: Yes Status: Resolved (3) Hypokalemia Current Visit: Yes Status: Chronic (4) HTN (hypertension) Current Visit: Yes Status: Chronic Qualifiers: Hypertension type: essential hypertension Qualified Code(s): I10 - Essential (primary) hypertension (5) CKD (chronic kidney disease), stage III Current Visit: No Status: Chronic Echogenicity noted on renal U/S, confirming the chronicity of underlying CKD. (6) Anemia Current Visit: Yes Status: Acute I suspect multifactorial anemia, but given that her renal function has been so poor for so long, there is likely a component of anemia of CKD. I discussed Aranesp with the pt and it's benefits vs risks. Will start weekly dosing. PRBC transfusion parameters as per primary team. Check daily CBC. Qualifiers: Anemia type: other cause Other causes of anemia: chronic disease, kidney Qualified Code(s): N18.9 - Chronic kidney disease, unspecified; D63.1 - Anemia in chronic kidney disease Subjective Principal diagnosis: Bowel Obstruction, EBONIE Interval history: Pt was s/e. I sat with her and her and had a long conversation about dialysis options. At first she said that she did not want dialysis but after her spoke to her, she said that she may be open to it as a very last result but wanted to discuss further with her . She did not affirm N/V/D or abd pain to me. Objective - Vital Signs Vital signs: Vital Signs Temp Pulse Resp BP Pulse Ox 10/07/16 07:42 98.0 F 69 18 153/79 99 10/07/16 04:20 98.5 F 69 16 116/64 96 10/07/16 03:58 16 95 10/06/16 22:59 98.2 F 63 15 99 10/06/16 22:53 136/64 10/06/16 22:52 16 97 10/06/16 19:10 98.2 F 62 15 126/73 96 10/06/16 16:09 14 97 10/06/16 14:40 97.9 F 68 18 125/61 98 10/06/16 10:54 98.2 F 75 18 142/62 98 10/06/16 10:44 16 96 Intake and Output 10/06/16 10/07/16 10/07/16 23:59 07:59 15:59 Intake Total 240 / 240 1100 / 1100 Output Total 600 / 600 0 / 0 Balance -360 / -360 1100 / 1100 Intake: Oral 240 / 240 1100 / 1100 Output: Urine 600 / 600 0 / 0 Other: Meal Dinner Percent of Meal Consumed 50% Weight 77.734 kg Patient Weight 10/07/16 23:59 Weight 77.734 kg - General Appearance General appearance: Present: well-developed, well-nourished, appears started age EENT: Present: ATNC, PERRL, mucous membranes moist Neck: Present: supple Respiratory: Present: clear Cardiology: Present: no edema, regular rate, normal S1, normal S2 Gastrointestinal: Present: normoactive bowel sounds, no tenderness, no guarding Integumentary: Present: no rash, warm and dry Neurologic: Present: no focal deficit, no asterixis, alert and oriented x3 Musculoskeletal: Present: no deformities, no erythema, no cyanosis Psychiatric: Present: mood/affect appropriate, cooperative - Lab 10/07/16 03:55 10/07/16 03:55 Most recent lab results ABG pH 7.39 pH Units (7.32-7.45) 09/26/16 23:15 ABG pCO2 41 mmHg (35-45) 09/26/16 23:15 ABG pO2 82 mmHg (85-104) L 09/26/16 23:15 ABG HCO3 24.8 mEQ/L (21-27) 09/26/16 23:15 ABG O2 Saturation 96 % (95-98) 09/26/16 23:15 Calcium 8.3 mg/dL (8.6-10.8) L 10/07/16 03:55 Phosphorus 5.0 mg/dL (2.3-4.7) H 10/07/16 03:55 Magnesium 1.6 mg/dL (1.6-2.6) 10/07/16 03:55 Urine Creatinine 42 mg/dL 10/06/16 03:35 - VTE Documentation of Mechanical Device: Intermittent pneumatic compression device Consult Discharge Plan - Plan Additional Instructions: Cleanse midline incision with soap and water and pat dry daily remove steri-strips by 10/12/16 if havent already fallen off JONATHAN drain site (RLQ) wash with soap and water daily, cover with 4x4 gauze (1) folded or 2x2 gauze and secure with tape, change daily ok to shower no tub baths no lifting more than 20 lbs for 6 weeks Regular diet Referrals: Nelly Dubose MD [Partnered Physician] - 10/12/16 11:05 am (surgery follow- up)
[2016-10-07] MEDS: Aspirin 81 MG TAB.CHEW PO SCH (10:23)
[2016-10-07] MEDS: hydrALAZINE 25 MG TABLET PO SCH ×3 (10:23→20:46)
--- NOTE | 2016-10-07 16:53 | Internal Med Progress Note ---
Date of Encounter: 10/07/16 Time of Encounter: 11:15 - Assessment and plan (1) EBONIE (acute kidney injury) Current Visit: Yes Status: Acute Assessment and plan: Non-oliguric acute kidney failure. CKD is stage III. Multifactorial from fluid losses and cardiorenal syndrome. Renal US was negative for obstruction. Cr continues to trend up. Appreciate nephrology recommendations, patient may require dialysis. Close monitoring. Avoid Nephrotoxic agents as possible. (2) Small bowel obstruction Current Visit: Yes Status: Resolved Assessment and plan: 10/03: Appreciate surgery input. Good oral intake. Positive bowel movements. 09/23/2016: Patient underwent exploratory laparotomy with lysis of adhesions small bowel resection yesterday. (3) Acute on chronic respiratory failure with hypoxemia Current Visit: Yes Status: Acute Assessment and plan: Secondary to bacterial pneumonia and acute heart failure. She uses 2 L of oxygen via NC at home. 09/25/2016: Chest x-ray shows bilateral infiltrates. 10/04/2016: CXR showed improved aeration of the lung bases. She required 3 L NC. She received 3 days of Zyvox, then de-escalated to only Cefepime on 09/29 with no issues. Completed Cefepime course. 10/04: Improved. Now back to her baseline oxygen at 2 L. (4) Healthcare-associated pneumonia Current Visit: Yes Status: Resolved Assessment and plan: resolved. bacterial PNA. 09/25/2016: Chest x-ray shows bilateral infiltrates. White blood cell count trended up. Patient started on broad spectrum antibiotics with cefepime and Zyvox. She received 3 days of Zyvox. She was de-escalated to only Cefepime on 09/29 and completed this course. (5) Symptomatic anemia Current Visit: Yes Status: Acute Assessment and plan: multifactorial etiology (acute blood loss from surgery/daily blood checks, anemia of chronic disease). normal folate. high b12 and ferritin. 10/01: transfused 2 units PRBC. today, Hgb is 7.2. no signs of bleeding. close monitoring of H/H. hemodynamically stable. (6) Paroxysmal a-fib Current Visit: No Status: Chronic Assessment and plan: Heart rate is adequate. Continue metoprolol. - Subjective Interval history: Patient eats hald of her lunch and dinner tray. she states she feels better. - Constitutional Vitals: Temp Pulse Resp BP Pulse Ox 98.1 F 65 17 124/56 96 10/07/16 14:46 10/07/16 14:46 10/07/16 14:46 10/07/16 14:46 10/07/16 14:46 General appearance: Present: cooperative, A&O X 2, pleasant, no acute distress, answers questions appropriately - Respiratory Respiratory exam: Present: rhonchi (at lung bases) - Cardiovascular Cardiovascular exam: Present: RRR - GI/Abdominal GI/Abdominal exam: Present: normal bowel sounds, soft. Absent: distended, tenderness - Extremities Exam Extremities exam: Absent: pedal edema - Back Exam Back exam: Absent: CVA tenderness (L), CVA tenderness (R) - Neurological Exam Neurological exam: Present: alert, oriented X3, no focal deficits, strengths equal and symetr throughout. Absent: facial droop, speech deficit Internal Medicine: Result - Labs CBC & Chem 7: 10/07/16 03:55 10/07/16 03:55 Labs: Short CBC 10/07/16 Range/Units 03:55 WBC 7.7 (4.3-11.1) K/mcL Hgb 7.2 L (11.5-15.4) g/dL Hct 22.7 L (35.3-44.9) % Plt Count 205 (140-400) K/mcL Neutrophils # 6.4 (1.6-8.9) K/mcL BMP 10/07/16 03:55 Sodium 136 Potassium 3.4 L Chloride 102 Carbon Dioxide 27 BUN 63 H Creatinine 3.42 H Glucose 115 H Calcium 8.3 L Liver Function 10/07/16 Range/Units 03:55 Total Bilirubin 0.2 (0.2-1.2) mg/dL AST 15 (5-34) Units/L ALT 6 (0-55) Units/L Alkaline Phosphatase 77 (38-126) Units/L Albumin 1.9 L (3.5-5.0) g/dL - ABG Interpretation ABG results: ABG ABG pH 7.39 pH Units (7.32-7.45) 09/26/16 23:15 ABG pCO2 41 mmHg (35-45) 09/26/16 23:15 ABG pO2 82 mmHg (85-104) L 09/26/16 23:15 ABG O2 Saturation 96 % (95-98) 09/26/16 23:15 PT/INR, D-dimer PT 11.8 Seconds (9.4-12.1) 09/22/16 04:02 - VTE Documentation of Mechanical Device: Intermittent pneumatic compression device Consult Discharge Plan - Plan Additional Instructions: Cleanse midline incision with soap and water and pat dry daily remove steri-strips by 10/12/16 if havent already fallen off JONATHAN drain site (RLQ) wash with soap and water daily, cover with 4x4 gauze (1) folded or 2x2 gauze and secure with tape, change daily ok to shower no tub baths no lifting more than 20 lbs for 6 weeks Regular diet Referrals: Nelly Dubose MD [Partnered Physician] - 10/12/16 11:05 am (surgery follow- up)
[2016-10-08] MEDS: Ipratropium/Albuterol Neb 3 ML IH SCH ×4 (03:23→21:20)
[2016-10-08] MEDS: *HR* Heparin 5,000 UNIT/ML VIAL SQ SCH ×2 (05:36→18:03)
[2016-10-08 05:53] LABS: Calcium 8.5 mg/dL (8.6-10.8); Magnesium 1.6 mg/dL (1.6-2.6); Phosphorous 4.8 mg/dL (2.3-4.7); Potassium 3.9 mEq/L (3.5-4.5)
[2016-10-08 05:54] LABS: Basophils % 0.2 %; Eosinophils # 0.4 K/mcL (0.0-0.6); Eosinophils % 4.6 %; Hematocrit 24.6 % (35.3-44.9); Hemoglobin 7.7 g/dL (11.5-15.4); Immature Granulocytes % 0.5 % (0-4); Lymphocytes # 0.6 K/mcL (0.6-4.6); Lymphocytes % 7.4 %; Mean Corpuscular HGB Conc 31.3 g/dL (31.6-35.5); Mean Corpuscular Hemoglobin 28.2 pg (28.0-33.3); Mean Corpuscular Volume 90.1 fL (83.0-100.0); Mean Platelet Volume 10.8 fL (9.4-12.4); Monocytes # 0.5 K/mcL (0.0-1.3); Monocytes % 5.9 %; Neutrophils # 6.8 K/mcL (1.6-8.9); Platelet Count 223 K/mcL (140-400); Red Blood Count 2.73 M/mcL (3.82-4.97); Segmented Neutrophils % 81.4 %
[2016-10-08] MEDS: hydrALAZINE 25 MG TABLET PO SCH ×3 (09:47→20:45)
[2016-10-08] MEDS: Aspirin 81 MG TAB.CHEW PO SCH (09:47)
--- NOTE | 2016-10-08 10:36 | Nephrology Progress Note ---
Date of Encounter: 10/08/16 Time of Encounter: 10:34 - Assessment and Plan (1) EBONIE (acute kidney injury) Current Visit: Yes Status: Acute Worsening renal function with concern for hypoperfusion d/t anemia. Suspect perhaps ATN. With ATN the SCr often progressively worsens and this is the case today even. However she did not exhibit uremic findings on exam, so I will hold off on starting dialysis, which she generally agreed to but only as a last resort. She may need it in the next 24-72 hrs. Edema: would not increase diuretics at this point, since diuretics would surely usher her faster to starting dialysis. Plus she is not overtly symptomatic from fluid overload . Anemia: likely multifactorial. I've added Aranesp, which is an erythropoeitin stimulating agent to help improved RBC production in the setting of advanced renal dysfunction. Transfusion parameters as per primary team. Continue to follow a renal protective/supportive strategy. Will follow with you. Thank you. (2) Healthcare-associated pneumonia Current Visit: Yes Status: Resolved (3) Hypokalemia Current Visit: Yes Status: Chronic (4) HTN (hypertension) Current Visit: Yes Status: Chronic Qualifiers: Hypertension type: essential hypertension Qualified Code(s): I10 - Essential (primary) hypertension (5) CKD (chronic kidney disease), stage III Current Visit: No Status: Chronic Echogenicity noted on renal U/S, confirming the chronicity of underlying CKD. (6) Anemia Current Visit: Yes Status: Acute I suspect multifactorial anemia, but given that her renal function has been so poor for so long, there is likely a component of anemia of CKD. See above Qualifiers: Anemia type: other cause Other causes of anemia: chronic disease, kidney Qualified Code(s): N18.9 - Chronic kidney disease, unspecified; D63.1 - Anemia in chronic kidney disease Subjective Principal diagnosis: Bowel Obstruction, EBONIE Interval history: Pt was s/e earlier today. She was by herself and sitting comfortably in the bedside chair. She did not affirm uremic symptoms (i.e., no new N/V/D, or diminished appetite or new confusion). She still has LE edema. No other new complaints. She reported that after discussing dialysis options with her /family, that she would be open to a trial of dialysis but only as a last resort. I discussed her care plan with the hospitalists. Objective - Vital Signs Vital signs: Vital Signs Temp Pulse Resp BP Pulse Ox 10/08/16 07:36 97.8 F 70 14 125/60 97 10/08/16 03:25 98.5 F 67 20 147/71 95 10/08/16 03:23 19 95 10/07/16 23:40 98.6 F 73 20 146/74 94 10/07/16 21:51 18 98 10/07/16 19:44 98.4 F 73 17 152/63 99 10/07/16 14:46 98.1 F 65 17 124/56 96 10/07/16 12:08 98.1 F 68 17 152/79 98 Intake and Output 10/07/16 10/08/16 10/08/16 23:59 07:59 15:59 Intake Total 0 / 0 0 / 0 120 / 120 Output Total 500 / 500 0 / 0 200 / 200 Balance -500 / -500 0 / 0 -80 / -80 Intake: Oral 0 / 0 0 / 0 120 / 120 Output: Urine 500 / 500 0 / 0 200 / 200 Other: Meal Breakfast Percent of Meal Consumed 5% Stool Size Small Small Stool Consistency formed Stool Color Brown # Bowel Movements 1 1 Weight 77.6 kg Patient Weight 10/08/16 23:59 Weight 77.6 kg - General Appearance General appearance: Present: well-developed, well-nourished, appears started age , fatigue EENT: Present: ATNC, PERRL, mucous membranes moist Neck: Present: supple Respiratory: Present: clear Cardiology: Present: edema (2-3 ptting edema b/l up to the knees), regular rate , normal S1, normal S2 Gastrointestinal: Present: normoactive bowel sounds, no tenderness, no guarding , no organomegaly Integumentary: Present: no rash, warm and dry Neurologic: Present: no focal deficit, no asterixis, alert and oriented x3 Musculoskeletal: Present: no deformities, no erythema, no cyanosis Psychiatric: Present: mood/affect appropriate, cooperative - Lab 10/08/16 05:36 10/08/16 05:36 Most recent lab results ABG pH 7.39 pH Units (7.32-7.45) 09/26/16 23:15 ABG pCO2 41 mmHg (35-45) 09/26/16 23:15 ABG pO2 82 mmHg (85-104) L 09/26/16 23:15 ABG HCO3 24.8 mEQ/L (21-27) 09/26/16 23:15 ABG O2 Saturation 96 % (95-98) 09/26/16 23:15 Calcium 8.5 mg/dL (8.6-10.8) L 10/08/16 05:36 Phosphorus 4.8 mg/dL (2.3-4.7) H 10/08/16 05:36 Magnesium 1.6 mg/dL (1.6-2.6) 10/08/16 05:36 Urine Creatinine 42 mg/dL 10/06/16 03:35 - VTE Documentation of Mechanical Device: Graduated compression elastic hosiery Consult Discharge Plan - Plan Additional Instructions: Cleanse midline incision with soap and water and pat dry daily remove steri-strips by 10/12/16 if havent already fallen off JONATHAN drain site (RLQ) wash with soap and water daily, cover with 4x4 gauze (1) folded or 2x2 gauze and secure with tape, change daily ok to shower no tub baths no lifting more than 20 lbs for 6 weeks Regular diet Referrals: Nelly Dubose MD [Partnered Physician] - 10/12/16 11:05 am (surgery follow- up)
--- NOTE | 2016-10-08 14:10 | Internal Med Progress Note ---
Date of Encounter: 10/08/16 Time of Encounter: 09:00 - Assessment and plan (1) EBONIE (acute kidney injury) Current Visit: Yes Status: Acute Assessment and plan: Non-oliguric acute kidney failure. CKD is stage III. Multifactorial from fluid losses and cardiorenal syndrome. Renal US was negative for obstruction. Cr continues to trend up. Appreciate nephrology recommendations, no signs of urgent dialysis at this time. Close monitoring. Avoid Nephrotoxic agents as possible. (2) Small bowel obstruction Current Visit: Yes Status: Resolved Assessment and plan: 10/08: adequate recover. will remove steristrips in 10/12 if haven't fallen off 09/23/2016: Patient underwent exploratory laparotomy with lysis of adhesions small bowel resection yesterday. (3) Acute on chronic respiratory failure with hypoxemia Current Visit: Yes Status: Acute Assessment and plan: Secondary to bacterial pneumonia and acute heart failure. She uses 2 L of oxygen via NC at home. 09/25/2016: Chest x-ray shows bilateral infiltrates. 10/04/2016: CXR showed improved aeration of the lung bases. She required 3 L NC. She received 3 days of Zyvox, then de-escalated to only Cefepime on 09/29 with no issues. Completed Cefepime course. 10/04: Improved. Now back to her baseline oxygen at 2 L. (4) Healthcare-associated pneumonia Current Visit: Yes Status: Resolved Assessment and plan: resolved. bacterial PNA. 09/25/2016: Chest x-ray shows bilateral infiltrates. White blood cell count trended up. Patient started on broad spectrum antibiotics with cefepime and Zyvox. She received 3 days of Zyvox. She was de-escalated to only Cefepime on 09/29 and completed this course. (5) Symptomatic anemia Current Visit: Yes Status: Acute Assessment and plan: multifactorial etiology (acute blood loss from surgery/daily blood checks, anemia of chronic disease). normal folate. high b12 and ferritin. 10/01: transfused 2 units PRBC. today, Hgb is 7.7. no signs of bleeding. Start erythropoietic agents. close monitoring of H/H. hemodynamically stable. (6) Paroxysmal a-fib Current Visit: No Status: Chronic Assessment and plan: Heart rate is adequate. Continue metoprolol. - Subjective Interval history: Patient has no complaints. she is still eating only lunch and dinner, about 40% of her trays. - Constitutional Vitals: Temp Pulse Resp BP Pulse Ox 98 F 69 18 114/56 99 10/08/16 11:15 10/08/16 11:15 10/08/16 11:15 10/08/16 11:15 10/08/16 11:15 General appearance: Present: cooperative, A&O X 2, pleasant, no acute distress, answers questions appropriately - Respiratory Respiratory exam: Present: CTAB - Cardiovascular Cardiovascular exam: Present: RRR - GI/Abdominal GI/Abdominal exam: Present: normal bowel sounds, soft. Absent: distended, tenderness Additional comments: surgical wounds are intact. JONATHAN drain in place. - Extremities Exam Extremities exam: Present: pedal edema (2+) - Neurological Exam Neurological exam: Present: alert, oriented X3, no focal deficits, strengths equal and symetr throughout. Absent: facial droop, speech deficit Internal Medicine: Result - Labs CBC & Chem 7: 10/08/16 05:36 10/08/16 05:36 Labs: Short CBC 10/08/16 Range/Units 05:36 WBC 8.3 (4.3-11.1) K/mcL Hgb 7.7 L (11.5-15.4) g/dL Hct 24.6 L (35.3-44.9) % Plt Count 223 (140-400) K/mcL Neutrophils # 6.8 (1.6-8.9) K/mcL BMP 10/08/16 05:36 Sodium 139 Potassium 3.9 Chloride 103 Carbon Dioxide 25 BUN 60 H Creatinine 3.57 H Glucose 100 H Calcium 8.5 L - ABG Interpretation ABG results: ABG ABG pH 7.39 pH Units (7.32-7.45) 09/26/16 23:15 ABG pCO2 41 mmHg (35-45) 09/26/16 23:15 ABG pO2 82 mmHg (85-104) L 09/26/16 23:15 ABG O2 Saturation 96 % (95-98) 09/26/16 23:15 PT/INR, D-dimer PT 11.8 Seconds (9.4-12.1) 09/22/16 04:02 - VTE Documentation of Mechanical Device: Graduated compression elastic hosiery Consult Discharge Plan - Plan Additional Instructions: Cleanse midline incision with soap and water and pat dry daily remove steri-strips by 10/12/16 if havent already fallen off JONATHAN drain site (RLQ) wash with soap and water daily, cover with 4x4 gauze (1) folded or 2x2 gauze and secure with tape, change daily ok to shower no tub baths no lifting more than 20 lbs for 6 weeks Regular diet Referrals: Nelly Dubose MD [Partnered Physician] - 10/12/16 11:05 am (surgery follow- up)
[2016-10-09] MEDS: Ipratropium/Albuterol Neb 3 ML IH SCH ×4 (03:45→20:52)
[2016-10-09 04:20] LABS: Basophils % 0.3 %; Eosinophils # 0.5 K/mcL (0.0-0.6); Eosinophils % 6.6 %; Hematocrit 24.8 % (35.3-44.9); Hemoglobin 7.8 g/dL (11.5-15.4); Immature Granulocytes % 0.4 % (0-4); Lymphocytes # 0.7 K/mcL (0.6-4.6); Lymphocytes % 9.7 %; Mean Corpuscular HGB Conc 31.5 g/dL (31.6-35.5); Mean Corpuscular Hemoglobin 28.4 pg (28.0-33.3); Mean Corpuscular Volume 90.2 fL (83.0-100.0); Mean Platelet Volume 10.9 fL (9.4-12.4); Monocytes # 0.5 K/mcL (0.0-1.3); Monocytes % 6.9 %; Neutrophils # 5.7 K/mcL (1.6-8.9); Platelet Count 256 K/mcL (140-400); Red Blood Count 2.75 M/mcL (3.82-4.97); Red Cell Distribution Width 14.1 % (11.5-14.5); Segmented Neutrophils % 76.1 %
[2016-10-09 04:32] LABS: Calcium 8.5 mg/dL (8.6-10.8); Phosphorous 4.9 mg/dL (2.3-4.7); Potassium 4.1 mEq/L (3.5-4.5)
[2016-10-09] MEDS: *HR* Heparin 5,000 UNIT/ML VIAL SQ SCH ×2 (05:28→18:02)
[2016-10-09] MEDS: Aspirin 81 MG TAB.CHEW PO SCH (07:56)
[2016-10-09] MEDS: hydrALAZINE 25 MG TABLET PO SCH ×3 (07:56→20:09)
--- NOTE | 2016-10-09 09:48 | Nephrology Progress Note ---
Date of Encounter: 10/09/16 Time of Encounter: 09:45 - Assessment and Plan (1) EBONIE (acute kidney injury) Current Visit: Yes Status: Acute Scr continues to slowly worsen-3.67 today compared to 3.57 yesterday, GFR dropped from 15 to 14 Anticipate will need HD tomorrow. Patient only wants dialysis as a last resort. UOP 600 although states some urine leaked out of [place] Avoid nephrotoxins if possible (2) Anemia Current Visit: Yes Status: Acute Hgb 7.8 today (previously 7.7) Aranesp added Goal hgb 10-11 Transfuse per parameter Qualifiers: Anemia type: other cause Other causes of anemia: chronic disease, kidney Qualified Code(s): N18.9 - Chronic kidney disease, unspecified; D63.1 - Anemia in chronic kidney disease (3) HTN (hypertension) Current Visit: Yes Status: Chronic Qualifiers: Hypertension type: essential hypertension Qualified Code(s): I10 - Essential (primary) hypertension (4) CKD (chronic kidney disease), stage III Current Visit: No Status: Chronic Subjective Principal diagnosis: Bowel Obstruction, EBONIE Interval history: Patient seen and examined. Sitting up in chair; at bedside. Objective - Vital Signs Vital signs: Vital Signs Temp Pulse Resp BP Pulse Ox 10/09/16 06:33 97.6 F 77 16 116/55 96 10/09/16 03:45 14 96 10/09/16 03:27 98.3 F 70 15 146/69 98 10/08/16 23:37 98.0 F 67 15 130/63 96 10/08/16 21:20 18 136/80 100 10/08/16 20:05 100 10/08/16 15:56 97.7 F 68 18 136/80 100 10/08/16 15:47 16 98 10/08/16 11:15 98 F 69 18 114/56 99 10/08/16 10:28 16 97 Intake and Output 10/08/16 10/09/16 10/09/16 23:59 07:59 15:59 Intake Total 720 / 720 0 / 0 Output Total 200 / 200 0 / 0 Balance 520 / 520 0 / 0 Intake: Oral 720 / 720 0 / 0 Output: Urine 200 / 200 0 / 0 Other: Meal Dinner Percent of Meal Consumed 15% Weight 77.6 kg Patient Weight 10/09/16 23:59 Weight 77.6 kg - General Appearance General appearance: Present: well-developed, well-nourished EENT: Present: ATNC, mucous membranes moist, hearing intact, vision intact Neck: Present: supple Respiratory: Present: clear Cardiology: Present: edema (2+ pitting edema), normal S1, normal S2 Gastrointestinal: Present: no tenderness, no guarding Integumentary: Present: warm and dry Neurologic: Present: alert and oriented x3 Psychiatric: Present: mood/affect appropriate, cooperative - Lab 10/09/16 04:00 10/09/16 04:00 Most recent lab results ABG pH 7.39 pH Units (7.32-7.45) 09/26/16 23:15 ABG pCO2 41 mmHg (35-45) 09/26/16 23:15 ABG pO2 82 mmHg (85-104) L 09/26/16 23:15 ABG HCO3 24.8 mEQ/L (21-27) 09/26/16 23:15 ABG O2 Saturation 96 % (95-98) 09/26/16 23:15 Calcium 8.5 mg/dL (8.6-10.8) L 10/09/16 04:00 Phosphorus 4.9 mg/dL (2.3-4.7) H 10/09/16 04:00 Magnesium 1.6 mg/dL (1.6-2.6) 10/08/16 05:36 Urine Creatinine 42 mg/dL 10/06/16 03:35 - VTE Documentation of Mechanical Device: Graduated compression elastic hosiery Consult Discharge Plan - Plan Additional Instructions: Cleanse midline incision with soap and water and pat dry daily remove steri-strips by 10/12/16 if havent already fallen off JONATHAN drain site (RLQ) wash with soap and water daily, cover with 4x4 gauze (1) folded or 2x2 gauze and secure with tape, change daily ok to shower no tub baths no lifting more than 20 lbs for 6 weeks Regular diet Referrals: Nelly Dubose MD [Partnered Physician] - 10/12/16 11:05 am (surgery follow- up)
--- NOTE | 2016-10-09 16:47 | Internal Med Progress Note ---
Date of Encounter: 10/09/16 Time of Encounter: 08:30 - Assessment and plan (1) EBONIE (acute kidney injury) Current Visit: Yes Status: Acute Assessment and plan: Non-oliguric acute kidney failure. CKD is stage III. Multifactorial from fluid losses and cardiorenal syndrome. Renal US was negative for obstruction. Cr continues to trend up. Appreciate nephrology recommendations, no signs of urgent dialysis at this time. Close monitoring. Avoid Nephrotoxic agents as possible. (2) Small bowel obstruction Current Visit: Yes Status: Resolved Assessment and plan: 10/08: adequate recover. will remove steristrips in 10/12 if haven't fallen off 09/23/2016: Patient underwent exploratory laparotomy with lysis of adhesions small bowel resection yesterday. (3) Acute on chronic respiratory failure with hypoxemia Current Visit: Yes Status: Acute Assessment and plan: Secondary to bacterial pneumonia and acute heart failure. She uses 2 L of oxygen via NC at home. 09/25/2016: Chest x-ray shows bilateral infiltrates. 10/04/2016: CXR showed improved aeration of the lung bases. She required 3 L NC. She received 3 days of Zyvox, then de-escalated to only Cefepime on 09/29 with no issues. Completed Cefepime course. 10/04: Improved. Now back to her baseline oxygen at 2 L. (4) Healthcare-associated pneumonia Current Visit: Yes Status: Resolved Assessment and plan: resolved. bacterial PNA. 09/25/2016: Chest x-ray shows bilateral infiltrates. White blood cell count trended up. Patient started on broad spectrum antibiotics with cefepime and Zyvox. She received 3 days of Zyvox. She was de-escalated to only Cefepime on 09/29 and completed this course. (5) Symptomatic anemia Current Visit: Yes Status: Acute Assessment and plan: multifactorial etiology (acute blood loss from surgery/daily blood checks, anemia of chronic disease). normal folate. high b12 and ferritin. 10/01: transfused 2 units PRBC. 10/07: received aranesp. today, Hgb is 7.8. no signs of bleeding. Start erythropoietic agents. close monitoring of H/H. hemodynamically stable. (6) Paroxysmal a-fib Current Visit: No Status: Chronic Assessment and plan: Heart rate is adequate. Continue metoprolol. - Subjective Interval history: Patient feels tired this morning, she was unable to sleep due to checks from nurse and breathing treatment. she ate most of her breakfast tray. - Constitutional Vitals: Temp Pulse Resp BP Pulse Ox 97.8 F 71 16 142/64 98 10/09/16 15:20 10/09/16 15:20 10/09/16 16:00 10/09/16 15:20 10/09/16 16:00 General appearance: Present: cooperative, A&O X 2, pleasant, no acute distress, answers questions appropriately Internal Medicine: Result - Labs CBC & Chem 7: 10/09/16 04:00 10/09/16 04:00 Labs: Short CBC 10/09/16 Range/Units 04:00 WBC 7.4 (4.3-11.1) K/mcL Hgb 7.8 L (11.5-15.4) g/dL Hct 24.8 L (35.3-44.9) % Plt Count 256 (140-400) K/mcL Neutrophils # 5.7 (1.6-8.9) K/mcL BMP 10/09/16 04:00 Sodium 137 Potassium 4.1 Chloride 102 Carbon Dioxide 24 BUN 59 H Creatinine 3.67 H Glucose 98 Calcium 8.5 L Liver Function 10/09/16 Range/Units 04:00 Albumin 2.0 L (3.5-5.0) g/dL - ABG Interpretation ABG results: ABG ABG pH 7.39 pH Units (7.32-7.45) 09/26/16 23:15 ABG pCO2 41 mmHg (35-45) 09/26/16 23:15 ABG pO2 82 mmHg (85-104) L 09/26/16 23:15 ABG O2 Saturation 96 % (95-98) 09/26/16 23:15 PT/INR, D-dimer PT 11.8 Seconds (9.4-12.1) 09/22/16 04:02 - VTE Documentation of Mechanical Device: Graduated compression elastic hosiery Consult Discharge Plan - Plan Additional Instructions: Cleanse midline incision with soap and water and pat dry daily remove steri-strips by 10/12/16 if havent already fallen off JONATHAN drain site (RLQ) wash with soap and water daily, cover with 4x4 gauze (1) folded or 2x2 gauze and secure with tape, change daily ok to shower no tub baths no lifting more than 20 lbs for 6 weeks Regular diet Referrals: Nelly Dubose MD [Partnered Physician] - 10/12/16 11:05 am (surgery follow- up)
[2016-10-10] MEDS: Ipratropium/Albuterol Neb 3 ML IH SCH ×4 (03:46→21:24)
[2016-10-10 05:18] LABS: INR 1.1
[2016-10-10 05:37] LABS: Albumin/Globulin Ratio 0.5 (1.1-2.2); Alkaline Phosphatase 69 Units/L (38-126); Aspartate Amino Transferase 10 Units/L (5-34); BUN/Creatinine Ratio 14 (6-26); Bilirubin,Direct 0.2 mg/dL (0.0-0.5); Bilirubin,Indirect 0.1 mg/dL (0.0-1.2); Bilirubin,Total 0.3 mg/dL (0.2-1.2); Blood Urea Nitrogen 56 mg/dL (7-20); Calcium 8.2 mg/dL (8.6-10.8); Carbon Dioxide 25 mEq/L (19-29); Chloride 104 mEq/L (98-109); Globulin 3.5 g/dL (2.4-3.5); Glucose 113 mg/dL (70-99); Osmolality,Calculated 300 (280-300); Sodium 137 mEq/L (136-145); Total Protein 5.3 g/dL (6.0-8.3); eGFR For African Americans 13 (> 60); eGFR For Non-African Americans 11 (> 60)
[2016-10-10 05:38] LABS: Alanine Aminotransferase < 6 Units/L (0-55); Albumin 1.8 g/dL (3.5-5.0)
[2016-10-10] MEDS: *HR* Heparin 5,000 UNIT/ML VIAL SQ SCH ×2 (05:38→22:43)
[2016-10-10 05:42] LABS: Basophils % 0.4 %; Eosinophils # 0.5 K/mcL (0.0-0.6); Eosinophils % 7.7 %; Hematocrit 22.8 % (35.3-44.9); Immature Granulocytes % 0.6 % (0-4); Lymphocytes # 0.7 K/mcL (0.6-4.6); Lymphocytes % 10.5 %; Mean Corpuscular HGB Conc 30.7 g/dL (31.6-35.5); Mean Corpuscular Hemoglobin 28.1 pg (28.0-33.3); Mean Corpuscular Volume 91.6 fL (83.0-100.0); Mean Platelet Volume 10.8 fL (9.4-12.4); Monocytes # 0.7 K/mcL (0.0-1.3); Monocytes % 9.5 %; Platelet Count 252 K/mcL (140-400); Red Blood Count 2.49 M/mcL (3.82-4.97); Red Cell Distribution Width 14.3 % (11.5-14.5); Segmented Neutrophils % 71.3 %
[2016-10-10] MEDS ORDERED: 0.9 % Sodium Chloride 250 ML IVC PRN (06:57)
[2016-10-10] MEDS ORDERED: SODIUM CHLORIDE 0.9% IVPB ONE (07:36)
[2016-10-10] MEDS ORDERED: IRON SUCROSE COMPLEX IVPB ONE (07:36)
[2016-10-10] MEDS: hydrALAZINE 25 MG TABLET PO SCH ×3 (07:40→20:53)
[2016-10-10] MEDS: Aspirin 81 MG TAB.CHEW PO SCH (07:41)
--- NOTE | 2016-10-10 09:47 | Internal Med Progress Note ---
Date of Encounter: 10/10/16 Time of Encounter: 09:45 - Assessment and plan (1) EBONIE (acute kidney injury) Current Visit: Yes Status: Acute Assessment and plan: Non-oliguric acute kidney failure. CKD is stage III. Multifactorial from fluid losses and cardiorenal syndrome. Renal US was negative for obstruction. Cr continues to trend up. Appreciate nephrology recommendations: plan for placement of temporary dialysis catheter. Close monitoring. Avoid Nephrotoxic agents as possible. (2) Small bowel obstruction Current Visit: Yes Status: Resolved Assessment and plan: 10/10: adequate recover. will remove steristrips in 10/12 if haven't fallen off 09/23/2016: Patient underwent exploratory laparotomy with lysis of adhesions small bowel resection yesterday. (3) Acute on chronic respiratory failure with hypoxemia Current Visit: Yes Status: Acute Assessment and plan: Secondary to bacterial pneumonia and acute heart failure. She uses 2 L of oxygen via NC at home. 09/25/2016: Chest x-ray shows bilateral infiltrates. 10/04/2016: CXR showed improved aeration of the lung bases. She required 3 L NC. She received 3 days of Zyvox, then de-escalated to only Cefepime on 09/29 with no issues. Completed Cefepime course. Improved. Now back to her baseline oxygen at 2 L. (4) Healthcare-associated pneumonia Current Visit: Yes Status: Resolved Assessment and plan: resolved. bacterial PNA. 09/25/2016: Chest x-ray shows bilateral infiltrates. White blood cell count trended up. Patient started on broad spectrum antibiotics with cefepime and Zyvox. She received 3 days of Zyvox. She was de-escalated to only Cefepime on 09/29 and completed this course. (5) Symptomatic anemia Current Visit: Yes Status: Acute Assessment and plan: multifactorial etiology (acute blood loss from surgery/daily blood checks, anemia of chronic disease). normal folate. high b12 and ferritin. 10/01: transfused 2 units PRBC. 10/07: received aranesp. today, Hgb is 7. no signs of bleeding. continue erythropoietic agents. close monitoring of H/H. hemodynamically stable. (6) Paroxysmal a-fib Current Visit: No Status: Chronic Assessment and plan: Heart rate is adequate. Continue metoprolol. - Subjective Interval history: Patient has some dry cough. - Constitutional Vitals: Temp Pulse Resp BP Pulse Ox 98.6 F 69 18 122/62 95 10/10/16 08:03 10/10/16 08:03 10/10/16 08:03 10/10/16 08:03 10/10/16 08:04 General appearance: Present: cooperative, A&O X 2, pleasant, no acute distress, answers questions appropriately - Respiratory Respiratory exam: Present: rhonchi (at bases) - Cardiovascular Cardiovascular exam: Present: RRR - GI/Abdominal GI/Abdominal exam: Present: normal bowel sounds, soft. Absent: distended, tenderness - Extremities Exam Extremities exam: Present: pedal edema (2+ LE edema ) - Back Exam Back exam: Absent: CVA tenderness (L), CVA tenderness (R) - Neurological Exam Neurological exam: Present: alert, no focal deficits, strengths equal and symetr throughout. Absent: facial droop, speech deficit Internal Medicine: Result - Labs CBC & Chem 7: 10/10/16 04:44 10/10/16 04:44 Labs: Short CBC 10/10/16 Range/Units 04:44 WBC 7.0 (4.3-11.1) K/mcL Hgb 7.0 L (11.5-15.4) g/dL Hct 22.8 L (35.3-44.9) % Plt Count 252 (140-400) K/mcL Neutrophils # 5.0 (1.6-8.9) K/mcL BMP 10/10/16 04:44 Sodium 137 Potassium 4.0 Chloride 104 Carbon Dioxide 25 BUN 56 H Creatinine 3.99 H Glucose 113 H Calcium 8.2 L Liver Function 10/10/16 Range/Units 04:44 Total Bilirubin 0.3 (0.2-1.2) mg/dL Direct Bilirubin 0.2 (0.0-0.5) mg/dL AST 10 (5-34) Units/L ALT < 6 (0-55) Units/L Alkaline Phosphatase 69 (38-126) Units/L Albumin 1.8 L (3.5-5.0) g/dL - ABG Interpretation ABG results: ABG ABG pH 7.39 pH Units (7.32-7.45) 09/26/16 23:15 ABG pCO2 41 mmHg (35-45) 09/26/16 23:15 ABG pO2 82 mmHg (85-104) L 09/26/16 23:15 ABG O2 Saturation 96 % (95-98) 09/26/16 23:15 PT/INR, D-dimer PT 12.0 Seconds (9.4-12.1) 10/10/16 04:44 - VTE Documentation of Mechanical Device: Graduated compression elastic hosiery Consult Discharge Plan - Plan Additional Instructions: Cleanse midline incision with soap and water and pat dry daily remove steri-strips by 10/12/16 if havent already fallen off JONATHAN drain site (RLQ) wash with soap and water daily, cover with 4x4 gauze (1) folded or 2x2 gauze and secure with tape, change daily ok to shower no tub baths no lifting more than 20 lbs for 6 weeks Regular diet Referrals: Nelly Dubose MD [Partnered Physician] - 10/12/16 11:05 am (surgery follow- up)
[2016-10-10 11:40] LABS: Hepatitis B Surface Antigen Nonreactive (Nonreactive)
[2016-10-10 11:41] LABS: Hepatitis B Surface Antibody 80.22 mIU/mL
[2016-10-10] MEDS ORDERED: Heparin 1,000 UNITS/500 mL NS 500 ML ONE (11:53)
--- NOTE | 2016-10-10 12:18 | Nephrology Progress Note ---
Date of Encounter: 10/10/16 Time of Encounter: 11:00 - Assessment and Plan (1) EBONIE (acute kidney injury) Current Visit: Yes Status: Acute Worsening EBONIE on CKD stage III, Concern for ATN with EBONIE. Renal US 10/05/16: no hydronephrosis. Echogenic bilateral kidneys, may be suggestive of renal disease. Plan: Continue to follow a renal conservative and protective strategy. Avoid Nephrotoxins. Strict I/Os, daily weights. Given Aranesp yesterday. Hgb today 7.0. Plan for iron transfusion today. Monitor H/H. Plan for placement of temporary dialysis catheter today with first HD treatment. Goal of net -1L fluid with HD. Likely have 2nd round of HD tomorrow as well. (2) Anemia Current Visit: Yes Status: Acute Hgb 7.0 today (previously 7.8). No signs of active bleeding. Aranesp given yesterday. Planning for iron infusion today. Goal Hgb 10-11 Transfuse per parameters Qualifiers: Anemia type: other cause Other causes of anemia: chronic disease, kidney Qualified Code(s): N18.9 - Chronic kidney disease, unspecified; D63.1 - Anemia in chronic kidney disease (3) Vitamin D deficiency Current Visit: Yes Status: Acute Vitamin D found to be 9ng/ml in August 2016, patient was not on any replacement. Continue ergocalciferol 50,000 units weekly. (4) HTN (hypertension) Current Visit: Yes Status: Chronic Qualifiers: Hypertension type: essential hypertension Qualified Code(s): I10 - Essential (primary) hypertension (5) Small bowel obstruction Current Visit: Yes Status: Resolved Exploratory laparotomy, lysis of adhesions, right salpingoophorectomy, left oophorectomy with Dr. Dubose Management per surgery service. (6) Paroxysmal a-fib Current Visit: No Status: Chronic Management per primary service. (7) Healthcare-associated pneumonia Current Visit: Yes Status: Resolved Resolved, return to baseline home oxygen. Previous concern for pneumonia vs pulmonary edema. Management per primary medicine service. (8) CKD (chronic kidney disease), stage III Current Visit: No Status: Chronic Subjective Principal diagnosis: Bowel Obstruction, EBONIE Interval history: Patient seen and examined today while she is up, sitting in a chair. Patients states she is "tired" but breathing is better than last week. Planning for temporary dialysis catheter placement today with HD to follow. Objective - Vital Signs Vital signs: Vital Signs Temp Pulse Resp BP Pulse Ox 10/10/16 10:46 97.8 F 64 16 119/70 98 10/10/16 09:30 18 97 10/10/16 08:04 95 10/10/16 08:03 98.6 F 69 18 122/62 95 10/10/16 05:17 98.1 F 73 15 128/63 98 10/09/16 23:38 98.6 F 77 15 124/63 96 10/09/16 21:40 97.9 F 73 16 137/69 97 10/09/16 20:54 18 97 10/09/16 19:36 97 10/09/16 16:00 16 98 10/09/16 15:20 97.8 F 71 16 142/64 99 Intake and Output 10/09/16 10/10/16 10/10/16 23:59 07:59 15:59 Intake Total 360 / 360 1360 / 1360 Output Total 200 / 200 0 / 0 0 / 0 Balance 160 / 160 0 / 0 1360 / 1360 Intake: Oral 360 / 360 1360 / 1360 Output: Urine 200 / 200 0 / 0 0 / 0 Other: Meal Dinner Breakfast Percent of Meal Consumed 50% 15% Stool Size Moderate Stool Consistency formed Stool Color Brown # Voids 1 # Bowel Movements 1 Weight 77.791 kg Patient Weight 10/10/16 23:59 Weight 77.791 kg - General Appearance General appearance: Present: well-developed, appears started age, frail EENT: Present: ATNC, mucous membranes moist, hearing intact, vision intact Neck: Present: supple Respiratory: Present: clear Cardiology: Present: edema (2+ BLE edema), regular rate, regular rhythm Integumentary: Present: no rash, warm and dry Neurologic: Present: no focal deficit Additional Comments: awake and alert Musculoskeletal: Present: no deformities, no erythema, no cyanosis Psychiatric: Present: mood/affect appropriate, cooperative - Lab 10/10/16 04:44 10/10/16 04:44 Most recent lab results ABG pH 7.39 pH Units (7.32-7.45) 09/26/16 23:15 ABG pCO2 41 mmHg (35-45) 09/26/16 23:15 ABG pO2 82 mmHg (85-104) L 09/26/16 23:15 ABG HCO3 24.8 mEQ/L (21-27) 09/26/16 23:15 ABG O2 Saturation 96 % (95-98) 09/26/16 23:15 Calcium 8.2 mg/dL (8.6-10.8) L 10/10/16 04:44 Phosphorus 4.9 mg/dL (2.3-4.7) H 10/09/16 04:00 Magnesium 1.6 mg/dL (1.6-2.6) 10/08/16 05:36 Urine Creatinine 42 mg/dL 10/06/16 03:35 - VTE Documentation of Mechanical Device: Graduated compression elastic hosiery Consult Discharge Plan - Plan Additional Instructions: Cleanse midline incision with soap and water and pat dry daily remove steri-strips by 10/12/16 if havent already fallen off JONATHAN drain site (RLQ) wash with soap and water daily, cover with 4x4 gauze (1) folded or 2x2 gauze and secure with tape, change daily ok to shower no tub baths no lifting more than 20 lbs for 6 weeks Regular diet Referrals: Nelly Dubose MD [Partnered Physician] - 10/12/16 11:05 am (surgery follow- up)
[2016-10-10] MEDS ORDERED: *HR* Heparin 5,000 UNIT/ML VIAL ONE (12:53)
--- NOTE | 2016-10-10 13:06 | IR Procedure Note ---
Date of procedure: 10/10/16 Consent Obtained: Written consent Timeout: Correct patient and procedure verified, Correct site verified, Time out performed, Skin prep completed Indications: renal failure Procedure Performed: temp HDC Site/Technique: rt IJ Results/Findings: adequate placement Estimated blood loss (cc): 0 Complications: None; Tolerated procedure well Post Procedure Treatment Plan: CXR
[2016-10-10] MEDS ORDERED: *HR* Heparin 10,000 UNIT/10 ML VIAL IV PRN (15:05)
[2016-10-10] MEDS ORDERED: 0.9 % Sodium Chloride 2,000 ML ONE (17:28)
[2016-10-11] MEDS: Ipratropium/Albuterol Neb 3 ML IH SCH ×4 (04:39→21:18)
[2016-10-11 05:47] LABS: Basophils % 0.5 %; Eosinophils # 0.5 K/mcL (0.0-0.6); Eosinophils % 8.7 %; Hematocrit 22.8 % (35.3-44.9); Hemoglobin 7.2 g/dL (11.5-15.4); Immature Granulocytes % 0.2 % (0-4); Lymphocytes # 0.7 K/mcL (0.6-4.6); Mean Corpuscular HGB Conc 31.6 g/dL (31.6-35.5); Mean Corpuscular Hemoglobin 28.7 pg (28.0-33.3); Mean Corpuscular Volume 90.8 fL (83.0-100.0); Mean Platelet Volume 10.8 fL (9.4-12.4); Monocytes # 0.7 K/mcL (0.0-1.3); Neutrophils # 4.3 K/mcL (1.6-8.9); Platelet Count 262 K/mcL (140-400); Red Blood Count 2.51 M/mcL (3.82-4.97); Red Cell Distribution Width 13.9 % (11.5-14.5); Segmented Neutrophils % 68.6 %
[2016-10-11 05:56] LABS: Calcium 8.1 mg/dL (8.6-10.8); Magnesium 1.5 mg/dL (1.6-2.6); Potassium 3.8 mEq/L (3.5-4.5)
[2016-10-11] MEDS: *HR* Heparin 5,000 UNIT/ML VIAL SQ SCH ×2 (06:02→18:24)
[2016-10-11] MEDS ORDERED: 0.9 % Sodium Chloride 250 ML IVC PRN (06:57)
[2016-10-11] MEDS: hydrALAZINE 25 MG TABLET PO SCH ×3 (09:11→20:52)
[2016-10-11] MEDS: Aspirin 81 MG TAB.CHEW PO SCH (09:11)
[2016-10-11] MEDS ORDERED: *HR* Heparin 10,000 UNIT/10 ML VIAL IV PRN (11:23)
[2016-10-11] MEDS ORDERED: 0.9 % Sodium Chloride 2,000 ML ONE (11:34)
[2016-10-11] MEDS: Magnesium Oxide 400 MG TABLET PO SCH (14:02)
--- NOTE | 2016-10-11 14:09 | Nephrology Progress Note ---
Date of Encounter: 10/11/16 Time of Encounter: 09:30 - Assessment and Plan (1) EBONIE (acute kidney injury) Current Visit: Yes Status: Acute Progressively worsening renal function with suspected ATN. Dr. Cam previous discussed R/B/I of HD with patient and spouse. Patient began HD with placement of a temporary HD catheter yesterday, tolerating procedure well. Patient seen while on dialysis again today, tolerating well. Goal of net -1L fluid with HD. Renal US 10/05/16: no hydronephrosis. Echogenic bilateral kidneys, may be suggestive of renal disease. Plan: Will likely hold HD after today to see if kidney function improving on its own. Continue to follow a renal conservative and protective strategy. Avoid Nephrotoxins. Strict I/Os, daily weights. Given Aranesp and iron transfusion recently, Hgb today at 7.2. Continue to monitor H/H. (2) Anemia Current Visit: Yes Status: Acute Hgb recent trend 7.8>7.0>7.2 No signs of active bleeding. Aranesp given on 10/07/16 Iron infusion completed yesterday. Goal Hgb 10-11 Transfuse per parameters Qualifiers: Anemia type: other cause Other causes of anemia: chronic disease, kidney Qualified Code(s): N18.9 - Chronic kidney disease, unspecified; D63.1 - Anemia in chronic kidney disease (3) Vitamin D deficiency Current Visit: Yes Status: Acute Vitamin D found to be 9ng/ml in August 2016, patient was not on any replacement. Continue ergocalciferol 50,000 units weekly. (4) HTN (hypertension) Current Visit: Yes Status: Chronic Qualifiers: Hypertension type: essential hypertension Qualified Code(s): I10 - Essential (primary) hypertension (5) Small bowel obstruction Current Visit: Yes Status: Resolved Exploratory laparotomy, lysis of adhesions, right salpingoophorectomy, left oophorectomy with Dr. Dubose Management per surgery service. (6) Paroxysmal a-fib Current Visit: No Status: Chronic Management per primary service. (7) Healthcare-associated pneumonia Current Visit: Yes Status: Resolved Resolved, return to baseline home oxygen. Previous concern for pneumonia vs pulmonary edema. Management per primary medicine service. (8) CKD (chronic kidney disease), stage III Current Visit: No Status: Chronic Subjective Principal diagnosis: Bowel Obstruction, EBONIE Interval history: Patient seen and examined today while on dialysis. No acute complaints this AM. States breathing continues to be better. Objective - Vital Signs Vital signs: Vital Signs Temp Pulse Resp BP Pulse Ox 10/11/16 12:29 98.6 F 83 12 138/63 93 10/11/16 11:55 98.6 F 16 138/67 10/11/16 11:45 126/61 10/11/16 11:30 124/59 10/11/16 11:15 126/60 10/11/16 11:00 132/58 10/11/16 10:45 129/62 10/11/16 10:30 117/56 10/11/16 10:15 119/55 10/11/16 10:00 123/57 10/11/16 09:45 117/54 10/11/16 09:30 112/54 10/11/16 09:15 98.6 F 16 119/56 10/11/16 06:35 98.6 F 78 16 129/58 97 10/11/16 04:05 98.7 F 89 14 114/55 92 10/11/16 00:38 98.6 F 85 14 112/46 95 10/10/16 21:53 98.5 F 78 14 129/85 95 10/10/16 21:25 18 129/85 99 10/10/16 20:53 95 10/10/16 17:45 97.8 F 16 148/66 10/10/16 17:35 145/71 10/10/16 17:20 143/62 10/10/16 17:05 137/71 10/10/16 16:50 140/66 10/10/16 16:35 137/64 10/10/16 16:20 130/59 10/10/16 16:05 126/56 10/10/16 15:50 127/63 10/10/16 15:35 97.8 F 16 125/59 Intake and Output 10/10/16 10/11/16 10/11/16 23:59 07:59 15:59 Intake Total 0 / 0 0 / 0 720 / 720 Output Total 1600 / 1600 300 / 300 1600 / 1600 Balance -1600 / -1600 -300 / -300 -880 / -880 Intake: Oral 0 / 0 0 / 0 120 / 120 Intake, Rinseback and 600 / 600 Flushes Output: Urine 0 / 0 300 / 300 0 / 0 Total Dialysis Output 1600 / 1600 1600 / 1600 Other: Meal Breakfast Percent of Meal Consumed 25% Stool Size Moderate Stool Consistency formed # Urine Diapers 0 # Bowel Movements 1 Weight 77.6 kg Hemodialysis Net Fluid 1000 1000 Removed (mL) Patient Weight 10/11/16 23:59 Weight 77.6 kg - General Appearance General appearance: Present: well-developed, well-nourished, appears started age EENT: Present: ATNC, mucous membranes moist, hearing intact, vision intact Respiratory: Present: clear Cardiology: Present: edema (2+ BLE edema, slight improvement compared to yesterday.), regular rate, regular rhythm Dialysis Vascular Access: Venous Catheter Additional Comments: Catheter place to right IJ with active HD currently. Integumentary: Present: no rash, warm and dry Neurologic: Present: no focal deficit, alert and oriented x3 Musculoskeletal: Present: no deformities, no erythema, no cyanosis Psychiatric: Present: mood/affect appropriate, cooperative - Lab 10/11/16 05:10 10/11/16 05:10 Most recent lab results ABG pH 7.39 pH Units (7.32-7.45) 09/26/16 23:15 ABG pCO2 41 mmHg (35-45) 09/26/16 23:15 ABG pO2 82 mmHg (85-104) L 09/26/16 23:15 ABG HCO3 24.8 mEQ/L (21-27) 09/26/16 23:15 ABG O2 Saturation 96 % (95-98) 09/26/16 23:15 Calcium 8.1 mg/dL (8.6-10.8) L 10/11/16 05:10 Phosphorus 4.9 mg/dL (2.3-4.7) H 10/09/16 04:00 Magnesium 1.5 mg/dL (1.6-2.6) L 10/11/16 05:10 Urine Creatinine 42 mg/dL 10/06/16 03:35 - VTE Documentation of Mechanical Device: Graduated compression elastic hosiery Consult Discharge Plan - Plan Additional Instructions: Cleanse midline incision with soap and water and pat dry daily remove steri-strips by 10/12/16 if havent already fallen off JONATHAN drain site (RLQ) wash with soap and water daily, cover with 4x4 gauze (1) folded or 2x2 gauze and secure with tape, change daily ok to shower no tub baths no lifting more than 20 lbs for 6 weeks Regular diet Referrals: Nelly Dubose MD [Partnered Physician] - 10/20/16 9:55 am (surgery follow-up )
--- NOTE | 2016-10-11 14:33 | Internal Med Progress Note ---
<Tam Dugan - Last Filed: 10/11/16 15:06> Date of Encounter: 10/11/16 Time of Encounter: 14:30 - Assessment and plan (1) Small bowel obstruction Current Visit: Yes Status: Resolved Assessment and plan: Patient underwent exploratory laparotomy with lysis of adhesions small bowel resection on 09/22/2016: clinically she is doing well. Incision healing. Tolerating a diet, pain controlled, and ambulating some. (2) EBONIE (acute kidney injury) Current Visit: Yes Status: Acute Assessment and plan: Non-oliguric acute kidney failure on CKD stage III. Multifactorial from fluid losses and post surgerical. Renal US was negative for obstruction. Patient underwent HD today adn tolerated wll. She had 1000 mL taken off. Appreciate nephrologies input (3) Paroxysmal a-fib Current Visit: No Status: Chronic Assessment and plan: currently heart rte is well controlled. Per chart review of cardiology notes patient to follow up with cardiology to discuss Coumadin vs. NOAC for her afib. However At this time she has recently had major surgery and is a very high fall risk given her muscular deconditioning. We will continue coreg. She has follow up scheduled with cardiology. 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 bacterial PNA. She received 3 days of Zyvox. She was de-escalated to only Cefepime on 09/29 and completed this course. (9) Pleural effusion due to another disorder Current Visit: Yes Status: Acute Assessment and plan: small bilateral effusions. most likely from volume overload. (10) Acute on chronic respiratory failure with hypoxemia Current Visit: Yes Status: Acute Assessment and plan: Secondary to bacterial pneumonia and acute daistolic heart failure. She uses 2 L of oxygen via NC at home. improving. Will attempt to wean to home perez of O2. (11) Bilateral lower extremity edema Current Visit: Yes Status: Acute Assessment and plan: shoud improve with fluid removal from HD and nutrition ( hypoalbuminemia) (12) Muscular deconditioning Current Visit: Yes Status: Acute Assessment and plan: PT/OT (13) Hypomagnesemia Current Visit: Yes Status: Acute Assessment and plan: replace (14) Hypoalbuminemia Current Visit: Yes Status: Acute Assessment and plan: as stated above. (15) DVT prophylaxis Current Visit: Yes Status: Acute Assessment and plan: Subcutaneous heparin and SCDs. - Subjective Interval history: No major events overnight. Patient underwent HD this AM. She states she tolerated this well and had no symptoms. She states that her pain is well controlled. She denies dyspnea, cough, or wheeze. She denies pain or discomfort at this time. She states that she is urinating and she is having formed bowel movements. LAst one was today. She states she is feeling better and wishes PT would work more with her because she wants to get well as soon as possible. She has no further complaints or concerns at this time. Her of 65 years is with her today at the bedside. He has no concerns or complaints about his spouses care at this time. - Constitutional Vitals: Temp Pulse Resp BP Pulse Ox 98.6 F 83 12 138/63 93 10/11/16 12:29 10/11/16 12:29 10/11/16 12:29 10/11/16 12:29 10/11/16 12:29 General appearance: Present: cooperative, A&O X 2, pleasant, no acute distress, answers questions appropriately - Head Head exam: Present: atraumatic, normal inspection, normocephalic - Eye Eye exam: Present: PERRL, conjuntiva pink, sclera anicteric Pupils: Present: PERRL - ENT ENT exam: Present: mucous membranes moist Additional comments: poor dentition - Neck Neck exam general surgery: Present: supple, trachea midline. Absent: lymphadenopathy - Respiratory Respiratory exam: Present: CTAB. Absent: accessory muscle use, rales, rhonchi, wheezes Additional comments: diminished at the bases - Cardiovascular Cardiovascular exam: Present: RRR, +S1, +S2. Absent: diastolic murmur, gallop, rubs, systolic murmur - GI/Abdominal GI/Abdominal exam: Present: normal bowel sounds, soft, no peritoneal signs. Absent: distended, tenderness - Extremities Exam Extremities exam: Present: pedal edema (2+ to the knee bilaterally. ), warm, radial pulses palpable and symetrical. Absent: calf tenderness, cyanotic - Skin Skin exam: Present: dry, intact Internal Medicine: Result - Labs CBC & Chem 7: 10/11/16 05:10 10/11/16 05:10 Labs: Short CBC 10/11/16 Range/Units 05:10 WBC 6.2 (4.3-11.1) K/mcL Hgb 7.2 L (11.5-15.4) g/dL Hct 22.8 L (35.3-44.9) % Plt Count 262 (140-400) K/mcL Neutrophils # 4.3 (1.6-8.9) K/mcL BMP 10/11/16 05:10 Sodium 136 Potassium 3.8 Chloride 100 Carbon Dioxide 31 H BUN 34 H D Creatinine 2.85 H Glucose 94 Calcium 8.1 L - ABG Interpretation ABG results: ABG ABG pH 7.39 pH Units (7.32-7.45) 09/26/16 23:15 ABG pCO2 41 mmHg (35-45) 09/26/16 23:15 ABG pO2 82 mmHg (85-104) L 09/26/16 23:15 ABG O2 Saturation 96 % (95-98) 09/26/16 23:15 PT/INR, D-dimer PT 12.0 Seconds (9.4-12.1) 10/10/16 04:44 - Impressions Impressions Guidance Needle Placement Ultrasound 10/10/16 00:00 IMPRESSION: Successful ultrasound guided non-tunneled right IJ temporary hemodialysis catheter placement. D/ / 10/10/2016 14:28:20 Deandra Mathews MD / chandana Interpreting Provider: Deandra Mathews MD Insertion Non-Tunneled Catheter 10/10/16 00:00 IMPRESSION: Successful ultrasound guided non-tunneled right IJ temporary hemodialysis catheter placement. D/ / 10/10/2016 14:28:20 Deandra Mathews MD / chandana Interpreting Provider: Deandra Mathews MD - VTE Documentation of Mechanical Device: Graduated compression elastic hosiery Consult Discharge Plan - Plan Additional Instructions: Cleanse midline incision with soap and water and pat dry daily remove steri-strips by 10/12/16 if havent already fallen off JONATHAN drain site (RLQ) wash with soap and water daily, cover with 4x4 gauze (1) folded or 2x2 gauze and secure with tape, change daily ok to shower no tub baths no lifting more than 20 lbs for 6 weeks Regular diet Referrals: Nelly Dubose MD [Partnered Physician] - 10/20/16 9:55 am (surgery follow-up ) <Neo Barth - Last Filed: 10/11/16 16:34> Date of Encounter: 10/11/16 - Assessment and plan (1) HTN (hypertension) Current Visit: Yes Status: Chronic Qualifiers: Hypertension type: essential hypertension Qualified Code(s): I10 - Essential (primary) hypertension (2) CKD (chronic kidney disease), stage III Current Visit: No Status: Chronic (3) Paroxysmal a-fib Current Visit: No Status: Chronic (4) EBONIE (acute kidney injury) Current Visit: Yes Status: Acute (5) Small bowel obstruction Current Visit: Yes Status: Resolved (6) DVT prophylaxis Current Visit: Yes Status: Acute (7) Healthcare-associated pneumonia Current Visit: Yes Status: Resolved - Constitutional Vitals: Temp Pulse Resp BP Pulse Ox 98.6 F 83 12 138/63 93 10/11/16 12:29 10/11/16 12:29 10/11/16 12:29 10/11/16 12:29 10/11/16 12:29 Internal Medicine: Result - Labs CBC & Chem 7: 10/11/16 05:10 10/11/16 05:10 Labs: Short CBC 10/11/16 Range/Units 05:10 WBC 6.2 (4.3-11.1) K/mcL Hgb 7.2 L (11.5-15.4) g/dL Hct 22.8 L (35.3-44.9) % Plt Count 262 (140-400) K/mcL Neutrophils # 4.3 (1.6-8.9) K/mcL BMP 10/11/16 05:10 Sodium 136 Potassium 3.8 Chloride 100 Carbon Dioxide 31 H BUN 34 H D Creatinine 2.85 H Glucose 94 Calcium 8.1 L - ABG Interpretation ABG results: ABG ABG pH 7.39 pH Units (7.32-7.45) 09/26/16 23:15 ABG pCO2 41 mmHg (35-45) 09/26/16 23:15 ABG pO2 82 mmHg (85-104) L 09/26/16 23:15 ABG O2 Saturation 96 % (95-98) 09/26/16 23:15 PT/INR, D-dimer PT 12.0 Seconds (9.4-12.1) 10/10/16 04:44 - Attending Attestation I examined this patient and my medical decision-making was reviewed with the Resident Physician, Dr Dugan. I agree with the documented findings, disposition and treatment plan as described except to the extent set forth below. Patient currently recovering status post small bowel resection complicated with healthcare associated pneumonia, acute on chronic respiratory failure and ATN for which she started treatment with hemodialysis. I have discussed the case with laminator printed circuit boards recommends 2 sessions of hemodialysis, the last one today after which we will monitor her kidney function. On exam she is in no distress. Awake alert oriented. Heart auscultation reveals S1 and S2, irregular, systolic murmur. Abdomen is soft and nontender. We will continue supportive care. DVT prophylaxis. Incentive spirometry. Monitor kidney function.
[2016-10-12] MEDS: Ipratropium/Albuterol Neb 3 ML IH SCH ×4 (03:54→21:31)
[2016-10-12] MEDS: *HR* Heparin 5,000 UNIT/ML VIAL SQ SCH ×2 (05:31→17:55)
[2016-10-12 05:39] LABS: Basophils % 0.5 %; Eosinophils # 0.5 K/mcL (0.0-0.6); Eosinophils % 7.8 %; Hematocrit 22.4 % (35.3-44.9); Hemoglobin 6.8 g/dL (11.5-15.4); Immature Granulocytes % 0.5 % (0-4); Lymphocytes # 0.7 K/mcL (0.6-4.6); Lymphocytes % 11.7 %; Mean Corpuscular HGB Conc 30.4 g/dL (31.6-35.5); Mean Corpuscular Hemoglobin 28.1 pg (28.0-33.3); Mean Corpuscular Volume 92.6 fL (83.0-100.0); Mean Platelet Volume 10.4 fL (9.4-12.4); Monocytes # 0.9 K/mcL (0.0-1.3); Monocytes % 15.3 %; Neutrophils # 3.7 K/mcL (1.6-8.9); Platelet Count 239 K/mcL (140-400); Red Blood Count 2.42 M/mcL (3.82-4.97); Segmented Neutrophils % 64.2 %
[2016-10-12 05:51] LABS: Magnesium 1.3 mg/dL (1.6-2.6); Potassium 3.9 mEq/L (3.5-4.5)
[2016-10-12] MEDS: hydrALAZINE 25 MG TABLET PO SCH ×3 (09:31→19:55)
[2016-10-12] MEDS: Aspirin 81 MG TAB.CHEW PO SCH (09:32)
[2016-10-12] MEDS: Magnesium Oxide 400 MG TABLET PO SCH (09:32)
[2016-10-12] MEDS ORDERED: 0.9 % Sodium Chloride 250 ML ONE (14:55)
--- NOTE | 2016-10-12 16:19 | Internal Med Progress Note ---
<Tam Dugan - Last Filed: 10/12/16 16:17> Date of Encounter: 10/12/16 Time of Encounter: 11:55 - Assessment and plan (1) Small bowel obstruction Current Visit: Yes Status: Resolved Assessment and plan: Patient underwent exploratory laparotomy with lysis of adhesions small bowel resection on 09/22/2016: clinically she is doing well. Incision healing. Tolerating a diet, pain controlled, and ambulating some. (2) EBONIE (acute kidney injury) Current Visit: Yes Status: Acute Assessment and plan: Non-oliguric acute kidney failure on CKD stage III. Multifactorial from fluid losses and post surgerical. Renal US was negative for obstruction. Patient underwent HD Yesterday and tolerated well. Plan will be to see if she needs any additional dialysis with tomorrows labs. Appreciate nephrologies input (3) Paroxysmal a-fib Current Visit: No Status: Chronic Assessment and plan: currently heart rate is well controlled. Per chart review of cardiology notes patient to follow up with cardiology to discuss Coumadin vs. NOAC for her afib. However At this time she has recently had major surgery and is a very high fall risk given her muscular deconditioning. We will continue coreg. She has follow up scheduled with cardiology. 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 received IV iron We will transfuse one unit PRBC. Qualifiers: Anemia type: other cause Other causes of anemia: chronic disease, kidney Qualified Code(s): N18.9 - Chronic kidney disease, unspecified; D63.1 - Anemia in chronic kidney disease (8) Healthcare-associated pneumonia Current Visit: Yes Status: Resolved Assessment and plan: resolved. bacterial PNA. She received 3 days of Zyvox. She was de-escalated to only Cefepime on 09/29 and completed this course. (9) Pleural effusion due to another disorder Current Visit: Yes Status: Acute Assessment and plan: small bilateral effusions. most likely from volume overload. (10) Acute on chronic respiratory failure with hypoxemia Current Visit: Yes Status: Acute Assessment and plan: Secondary to bacterial pneumonia and acute daistolic heart failure. She uses 2 L of oxygen via NC at home. improving. currently on 3L. Will attempt to wean to home dose of 2L O2. (11) Bilateral lower extremity edema Current Visit: Yes Status: Acute Assessment and plan: shoud improve with fluid removal from HD and nutrition ( hypoalbuminemia) (12) Muscular deconditioning Current Visit: Yes Status: Acute Assessment and plan: PT/OT Rx for walker written (13) Hypomagnesemia Current Visit: Yes Status: Acute Assessment and plan: replace (14) Hypoalbuminemia Current Visit: Yes Status: Acute Assessment and plan: as stated above. (15) Gait instability Current Visit: Yes Status: Acute Assessment and plan: She has had a protracted hospital course. She is quite deconditioned at this time Continue PT/OT. Patient and family unwilling to wait for certification for ECF. Plan is to send her home with continued PT/OT Rx for walker with wheels written. (16) DVT prophylaxis Current Visit: Yes Status: Acute Assessment and plan: Subcutaneous heparin and SCDs. - Subjective Interval history: No major events overnight. Patietn states that she is feeling quite well today and thinks she is ready to go home. She dose admit to continued generalized weekness and inquires as to having a wheelchair or possibly a walker at home. No further complaints or concerns at this time. - Constitutional Vitals: Temp Pulse Resp BP Pulse Ox 98.5 F 67 16 130/64 96 10/12/16 15:27 10/12/16 15:27 10/12/16 15:27 10/12/16 15:27 10/12/16 15:27 General appearance: Present: cooperative, A&O X 2, pleasant, no acute distress, answers questions appropriately - Head Head exam: Present: atraumatic, normal inspection, normocephalic - Eye Eye exam: Present: PERRL, conjuntiva pink, sclera anicteric Pupils: Present: PERRL - ENT ENT exam: Present: mucous membranes moist - Neck Neck exam general surgery: Present: supple, trachea midline. Absent: lymphadenopathy Additional comments: Righ Temporary HD catheter in place. Well dressed and clean. - Respiratory Respiratory exam: Present: CTAB. Absent: accessory muscle use, rales, rhonchi, wheezes - Cardiovascular Cardiovascular exam: Present: RRR, +S1, +S2. Absent: diastolic murmur, gallop, rubs, systolic murmur - GI/Abdominal GI/Abdominal exam: Present: normal bowel sounds, soft, no peritoneal signs. Absent: distended, tenderness - Extremities Exam Extremities exam: Present: pedal edema (2+ o the level of the knee. ), warm, radial pulses palpable and symetrical. Absent: calf tenderness, cyanotic - Skin Skin exam: Present: dry, intact Internal Medicine: Result - Labs CBC & Chem 7: 10/12/16 05:13 10/12/16 05:13 Labs: Short CBC 10/12/16 Range/Units 05:13 WBC 5.7 (4.3-11.1) K/mcL Hgb 6.8 L (11.5-15.4) g/dL Hct 22.4 L (35.3-44.9) % Plt Count 239 (140-400) K/mcL Neutrophils # 3.7 (1.6-8.9) K/mcL BMP 10/12/16 05:13 Sodium 140 Potassium 3.9 Chloride 102 Carbon Dioxide 34 H BUN 17 D Creatinine 2.34 H Glucose 93 Calcium 8.0 L - ABG Interpretation ABG results: ABG ABG pH 7.39 pH Units (7.32-7.45) 09/26/16 23:15 ABG pCO2 41 mmHg (35-45) 09/26/16 23:15 ABG pO2 82 mmHg (85-104) L 09/26/16 23:15 ABG O2 Saturation 96 % (95-98) 09/26/16 23:15 PT/INR, D-dimer PT 12.0 Seconds (9.4-12.1) 10/10/16 04:44 - VTE Documentation of Mechanical Device: Graduated compression elastic hosiery Consult Discharge Plan - Plan Additional Instructions: Cleanse midline incision with soap and water and pat dry daily remove steri-strips by 10/12/16 if havent already fallen off JONATHAN drain site (RLQ) wash with soap and water daily, cover with 4x4 gauze (1) folded or 2x2 gauze and secure with tape, change daily ok to shower no tub baths no lifting more than 20 lbs for 6 weeks Regular diet Referrals: Nelly Dubose MD [Partnered Physician] - 10/20/16 9:55 am (surgery follow-up ) Prescriptions: Walker W Wheels [WHEELED WALKER] 1 each .ROUTE AD #1 each <Neo Barth - Last Filed: 10/12/16 18:34> Date of Encounter: 10/12/16 - Assessment and plan (1) HTN (hypertension) Current Visit: Yes Status: Chronic Qualifiers: Hypertension type: essential hypertension Qualified Code(s): I10 - Essential (primary) hypertension (2) CKD (chronic kidney disease), stage III Current Visit: No Status: Chronic (3) Paroxysmal a-fib Current Visit: No Status: Chronic (4) EBONIE (acute kidney injury) Current Visit: Yes Status: Acute (5) Small bowel obstruction Current Visit: Yes Status: Resolved (6) DVT prophylaxis Current Visit: Yes Status: Acute (7) Healthcare-associated pneumonia Current Visit: Yes Status: Resolved - Constitutional Vitals: Temp Pulse Resp BP Pulse Ox 98 F 74 16 127/69 97 10/12/16 18:03 10/12/16 18:03 10/12/16 15:27 10/12/16 18:03 10/12/16 18:03 Internal Medicine: Result - Labs CBC & Chem 7: 10/12/16 05:13 10/12/16 05:13 Labs: Short CBC 10/12/16 Range/Units 05:13 WBC 5.7 (4.3-11.1) K/mcL Hgb 6.8 L (11.5-15.4) g/dL Hct 22.4 L (35.3-44.9) % Plt Count 239 (140-400) K/mcL Neutrophils # 3.7 (1.6-8.9) K/mcL BMP 10/12/16 05:13 Sodium 140 Potassium 3.9 Chloride 102 Carbon Dioxide 34 H BUN 17 D Creatinine 2.34 H Glucose 93 Calcium 8.0 L - ABG Interpretation ABG results: ABG ABG pH 7.39 pH Units (7.32-7.45) 09/26/16 23:15 ABG pCO2 41 mmHg (35-45) 09/26/16 23:15 ABG pO2 82 mmHg (85-104) L 09/26/16 23:15 ABG O2 Saturation 96 % (95-98) 09/26/16 23:15 PT/INR, D-dimer PT 12.0 Seconds (9.4-12.1) 10/10/16 04:44 - Attending Attestation I examined this patient and my medical decision-making was reviewed with the Resident Physician, Dr. Dugan. I agree with the documented findings, disposition and treatment plan as described except to the extent set forth below. She appears in no acute distress awake alert oriented. Heart is regular rate and rhythm S1-S2 no murmurs, lungs are clear, abdomen is soft nontender nondistended Plan: We will transfuse 1 unit of PRBC for correction of her anemia. Check BUN and creatinine in the morning and if stable consider discharging her home. Will follow-up with nephrology.
--- NOTE | 2016-10-12 17:27 | Nephrology Progress Note ---
Date of Encounter: 10/12/16 Time of Encounter: 17:26 - Assessment and Plan (1) EBONIE (acute kidney injury) Current Visit: Yes Status: Acute Hemodialysis was started and she completed 2 treatments yesterday. If labs continue to show improvement by tomorrow, I will plan to remove the temporal dialysis catheter and recommends close follow-up with her outpatient previously established customer care manager Dr. Ortiz in the [facility]. She is doing very well today without uremic symptoms. Her lower extremity edema appears slightly improved, but I would not start diuretics yet at this point, to help further improve her renal function, though it may be needed at some point if her edema worsens. Severe anemia: Agree with blood transfusion. Status post EPO agent already. I also provided one round of vendor for IV iron 2 days ago. Continue to follow a renal protective/supportive strategy. Will follow with you. Thank you. (2) Healthcare-associated pneumonia Current Visit: Yes Status: Resolved (3) Hypokalemia Current Visit: Yes Status: Resolved (4) HTN (hypertension) Current Visit: Yes Status: Chronic Qualifiers: Hypertension type: essential hypertension Qualified Code(s): I10 - Essential (primary) hypertension (5) CKD (chronic kidney disease), stage III Current Visit: No Status: Chronic Echogenicity noted on renal U/S, confirming the chronicity of underlying CKD. She follows with Dr. Ortiz for CKD stage III. (6) Anemia Current Visit: Yes Status: Acute See above. Qualifiers: Anemia type: other cause Other causes of anemia: chronic disease, kidney Qualified Code(s): N18.9 - Chronic kidney disease, unspecified; D63.1 - Anemia in chronic kidney disease Subjective Principal diagnosis: Bowel Obstruction, EBONIE Interval history: Pt was s/e earlier today. She was by herself and sitting comfortably in the bedside chair. She did not affirm uremic symptoms (i.e., no new N/V/D, or diminished appetite or new confusion). She completed dialysis yesterday, and reported that she was told she was getting discharged tomorrow. She said that a blood transfusion has been ordered for today Objective - Vital Signs Vital signs: Vital Signs Temp Pulse Resp BP Pulse Ox 10/12/16 15:27 98.5 F 67 16 130/64 96 10/12/16 15:12 98.5 F 72 130/64 98 10/12/16 15:09 98.4 F 16 145/81 10/12/16 14:54 98.4 F 67 18 132/83 99 10/12/16 10:46 98.7 F 67 16 132/63 98 10/12/16 10:38 16 96 10/12/16 07:40 99.1 F 81 14 141/63 96 10/12/16 01:01 99.3 F 83 14 116/49 95 10/11/16 21:20 16 96 10/11/16 19:30 96 Intake and Output 10/12/16 10/12/16 10/12/16 07:59 15:59 23:59 Intake Total 0 / 0 600 / 600 Output Total 0 / 0 200 / 200 Balance 0 / 0 400 / 400 Intake: Oral 0 / 0 600 / 600 Blood Product 0 / 0 Rbcs Leuko Poor As-1 0 / 0 Unit [id number] Output: Urine 0 / 0 0 / 0 Urine/Stool Mix 200 / 200 Other: Meal Lunch Percent of Meal Consumed 25% Stool Size Large Stool Consistency loose formed Stool Color Brown # Bowel Movements 0 0 - General Appearance General appearance: Present: well-developed, well-nourished, appears started age , frail EENT: Present: ATNC, PERRL, mucous membranes moist Neck: Present: supple Respiratory: Present: clear Cardiology: Present: edema (up to the upper pretibials b/l ), regular rate, regular rhythm, normal S1, normal S2 Dialysis Vascular Access: Venous Catheter (RIJ temporary HD catheter.) Gastrointestinal: Present: normoactive bowel sounds, no tenderness Integumentary: Present: no rash, warm and dry Neurologic: Present: no focal deficit, no asterixis, alert and oriented x3 Musculoskeletal: Present: no erythema, no cyanosis Psychiatric: Present: mood/affect appropriate, cooperative - Lab 10/12/16 05:13 10/12/16 05:13 Most recent lab results ABG pH 7.39 pH Units (7.32-7.45) 09/26/16 23:15 ABG pCO2 41 mmHg (35-45) 09/26/16 23:15 ABG pO2 82 mmHg (85-104) L 09/26/16 23:15 ABG HCO3 24.8 mEQ/L (21-27) 09/26/16 23:15 ABG O2 Saturation 96 % (95-98) 09/26/16 23:15 Calcium 8.0 mg/dL (8.6-10.8) L 10/12/16 05:13 Phosphorus 4.9 mg/dL (2.3-4.7) H 10/09/16 04:00 Magnesium 1.3 mg/dL (1.6-2.6) L 10/12/16 05:13 Urine Creatinine 42 mg/dL 10/06/16 03:35 - VTE Documentation of Mechanical Device: Graduated compression elastic hosiery Consult Discharge Plan - Plan Additional Instructions: Cleanse midline incision with soap and water and pat dry daily remove steri-strips by 10/12/16 if havent already fallen off JONATHAN drain site (RLQ) wash with soap and water daily, cover with 4x4 gauze (1) folded or 2x2 gauze and secure with tape, change daily ok to shower no tub baths no lifting more than 20 lbs for 6 weeks Regular diet Referrals: Nelly Dubose MD [Partnered Physician] - 10/20/16 9:55 am (surgery follow-up ) Prescriptions: Walker W Wheels [WHEELED WALKER] 1 each .ROUTE AD #1 each
[2016-10-13] MEDS: Ipratropium/Albuterol Neb 3 ML IH SCH ×2 (03:03→09:26)
[2016-10-13] MEDS: *HR* Heparin 5,000 UNIT/ML VIAL SQ SCH (05:58)
[2016-10-13 07:11] LABS: Basophils # 0.1 K/mcL (0.0-0.2); Basophils % 0.7 %; Eosinophils # 0.6 K/mcL (0.0-0.6); Eosinophils % 8.5 %; Hematocrit 25.8 % (35.3-44.9); Hemoglobin 7.9 g/dL (11.5-15.4); Immature Granulocytes % 0.4 % (0-4); Lymphocytes # 0.8 K/mcL (0.6-4.6); Lymphocytes % 11.7 %; Mean Corpuscular HGB Conc 30.6 g/dL (31.6-35.5); Mean Corpuscular Hemoglobin 28.3 pg (28.0-33.3); Mean Corpuscular Volume 92.5 fL (83.0-100.0); Mean Platelet Volume 10.7 fL (9.4-12.4); Monocytes # 0.9 K/mcL (0.0-1.3); Monocytes % 13.6 %; Neutrophils # 4.4 K/mcL (1.6-8.9); Platelet Count 219 K/mcL (140-400); Red Blood Count 2.79 M/mcL (3.82-4.97); Red Cell Distribution Width 14.4 % (11.5-14.5); Segmented Neutrophils % 65.1 %
[2016-10-13 07:19] LABS: Calcium 8.3 mg/dL (8.6-10.8); Magnesium 1.4 mg/dL (1.6-2.6); Potassium 4.1 mEq/L (3.5-4.5)
[2016-10-13 08:06] LABS: Platelet Estimate Normal (Normal)
[2016-10-13] MEDS: Aspirin 81 MG TAB.CHEW PO SCH (08:12)
[2016-10-13] MEDS: hydrALAZINE 25 MG TABLET PO SCH (08:13)
[2016-10-13] MEDS: Magnesium Oxide 400 MG TABLET PO SCH (08:13)
[2016-10-13] MEDS ORDERED: Magnesium Sulfate 1 GM in D5% in Water 100 ML IVPB ONE (09:04)
--- NOTE | 2016-10-13 09:15 | Nephrology Progress Note ---
Date of Encounter: 10/13/16 Time of Encounter: 08:50 - Assessment and Plan (1) EBONIE (acute kidney injury) Current Visit: Yes Status: Acute Progressively worsening renal function with suspected ATN. Patient underwent two sessions of HD with via temporary HD catheter. Patient to have catheter removed prior to discharge. Renal US 10/05/16: no hydronephrosis. Echogenic bilateral kidneys, may be suggestive of renal disease. Plan: Patient prefers to go home at this point. No signs of uremia. Discussed risk/ benefit of discharge. Concern for worsening creatinine, patient and agree to close follow up with weekly labs. Patient scheduled for a 1 week follow up with Dr. Ortiz. Patient and advised to return for evaluation if patient becomes confused or has nausea/vomiting as this can be associated with uremia. May consider EPO at follow up with anemia in the setting of ATN. (2) Anemia Current Visit: Yes Status: Acute Hgb maintained in the 7 range, lowest 6.6. No signs of active bleeding. Patient has received a total of 4 units pRBC during this admission. Aranesp given on 10/07/16. Consider EPO as outpatient in the setting of ATN. Iron infusion completed 10/10/16. Goal Hgb 10-11 Will need Hgb monitored as outpatient. Qualifiers: Anemia type: other cause Other causes of anemia: chronic disease, kidney Qualified Code(s): N18.9 - Chronic kidney disease, unspecified; D63.1 - Anemia in chronic kidney disease (3) Vitamin D deficiency Current Visit: Yes Status: Acute Vitamin D found to be 9ng/ml in August 2016, patient was not on any replacement. Continue ergocalciferol 50,000 units weekly. (4) HTN (hypertension) Current Visit: Yes Status: Chronic Qualifiers: Hypertension type: essential hypertension Qualified Code(s): I10 - Essential (primary) hypertension (5) Small bowel obstruction Current Visit: Yes Status: Resolved Exploratory laparotomy, lysis of adhesions, right salpingoophorectomy, left oophorectomy with Dr. Dubose To follow up with surgery as outpatient. (6) Paroxysmal a-fib Current Visit: No Status: Chronic Management per primary service. (7) Healthcare-associated pneumonia Current Visit: Yes Status: Resolved Resolved, return to baseline home oxygen. Previous concern for pneumonia vs pulmonary edema. Management per primary medicine service. (8) CKD (chronic kidney disease), stage III Current Visit: No Status: Chronic Subjective Principal diagnosis: Bowel Obstruction, EBONIE Interval history: Patient seen and examined today sitting on bedside, eating breakfast. No acute complaints this AM. Patient states she is ready to go home. Objective - Vital Signs Vital signs: Vital Signs Temp Pulse Resp BP Pulse Ox 10/13/16 07:56 98.1 F 77 18 154/89 95 10/13/16 03:10 98.0 F 87 16 124/53 95 10/12/16 23:23 98.4 F 83 117/39 93 10/12/16 21:31 14 97 10/12/16 19:43 98.4 F 68 18 139/73 97 10/12/16 18:03 98 F 74 127/69 97 10/12/16 15:27 98.5 F 67 16 130/64 96 10/12/16 15:12 98.5 F 72 130/64 98 10/12/16 15:09 98.4 F 16 145/81 10/12/16 14:54 98.4 F 67 18 132/83 99 10/12/16 10:46 98.7 F 67 16 132/63 98 10/12/16 10:38 16 96 Intake and Output 10/12/16 10/13/16 10/13/16 23:59 07:59 15:59 Intake Total 308 / 308 200 / 200 Output Total 0 / 0 0 / 0 Balance 308 / 308 200 / 200 Intake: Oral 200 / 200 Blood Product 308 / 308 Rbcs Leuko Poor As-1 308 / 308 Unit [id number] Output: Urine 0 / 0 0 / 0 Other: Stool Size Small Stool Consistency loose Stool Color Brown # Bowel Movements 1 Weight 73.18 kg Patient Weight 10/13/16 23:59 Weight 73.18 kg - General Appearance General appearance: Present: well-developed, well-nourished, appears started age EENT: Present: ATNC, mucous membranes moist, hearing intact, vision intact Neck: Present: supple Additional Comments: temp HD catheter present in RIJ. Respiratory: Present: wheezing Cardiology: Present: edema (2+ BLE edema), regular rate, regular rhythm Integumentary: Present: no rash, warm and dry Neurologic: Present: no focal deficit Additional Comments: awake and alert Musculoskeletal: Present: no deformities, no erythema, no cyanosis Psychiatric: Present: mood/affect appropriate, cooperative - Lab 10/13/16 05:02 10/13/16 05:02 Most recent lab results ABG pH 7.39 pH Units (7.32-7.45) 09/26/16 23:15 ABG pCO2 41 mmHg (35-45) 09/26/16 23:15 ABG pO2 82 mmHg (85-104) L 09/26/16 23:15 ABG HCO3 24.8 mEQ/L (21-27) 09/26/16 23:15 ABG O2 Saturation 96 % (95-98) 09/26/16 23:15 Calcium 8.3 mg/dL (8.6-10.8) L 10/13/16 05:02 Phosphorus 4.9 mg/dL (2.3-4.7) H 10/09/16 04:00 Magnesium 1.4 mg/dL (1.6-2.6) L 10/13/16 05:02 Urine Creatinine 42 mg/dL 10/06/16 03:35 - VTE Documentation of Mechanical Device: Graduated compression elastic hosiery Consult Discharge Plan - Plan Additional Instructions: Cleanse midline incision with soap and water and pat dry daily remove steri-strips by 10/12/16 if havent already fallen off JONATHAN drain site (RLQ) wash with soap and water daily, cover with 4x4 gauze (1) folded or 2x2 gauze and secure with tape, change daily ok to shower no tub baths no lifting more than 20 lbs for 6 weeks Regular diet [facility]: Continue with close follow up, appointment to be scheduled for next week. Weekly labs of CBC and renal panel. If signs of increased confusion, nausea, vomiting patient should return to the hospital for further evaluation. Referrals: Nelly Dubose MD [Partnered Physician] - 10/20/16 9:55 am (surgery follow-up ) Easton Ortiz MD [Partnered Physician] - 10/19/16 3:00 pm (1 week hospital follow up. Complete lab work (CBC, renal panel).) Prescriptions: Darbepoetin [Aranesp] 40 mcg SQ QWEEK 30 Days Omeprazole [PriLOSEC] 20 mg PO DAILY@629 30 Days Saline Nasal Nickerson [[place] Nasal Nickerson] 2 spray NS Q2H PRN 30 Days PRN Reason: See Comments Walker W Wheels [WHEELED WALKER] 1 each .ROUTE AD #1 each
[2016-10-13 10:52] VITALS: BP 152/69
--- NOTE | 2016-10-13 11:02 | Discharge Summary ---
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 (7) Anemia Status: Acute Qualifiers: Anemia type: other cause Other causes of anemia: chronic disease, kidney Qualified Code(s): N18.9 - Chronic kidney disease, unspecified; D63.1 - Anemia in chronic kidney disease (8) Healthcare-associated pneumonia Status: Resolved (9) Pleural effusion due to another disorder Status: Acute (10) Acute on chronic respiratory failure with hypoxemia Status: Acute (11) Bilateral lower extremity edema Status: Acute (12) Muscular deconditioning Status: Acute (13) Hypomagnesemia Status: Acute (14) Hypoalbuminemia Status: Acute (15) Gait instability Status: Acute (16) DVT prophylaxis Status: Acute - Discharge Medications Prescriptions: Darbepoetin [Aranesp] 40 mcg SQ QWEEK 30 Days Omeprazole [PriLOSEC] 20 mg PO DAILY@0630 30 Days Saline Nasal [place] [[place] Nasal [place]] 2 spray NS Q2H PRN 30 Days PRN Reason: See Comments Walker W Wheels [WHEELED WALKER] 1 each .ROUTE AD #1 each Home Medications: Aspirin 81 mg PO DAILY 04/06/15 [History] Atorvastatin [Lipitor] 40 mg PO DAILY 04/06/15 [History] Isosorbide DInitrate [Isosorbide Dinitrate] 20 mg PO TID 04/06/15 [History] Nitroglycerin 0.4 mg SL Q5MIN PRN 04/06/15 [History] HydrALAZINE 50 mg PO TID #0 04/07/15 [Rx] Beclomethasone Diprop 40mcg [QVAR 40 mcg] 1 puff IH BID 02/02/16 [History] Ipratropium/Albuterol Neb [Duoneb] 3 ml IH TID 02/02/16 [History] Oxygen 2 l NS HS 02/02/16 [History] Carvedilol [Coreg] 25 mg PO BID PRN 09/16/16 [History] Cyanocobalamin (B-12) [Vitamin B12] 1,000 mcg PO DAILY 09/16/16 [History] Ergocalciferol (VITAMIN D2) [Vitamin D2] 50,000 unit PO QWEEK 09/16/16 [History] Ondansetron ODT [Zofran ODT] 4 mg PO TID PRN 09/16/16 [History] Walker W Wheels [WHEELED WALKER] 1 each .ROUTE AD #1 each 10/12/16 [Rx] Darbepoetin [Aranesp] 40 mcg SQ QWEEK 30 Days 10/13/16 [Rx] Omeprazole [PriLOSEC] 20 mg PO DAILY@0630 30 Days 10/13/16 [Rx] Saline Nasal [place] [[place] Nasal [place]] 2 spray NS Q2H PRN 30 Days 10/13/16 [Rx] Allergies/Adverse Reactions: Allergies amlodipine [From [facility]] Allergy (Verified 07/31/15 07:55) SWELLING IN LEGS lisinopril Allergy (Verified 04/06/15 06:45) Cough Procedures/tests Complete & Pending: Procedures Performed prior 72 hours Category Date Time Status ECG 12 lead ECG [ECG] Routine Y 10/13/16 00:50 Completed EKG [ECG 12 lead ECG] [ECG] Stat Y 10/13/16 01:07 Completed Date of admission: 09/16/16 20:27 Primary care physician: William Galvan MD Consults: 09/21/16 17:44 Consult to Invasive Line Access Team [CONS] Routine Reason for Consult: TPN needed, want picc please Line Type: PICC PICC line indications: Parental nutrition Call Completed: No Consult to Nutrition [CONS] Routine Comment: Consulting Provider: NUTRITION Reason for Dietary Consult: TPN Start and Manage 09/22/16 11:18 Consult to Invasive Line Access Team [CONS] Routine Reason for Consult: Picc Line Insertion Line Type: PICC 09/25/16 12:26 Consult to Nephrology [CONS] Routine Consulting Provider: Kidney Christina/DENNIS/MANDY/MESFIN Reason for Consult: acute on Chronic KD Time Notified: 09:45 Call Completed: Yes 09/26/16 07:46 Consult to Pulmonology [CONS] Routine Consulting Provider: Pulm Crit Care & [facility] [place] Reason for Consult: PNA, b/l effusions - ? tap Call Completed: No 09/27/16 10:35 Consult to Occupational Therapy [CONS] Routine Comment: Evaluate, develop and implement POC Consult to Physical Therapy [CONS] Routine Comment: Evaluate, develop and implement POC 10/09/16 09:43 Consult to Nuclear Monitoring Technician [CONS] Routine Reason for SW Consult: Patient was approved for P.T. in [place] per and should have started a couple days ago; please notify P.T. patient is still in hospital and have therapy rescheduled for when she is discharged. Thank you. 10/10/16 06:57 Consult to Interventional Radiology [CONS] Routine Consulting Provider: Radiology Interventional Cols Reason for Consult: Please evaluate for placement of a temporary HD catheter for HD initiation. Thank you. Call Completed: Yes 10/10/16 07:00 Consult to Dialysis [CONS] ONCE 10/11/16 07:00 Consult to Dialysis [CONS] ONCE Discharging clinician: Tam Dugan Anticipated date of discharge: 10/13/16 - Patient Status Disposition: Home Health Service Condition: Fair Functional capacity at discharge: uses cane/walker Overall status at discharge: patient is progressing back to baseline - Ambulatory Orders Ambulatory Orders: Basic Metabolic Panel [CHEM] Time Frame: 1 Week, Location: any Basic Metabolic Panel [CHEM] Time Frame: 2 Days, Location: any - Discharge Instructions Instructions: Acute Kidney Injury (DC), Anemia (DC) Follow Up With: Easton Ortiz MD [Partnered Physician] - 10/19/16 3:00 pm (1 week hospital follow up. Complete lab work (CBC, renal panel).) Nelly Dubose MD [Partnered Physician] - 10/20/16 9:55 am (surgery follow-up ) Demi Winslow CNP [Advanced Practice Nurse] - 10/19/16 1:30 pm Additional Instructions: Cleanse midline incision with soap and water and pat dry daily remove steri-strips by 10/12/16 if havent already fallen off JONATHAN drain site (RLQ) wash with soap and water daily, cover with 4x4 gauze (1) folded or 2x2 gauze and secure with tape, change daily ok to shower no tub baths no lifting more than 20 lbs for 6 weeks Regular diet [facility]: Continue with close follow up, appointment to be scheduled for next week. Weekly labs of CBC and renal panel. If signs of increased confusion, nausea, vomiting patient should return to the hospital for further evaluation. - Diet and Activity Activity: as per physical therapy, wear oxygen at all times Diet: low fat, low cholesterol, low salt diet, other (Renal) Hospital course: Ms. Strickland is a 86 year old female with past medical history of chronic kidney disease, coronary disease, atrial fibrillation who was admitted to the hospital on 09/16/2016. She would have a prolonged and complicated hospital course and she would be discharged on 10/13/2016. She was admitted for small bowel structure. She would undergo exploratory laparotomy with lysis of adhesions. She will also undergo oophorectomy as there was masses seen on her bilateral ovaries. 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 She would have acute kidney injury and ATN after her surgery. She would also have a healthcare associated pneumonia. She would be treated with broad-spectrum antibiotics and recovered from her pneumonia. However her renal function did continue to decline and she did require intermittent hemodialysis. She did receive 2 sessions of hemodialysis. Her renal function did improve. She has had some muscular deconditioning as well as gait instability secondary to her prolonged illness. Physical therapy had recommended inpatient rehabilitation. However the patient and family declined this and preferred home health as she has had a prolonged hospitalization.her renal function is improved. I did discuss this with nephrology. We will discontinue her hemodialysis catheter today. She will need very close follow-up with nephrology as well as repeat lab work after discharge. I did discuss this with the patient's and they voiced back understanding to this. Her physical exam is grossly unremarkable today and is unchanged from yesterday. Her incisions well healed. She did complete the course for her healthcare associated pneumonia. There is no major lab abnormalities on today's labs. She does have anemia and we did transfuse her yesterday and it madai appropriately. No active bleeding at this time. She does have some mild hypo-magnesium on today's labs we will replace this before she goes. I did review the imaging no incidentalomas or anything of note to follow-up on her imaging. No pathology to follow-up with. She will need to follow-up with cardiology. She does have a history of atrial fibrillation. This is currently well controlled on her beta dylon. She is currently not on any anticoagulation. However this time this would be unsafe as she is very unstable with her gait. She had been following cardiology previously. Was elected not to put her on anticoagulation at that time because she was still on upper limits of 4 drug-eluting stent. She has since completed that it has been taken off Brill[place]. We will have her follow-up with cardiology at her scheduled appointment and discuss possible anticoagulation at that time. Have this time she is a very high fall risk. The patient and her did voice back understanding and agreement of the discharge plan. - Time Spent with Patient Total time spent providing and/or coordinating discharge services: Greater than 30 minutes (I spent approximately 50 minutes discharging this patient. Discussing discharge plan with the patient adn family. I also discussed the patient with Nephrology prior to discharge.) - Constitutional Vitals: Temp Pulse Resp BP Pulse Ox 98.2 F 67 18 152/69 97 10/13/16 10:51 10/13/16 10:51 10/13/16 10:51 10/13/16 10:51 10/13/16 10:51 General appearance: Present: cooperative, A&O X 2, pleasant, no acute distress, answers questions appropriately Exam: General: This is a very pleasant well-developed well-nourished 86-year-old female who is alert and orientated to person place time and situation. She sitting on the side of the bed and appears to be comfortable. HEENT: Head is normocephalic and atraumatic. Pupils equally round react light and accommodation. Anicteric sclera, moist mucous membranes, there is a right embrace hemodialysis catheter resident is clean and well dressed. Scheduled to be removed later today. Trachea is midline. Tongue is midline. Heart: Heart is regular rate and rhythm without murmurs rubs or gallops. Lungs: Clear to auscultation bilaterally. Abdomen: Abdomen is soft, nontender, bowel sounds positive in all quadrants. Musculoskeletal: Grossly normal for age without gross deformities noted. Extremities: There is no clubbing or cyanosis. She does have some edema of the lower extremities 2+ up to the level of the knee bilaterally. This is consistent with yesterday's exam. Integument: There is no rashes or lesions noted. - VTE Documentation of Mechanical Device: Graduated compression elastic hosiery <Neo Barth - Last Filed: 10/13/16 18:07> Date of Encounter: 10/13/16 - Discharge Diagnosis (1) HTN (hypertension) Priority: Secondary Status: Chronic Qualifiers: Hypertension type: essential hypertension Qualified Code(s): I10 - Essential (primary) hypertension (2) CKD (chronic kidney disease), stage III Priority: Secondary Status: Chronic (3) Paroxysmal a-fib Priority: Secondary Status: Chronic (4) EBONIE (acute kidney injury) Priority: Secondary Status: Acute (5) Small bowel obstruction Priority: Primary Status: Resolved (6) DVT prophylaxis Priority: Secondary Status: Acute (7) Healthcare-associated pneumonia Priority: Secondary Status: Resolved (8) ATN (acute tubular necrosis) Priority: Secondary Status: Acute Procedures/tests Complete & Pending: Procedures Performed prior 72 hours Category Date Time Status ECG 12 lead ECG [ECG] Routine Y 10/13/16 00:50 Completed EKG [ECG 12 lead ECG] [ECG] Stat Y 10/13/16 01:07 Completed Date of admission: 09/16/16 20:27 Primary care physician: William Galvan MD Consults: 09/21/16 17:44 Consult to Invasive Line Access Team [CONS] Routine Reason for Consult: TPN needed, want picc please Line Type: PICC PICC line indications: Parental nutrition Call Completed: No Consult to Nutrition [CONS] Routine Comment: Consulting Provider: NUTRITION Reason for Dietary Consult: TPN Start and Manage 09/22/16 11:18 Consult to Invasive Line Access Team [CONS] Routine Reason for Consult: Picc Line Insertion Line Type: PICC 09/25/16 12:26 Consult to Nephrology [CONS] Routine Consulting Provider: Kidney Christina/DENNIS/MANDY/MESFIN Reason for Consult: acute on Chronic KD Time Notified: 09:45 Call Completed: Yes 09/26/16 07:46 Consult to Pulmonology [CONS] Routine Consulting Provider: Pulm Crit Care & [facility] [place] Reason for Consult: PNA, b/l effusions - ? tap Call Completed: No 09/27/16 10:35 Consult to Occupational Therapy [CONS] Routine Comment: Evaluate, develop and implement POC Consult to Physical Therapy [CONS] Routine Comment: Evaluate, develop and implement POC 10/09/16 09:43 Consult to Nuclear Monitoring Technician [CONS] Routine Reason for SW Consult: Patient was approved for P.T. in [place] per and should have started a couple days ago; please notify P.T. patient is still in hospital and have therapy rescheduled for when she is discharged. Thank you. 10/10/16 06:57 Consult to Interventional Radiology [CONS] Routine Consulting Provider: Radiology Interventional Cols Reason for Consult: Please evaluate for placement of a temporary HD catheter for HD initiation. Thank you. Call Completed: Yes 10/10/16 07:00 Consult to Dialysis [CONS] ONCE 10/11/16 07:00 Consult to Dialysis [CONS] ONCE Hospital course: Ms. Strickland is a 86 year old female - Time Spent with Patient Total time spent providing and/or coordinating discharge services: - Constitutional Vitals: Temp Pulse Resp BP Pulse Ox 98.2 F 67 18 152/69 97 10/13/16 10:51 10/13/16 10:51 10/13/16 10:51 10/13/16 10:51 10/13/16 10:51 - Attending Attestation I examined this patient and my medical decision-making was reviewed with Dr. Dugan, Resident Physician. I agree with the documented findings, disposition and treatment plan as described except to the extent set forth below. On examination the patient is in no acute distress awake alert oriented 3. Heart is irregular S1-S2. Lungs are clear, generally diminished, abdomen is soft nontender nondistended with well healing surgical scar car. A temporary hemodialysis catheter has been removed this morning. The site looks clean with no evidence of bleeding or redness. Patient reports good urinary output. There has been a slight increase in creatinine. We will order weekly outpatient chemistry panel to start on Monday. She will be discharged home with home health.
--- NOTE | 2016-10-13 11:22 | Physician Discharge Referral ---
<Tam Dugan - Last Filed: 10/13/16 11:19> Home Health/Hosp Referral Info Transfer to: Home Health Provider in Charge Post Discharge: PCP - Diagnosis (1) Small bowel obstruction Priority: Primary Status: Resolved (2) EBONIE (acute kidney injury) Status: Acute (3) Paroxysmal a-fib Status: Chronic (4) Ovarian mass, left Status: Acute (5) Ovarian mass, right Status: Acute (6) Fibrothecoma Status: Acute (7) Anemia Status: Acute (8) Healthcare-associated pneumonia Status: Resolved (9) Pleural effusion due to another disorder Status: Acute (10) Acute on chronic respiratory failure with hypoxemia Status: Acute (11) Bilateral lower extremity edema Status: Acute (12) Muscular deconditioning Status: Acute (13) Hypomagnesemia Status: Acute (14) Hypoalbuminemia Status: Acute (15) Gait instability Status: Acute (16) DVT prophylaxis Status: Acute - Respiratory Orders Oxygen / L per min (3L) Smoking Cessation: Smoking cessation has been advised. For more information, call the [facility] Tobacco Quit Line at 9-200-QVNB-NOW. - Diet/Nutrition Diet/Nutrition Orders: Renal, Cardiac - Activity Activity Orders: Walker - Services Needed Following services are medically necessary services: Nursing, Home Health Aide, Physical Therapy, Occupational Therapy - Transfer Medications Prescriptions: Darbepoetin [Aranesp] 40 mcg SQ QWEEK 30 Days Omeprazole [PriLOSEC] 20 mg PO DAILY@0630 30 Days Saline Nasal [place] [[place] Nasal [place]] 2 spray NS Q2H PRN 30 Days PRN Reason: See Comments Oren Saenz Wheelraheem [WHEELED WALKER] 1 each .ROUTE AD #1 each Home Medications: Aspirin 81 mg PO DAILY 04/06/15 [History] Atorvastatin [Lipitor] 40 mg PO DAILY 04/06/15 [History] Isosorbide DInitrate [Isosorbide Dinitrate] 20 mg PO TID 04/06/15 [History] Nitroglycerin 0.4 mg SL Q5MIN PRN 04/06/15 [History] HydrALAZINE 50 mg PO TID #0 04/07/15 [Rx] Beclomethasone Diprop 40mcg [QVAR 40 mcg] 1 puff IH BID 02/02/16 [History] Ipratropium/Albuterol Neb [Duoneb] 3 ml IH TID 02/02/16 [History] Oxygen 2 l NS HS 02/02/16 [History] Carvedilol [Coreg] 25 mg PO BID PRN 09/16/16 [History] Cyanocobalamin (B-12) [Vitamin B12] 1,000 mcg PO DAILY 09/16/16 [History] Ergocalciferol (VITAMIN D2) [Vitamin D2] 50,000 unit PO QWEEK 09/16/16 [History] Ondansetron ODT [Zofran ODT] 4 mg PO TID PRN 09/16/16 [History] Walker W Wheels [WHEELED WALKER] 1 each .ROUTE AD #1 each 10/12/16 [Rx] Darbepoetin [Aranesp] 40 mcg SQ QWEEK 30 Days 10/13/16 [Rx] Omeprazole [PriLOSEC] 20 mg PO DAILY@0630 30 Days 10/13/16 [Rx] Saline Nasal [place] [[place] Nasal [place]] 2 spray NS Q2H PRN 30 Days 10/13/16 [Rx] Allergies/Adverse Reactions: Allergies amlodipine [From [facility]] Allergy (Verified 07/31/15 07:55) SWELLING IN LEGS lisinopril Allergy (Verified 04/06/15 06:45) Cough Certification: Further, I certify that my clinical findings support that this patient is homebound (i.e. absences from home require considerable and taxing effort and are for medical reasons or sikh services or infrequently or short duration when for other reasons) because: Attestation: My signature below is to certify that this patient is under my care and that I, or nurse practitioner, or a physician's apartment assistant manager working with me, has a face-to -face encounter with this patient. <Neo Barth - Last Filed: 10/13/16 18:04> - Diagnosis (1) HTN (hypertension) Status: Chronic (2) CKD (chronic kidney disease), stage III Status: Chronic (3) Paroxysmal a-fib Status: Chronic (4) EBONIE (acute kidney injury) Status: Acute (5) Small bowel obstruction Status: Resolved (6) DVT prophylaxis Status: Acute (7) Healthcare-associated pneumonia Status: Resolved - Respiratory Orders Smoking Cessation: Smoking cessation has been advised. For more information, call the [place] Tobacco Quit Line at 1-337-LITLNOW. Certification: Further, I certify that my clinical findings support that this patient is homebound (i.e. absences from home require considerable and taxing effort and are for medical reasons or sikh services or infrequently or short duration when for other reasons) because: Homebound Reason: Patient requires assistance of a person or device to safely leave home, Absences from home are contraindicated except to recieve medical care, Post-surgery restriction and or conditions limit ability to leave home Attestation: My signature below is to certify that this patient is under my care and that I had a [id number] encounter with this patient on 10/13/2016. I examined this patient and my medical decision-making was reviewed with Dr. Dugan, Resident Physician. I agree with the documented findings, disposition and treatment plan as described except to the extent set forth below. Patient will be discharged home with close follow-up with her primary care physician. Temporary hemodialysis catheter has been removed. I have checked the site and found no evidence of bleeding or redness. On examination she is in no acute distress awake alert oriented. Heart sounds are a irregular S1-S2. Extremities with 1+ lower extremity pitting edema. Abdomen soft nontender nondistended with well healing surgical incision.
--- NOTE | 2016-10-13 19:36 | Electrocardiograph Report ---
[place] [id number] Test Date: 2016-10-13 Pat Name: Nancy Strickland Department: 115 Room: 3A Gender: F Data Control Assistant: HDR : [id number] Requested By: Barbie Vides Order Number: [id number] Reading MD: Chase Morrison MD Measurements Intervals [place] Rate: 84 P: 62 ID: 176 QRS: 9 QRSD: 148 T: 77 QT: 393 QTc: 435 Interpretive Statements SINUS RHYTHM INTRAVENTRICULAR CONDUCTION DELAY Electronically Signed On 10-13-2016 19:35:14 EDT by Chsae Morrison MD
--- NOTE | 2016-10-13 19:36 | Electrocardiograph Report ---
[place] [id number] Test Date: 2016-10-13 Pat Name: Nnacy Strickland Department: 115 Room: 3A51 Gender: F Position Classification Specialist: HDR : 1930 Requested By: Neo Barth Order Number: [id number] Reading MD: Chase Morrison MD Measurements Intervals [place] Rate: 84 P: 66 SD: 212 QRS: 7 QRSD: 144 T: 79 QT: 390 QTc: 430 Interpretive Statements SINUS RHYTHM WITH FIRST DEGREE AV BLOCK INTRAVENTRICULAR CONDUCTION DELAY Poor R wave progression Electronically Signed On 10-13-2016 19:34:59 EDT by Chase Morrison MD
== END 2016-10-13 16:29 | disposition home health service (06) | DRG 335 ==
LOC: 3ANU 14:06 → EMEROO 14:06 → 3ANU 19:56 → SUATTDRO 20:27 → 3BNU 09-17 05:45 → 3ANU 09-22 14:34
PROVIDERS: ADMIT Internal Medicine; ATTEND Internal Medicine

== ENCOUNTER 2016-10-19 16:14 | Inpatient (IN) ==
--- NOTE | 2016-10-19 16:29 | Emergency Department Note ---
Disposition Clinical Impression: Chronic anemia, Worsening renal function, Acute on chronic renal failure Disposition: Admitted As Inpatient Condition: Good Referrals: William Galvan MD [Primary Care Provider] - Forms: Work/School Release, ED Satisfaction Letter Time of Disposition: 19:48 General Adult HPI - General Chief complaint: ED General Medical Stated complaint: Sent by Dr. Ortiz for admission Time Seen by Provider: 10/19/16 16:25 Source: patient, family Mode of arrival: ambulatory Limitations: no limitations Nursing Notes Reviewed: Yes Vital Signs Reviewed: Yes - History of Present Illness HPI Narrative: Patient is an 86-year-old female with past medical history of recent oophorectomy, recent laparotomy for small bowel stricture, CKD, hypertension, hyperlipidemia, CAD. She presents today due to a referral from Dr. Ortiz due to worsening renal labs. Creatinine on October 16 has jumped to the range of 5 from a range of 3 and GFR has decreased from 14 to 8. The patient herself denies any decrease in urine output that she is aware of. During her recent hospital stay for laparotomy and oophorectomy, she had to have 2 episodes of hemodialysis. She currently is not on any weekly dialysis and has no fistula. She was told by risk consultant that she will likely have to start dialysis soon. She denies any chest pain, shortness of breath, nausea, vomiting, abdominal pain. Denies any dysuria, hematuria. She has mild generalized fatigue. Pain Scale: 0 - Related Data Home Medications Medication Instructions Recorded Confirmed Aspirin 81 mg PO DAILY 04/06/15 10/19/16 Atorvastatin [Lipitor] 40 mg PO DAILY 04/06/15 10/19/16 Isosorbide DInitrate [Isosorbide 20 mg PO TID 04/06/15 10/19/16 Dinitrate] Nitroglycerin 0.4 mg SL Q5MIN PRN 04/06/15 10/19/16 Beclomethasone Diprop 40mcg [QVAR 1 puff IH BID 02/02/16 10/19/16 40 mcg] Ipratropium/Albuterol Neb [Duoneb] 3 ml IH TID 02/02/16 10/19/16 Oxygen 3 l NS HS 02/02/16 10/19/16 Carvedilol [Coreg] 25 mg PO BID PRN 09/16/16 10/19/16 Cyanocobalamin (B-12) [Vitamin B12] 1,000 mcg PO DAILY 09/16/16 10/19/16 Ergocalciferol (VITAMIN D2) 50,000 unit PO QWEEK 09/16/16 10/19/16 [Vitamin D2] Ondansetron ODT [Zofran ODT] 4 mg PO TID PRN 09/16/16 10/19/16 Chlorthalidone 25 mg PO QAM 10/19/16 10/19/16 Ferrous Sulfate [Ferrous Sulfate] 325 mg PO DAILY 10/19/16 10/19/16 Furosemide [Lasix] 40 mg PO Q48H 10/19/16 10/19/16 Losartan Potassium [Cozaar] 50 mg PO BID 10/19/16 10/19/16 Previous Rx's Medication Instructions Recorded HydrALAZINE 50 mg PO TID #0 04/07/15 Darbepoetin [Aranesp] 40 mcg SQ QWEEK 30 Days 10/13/16 Omeprazole [PriLOSEC] 20 mg PO DAILY@0630 30 Days 10/13/16 Saline Nasal [place] [[place] Nasal 2 spray NS Q2H PRN 30 Days 10/13/16 [place]] Allergies Allergy/AdvReac Type Severity Reaction Status Date / Time amlodipine [From Norvasc] Allergy SWELLING Verified 10/19/16 18:26 IN LEGS lisinopril Allergy Cough Verified 10/19/16 18:26 All systems ED: reviewed and negative except as stated. Constitutional: Denies: fever Cardiovascular: Denies: chest pain, palpitations Respiratory: Denies: cough, dyspnea Gastrointestinal: Denies: abdominal pain, nausea, vomiting, diarrhea, constipation Genitourinary: Denies: urgency, dysuria Musculoskeletal: Denies: back pain Integumentary: Denies: rash Neurological: Denies: headache, weakness, numbness, paresthesias Past Medical History - Past Medical History Attestation: Yes The following information was validated with the patient. Source: patient Medical history: Reports: arthritis, coronary artery disease, hyperlipidemia, hypertension, renal disease Surgical history: Reports: angioplasty/stent, appendectomy, cataract, hysterectomy Psychiatric history: Reports: no psych history - Social History Smoking Status: Never smoker Smokeless Tobacco Status: No Alcohol use: Reports: none Drug use: Reports: none Physical Exam - General Limitations: no limitations General appearance: alert, in no apparent distress - Head Head exam: atraumatic, normocephalic, normal inspection - Eye Eye exam: Present: normal appearance, PERRL, EOMI - ENT ENT exam: normal exam, mucous membranes moist - Neck Neck exam: Present: full ROM, trachea midline, other (Right sided bandage from central line placement) - Chest Chest inspection: Present: normal inspection, symmetric chest wall rise - Respiratory Respiratory exam: Present: normal lung sounds bilaterally - Cardiovascular Cardiovascular exam: Present: regular rate, normal rhythm, normal heart sounds - Abdominal Exam Abdominal exam: Present: soft, Non-Tender. Absent: tenderness, distention, guarding, rebound, rigidity - Extremities Exam Extremities exam: Present: normal inspection, full ROM. Absent: tenderness, pedal edema - Neurological Exam Neurological exam: Present: alert, oriented X3. Absent: motor sensory deficit - Psychiatric Psychiatric exam: Present: normal affect, normal mood - Skin Skin exam: Present: warm, dry, intact, normal color Course Course Narrative: Patient was hypertensive on initial presentation. We will continue to monitor. Patient's physical exam was fairly benign. Heart regular rate and rhythm, lungs were clear to auscultation, abdominal exam was benign. We will obtain CBC and BMP for reassessment along with urinalysis and then admit patient for further care. 18:22 Cr. 4.93. GFR 8. Patient unable to give urine sample at this time. We will admit to hospitalist for worsening renal function, consult to Dr. Ortiz for evaluation for dialysis. Hospitalist paged. 19:[address] Anne has accepted for admission. He did not request any current intervention for BP in ED, BP 180/90. Currently asymptomatic. Vital Signs Temperature 98.1 F 10/19/16 16:20 Pulse Rate 66 10/19/16 16:20 Respiratory Rate 18 10/19/16 16:20 Blood Pressure 193/101 10/19/16 16:20 O2 Sat by Pulse Oximetry 94 10/19/16 16:20 Temperature 98.1 F 10/19/16 16:20 Pulse Rate 71 10/19/16 18:32 Respiratory Rate 18 10/19/16 18:32 Blood Pressure 173/88 10/19/16 18:32 O2 Sat by Pulse Oximetry 93 10/19/16 18:32 Oxygen Delivery Oxygen Delivery Room Air Medical Decision Making - MDM Narrative Medical decision making narrative: I examined this patient and my medical decision-making was reviewed with the BIN TRIPPER OPERATOR/PA/Advanced Practice Nurse/Resident Physician. I agree with the documented findings, disposition and treatment plan as described except to the extent set forth below. Patient was seen and evaluated on arrival by myself and , I agree with his evaluation and management plan, I supervised the care of the patient outstay. Patient's had worsening renal disease. She is not a dialysis patient yet. Her risk consultant Center in today. She says she still making urine. When repeat her labs are done yesterday and will have something there that to check urinalysis and admit. She is in agreement with plan. Patient was hypertensive on initial presentation. We will continue to monitor. Patient's physical exam was fairly benign. Heart regular rate and rhythm, lungs were clear to auscultation, abdominal exam was benign. We will obtain CBC and BMP for reassessment along with urinalysis and then admit patient for further care. 18:22 Cr. 4.93. GFR 8. Patient unable to give urine sample at this time. We will admit to hospitalist for worsening renal function, consult to Dr. Ortiz for evaluation for dialysis. Hospitalist paged. 19:[address] Anne has accepted for admission. He did not request any current intervention for BP in ED, BP 180/90. Currently asymptomatic. - Medical Records Medical records reviewed: Yes I reviewed the patient's medical records. - Lab Data Lab results reviewed: Yes I reviewed the patient's lab results. Result diagrams: 10/19/16 17:21 10/19/16 17:21 Lab Results 10/19/16 10/19/16 10/19/16 Range/Units 17:21 17:21 18:00 WBC 7.6 (4.3-11.1) K/mcL RBC 3.33 L (3.82-4.97) M/mcL Hgb 9.4 L (11.5-15.4) g/dL Hct 30.1 L (35.3-44.9) % MCV 90.4 (83.0-100.0) fL MCH 28.2 (28.0-33.3) pg MCHC 31.2 L (31.6-35.5) g/dL RDW 14.9 H (11.5-14.5) % Plt Count 281 (140-400) K/mcL MPV 9.2 L (9.4-12.4) fL Immature Gran % 0.4 (0-4) % Seg Neutrophils % 74.3 % Lymphocytes % 11.3 % Monocytes % 8.8 % Eosinophils % 3.8 % Basophils % 1.4 % Neutrophils # 5.6 (1.6-8.9) K/mcL Lymphocytes # 0.9 (0.6-4.6) K/mcL Monocytes # 0.7 (0.0-1.3) K/mcL Eosinophils # 0.3 (0.0-0.6) K/mcL Basophils # 0.1 (0.0-0.2) K/mcL Immature Plt Fraction 2.9 (1.1-6.1) % Sodium 141 (136-145) mEq/L Potassium 4.0 (3.5-4.5) mEq/L Chloride 102 (98-109) mEq/L Carbon Dioxide 28 (19-29) mEq/L BUN 35 H (7-20) mg/dL Creatinine 4.93 H (0.57-1.11) mg/dL Est GFR ( Amer) 10 L (> 60) Est GFR (Non-Af Amer) 8 L (> 60) BUN/Creatinine Ratio 7 (6-26) Glucose 99 (70-99) mg/dL Calculated Osmolality 300 (280-300) Calcium 8.7 (8.6-10.8) mg/dL Urine Color Yellow (Yellow) Urine Clarity Cloudy A (Clear) Urine pH 6.0 (5.0-8.0) pH Units Ur Specific [place] 1.012 (1.010-1.025) Urine Protein 30 H (Neg-Trace) mg/dL Urine Glucose (UA) Normal (Normal) mg/dL Urine Ketones Negative (Negative) mg/dL Urine Blood Small H (Negative) Urine Nitrite Negative (Negative) Urine Bilirubin Negative (Negative) Urine Urobilinogen Normal (Normal) mg/dL Ur Leukocyte Esterase Trace H (Negative) Urine Microscopic RBC 15-30 H (0-3) per hpf Urine Microscopic WBC 0-3 (0-3) per hpf Ur Squamous Epith Cells Moderate H (None-Few) per lpf Urine Bacteria Few (None-Few) per hpf Hyaline Casts None Seen (None-Few) per lpf Urine Yeast Test Not Performed Ur Culture Indicated? YES A (NO) Kirit - Kirit Situation: Demographics, MOA Background: Presenting Complaint, Relevant PMH, Meds, & Allergies Assessment: Vital Signs, Course and respsone to treatment, Exam Concerns, Patient/Family Expectation, Pertinant Lab Results Recommendation: Barrier(s) to disposition, Recommendation based on pending studies, treatments, or consults [email or web address].Naya Report Given to: Dr. Omid Beth Repor Time: 19:47
[2016-10-19 17:30] LABS: Basophils # 0.1 K/mcL (0.0-0.2); Basophils % 1.4 %; Eosinophils # 0.3 K/mcL (0.0-0.6); Eosinophils % 3.8 %; Hematocrit 30.1 % (35.3-44.9); Hemoglobin 9.4 g/dL (11.5-15.4); Immature Granulocytes % 0.4 % (0-4); Immature Platelets 2.9 % (1.1-6.1); Lymphocytes # 0.9 K/mcL (0.6-4.6); Lymphocytes % 11.3 %; Mean Corpuscular HGB Conc 31.2 g/dL (31.6-35.5); Mean Corpuscular Hemoglobin 28.2 pg (28.0-33.3); Mean Corpuscular Volume 90.4 fL (83.0-100.0); Mean Platelet Volume 9.2 fL (9.4-12.4); Monocytes # 0.7 K/mcL (0.0-1.3); Monocytes % 8.8 %; Neutrophils # 5.6 K/mcL (1.6-8.9); Platelet Count 281 K/mcL (140-400); Red Blood Count 3.33 M/mcL (3.82-4.97); Red Cell Distribution Width 14.9 % (11.5-14.5); Segmented Neutrophils % 74.3 %
[2016-10-19 17:44] LABS: Calcium 8.7 mg/dL (8.6-10.8)
[2016-10-19 18:21] LABS: Bilirubin,Urine Negative (Negative); Blood,Urine Small (Negative); Clarity,Urine Cloudy (Clear); Color,Urine Yellow (Yellow); Glucose,Urine (UA) Normal (Normal); Ketones,Urine Negative (Negative); Leukocyte Esterase,Urine Trace (Negative); Nitrite,Urine Negative (Negative); Protein,Urine 30 mg/dL (Neg-Trace); Specific Gravity,Urine 1.012 (1.010-1.025); Urobilinogen,Urine Normal (Normal)
[2016-10-19 18:23] LABS: Hyaline Casts,Urine None Seen per lpf (None-Few)
[2016-10-19 18:38] LABS: RBC,Urine 15-30 per hpf (0-3); Squamous Epithelial Cell,Urine Moderate per lpf (None-Few)
[2016-10-19 18:39] LABS: Bacteria,Urine Few per hpf (None-Few); WBC,Urine 0-3 per hpf (0-3)
[2016-10-19] MEDS ORDERED: Acetaminophen 325 MG TABLET PO PRN (21:03)
[2016-10-19] MEDS ORDERED: Ondansetron 4 MG/2 ML VIAL IVP PRN (21:03)
[2016-10-19] MEDS ORDERED: Naloxone 0.4 MG/ML INJ IVP PRN (21:03)
[2016-10-19] MEDS ORDERED: Saline Nasal Spray 44 ML BOTTLE NS PRN (21:13)
[2016-10-19] MEDS ORDERED: Nitroglycerin 0.4 MG TAB.SUBL SL PRN (21:13)
[2016-10-19] MEDS ORDERED: 0.9 % Sodium Chloride 1,000 ML IVC SCH (21:15)
--- NOTE | 2016-10-19 21:16 | Internal Med History&Physical ---
Date of Encounter: 10/20/16 Time of Encounter: 21:00 Assessment and Plan (1) Acute on chronic renal failure Current visit: Yes Status: Acute Patient has worsening renal function based on a chronic stage IV CKD. Etiology is undetermined. Urine output generally acceptable. - Place patient on IV fluid for hydration. - Closely monitor renal function. - Hold diuretics and losartan. - Avoid nephrotoxic medication. - Nephrology is on case. - Patient is aware that she may end up with long-term hemodialysis. (2) CAD (coronary artery disease) Current visit: No Status: Chronic Stable, continue home medication. Qualifiers: Coronary Disease-Associated Artery/Lesion type: [place] artery [place] vs. transplanted heart: [place] heart Associated angina: with unstable angina Qualified Code(s): I25.110 - Atherosclerotic heart disease of [place] coronary artery with unstable angina pectoris (3) HTN (hypertension) Current visit: No Status: Chronic Stable. Will hold losartan and diuretics because of worsening renal function. Close monitor blood pressure. Hydralazine IV as needed. Qualifiers: Hypertension type: essential hypertension Qualified Code(s): I10 - Essential (primary) hypertension (4) A-fib Current visit: No Status: Acute History of A. fib. Right now sinus rhythm. On Corag for rate control. Not on anticoagulation right now, most likely due to recent surgery. On aspirin. Qualifiers: Atrial fibrillation type: paroxysmal Qualified Code(s): I48.0 - Paroxysmal atrial fibrillation (5) Bilateral lower extremity edema Current visit: No Status: Acute Chronic. Patient is on diuretics, which is on hold now because of worsening renal function. Internal Medicine - H&P: HPI Chief complaint: Worsen renal function Admitted From: Home Plans for Post Hospital Care: Home History of present illness: Ms. Strickland is a 86 year old female with a known history of CKD sent to ER from her nephrology Dr. Ortiz's office for worsening renal function. Patient has recently discharged from hospital. She has a long and complicated hospitalization course for SBO recently. During hospitalization, her kidney function getting worse and she had to have temporarily hemodialysis during last hospitalization. She was discharge from last Monday and follow up with nephrology today. Her creatinine level increased from 3.17 to 5.29. She was advised to go to emergency room and be admitted for further management. Patient denies chest pain, shortness of breath, abdominal pain, nausea, and vomiting. She had no fever. She has a mild nonproductive cough. She has chronic leg swelling bilaterally. I discussed with patient for code status the emergency room. She is full code. Past Med Surg Social Fam HX - Past Medical History Medical history: arthritis, coronary artery disease, hyperlipidemia, hypertension, renal disease Psychiatric history: no psych history - Past Surgical History Surgical History: angioplasty/stent, appendectomy, cataract, hysterectomy - Social History Smoking Status: Never smoker Smokeless Tobacco Status: No Alcohol use: none Drug use: none - Family History Brother Adopted: No Family Member Ethnicity: Non- Living Status: Hx Family Cardiac Disorders: Yes Hx Family Respiratory Disorders: No Hx Family Cancer: Yes Hx Family GI Disorders: No Hx Family Endocrine Disorder: Yes Hx Family Neuromuscular Disorders: No Hx Family Neurologic Disorders: No Hx Family HEENT Disorders: No Hx Family Autoimmune Disorders: No Internal Medicine - H&P: Meds Aspirin 81 mg PO DAILY 04/06/15 [History] Atorvastatin [Lipitor] 40 mg PO DAILY 04/06/15 [History] Isosorbide DInitrate [Isosorbide Dinitrate] 20 mg PO TID 04/06/15 [History] Nitroglycerin 0.4 mg SL Q5MIN PRN 04/06/15 [History] HydrALAZINE 50 mg PO TID #0 04/07/15 [Rx] Beclomethasone Diprop 40mcg [QVAR 40 mcg] 1 puff IH BID 02/02/16 [History] Ipratropium/Albuterol Neb [Duoneb] 3 ml IH TID 02/02/16 [History] Oxygen 3 l NS HS 02/02/16 [History] Carvedilol [Coreg] 25 mg PO BID PRN 09/16/16 [History] Cyanocobalamin (B-12) [Vitamin B12] 1,000 mcg PO DAILY 09/16/16 [History] Ergocalciferol (VITAMIN D2) [Vitamin D2] 50,000 unit PO QWEEK 09/16/16 [History] Ondansetron ODT [Zofran ODT] 4 mg PO TID PRN 09/16/16 [History] Darbepoetin [Aranesp] 40 mcg SQ QWEEK 30 Days 10/13/16 [Rx] Omeprazole [PriLOSEC] 20 mg PO DAILY@0630 30 Days 10/13/16 [Rx] Saline Nasal [place] [[place] Nasal [place]] 2 spray NS Q2H PRN 30 Days 10/13/16 [Rx] Chlorthalidone 25 mg PO QAM 10/19/16 [History] Ferrous Sulfate [Ferrous Sulfate] 325 mg PO DAILY 10/19/16 [History] Furosemide [Lasix] 40 mg PO Q48H 10/19/16 [History] Losartan Potassium [Cozaar] 50 mg PO BID 10/19/16 [History] Allergies amlodipine [From [facility]] Allergy (Verified 10/19/16 18:26) SWELLING IN LEGS lisinopril Allergy (Verified 10/19/16 18:26) Cough All Systems PM: A 10-system review of systems was performed and is negative for pertinent findings except as documented above in the HPI. - Constitutional Vitals: Temp Pulse Resp BP Pulse Ox 98.1 F 71 18 182/72 93 10/19/16 16:20 10/19/16 18:32 10/19/16 20:16 10/19/16 20:16 10/19/16 18:32 - Head Head exam: Present: atraumatic, normocephalic - Eye Eye exam: Present: PERRL, conjuntiva pink, sclera anicteric Pupils: Present: PERRL - Neck Neck exam general surgery: Present: supple, trachea midline. Absent: lymphadenopathy - Respiratory Respiratory exam: Present: CTAB. Absent: accessory muscle use, rales, rhonchi, wheezes - Cardiovascular Cardiovascular exam: Present: RRR, +S1, +S2. Absent: diastolic murmur, gallop, rubs, systolic murmur - GI/Abdominal GI/Abdominal exam: Present: normal bowel sounds, soft, no peritoneal signs. Absent: distended, tenderness - Extremities Exam Extremities exam: Present: pedal edema (Bilateral leg swelling up to knee), warm , radial pulses palpable and symetrical. Absent: calf tenderness, cyanotic - Neurological Exam Neurological exam: Present: CN II-XII intact, oriented X3, no focal deficits. Absent: pronater drift, facial droop, speech deficit - Skin Skin exam: Present: dry, intact Internal Med - H&P Results - Labs CBC & Chem 7: 10/19/16 17:21 10/19/16 17:21
[2016-10-20 03:43] LABS: Basophils # 0.1 K/mcL (0.0-0.2); Eosinophils # 0.3 K/mcL (0.0-0.6); Eosinophils % 3.1 %; Hematocrit 27.1 % (35.3-44.9); Hemoglobin 8.4 g/dL (11.5-15.4); Immature Granulocytes % 0.6 % (0-4); Lymphocytes # 0.8 K/mcL (0.6-4.6); Mean Corpuscular Hemoglobin 28.5 pg (28.0-33.3); Mean Corpuscular Volume 91.9 fL (83.0-100.0); Mean Platelet Volume 9.9 fL (9.4-12.4); Monocytes # 0.9 K/mcL (0.0-1.3); Monocytes % 10.6 %; Neutrophils # 6.2 K/mcL (1.6-8.9); Platelet Count 233 K/mcL (140-400); Red Blood Count 2.95 M/mcL (3.82-4.97); Segmented Neutrophils % 74.7 %
[2016-10-20 03:53] LABS: Alanine Aminotransferase < 6 Units/L (0-55); Albumin 2.1 g/dL (3.5-5.0); Albumin/Globulin Ratio 0.6 (1.1-2.2); Alkaline Phosphatase 83 Units/L (38-126); Aspartate Amino Transferase 11 Units/L (5-34); BUN/Creatinine Ratio 7 (6-26); Bilirubin,Total 0.3 mg/dL (0.2-1.2); Blood Urea Nitrogen 37 mg/dL (7-20); Calcium 8.3 mg/dL (8.6-10.8); Carbon Dioxide 29 mEq/L (19-29); Chloride 104 mEq/L (98-109); Globulin 3.6 g/dL (2.4-3.5); Glucose 97 mg/dL (70-99); Magnesium 1.2 mg/dL (1.6-2.6); Osmolality,Calculated 299 (280-300); Phosphorous 5.1 mg/dL (2.3-4.7); Sodium 140 mEq/L (136-145); Total Protein 5.7 g/dL (6.0-8.3); eGFR For African Americans 10 (> 60); eGFR For Non-African Americans 8 (> 60)
[2016-10-20] MEDS: *HR* Heparin 5,000 UNIT/ML VIAL SQ SCH ×2 (05:19→17:12)
[2016-10-20] MEDS: Aspirin 81 MG TAB.CHEW PO SCH (08:23)
[2016-10-20] MEDS: Cyanocobalamin (B-12) 1,000 MCG TABLET PO SCH (08:23)
[2016-10-20] MEDS: hydrALAZINE 10 MG TABLET PO SCH ×3 (08:23→21:03)
--- NOTE | 2016-10-20 09:15 | Nephrology Consult Note ---
Date of Encounter: 10/20/16 Time of Encounter: 09:45 Assessment and Plan (1) ATN (acute tubular necrosis) Current Visit: No Status: Acute Nonoliguric EBONIE, presentation supportive of ATN. Patient with worsening renal function from chronic stage IV CKD. Etiology unclear. Urine output generally acceptable. Closely monitor renal function and electrolytes. Hold diuretics and losartan. Avoid nephrotoxic medication. Patient is aware that she may end up with long-term hemodialysis. Concern for fluid overload and worsening kidney function if we attempt to diuresis with lasix. Discussed options with patient and concerning restarting temporary dialysis vs option of PO/IV diuretics. Patient agreeable to dialysis, will arrange for temporary catheter placement today and initiation of dialysis. (2) Anemia Current Visit: No Status: Acute Patient received multiple transfusion on recent admission. No signs of active bleeding. Aranesp given on 10/07/16. Consider continuation of EPO with dialysis. Iron infusion completed 10/10/16. Goal Hgb 10-11 Continue to monitor Hgb, transfuse as needed. Qualifiers: Anemia type: other cause Other causes of anemia: chronic disease, kidney Qualified Code(s): N18.9 - Chronic kidney disease, unspecified; D63.1 - Anemia in chronic kidney disease (3) CKD (chronic kidney disease), stage III Current Visit: No Status: Chronic (4) Dyspnea Current Visit: No Status: Resolved Concern for fluid overload, ordering CXR. Patient requiring 3 LPM of supplemental O2 currently. Qualifiers: Dyspnea type: orthopnea Qualified Code(s): R06.01 - Orthopnea (5) HTN (hypertension) Current Visit: No Status: Chronic Currently holding losartan and diuretics in the setting of EBONIE/ATN. Continue to monitor blood pressure. Hydralazine IV as needed. Qualifiers: Hypertension type: essential hypertension Qualified Code(s): I10 - Essential (primary) hypertension (6) Paroxysmal a-fib Current Visit: No Status: Chronic History of A. fib. Currently in sinus rhythm. On Coreg for rate control. Not on anticoagulation. Continue aspirin. (7) Vitamin D deficiency Current Visit: No Status: Acute Found to be def on previous admission, cont 50,000 units Vit D weekly. (8) Bilateral lower extremity edema Current Visit: No Status: Acute Patient appears fluid overloaded with dyspnea and BLE edema. Planning to begin temporary dialysis with gentle diuresis. History of Present Illness - Reason for Consult Consult date: 10/20/16 Acute Kidney Injury, Chronic Kidney Disease Requesting physician: Shaun Núñez - Chief Complaint EBONIE on CKD - History of Present Illness Ms. Strickland is a 86 year old female, discharged approx 1 week ago after complicated hospitalization including bowel obstruction and surgical intervention, in addition developed EBONIE with concerns for ATN for which she received temporary dialysis, discharged with a plan for close follow up. She was discharge 5 days ago and was seen in nephrology clinic, by Dr Ortiz, yesterday. Her creatinine level increased from 3.[address] Ortiz patient was evaulated in the ED and admitted for further evaluation and treatment of worsening EBONIE. Concerns with fluid overload, dyspnea, and EBONIE that patient's kidney would not handle diuresis as outpatient. She states her lower extremity edema has been consistent with intermittent shortness of breath. Past Med Surg Social Fam HX - Past Medical History Attestation: Yes The following information was validated with the patient. Source: patient, old records reviewed, obtained from family, nursing notes reviewed Medical history: arthritis, coronary artery disease, hyperlipidemia, hypertension, renal disease Psychiatric history: no psych history - Past Surgical History Surgical History: angioplasty/stent, appendectomy, cataract, hysterectomy - Social History Smoking Status: Never smoker Smokeless Tobacco Status: No Alcohol use: none Drug use: none - Family History Brother Adopted: No Family Member Ethnicity: Non- Living Status: Hx Family Cardiac Disorders: Yes Hx Family Respiratory Disorders: No Hx Family Cancer: Yes Hx Family GI Disorders: No Hx Family Endocrine Disorder: Yes Hx Family Neuromuscular Disorders: No Hx Family Neurologic Disorders: No Hx Family HEENT Disorders: No Hx Family Autoimmune Disorders: No Medications and Allergies Aspirin 81 mg PO DAILY 04/06/15 [History] Atorvastatin [Lipitor] 40 mg PO DAILY 04/06/15 [History] Isosorbide DInitrate [Isosorbide Dinitrate] 20 mg PO TID 04/06/15 [History] Nitroglycerin 0.4 mg SL Q5MIN PRN 04/06/15 [History] HydrALAZINE 50 mg PO TID #0 04/07/15 [Rx] Beclomethasone Diprop 40mcg [QVAR 40 mcg] 1 puff IH BID 02/02/16 [History] Ipratropium/Albuterol Neb [Duoneb] 3 ml IH TID 02/02/16 [History] Oxygen 3 l NS HS 02/02/16 [History] Carvedilol [Coreg] 25 mg PO BID PRN 09/16/16 [History] Cyanocobalamin (B-12) [Vitamin B12] 1,000 mcg PO DAILY 09/16/16 [History] Ergocalciferol (VITAMIN D2) [Vitamin D2] 50,000 unit PO QWEEK 09/16/16 [History] Ondansetron ODT [Zofran ODT] 4 mg PO TID PRN 09/16/16 [History] Darbepoetin [Aranesp] 40 mcg SQ QWEEK 30 Days 10/13/16 [Rx] Omeprazole [PriLOSEC] 20 mg PO DAILY@0630 30 Days 10/13/16 [Rx] Saline Nasal [place] [[place] Nasal [place]] 2 spray NS Q2H PRN 30 Days 10/13/16 [Rx] Chlorthalidone 25 mg PO QAM 10/19/16 [History] Ferrous Sulfate [Ferrous Sulfate] 325 mg PO DAILY 10/19/16 [History] Furosemide [Lasix] 40 mg PO Q48H 10/19/16 [History] Losartan Potassium [Cozaar] 50 mg PO BID 10/19/16 [History] Allergies amlodipine [From Norvasc] Allergy (Verified 10/19/16 18:26) SWELLING IN LEGS lisinopril Allergy (Verified 10/19/16 18:26) Cough Review of Systems Constitutional: fatigue, no fever(s) Nose, mouth and throat: no dizziness, no dysphagia Cardiovascular: dyspnea, edema, no chest pain Respiratory: dyspnea Gastrointestinal: no abdominal pain Genitourinary Female: no dysuria Neurological: no syncope Exam - Vital Signs Vital signs: Initial Vital Signs Temp Pulse Resp BP Pulse Ox 98.1 F 66 18 193/101 94 10/19/16 16:20 10/19/16 16:20 10/19/16 16:20 10/19/16 16:20 10/19/16 16:20 Vital Signs - Last 8 Hours Temp Pulse Resp BP Pulse Ox 10/20/16 07:35 98.7 F 69 18 148/69 97 10/20/16 05:10 97.9 F 17 152/71 95 Intake and Output 10/19/16 10/20/16 10/20/16 23:59 07:59 15:59 Intake Total 50 / 50 450 / 450 360 / 360 Output Total 350 / 350 200 / 200 Balance -300 / -300 450 / 450 160 / 160 Intake: IV Fluids 400 / 400 0.9 % Sodium Chloride 1, 400 / 400 000 ML @ 50 mls/hr IVC . Q20H JAMIL Rx#:[id number] Oral 50 / 50 50 / 50 360 / 360 Output: Urine 350 / 350 200 / 200 Other: Meal Breakfast Percent of Meal Consumed 5% # Voids 1 Weight 73 kg 72.7 kg Blood Glucose* 139 89 Patient Weight 10/20/16 23:59 Weight 72.7 kg - General Appearance General appearance: well-developed, well-nourished, appears started age EENT: ATNC, mucous membranes moist, hearing intact, vision intact Neck: supple Respiratory: clear Cardiology: edema (2+ BLE edema), regular rate, regular rhythm Gastrointestinal: no tenderness, no guarding Integumentary: no rash, warm and dry Neurologic: no focal deficit, alert and oriented x3 Musculoskeletal: no deformities, no erythema, no cyanosis Psychiatric: mood/affect appropriate, cooperative Results - Lab Results 10/20/16 03:20 10/20/16 03:20 Most recent lab results Calcium 8.3 mg/dL (8.6-10.8) L 10/20/16 03:20 Phosphorus 5.1 mg/dL (2.3-4.7) H 10/20/16 03:20 Magnesium 1.2 mg/dL (1.6-2.6) L 10/20/16 03:20 Consult Discharge Plan - Plan Referrals: William Galvan MD [Primary Care Provider] - (Patient most likely will go to [facility])
[2016-10-20] MEDS: Ipratropium/Albuterol Neb 3 ML IH SCH ×3 (10:26→22:55)
[2016-10-20] MEDS: Beclomethasone 40mcg MDI IH SCH ×2 (10:27→22:55)
[2016-10-20] MEDS ORDERED: 0.9 % Sodium Chloride 250 ML IVC PRN (12:06)
[2016-10-20] MEDS ORDERED: *HR* Heparin 10,000 UNIT/10 ML VIAL IV PRN (12:06)
[2016-10-20] MEDS ORDERED: Magnesium Sulfate 2 GM in D5% in Water 100 ML IVPB ONE (12:21)
[2016-10-20] MEDS ORDERED: Heparin 1,000 UNITS/500 mL NS 500 ML ONE (12:31)
[2016-10-20 13:02] LABS: Hepatitis B Surface Antigen Nonreactive (Nonreactive)
--- NOTE | 2016-10-20 13:16 | IR Procedure Note ---
Date of procedure: 10/20/16 Consent Obtained: Written consent Timeout: Correct patient and procedure verified, Time out performed, Skin prep completed Local anesthetic: Lidocaine 1% Indications: ARF Procedure Performed: Temp dialysis catheter placement Results/Findings: RIJ 12F 20cm temp dialysis catheter placement Complications: None; Tolerated procedure well (Monitor on floor)
--- NOTE | 2016-10-20 14:07 | Internal Med Progress Note ---
Date of Encounter: 10/20/16 Time of Encounter: 14:05 - Assessment and plan (1) Acute on chronic renal failure Current Visit: Yes Status: Acute Assessment and plan: Nephrology input appreciated Patient receiving hemodialysis today will closely monitor renal function and determine the need for roasterman HD depending on her response to HD will obtain 2D echo to evaluate LVEF given worsening of LE edema (2) HTN (hypertension) Current Visit: No Status: Chronic Assessment and plan: Noted to be hypertensive holding Losartan and Lasix given renal function continue Carvedilol, Chlorthalidone Added Hydralazine 10mg IV q6h PRN SBP>160 will closely monitor BP and adjust medications accordingly Qualifiers: Hypertension type: essential hypertension Qualified Code(s): I10 - Essential (primary) hypertension (3) A-fib Current Visit: No Status: Acute Assessment and plan: Rate controlled with cardizem ASA for CVA ppx not on anticoagulation given history of recent surgery Qualifiers: Atrial fibrillation type: paroxysmal Qualified Code(s): I48.0 - Paroxysmal atrial fibrillation (4) Anemia Current Visit: No Status: Acute Assessment and plan: H&H low but acceptable no acute bleeding reported at this time will continue to closely monitor Qualifiers: Anemia type: other cause Other causes of anemia: chronic disease, kidney Qualified Code(s): N18.9 - Chronic kidney disease, unspecified; D63.1 - Anemia in chronic kidney disease (5) CAD (coronary artery disease) Current Visit: No Status: Chronic Assessment and plan: No signs of angina present continue home medications Qualifiers: Coronary Disease-Associated Artery/Lesion type: [place] artery [place] vs. transplanted heart: [place] heart Associated angina: with unstable angina Qualified Code(s): I25.110 - Atherosclerotic heart disease of [place] coronary artery with unstable angina pectoris (6) DVT prophylaxis Current Visit: No Status: Acute Assessment and plan: Heparin sQ - Subjective Interval history: Patient seen and examined in hemodialysis. Resting comfortably in bed and reports of feeling well and in no acute distress at this time. Temporary HD cath placed by IR and patient receiving HD today. - Constitutional Vitals: Temp Pulse Resp BP Pulse Ox 97.8 F 62 16 166/67 98 10/20/16 11:44 10/20/16 12:26 10/20/16 11:44 10/20/16 12:26 10/20/16 11:44 General appearance: Present: cooperative, A&O X 3, pleasant, no acute distress, answers questions appropriately - Head Head exam: Present: atraumatic, normocephalic - Eye Eye exam: Present: normal appearance, conjuntiva pink, sclera anicteric - Respiratory Respiratory exam: Present: CTAB. Absent: respiratory distress, wheezes, tachypnea - Cardiovascular Cardiovascular exam: Present: RRR, +S1, +S2. Absent: diastolic murmur, gallop, rubs, systolic murmur - GI/Abdominal GI/Abdominal exam: Present: normal bowel sounds, soft, no peritoneal signs. Absent: distended, tenderness - Extremities Exam Extremities exam: Present: warm, radial pulses palpable and symetrical ( bilateral lower extremity 2+pitting edema ). Absent: calf tenderness - Neurological Exam Neurological exam: Present: alert, oriented X3, no focal deficits - Psychiatric Psychiatric exam: Present: normal affect, normal mood Internal Medicine: Result - Labs CBC & Chem 7: 10/20/16 03:20 10/20/16 03:20 Labs: Short CBC 10/20/16 Range/Units 03:20 WBC 8.3 (4.3-11.1) K/mcL Hgb 8.4 L (11.5-15.4) g/dL Hct 27.1 L (35.3-44.9) % Plt Count 233 (140-400) K/mcL Neutrophils # 6.2 (1.6-8.9) K/mcL BMP 10/20/16 03:20 Sodium 140 Potassium 4.0 Chloride 104 Carbon Dioxide 29 BUN 37 H Creatinine 5.03 H Glucose 97 Calcium 8.3 L Liver Function 10/20/16 Range/Units 03:20 Total Bilirubin 0.3 (0.2-1.2) mg/dL AST 11 (5-34) Units/L ALT < 6 (0-55) Units/L Alkaline Phosphatase 83 (38-126) Units/L Albumin 2.1 L (3.5-5.0) g/dL - Impressions Impressions Guidance Needle Placement Ultrasound 10/20/16 00:00 IMPRESSION: 1. Right internal jugular vein temporary dialysis catheter placement as discussed above. D/ / Jose Ruiz MD / Jose Ruiz MD Interpreting Provider: Jose Ruiz MD Insertion Non-Tunneled Catheter 10/20/16 00:00 IMPRESSION: 1. Right internal jugular vein temporary dialysis catheter placement as discussed above. D/ / Jose Ruiz MD / Jose Ruiz MD Interpreting Provider: Jose Ruiz MD Chest X-Ray 10/20/16 08:55 IMPRESSION: Interval placement of right internal jugular central venous catheter with the tip overlying the right atrium. No pneumothorax. Mild congestive heart failure. D/ / Rosa Isela Shelton MD / Rosa Isela Shelton MD Interpreting Provider: Rosa Isela Shelton MD Consult Discharge Plan - Plan Referrals: William Galvan MD [Primary Care Provider] - (Patient most likely will go to ECF)
[2016-10-20] MEDS ORDERED: NON-FORMULARY MEDICATION 1 EACH EACH (Oxygen [Oxygen] 3 L) NS SCH (21:00)
[2016-10-20] MEDS: Silvasorb 44.4 ML TUBE TP SCH (21:03)
[2016-10-21 03:56] LABS: Basophils # 0.1 K/mcL (0.0-0.2); Basophils % 0.9 %; Eosinophils # 0.3 K/mcL (0.0-0.6); Eosinophils % 4.5 %; Hematocrit 24.5 % (35.3-44.9); Hemoglobin 7.5 g/dL (11.5-15.4); Immature Granulocytes % 0.4 % (0-4); Lymphocytes # 0.9 K/mcL (0.6-4.6); Lymphocytes % 15.4 %; Mean Corpuscular HGB Conc 30.6 g/dL (31.6-35.5); Mean Corpuscular Hemoglobin 28.5 pg (28.0-33.3); Mean Corpuscular Volume 93.2 fL (83.0-100.0); Mean Platelet Volume 9.9 fL (9.4-12.4); Monocytes # 0.6 K/mcL (0.0-1.3); Monocytes % 11.2 %; Neutrophils # 3.7 K/mcL (1.6-8.9); Platelet Count 175 K/mcL (140-400); Red Blood Count 2.63 M/mcL (3.82-4.97); Segmented Neutrophils % 67.6 %
[2016-10-21 04:06] LABS: Calcium 7.9 mg/dL (8.6-10.8); Magnesium 1.5 mg/dL (1.6-2.6); Potassium 4.1 mEq/L (3.5-4.5)
[2016-10-21 04:08] LABS: % Iron Saturation 16 % (15-50); Iron 22 mcg/dL (50-170); Transferrin 99 mg/dL (180-382)
[2016-10-21 04:29] LABS: Ferritin 257 ng/ml (5-204)
[2016-10-21] MEDS: *HR* Heparin 5,000 UNIT/ML VIAL SQ SCH ×2 (05:38→18:30)
[2016-10-21] MEDS ORDERED: *HR* Heparin 10,000 UNIT/10 ML VIAL IV PRN (07:43)
[2016-10-21] MEDS ORDERED: 0.9 % Sodium Chloride 250 ML IVC PRN (07:43)
[2016-10-21] MEDS ORDERED: 0.9 % Sodium Chloride 1,000 ML PRIME SCH (07:45)
[2016-10-21] MEDS ORDERED: Magnesium Sulfate 1 GM in D5% in Water 100 ML IVPB ONE (08:04)
[2016-10-21] MEDS ORDERED: 0.9 % Sodium Chloride 2,000 ML ONE (08:05)
[2016-10-21] MEDS: Aspirin 81 MG TAB.CHEW PO SCH (08:25)
[2016-10-21] MEDS: Cyanocobalamin (B-12) 1,000 MCG TABLET PO SCH (08:25)
[2016-10-21] MEDS: Silvasorb 44.4 ML TUBE TP SCH (08:26)
[2016-10-21] MEDS: Beclomethasone 40mcg MDI IH SCH ×2 (10:20→22:05)
[2016-10-21] MEDS: Ipratropium/Albuterol Neb 3 ML IH SCH ×3 (10:20→22:04)
--- NOTE | 2016-10-21 10:52 | Nephrology Progress Note ---
Date of Encounter: 10/21/16 Time of Encounter: 10:35 - Assessment and Plan (1) ATN (acute tubular necrosis) Current Visit: No Status: Acute EBONIE, presentation suggestive of ATN. Patient with worsening renal function from chronic stage IV CKD. Etiology unclear. Closely monitor renal function and electrolytes. Hold diuretics and losartan. Avoid nephrotoxic medication. Patient is aware that she may end up with long-term hemodialysis. Concern with fluid overload and worsening kidney function if we attempt to diuresis with lasix. In depth discussion yesterday of options with patient and concerning restarting temporary dialysis vs option of PO/IV diuretics. Patient agreeable to dialysis, temporary catheter placement yesterday. Day 2/3 of initiated with HD. (2) Anemia Current Visit: No Status: Acute Patient received multiple transfusion(4) on recent admission. No signs of active bleeding. Aranesp given on 10/07/16. Consider continuation of EPO with dialysis. Iron infusion completed 10/10/16. Goal Hgb 10-11 Continue to monitor Hgb, transfuse as needed. Qualifiers: Anemia type: other cause Other causes of anemia: chronic disease, kidney Qualified Code(s): N18.9 - Chronic kidney disease, unspecified; D63.1 - Anemia in chronic kidney disease (3) CKD (chronic kidney disease), stage III Current Visit: No Status: Chronic (4) HTN (hypertension) Current Visit: No Status: Chronic Currently holding losartan and diuretics in the setting of EBONIE/ATN. Management per primary service. Qualifiers: Hypertension type: essential hypertension Qualified Code(s): I10 - Essential (primary) hypertension (5) Paroxysmal a-fib Current Visit: No Status: Chronic Management per primary service. Rate controlled with cardizem ASA for CVA ppx not on anticoagulation given history of recent surgery (6) Vitamin D deficiency Current Visit: No Status: Acute Continue Ergocalciferol 50,000 units weekly. (7) Bilateral lower extremity edema Current Visit: No Status: Acute Subjective Principal diagnosis: EBONIE on CKD Interval history: Patient seen and examined during dialysis today. Tolerating dialysis well, no complaints. Patient notes improvement in lower extremity edema and orthopnea. Objective - Vital Signs Vital signs: Vital Signs Temp Pulse Resp BP Pulse Ox 10/21/16 10:10 151/65 10/21/16 09:55 154/67 10/21/16 09:40 141/62 10/21/16 09:25 98.1 F 18 148/71 10/21/16 08:35 99 10/21/16 07:07 98.3 F 60 16 167/68 99 10/21/16 03:44 98.8 F 65 16 144/67 98 10/20/16 23:38 97.7 F 64 14 146/55 98 10/20/16 22:56 14 100 10/20/16 20:55 97.6 F 59 13 158/67 100 10/20/16 16:53 97.5 F L 56 16 157/70 99 10/20/16 16:29 98.1 F 18 155/66 10/20/16 16:10 155/66 10/20/16 16:05 146/69 10/20/16 15:50 155/69 10/20/16 15:35 154/67 10/20/16 15:20 160/73 10/20/16 15:05 154/67 10/20/16 14:50 151/64 10/20/16 14:35 145/68 10/20/16 14:20 152/68 10/20/16 14:05 97.6 F 18 157/74 10/20/16 12:26 62 166/67 10/20/16 11:44 97.8 F 73 16 170/77 98 Intake and Output 10/20/16 10/21/16 10/21/16 23:59 07:59 15:59 Intake Total 580 / 580 890 / 890 Output Total 2850 / 2850 75 / 75 0 / 0 Balance -2270 / -2270 -75 / -75 890 / 890 Intake: Oral 580 / 580 290 / 290 Intake, Rinseback and 600 / 600 Flushes Output: Urine 250 / 250 75 / 75 0 / 0 Total Dialysis Output 2600 / 2600 Other: Meal HAM SANDWICH Breakfast Percent of Meal Consumed 55% 100% # Voids 1 1 Weight 71.486 kg Blood Glucose* 145 103 Hemodialysis Net Fluid 2000 1077 Removed (mL) Patient Weight 10/21/16 23:59 Weight 71.486 kg - General Appearance General appearance: Present: well-developed, well-nourished, appears started age EENT: Present: ATNC, mucous membranes moist, hearing intact, vision intact Neck: Present: supple Respiratory: Present: clear Cardiology: Present: edema (2+ BLE edema), regular rate, regular rhythm Dialysis Vascular Access: Venous Catheter (RIJ) Integumentary: Present: no rash, warm and dry Neurologic: Present: no focal deficit, alert and oriented x3 Musculoskeletal: Present: no deformities, no erythema, no cyanosis Psychiatric: Present: mood/affect appropriate, cooperative - Lab 10/21/16 13:00 10/21/16 03:40 Most recent lab results Calcium 7.9 mg/dL (8.6-10.8) L 10/21/16 03:40 Phosphorus 4.0 mg/dL (2.3-4.7) 10/21/16 03:40 Magnesium 1.5 mg/dL (1.6-2.6) L 10/21/16 03:40 Consult Discharge Plan - Plan Referrals: William Galvan MD [Primary Care Provider] - (Patient most likely will go to ECF)
--- NOTE | 2016-10-21 10:57 | ECHO - Doppler Report ---
Echo with Saline Contrast Name: Nancy Strickland Date of Study: 10/20/2016 Date: 1930 Ht: 66.0 in Medical Record#: [id number] Age: 86 Wt: 160.0 lb Gender: Female BSA: 1.82 Order #: [id number] Location: [facility] Room #: [id number] Reading Physician: Mateo Kamara DO, [facility] Library Assistant: Sydnee Lorenzana Ordering Physician: Osorio Ortiz MD Primary Physician: William Gavlan MD Indications: Edema Impressions: LVEF 60%. Normal LV chamber size and function. Mild concentric left ventricular hypertrophy. Mild left ventricular diastolic dysfunction. Atypical septal motion consistent with bundle branch block. Normal right ventricular structure and function. No evidence of PFO with agitated saline contrast. Severe pulmonary hypertension. Estimated RVSP is 67 mmHg. Mild pulmonic regurgitation. Left Ventricular Wall Motion: Rest Echo Findings All wall segments showed normal motion. Findings: Study Quality * Technically adequate exam. ECG Findings * Sinus rhythm with BBB. Left Ventricle * LVEF 60%. * Normal LV chamber size and function. * Mild concentric left ventricular hypertrophy. * Mild left ventricular diastolic dysfunction. * Atypical septal motion consistent with bundle branch block. Right Ventricle * Normal right ventricular structure and function. Left Atrium * Moderately dilated left atrium. Right Atrium * Mildly dilated right atrium. Interatrial Septum * No evidence of PFO with agitated saline contrast. Aortic Valve * Trileaflet aortic valve. * Mildly sclerotic aortic valve leaflets. * No aortic regurgitation. * No aortic stenosis. Mitral Valve * Mildly thickened mitral valve leaflets. * Mild mitral annular calcification * Trace mitral regurgitation. * No mitral stenosis. Tricuspid Valve * Normal tricuspid valve structure and function. * Trace tricuspid regurgitation. * Severe pulmonary hypertension. * Estimated RVSP is 67 mmHg. * Estimated RA pressure is 10 mmHg. Pulmonic Valve * Normal pulmonic valve structure. * Mild pulmonic regurgitation. Aorta * Normally sized aortic root. Pericardium * There is a trivial pericardial effusion present. IVC * The IVC is dilated. * > 50% respiratory change Pulmonary Artery * Normal visualized portions of the main pulmonary artery. History Hypertension Hypercholesteremia Family History of CAD History of CAD/PTCA 08/10/2015 a Previous Echo was performed. Measurements: BP: 155/ 66 2D Normal Values RVIDd: 2.70 cm <2.7 cm IVSd: 1.20 cm 0.6 - 1.0 cm LVIDd: 4.80 cm 3.7 - 5.6 cm LVPWd: 1.20 cm 0.6 - 1.1 cm LVIDs: 2.60 cm 1.5 - 3.6 cm AO: 2.40 cm < 4.0 cm LA: 3.00 cm 2.0 - 4.0cm %FS: 45.80 cm >25 % LVOT Diam: 2.20 cm LA volume: 80 Mitral Valve Peak E:1.17 m/sec Peak A:1.16 m/sec E/A Ratio:1 Peak E' Lat Anthony:5.75 cm/s Peak E' Med Anthony:5.65 cm/s E/E' Lat Ratio:20.3 E/E' Med Ratio:20.7 Tricuspid Valve TV Regurg Peak Grad: 57.00mmHg TV Regurg Peak Anthony: 3.79m/sec Updated by Mateo Kamara DO, ALANA, KATLYN ZULETA on 10/21/2016 10:50:54 AM electronically signed on 10/21/2016 10:53:54 AM with status of Final Wall Motion Nagel: 1=Normal, 2=Hypokinesis, 3=Akinesis, 4=Dyskinesis, 5=Aneurysmal, 6=Hyperkinetic, X=Not Visualized (Blank)=Missing
[2016-10-21 11:06] LABS: Hepatitis B Surface Antibody 94.61 mIU/mL
[2016-10-21] MEDS: hydrALAZINE 10 MG TABLET PO SCH ×2 (12:47→14:05)
[2016-10-21 13:23] LABS: Hematocrit 29.4 % (35.3-44.9)
[2016-10-21 13:31] LABS: Hemoglobin 9.1 g/dL (11.5-15.4)
--- NOTE | 2016-10-21 15:23 | Internal Med Progress Note ---
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 Severe pulm htn, mild LVH, will continue RN VISITING for fluid removal at this time LE edema improved from previous day (2) HTN (hypertension) Current Visit: No Status: Chronic Assessment and plan: Noted to be hypertensive this morning, improved at this time holding Losartan and Lasix given renal function continue Carvedilol, Chlorthalidone Added Hydralazine 10mg IV q6h PRN SBP>160 will closely monitor BP and adjust medications accordingly Qualifiers: Hypertension type: essential hypertension Qualified Code(s): I10 - Essential (primary) hypertension (3) A-fib Current Visit: No Status: Acute Assessment and plan: Rate controlled with cardizem ASA for CVA ppx not on anticoagulation given history of recent surgery Qualifiers: Atrial fibrillation type: paroxysmal Qualified Code(s): I48.0 - Paroxysmal atrial fibrillation (4) Anemia Current Visit: No Status: Acute Assessment and plan: H&H low but acceptable no acute bleeding reported at this time will continue to closely monitor Qualifiers: Anemia type: other cause Other causes of anemia: chronic disease, kidney Qualified Code(s): N18.9 - Chronic kidney disease, unspecified; D63.1 - Anemia in chronic kidney disease (5) CAD (coronary artery disease) Current Visit: No Status: Chronic Assessment and plan: No signs of angina present continue home medications Qualifiers: Coronary Disease-Associated Artery/Lesion type: [place] artery [place] vs. transplanted heart: [place] heart Associated angina: with unstable angina Qualified Code(s): I25.110 - Atherosclerotic heart disease of [place] coronary artery with unstable angina pectoris (6) DVT prophylaxis Current Visit: No Status: Acute Assessment and plan: Heparin sQ (7) Hypomagnesemia Current Visit: Yes Status: Acute Assessment and plan: Mg supplemented continue to monitor electrolytes and replace as needed - Subjective Interval history: Patient seen and examined with family present at bedside. Resting comfortably in chair and reports of feeling well and denies any discomfort at this time. s/p HD day 2 today, tolerated HD well. - Constitutional Vitals: Temp Pulse Resp BP Pulse Ox 98.5 F 60 18 149/61 99 10/21/16 12:15 10/21/16 07:07 10/21/16 12:15 10/21/16 12:57 10/21/16 08:35 General appearance: Present: cooperative, A&O X 3, pleasant, no acute distress, answers questions appropriately - Head Head exam: Present: atraumatic, normocephalic - Eye Eye exam: Present: normal appearance, conjuntiva pink, sclera anicteric - Respiratory Respiratory exam: Present: CTAB. Absent: accessory muscle use, rales, rhonchi, wheezes - Cardiovascular Cardiovascular exam: Present: RRR, +S1, +S2. Absent: diastolic murmur, gallop, rubs, systolic murmur - GI/Abdominal GI/Abdominal exam: Present: normal bowel sounds, soft, no peritoneal signs. Absent: distended, tenderness - Extremities Exam Extremities exam: Present: pedal edema, warm, radial pulses palpable and symetrical. Absent: calf tenderness - Neurological Exam Neurological exam: Present: alert, oriented X3 - Psychiatric Psychiatric exam: Present: normal affect, normal mood Internal Medicine: Result - Labs CBC & Chem 7: 10/21/16 13:00 10/21/16 03:40 Labs: Short CBC 10/21/16 10/21/16 Range/Units 03:40 13:00 WBC 5.5 (4.3-11.1) K/mcL Hgb 7.5 L 9.1 L D (11.5-15.4) g/dL Hct 24.5 L 29.4 L (35.3-44.9) % Plt Count 175 (140-400) K/mcL Neutrophils # 3.7 (1.6-8.9) K/mcL BMP 10/21/16 03:40 Sodium 141 Potassium 4.1 Chloride 104 Carbon Dioxide 30 H BUN 30 H Creatinine 3.97 H Glucose 117 H Calcium 7.9 L Consult Discharge Plan - Plan Referrals: William Galvan MD [Primary Care Provider] - (Patient most likely will go to ECF)
[2016-10-21] MEDS: hydrALAZINE 25 MG TABLET PO SCH (21:59)
[2016-10-22 04:09] LABS: Basophils # 0.1 K/mcL (0.0-0.2); Basophils % 1.2 %; Eosinophils # 0.2 K/mcL (0.0-0.6); Hematocrit 23.7 % (35.3-44.9); Immature Granulocytes % 0.7 % (0-4); Immature Platelets 3.6 % (1.1-6.1); Lymphocytes # 1.1 K/mcL (0.6-4.6); Lymphocytes % 18.6 %; Mean Corpuscular HGB Conc 30.8 g/dL (31.6-35.5); Mean Corpuscular Hemoglobin 28.3 pg (28.0-33.3); Mean Corpuscular Volume 91.9 fL (83.0-100.0); Mean Platelet Volume 9.3 fL (9.4-12.4); Monocytes # 0.7 K/mcL (0.0-1.3); Neutrophils # 3.8 K/mcL (1.6-8.9); Platelet Count 152 K/mcL (140-400); Red Blood Count 2.58 M/mcL (3.82-4.97); Red Cell Distribution Width 14.8 % (11.5-14.5); Segmented Neutrophils % 63.5 %
[2016-10-22 04:11] LABS: Hemoglobin 7.3 g/dL (11.5-15.4)
[2016-10-22 04:25] LABS: Calcium 7.8 mg/dL (8.6-10.8); Magnesium 1.4 mg/dL (1.6-2.6); Phosphorous 2.8 mg/dL (2.3-4.7); Potassium 3.9 mEq/L (3.5-4.5)
[2016-10-22] MEDS: *HR* Heparin 5,000 UNIT/ML VIAL SQ SCH ×2 (06:04→17:58)
[2016-10-22] MEDS ORDERED: Magnesium Sulfate 2 GM in D5% in Water 100 ML IVPB ONE (07:39)
[2016-10-22] MEDS: Cyanocobalamin (B-12) 1,000 MCG TABLET PO SCH (07:54)
[2016-10-22] MEDS: Aspirin 81 MG TAB.CHEW PO SCH (07:54)
[2016-10-22] MEDS: Silvasorb 44.4 ML TUBE TP SCH (07:56)
[2016-10-22 08:05] LABS: Basophils # 0.1 K/mcL (0.0-0.2); Basophils % 1.3 %; Eosinophils # 0.2 K/mcL (0.0-0.6); Eosinophils % 3.1 %; Hematocrit 25.7 % (35.3-44.9); Hemoglobin 8.1 g/dL (11.5-15.4); Immature Granulocytes % 0.3 % (0-4); Lymphocytes # 1.1 K/mcL (0.6-4.6); Lymphocytes % 17.4 %; Mean Corpuscular HGB Conc 31.5 g/dL (31.6-35.5); Mean Corpuscular Hemoglobin 28.7 pg (28.0-33.3); Mean Corpuscular Volume 91.1 fL (83.0-100.0); Mean Platelet Volume 9.9 fL (9.4-12.4); Monocytes # 0.7 K/mcL (0.0-1.3); Monocytes % 10.8 %; Neutrophils # 4.3 K/mcL (1.6-8.9); Platelet Count 159 K/mcL (140-400); Red Blood Count 2.82 M/mcL (3.82-4.97); Red Cell Distribution Width 14.8 % (11.5-14.5); Segmented Neutrophils % 67.1 %
[2016-10-22] MEDS: Beclomethasone 40mcg MDI IH SCH ×2 (08:34→20:21)
[2016-10-22] MEDS: Ipratropium/Albuterol Neb 3 ML IH SCH ×3 (08:36→23:08)
[2016-10-22] MEDS: hydrALAZINE 25 MG TABLET PO SCH ×3 (10:55→21:05)
--- NOTE | 2016-10-22 12:35 | Nephrology Progress Note ---
Date of Encounter: 10/22/16 Time of Encounter: 12:00 - Assessment and Plan (1) EBONIE (acute kidney injury) Current Visit: No Status: Acute SCr slightly better at 3.26, GFR 14 after second HD session but still poor UOP documented at 75cc in the past 24hrs hence no signs of renal recovery Will complete third HD session today and monitor Continue to avoid nephrotoxins if possible (2) Anemia Current Visit: No Status: Acute Hgb low decreasing from 9.1 to 8.1. Etiology unclear but iron sat slightly low, can replete Qualifiers: Anemia type: other cause Other causes of anemia: chronic disease, kidney Qualified Code(s): N18.9 - Chronic kidney disease, unspecified; D63.1 - Anemia in chronic kidney disease (3) CKD (chronic kidney disease), stage III Current Visit: No Status: Chronic Baseline prior to last month was GFR 30-40s, Not clear if new baseline established now (4) Hypomagnesemia Current Visit: Yes Status: Acute Will start mag oxide for chronic repletion Subjective Principal diagnosis: EBONIE on CKD Interval history: Pt seen and examned with no new complaints. Feels pretty good. s/p second HD session yesterday. Still with minimal UOP but drinking fluids Objective - Vital Signs Vital signs: Vital Signs Temp Pulse Resp BP Pulse Ox 10/22/16 11:58 98.6 F 70 16 161/68 93 10/22/16 08:36 16 96 10/22/16 07:22 98.1 F 71 16 163/73 96 10/22/16 04:51 97.7 F 65 16 150/62 97 10/22/16 00:03 98.1 F 66 16 129/46 98 10/21/16 22:05 16 99 10/21/16 20:04 98.3 F 58 18 143/62 98 10/21/16 15:59 98.4 F 63 16 153/58 98 10/21/16 12:57 149/61 Intake and Output 10/21/16 10/22/16 10/22/16 23:59 07:59 15:59 Intake Total 240 / 240 0 / 0 Output Total 0 / 0 Balance 240 / 240 0 / 0 Intake: Oral 240 / 240 0 / 0 Output: Urine 0 / 0 Other: Meal Dinner Percent of Meal Consumed 100% Weight 71.8 kg Blood Glucose* 112 190 Patient Weight 05/06/17 23:59 Weight 71.8 kg - General Appearance General appearance: Present: frail (NAD) EENT: Present: ATNC, mucous membranes moist Neck: Present: no JVD, supple Respiratory: Present: clear Cardiology: Present: edema (LE +1 bilat), normal S1, normal S2 Gastrointestinal: Present: no tenderness, no guarding Integumentary: Present: no rash, warm and dry Neurologic: Present: no focal deficit, alert and oriented x3 Musculoskeletal: Present: no deformities Psychiatric: Present: mood/affect appropriate, cooperative - Lab 10/22/16 07:50 10/22/16 03:59 Most recent lab results Calcium 7.8 mg/dL (8.6-10.8) L 10/22/16 03:59 Phosphorus 2.8 mg/dL (2.3-4.7) 10/22/16 03:59 Magnesium 1.4 mg/dL (1.6-2.6) L 10/22/16 03:59 Consult Discharge Plan - Plan Referrals: William Galvan MD [Primary Care Provider] - (Patient most likely will go to [facility])
[2016-10-22] MEDS ORDERED: 0.9 % Sodium Chloride 250 ML IVC PRN (14:01)
--- NOTE | 2016-10-22 14:02 | Internal Med Progress Note ---
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 LE edema improved from previous day (2) HTN (hypertension) Current Visit: No Status: Chronic Assessment and plan: Noted to be hypertensive this morning, improved at this time holding Losartan and Lasix given renal function continue Carvedilol, Chlorthalidone continue Hydralazine 10mg IV q6h PRN SBP>160 will closely monitor BP and adjust medications accordingly Qualifiers: Hypertension type: essential hypertension Qualified Code(s): I10 - Essential (primary) hypertension (3) A-fib Current Visit: No Status: Acute Assessment and plan: Rate controlled with cardizem ASA for CVA ppx not on anticoagulation given history of recent surgery Qualifiers: Atrial fibrillation type: paroxysmal Qualified Code(s): I48.0 - Paroxysmal atrial fibrillation (4) Anemia Current Visit: No Status: Acute Assessment and plan: H&H low but acceptable no acute bleeding reported at this time will continue to closely monitor Iron studies consistent with chronic disease Qualifiers: Anemia type: other cause Other causes of anemia: chronic disease, kidney Qualified Code(s): N18.9 - Chronic kidney disease, unspecified; D63.1 - Anemia in chronic kidney disease (5) CAD (coronary artery disease) Current Visit: No Status: Chronic Assessment and plan: No signs of angina present continue home medications Qualifiers: Coronary Disease-Associated Artery/Lesion type: [place] artery [place] vs. transplanted heart: [place] heart Associated angina: with unstable angina Qualified Code(s): I25.110 - Atherosclerotic heart disease of [place] coronary artery with unstable angina pectoris (6) DVT prophylaxis Current Visit: No Status: Acute Assessment and plan: Heparin sQ (7) Hypomagnesemia Current Visit: Yes Status: Acute Assessment and plan: Mg supplemented continue to monitor electrolytes and replace as needed - Subjective Interval history: Patient seen and examined with family present at bedside. Resting comfortably in chair and reports of feeling well and denies any discomfort at this time. Pt to receive Day 3 of HD today (10/22/16) - Constitutional Vitals: Temp Pulse Resp BP Pulse Ox 98.6 F 70 16 161/68 93 10/22/16 11:58 10/22/16 11:58 10/22/16 11:58 10/22/16 11:58 10/22/16 11:58 General appearance: Present: cooperative, A&O X 3, pleasant, no acute distress, answers questions appropriately - Head Head exam: Present: atraumatic, normocephalic - Eye Eye exam: Present: normal appearance, conjuntiva pink, sclera anicteric - Respiratory Respiratory exam: Present: CTAB. Absent: accessory muscle use, rales, rhonchi, wheezes - Cardiovascular Cardiovascular exam: Present: RRR, +S1, +S2. Absent: diastolic murmur, gallop, rubs, systolic murmur - GI/Abdominal GI/Abdominal exam: Present: normal bowel sounds, soft, no peritoneal signs. Absent: distended, tenderness - Extremities Exam Extremities exam: Present: pedal edema (bilateral 2+ pitting edema), warm, radial pulses palpable and symetrical. Absent: calf tenderness - Neurological Exam Neurological exam: Present: alert, oriented X3, no focal deficits - Psychiatric Psychiatric exam: Present: normal affect, normal mood Internal Medicine: Result - Labs CBC & Chem 7: 10/22/16 07:50 10/22/16 03:59 Labs: Short CBC 10/22/16 10/22/16 Range/Units 03:59 07:50 WBC 6.0 6.4 (4.3-11.1) K/mcL Hgb 7.3 L D 8.1 L (11.5-15.4) g/dL Hct 23.7 L 25.7 L (35.3-44.9) % Plt Count 152 159 (140-400) K/mcL Neutrophils # 3.8 4.3 (1.6-8.9) K/mcL BMP 10/22/16 03:59 Sodium 141 Potassium 3.9 Chloride 104 Carbon Dioxide 31 H BUN 24 H Creatinine 3.26 H Glucose 88 Calcium 7.8 L Consult Discharge Plan - Plan Referrals: William Galvan MD [Primary Care Provider] - (Patient most likely will go to ECF)
[2016-10-22] MEDS ORDERED: 0.9 % Sodium Chloride 1,000 ML PRIME SCH (14:15)
[2016-10-22] MEDS ORDERED: 0.9 % Sodium Chloride 2,000 ML ONE (17:43)
[2016-10-22] MEDS: Magnesium Oxide 400 MG TABLET PO SCH (17:57)
[2016-10-23 04:20] LABS: Basophils # 0.1 K/mcL (0.0-0.2); Basophils % 0.9 %; Eosinophils # 0.2 K/mcL (0.0-0.6); Eosinophils % 3.1 %; Hematocrit 22.8 % (35.3-44.9); Hemoglobin 7.2 g/dL (11.5-15.4); Immature Granulocytes % 0.6 % (0-4); Immature Platelets 4.9 % (1.1-6.1); Lymphocytes # 1.1 K/mcL (0.6-4.6); Lymphocytes % 17.7 %; Mean Corpuscular HGB Conc 31.6 g/dL (31.6-35.5); Mean Corpuscular Hemoglobin 28.9 pg (28.0-33.3); Mean Corpuscular Volume 91.6 fL (83.0-100.0); Mean Platelet Volume 9.6 fL (9.4-12.4); Monocytes # 0.8 K/mcL (0.0-1.3); Monocytes % 11.9 %; Neutrophils # 4.2 K/mcL (1.6-8.9); Platelet Count 120 K/mcL (140-400); Red Blood Count 2.49 M/mcL (3.82-4.97); Red Cell Distribution Width 14.8 % (11.5-14.5); Segmented Neutrophils % 65.8 %
[2016-10-23 04:31] LABS: Calcium 7.7 mg/dL (8.6-10.8); Magnesium 1.4 mg/dL (1.6-2.6); Potassium 3.7 mEq/L (3.5-4.5)
[2016-10-23] MEDS: *HR* Heparin 5,000 UNIT/ML VIAL SQ SCH ×2 (06:59→18:15)
[2016-10-23] MEDS: Magnesium Oxide 400 MG TABLET PO SCH (08:25)
[2016-10-23] MEDS: Cyanocobalamin (B-12) 1,000 MCG TABLET PO SCH (08:25)
[2016-10-23] MEDS: Aspirin 81 MG TAB.CHEW PO SCH (08:25)
[2016-10-23] MEDS: hydrALAZINE 25 MG TABLET PO SCH ×3 (08:25→20:54)
[2016-10-23] MEDS: Silvasorb 44.4 ML TUBE TP SCH (08:26)
[2016-10-23 08:28] LABS: Basophils # 0.1 K/mcL (0.0-0.2); Basophils % 1.5 %; Eosinophils # 0.2 K/mcL (0.0-0.6); Eosinophils % 2.6 %; Hematocrit 24.7 % (35.3-44.9); Hemoglobin 7.6 g/dL (11.5-15.4); Immature Granulocytes % 0.3 % (0-4); Lymphocytes # 1.1 K/mcL (0.6-4.6); Lymphocytes % 17.5 %; Mean Corpuscular HGB Conc 30.8 g/dL (31.6-35.5); Mean Corpuscular Hemoglobin 28.4 pg (28.0-33.3); Mean Corpuscular Volume 92.2 fL (83.0-100.0); Mean Platelet Volume 9.5 fL (9.4-12.4); Monocytes # 0.6 K/mcL (0.0-1.3); Neutrophils # 4.2 K/mcL (1.6-8.9); Platelet Count 118 K/mcL (140-400); Red Blood Count 2.68 M/mcL (3.82-4.97); Red Cell Distribution Width 14.8 % (11.5-14.5); Segmented Neutrophils % 69.1 %
[2016-10-23] MEDS: Beclomethasone 40mcg MDI IH SCH ×2 (10:32→20:45)
[2016-10-23] MEDS: Ipratropium/Albuterol Neb 3 ML IH SCH ×3 (10:33→20:47)
--- NOTE | 2016-10-23 12:55 | Nephrology Progress Note ---
Date of Encounter: 10/23/16 Time of Encounter: 12:50 - Assessment and Plan (1) EBONIE (acute kidney injury) Current Visit: No Status: Acute SCr slightly better at 2.34, GFR 20 after third HD session but still poor UOP documented at 75cc in the past 24hrs hence no signs of renal recovery Will monitor for signs of renal recovery UOP documented at 200cc a day Continue to avoid nephrotoxins if possible (2) Anemia Current Visit: No Status: Acute Hgb low decreasing now at 7.6. Etiology unclear but iron sat slightly low, can replete Will plan on transfusion tomorrow if still worsening Qualifiers: Anemia type: other cause Other causes of anemia: chronic disease, kidney Qualified Code(s): N18.9 - Chronic kidney disease, unspecified; D63.1 - Anemia in chronic kidney disease (3) CKD (chronic kidney disease), stage III Current Visit: No Status: Chronic Baseline prior to last month was GFR 30-40s, Not clear if new baseline established now (4) Hypomagnesemia Current Visit: Yes Status: Acute Mg still low despite repletions iv per primary team and po mg oxide started yesterday, likely renal losses from ?ATN Subjective Principal diagnosis: EBONIE on CKD Interval history: Pt seen and examined with no new complaints. Feels pretty good. s/p third HD yesterday with no complications. Objective - Vital Signs Vital signs: Vital Signs Temp Pulse Resp BP Pulse Ox 10/23/16 10:34 16 98 10/23/16 08:19 97.9 F 64 16 144/62 98 10/23/16 03:43 98.5 F 71 18 149/61 97 10/22/16 23:41 98.5 F 72 16 135/55 99 10/22/16 20:42 97.9 F 69 16 175/73 95 10/22/16 20:21 16 88 10/22/16 17:48 98.4 F 18 161/74 10/22/16 17:35 161/74 10/22/16 17:20 158/66 10/22/16 17:05 162/70 10/22/16 16:50 152/66 10/22/16 16:35 158/64 10/22/16 16:20 147/63 10/22/16 16:05 144/59 10/22/16 15:50 153/65 10/22/16 15:35 147/68 10/22/16 15:20 142/64 10/22/16 15:05 134/64 10/22/16 14:50 149/68 10/22/16 14:35 97.9 F 18 156/79 Intake and Output 10/22/16 10/23/16 10/23/16 23:59 07:59 15:59 Intake Total 0 / 0 0 / 0 Output Total 2800 / 2800 Balance -2800 / -2800 0 / 0 Intake: Oral 0 / 0 0 / 0 Output: Urine 200 / 200 Total Dialysis Output 2600 / 2600 Other: Weight 72.4 kg Blood Glucose* 144 93 Hemodialysis Net Fluid 2000 Removed (mL) Patient Weight 10/23/16 23:59 Weight 72.4 kg - General Appearance General appearance: Present: frail (NAD) EENT: Present: ATNC, mucous membranes moist Neck: Present: no JVD, supple Respiratory: Present: clear Cardiology: Present: no edema, normal S1, normal S2 Dialysis Vascular Access: Venous Catheter (temp IJ catheter) Gastrointestinal: Present: no tenderness, no guarding Integumentary: Present: warm and dry Neurologic: Present: no focal deficit Musculoskeletal: Present: no deformities Psychiatric: Present: mood/affect appropriate - Lab 10/23/16 08:20 10/23/16 04:07 Most recent lab results Calcium 7.7 mg/dL (8.6-10.8) L 10/23/16 04:07 Phosphorus 2.0 mg/dL (2.3-4.7) L 10/23/16 04:07 Magnesium 1.4 mg/dL (1.6-2.6) L 10/23/16 04:07 Consult Discharge Plan - Plan Referrals: William Galvan MD [Primary Care Provider] - (Patient most likely will go to ECF)
--- NOTE | 2016-10-23 14:24 | Internal Med Progress Note ---
Date of Encounter: 10/23/16 Time of Encounter: 13:05 - Assessment and plan (1) Acute on chronic renal failure Current Visit: Yes Status: Acute Assessment and plan: Nephrology input appreciated s/p of 3 days of Hemodialysis pt to get HD in am will closely monitor renal function and determine the need for jail HD depending on her response to HD 2D echo consistent with mild LV diastolic dysfunction with LVEF of 60%. Severe pulm htn, mild LVH, will continue LIVE HANGER for fluid removal at this time LE edema improved from previous day (2) HTN (hypertension) Current Visit: No Status: Chronic Assessment and plan: Noted to be hypertensive this morning, improved at this time holding Losartan and Lasix given renal function continue Carvedilol, Chlorthalidone continue Hydralazine 10mg IV q6h PRN SBP>160 will closely monitor BP and adjust medications accordingly Qualifiers: Hypertension type: essential hypertension Qualified Code(s): I10 - Essential (primary) hypertension (3) A-fib Current Visit: No Status: Acute Assessment and plan: Rate controlled with cardizem ASA for CVA ppx not on anticoagulation given history of recent surgery Qualifiers: Atrial fibrillation type: paroxysmal Qualified Code(s): I48.0 - Paroxysmal atrial fibrillation (4) Anemia Current Visit: No Status: Acute Assessment and plan: H&H low but acceptable no acute bleeding reported at this time will continue to closely monitor Iron studies consistent with chronic disease If further drop occurs in H&H, will transfuse during HD in am Qualifiers: Anemia type: other cause Other causes of anemia: chronic disease, kidney Qualified Code(s): N18.9 - Chronic kidney disease, unspecified; D63.1 - Anemia in chronic kidney disease (5) CAD (coronary artery disease) Current Visit: No Status: Chronic Assessment and plan: No signs of angina present continue home medications Qualifiers: Coronary Disease-Associated Artery/Lesion type: [place] artery [place] vs. transplanted heart: [place] heart Associated angina: with unstable angina Qualified Code(s): I25.110 - Atherosclerotic heart disease of [place] coronary artery with unstable angina pectoris (6) DVT prophylaxis Current Visit: No Status: Acute Assessment and plan: Heparin sQ (7) Hypomagnesemia Current Visit: Yes Status: Acute Assessment and plan: Mg supplemented continue to monitor electrolytes and replace as needed - Subjective Interval history: Patient seen and examined with family present at bedside. Resting comfortably in chair and reports of feeling well and denies any discomfort at this time. Pt s/p receiving 3 days of HD. Noted to have a drop in H&H, clinically asymptomatic, will closely monitor, if further worsens, will transfuse in am during HD. - Constitutional Vitals: Temp Pulse Resp BP Pulse Ox 97.9 F 64 16 144/62 98 10/23/16 08:19 10/23/16 08:19 10/23/16 10:34 10/23/16 08:19 10/23/16 10:34 General appearance: Present: cooperative, A&O X 3, pleasant, no acute distress, answers questions appropriately - Head Head exam: Present: atraumatic, normocephalic - Eye Eye exam: Present: normal appearance, conjuntiva pink, sclera anicteric - Respiratory Respiratory exam: Present: CTAB. Absent: accessory muscle use, rales, rhonchi, wheezes - Cardiovascular Cardiovascular exam: Present: RRR, +S1, +S2. Absent: diastolic murmur, gallop, rubs, systolic murmur - GI/Abdominal GI/Abdominal exam: Present: normal bowel sounds, soft, no peritoneal signs. Absent: distended, tenderness - Extremities Exam Extremities exam: Present: calf tenderness, pedal edema, warm, radial pulses palpable and symetrical - Neurological Exam Neurological exam: Present: alert, oriented X3 - Psychiatric Psychiatric exam: Present: normal affect, normal mood Internal Medicine: Result - Labs CBC & Chem 7: 10/23/16 08:20 10/23/16 04:07 Labs: Short CBC 10/23/16 10/23/16 Range/Units 04:07 08:20 WBC 6.4 6.1 (4.3-11.1) K/mcL Hgb 7.2 L 7.6 L (11.5-15.4) g/dL Hct 22.8 L 24.7 L (35.3-44.9) % Plt Count 120 L 118 L (140-400) K/mcL Neutrophils # 4.2 4.2 (1.6-8.9) K/mcL BMP 10/23/16 04:07 Sodium 138 Potassium 3.7 Chloride 102 Carbon Dioxide 31 H BUN 17 Creatinine 2.34 H Glucose 90 Calcium 7.7 L Consult Discharge Plan - Plan Referrals: William Galvan MD [Primary Care Provider] - (Patient most likely will go to ECF)
[2016-10-24 04:42] LABS: Basophils % 0.7 %; Eosinophils # 0.2 K/mcL (0.0-0.6); Eosinophils % 2.9 %; Hematocrit 22.4 % (35.3-44.9); Hemoglobin 6.9 g/dL (11.5-15.4); Immature Granulocytes % 0.3 % (0-4); Immature Platelets 4.5 % (1.1-6.1); Lymphocytes % 16.8 %; Mean Corpuscular HGB Conc 30.8 g/dL (31.6-35.5); Mean Corpuscular Hemoglobin 28.8 pg (28.0-33.3); Mean Corpuscular Volume 93.3 fL (83.0-100.0); Mean Platelet Volume 10.5 fL (9.4-12.4); Monocytes # 0.7 K/mcL (0.0-1.3); Monocytes % 11.7 %; Platelet Count 114 K/mcL (140-400); Red Cell Distribution Width 14.6 % (11.5-14.5); Segmented Neutrophils % 67.6 %
[2016-10-24 04:53] LABS: Calcium 7.9 mg/dL (8.6-10.8); Magnesium 1.5 mg/dL (1.6-2.6); Phosphorous 2.2 mg/dL (2.3-4.7); Potassium 3.8 mEq/L (3.5-4.5)
[2016-10-24] MEDS: *HR* Heparin 5,000 UNIT/ML VIAL SQ SCH ×2 (05:50→17:56)
[2016-10-24] MEDS ORDERED: Magnesium Sulfate 1 GM in D5% in Water 100 ML IVPB ONE (07:29)
[2016-10-24] MEDS: Aspirin 81 MG TAB.CHEW PO SCH (07:55)
[2016-10-24] MEDS: Magnesium Oxide 400 MG TABLET PO SCH (07:56)
[2016-10-24] MEDS: hydrALAZINE 25 MG TABLET PO SCH ×3 (07:56→21:14)
[2016-10-24] MEDS: Cyanocobalamin (B-12) 1,000 MCG TABLET PO SCH (07:56)
[2016-10-24] MEDS: Silvasorb 44.4 ML TUBE TP SCH (07:56)
[2016-10-24] MEDS ORDERED: 0.9 % Sodium Chloride 250 ML IVC PRN (09:15)
[2016-10-24] MEDS ORDERED: *HR* Heparin 10,000 UNIT/10 ML VIAL IV PRN (09:15)
[2016-10-24] MEDS: Beclomethasone 40mcg MDI IH SCH ×2 (10:22→20:59)
[2016-10-24] MEDS: Ipratropium/Albuterol Neb 3 ML IH SCH ×3 (10:23→20:59)
--- NOTE | 2016-10-24 10:33 | Nephrology Progress Note ---
Date of Encounter: 10/24/16 Time of Encounter: 10:31 - Assessment and Plan (1) EBONIE (acute kidney injury) Current Visit: No Status: Acute Scr worse today at 3.03, up fro 2.34 yesterday; GFR down to 18 (was 24) ?? no UOP recorded for yesteday--must have strict I/Os Plan for HD today Will consult IR for permacath placement Will consult SW for chair time at [facility] Continue renal diet Avoid nephrotoxins (2) Hypomagnesemia Current Visit: Yes Status: Acute Improving slowly. Continue p.o. mg oxide (3) Anemia Current Visit: No Status: Acute Will transfuse 2 units PRBCs during dialysis today Qualifiers: Anemia type: other cause Other causes of anemia: chronic disease, kidney Qualified Code(s): N18.9 - Chronic kidney disease, unspecified; D63.1 - Anemia in chronic kidney disease (4) CKD (chronic kidney disease), stage III Current Visit: No Status: Chronic Subjective Principal diagnosis: EBONIE on CKD Interval history: Patient seen and examined. at bedside; patient up in chair, states she is feeling well today. Objective - Vital Signs Vital signs: Vital Signs Temp Pulse Resp BP Pulse Ox 10/24/16 08:04 98 10/24/16 07:41 98.1 F 68 16 151/61 98 10/24/16 04:12 98.7 F 69 16 130/53 99 10/24/16 01:20 98.1 F 65 18 143/57 99 10/23/16 20:45 16 98 10/23/16 19:54 98.4 F 60 16 142/61 100 10/23/16 18:11 64 154/71 10/23/16 10:34 16 98 Intake and Output 10/23/16 10/24/16 10/24/16 23:59 07:59 15:59 Intake Total 0 / 0 500 / 500 Output Total 0 / 0 Balance 0 / 0 500 / 500 Intake: Oral 0 / 0 500 / 500 Output: Urine 0 / 0 Other: Weight 72.2 kg Blood Glucose* 163 103 Patient Weight 10/24/16 23:59 Weight 72.2 kg - General Appearance General appearance: Present: well-developed, well-nourished EENT: Present: ATNC, mucous membranes moist, hearing intact, vision intact Neck: Present: supple Respiratory: Present: clear Cardiology: Present: edema (BLL edema), normal S1, normal S2 Dialysis Vascular Access: Venous Catheter Gastrointestinal: Present: no tenderness, no guarding Integumentary: Present: warm and dry Neurologic: Present: alert and oriented x3 Psychiatric: Present: mood/affect appropriate, cooperative - Lab 10/24/16 04:20 10/24/16 04:20 Most recent lab results Calcium 7.9 mg/dL (8.6-10.8) L 10/24/16 04:20 Phosphorus 2.2 mg/dL (2.3-4.7) L 10/24/16 04:20 Magnesium 1.5 mg/dL (1.6-2.6) L 10/24/16 04:20 Consult Discharge Plan - Plan Referrals: William Galvan MD [Primary Care Provider] - (Patient most likely will go to ECF)
--- NOTE | 2016-10-24 13:12 | Internal Med Progress Note ---
Date of Encounter: 10/24/16 Time of Encounter: 11:45 - Assessment and plan (1) Anemia Current Visit: No Status: Acute Assessment and plan: drop in H&H noted patient to receive 2units PRBC during HD today will closely monitor H&H and transfuse as needed Qualifiers: Anemia type: other cause Other causes of anemia: chronic disease, kidney Qualified Code(s): N18.9 - Chronic kidney disease, unspecified; D63.1 - Anemia in chronic kidney disease (2) Acute on chronic renal failure Current Visit: Yes Status: Acute Assessment and plan: Nephrology input appreciated s/p of 3 days of Hemodialysis Will receive HD today (10/24/16) pt to be scheduled for permacath placement in am (10/25/16) auto body worker consulted for outpatient HD arrangements (3) HTN (hypertension) Current Visit: No Status: Chronic Assessment and plan: BP within acceptable range holding Losartan and Lasix given renal function continue Carvedilol, Chlorthalidone continue Hydralazine 10mg IV q6h PRN SBP>160 will closely monitor BP and adjust medications accordingly Qualifiers: Hypertension type: essential hypertension Qualified Code(s): I10 - Essential (primary) hypertension (4) A-fib Current Visit: No Status: Acute Assessment and plan: Rate controlled with cardizem ASA for CVA ppx not on anticoagulation given history of recent surgery Qualifiers: Atrial fibrillation type: paroxysmal Qualified Code(s): I48.0 - Paroxysmal atrial fibrillation (5) CAD (coronary artery disease) Current Visit: No Status: Chronic Assessment and plan: No signs of angina present continue home medications Qualifiers: Coronary Disease-Associated Artery/Lesion type: [place] artery [place] vs. transplanted heart: [place] heart Associated angina: with unstable angina Qualified Code(s): I25.110 - Atherosclerotic heart disease of [place] coronary artery with unstable angina pectoris (6) DVT prophylaxis Current Visit: No Status: Acute Assessment and plan: Heparin sQ (7) Hypomagnesemia Current Visit: Yes Status: Acute Assessment and plan: Mg supplemented continue to monitor electrolytes and replace as needed - Subjective Interval history: Patient seen and examined. Resting comfortably in chair and reports of feeling better. states she feels her respiratory status has improved as well. Reports of only wearing home oxygen at night however has been requiring O2 support through out the day. she will need O2 qualification prior to her discharge. Pt to receive HD today (10/24/16). Perma cath placement to be scheduled for tomorrow (10/25/16). director of professional services consulted for outpatient HD set up. - Constitutional Vitals: Temp Pulse Resp BP Pulse Ox 97.8 F 60 16 119/57 99 10/24/16 11:23 10/24/16 11:23 10/24/16 11:23 10/24/16 11:23 10/24/16 11:23 General appearance: Present: cooperative, A&O X 3, pleasant, no acute distress, answers questions appropriately - Head Head exam: Present: atraumatic, normocephalic - Eye Eye exam: Present: normal appearance, conjuntiva pink, sclera anicteric - Respiratory Respiratory exam: Present: CTAB. Absent: respiratory distress, wheezes - Cardiovascular Cardiovascular exam: Present: RRR, +S1, +S2. Absent: diastolic murmur, gallop, rubs, systolic murmur - GI/Abdominal GI/Abdominal exam: Present: normal bowel sounds, soft, no peritoneal signs. Absent: distended, tenderness - Extremities Exam Extremities exam: Present: pedal edema, warm, radial pulses palpable and symetrical. Absent: calf tenderness, tenderness - Neurological Exam Neurological exam: Present: alert, oriented X3 - Psychiatric Psychiatric exam: Present: normal affect, normal mood Internal Medicine: Result - Labs CBC & Chem 7: 10/24/16 04:20 10/24/16 04:20 Labs: Short CBC 10/24/16 Range/Units 04:20 WBC 5.9 (4.3-11.1) K/mcL Hgb 6.9 L (11.5-15.4) g/dL Hct 22.4 L (35.3-44.9) % Plt Count 114 L (140-400) K/mcL Neutrophils # 4.0 (1.6-8.9) K/mcL BMP 10/24/16 04:20 Sodium 135 L Potassium 3.8 Chloride 100 Carbon Dioxide 30 H BUN 25 H Creatinine 3.03 H Glucose 101 H Calcium 7.9 L Consult Discharge Plan - Plan Referrals: William Galvan MD [Primary Care Provider] - (Patient most likely will go to F)
[2016-10-24] MEDS ORDERED: 0.9 % Sodium Chloride 250 ML ONE (15:53)
[2016-10-25 04:19] LABS: Prothrombin Time 10.7 Seconds (9.4-12.1)
[2016-10-25 04:21] LABS: Basophils # 0.1 K/mcL (0.0-0.2); Basophils % 1.3 %; Eosinophils # 0.2 K/mcL (0.0-0.6); Eosinophils % 2.8 %; Immature Granulocytes % 0.5 % (0-4); Lymphocytes # 0.9 K/mcL (0.6-4.6); Lymphocytes % 15.3 %; Mean Corpuscular HGB Conc 31.4 g/dL (31.6-35.5); Mean Corpuscular Hemoglobin 28.4 pg (28.0-33.3); Mean Corpuscular Volume 90.6 fL (83.0-100.0); Mean Platelet Volume 10.4 fL (9.4-12.4); Monocytes # 0.6 K/mcL (0.0-1.3); Monocytes % 9.7 %; Neutrophils # 4.3 K/mcL (1.6-8.9); Platelet Count 114 K/mcL (140-400); Red Cell Distribution Width 14.5 % (11.5-14.5); Segmented Neutrophils % 70.4 %
[2016-10-25 04:23] LABS: Hemoglobin 9.1 g/dL (11.5-15.4)
[2016-10-25 04:43] LABS: Calcium 8.2 mg/dL (8.6-10.8); Magnesium 1.6 mg/dL (1.6-2.6); Phosphorous 2.3 mg/dL (2.3-4.7); Potassium 3.9 mEq/L (3.5-4.5)
[2016-10-25] MEDS: *HR* Heparin 5,000 UNIT/ML VIAL SQ SCH ×2 (05:01→17:24)
[2016-10-25] MEDS: Silvasorb 44.4 ML TUBE TP SCH (05:02)
[2016-10-25] MEDS: Ipratropium/Albuterol Neb 3 ML IH SCH (07:38)
[2016-10-25] MEDS ORDERED: Ipratropium/Albuterol Neb 3 ML IH PRN ×2 (07:40→09:00)
[2016-10-25] MEDS: Beclomethasone 40mcg MDI IH SCH ×2 (07:58→22:23)
[2016-10-25] MEDS ORDERED: Saline Nasal Spray 44 ML BOTTLE NS PRN (09:01)
[2016-10-25] MEDS: Magnesium Oxide 400 MG TABLET PO SCH (09:58)
[2016-10-25] MEDS: hydrALAZINE 25 MG TABLET PO SCH ×3 (09:58→22:27)
[2016-10-25] MEDS: Cyanocobalamin (B-12) 1,000 MCG TABLET PO SCH (09:59)
[2016-10-25] MEDS: Aspirin 81 MG TAB.CHEW PO SCH (10:00)
--- NOTE | 2016-10-25 10:57 | Nephrology Progress Note ---
Date of Encounter: 10/25/16 Time of Encounter: 10:50 - Assessment and Plan (1) EBONIE (acute kidney injury) Current Visit: No Status: Acute SCr slightly better at 2.29, GFR 16 likely from transfusion pRBCs yesterday which is promising for signs of renal recovery UOP documented at 500cc in the past 24hrs which is also reassuring Will proceed with permcath today and possibly HD tomorrow if no further improvement in SCr Continue to avoid nephrotoxins if possible (2) Anemia Current Visit: No Status: Acute Hgb improved after trnasfusion of pRBCs to 9.1, will monitor Qualifiers: Anemia type: other cause Other causes of anemia: chronic disease, kidney Qualified Code(s): N18.9 - Chronic kidney disease, unspecified; D63.1 - Anemia in chronic kidney disease (3) CKD (chronic kidney disease), stage III Current Visit: No Status: Chronic Baseline prior to last month was GFR 30-40s, Not clear if new baseline established now (4) Hypomagnesemia Current Visit: Yes Status: Acute Mg normalized at 1.6, continue mgoxide daily Subjective Principal diagnosis: EBONIE on CKD Interval history: Pt seen and examined. HD held yesterday due to catheter problems but received transfusion as planned. awaiting permacath today. Objective - Vital Signs Vital signs: Vital Signs Temp Pulse Resp BP Pulse Ox 10/25/16 08:44 98.0 F 59 16 147/67 98 10/25/16 08:00 16 98 10/25/16 04:53 97.7 F 65 16 138/62 98 10/24/16 23:00 97.6 F 61 16 150/60 98 10/24/16 21:00 16 96 10/24/16 20:49 97.9 F 63 16 152/61 98 10/24/16 20:34 97.9 F 65 16 150/69 98 10/24/16 19:06 98.3 F 18 153/73 10/24/16 19:02 97.2 F L 63 14 168/74 99 10/24/16 16:06 98.1 F 61 14 176/82 10/24/16 16:02 98.2 F 69 16 157/63 92 10/24/16 14:50 98.3 F 18 139/63 10/24/16 11:23 97.8 F 60 16 119/57 99 Intake and Output 10/24/16 10/25/16 10/25/16 23:59 07:59 15:59 Intake Total 1230 / 1230 0 / 0 Output Total 500 / 500 200 / 200 Balance 730 / 730 -200 / -200 Intake: Oral 480 / 480 0 / 0 Blood Product 750 / 750 Rbcs Leuko Poor As-1 350 / 350 Unit [id number] Rbcs Leuko Poor As-1 400 / 400 Unit [id number] Output: Urine 500 / 500 200 / 200 Total Dialysis Output 0 / 0 Other: Meal SETH CRACKERS X2 Percent of Meal Consumed 100% # Voids 3 2 Weight 73 kg Hemodialysis Net Fluid 0 Removed (mL) Patient Weight 10/25/16 23:59 Weight 73 kg - General Appearance General appearance: Present: appears started age (NAD), frail EENT: Present: ATNC, mucous membranes moist Neck: Present: no JVD, supple Cardiology: Present: edema, normal S1, normal S2 Dialysis Vascular Access: Venous Catheter Gastrointestinal: Present: no tenderness, no guarding Integumentary: Present: no rash, warm and dry Neurologic: Present: no focal deficit Musculoskeletal: Present: no deformities Psychiatric: Present: mood/affect appropriate, cooperative - Lab 10/25/16 04:00 10/25/16 04:00 Most recent lab results Calcium 8.2 mg/dL (8.6-10.8) L 10/25/16 04:00 Phosphorus 2.3 mg/dL (2.3-4.7) 10/25/16 04:00 Magnesium 1.6 mg/dL (1.6-2.6) 10/25/16 04:00 Consult Discharge Plan - Plan Referrals: William Galvan MD [Primary Care Provider] - (Patient most likely will go to ECF)
[2016-10-25] MEDS ORDERED: Heparin 1,000 UNITS/500 mL NS 500 ML ONE (11:57)
[2016-10-25] MEDS ORDERED: *HR* FentaNYL (PF) 100 MCG/2 ML VIAL EP ONE (12:18)
[2016-10-25] MEDS ORDERED: ceFAZolin 2,000 MG in D5% in Water (Mini-Bag+) 100 ML IVPB ONE (12:18)
[2016-10-25] MEDS ORDERED: *HR* Midazolam HCl 5 MG/5 ML VIAL IVP ONE (12:18)
--- NOTE | 2016-10-25 12:19 | Pre-Sedation Evaluation ---
Pre-sedation evaluation - Pre-sedation checklist Date of procedure: 10/25/16 Procedure: permacath insertion Recent Vitals: Last Vital Signs Temp 97.9 F 10/25/16 11:01 Pulse 62 10/25/16 11:01 Resp 16 10/25/16 11:01 BP 128/56 10/25/16 11:01 Pulse Ox 99 10/25/16 11:01 H&P (including ROS) documented in medical record: Yes Previous reaction to sedatives/anesthetics: No Dietary Status: NPO after Midnight Airway Assessment: Patient can open mouth completely, TMJ function normal, Micrognathia (under-bite, receding chin) absent, Neck with adequate range of motion Dentition: No loose teeth or bridges Possible difficult airway: No ASA Classification *see protocol: CLASS II-Mild systemic disease Plan of Care: Pt appropriate candidate for procedure/moderate/conscious sedation , Risks/benefits of procedure/sedation discussed w/ patient/family
[2016-10-25] MEDS ORDERED: 0.9 % Sodium Chloride 500 ML ONE (12:38)
[2016-10-25] MEDS ORDERED: *HR* Midazolam HCl 2 MG/2 ML VIAL ONE (12:49)
[2016-10-25] MEDS ORDERED: *HR* Heparin 5,000 UNIT/ML VIAL ONE (12:56)
--- NOTE | 2016-10-25 13:16 | IR Procedure Note ---
Date of procedure: 10/25/16 Consent Obtained: Written consent Timeout: Correct patient and procedure verified, Correct site verified, Time out performed, Skin prep completed Indications: renal failure Procedure Performed: permacath Site/Technique: rt IJ to RA Results/Findings: adequate placement Estimated blood loss (cc): 2 Complications: None; Tolerated procedure well Post Procedure Treatment Plan: OK to dialyze
--- NOTE | 2016-10-25 16:28 | Internal Med Progress Note ---
Date of Encounter: 10/25/16 Time of Encounter: 16:25 - Assessment and plan (1) EBONIE (acute kidney injury) Current Visit: No Status: Acute Assessment and plan: gfr got better, will continue with nephorlogy recommendations. permacath insertion today, possible hd tomorrow. soial worker following for possible outpatient hd. (2) Anemia Current Visit: No Status: Acute Assessment and plan: drop in H&H noted which responded well to 2units PRBC given yesteday. will closely monitor H&H and transfuse as needed Qualifiers: Anemia type: other cause Other causes of anemia: chronic disease, kidney Qualified Code(s): N18.9 - Chronic kidney disease, unspecified; D63.1 - Anemia in chronic kidney disease - Subjective Interval history: patient seen and examined, her at bedside. afebrile. s/p permacath placement. - Constitutional Vitals: Temp Pulse Resp BP Pulse Ox 97.4 F L 62 16 152/69 94 10/25/16 15:00 10/25/16 15:00 10/25/16 15:00 10/25/16 15:00 10/25/16 15:00 General appearance: Present: cooperative, A&O X 3, pleasant, no acute distress, answers questions appropriately - Head Head exam: Present: atraumatic, normocephalic - Eye Eye exam: Present: PERRL, conjuntiva pink, sclera anicteric Pupils: Present: PERRL - Neck Neck exam general surgery: Present: supple, trachea midline. Absent: lymphadenopathy - Respiratory Respiratory exam: Present: CTAB. Absent: accessory muscle use, rales, rhonchi, wheezes - Cardiovascular Cardiovascular exam: Present: RRR, +S1, +S2. Absent: diastolic murmur, gallop, rubs, systolic murmur - GI/Abdominal GI/Abdominal exam: Present: normal bowel sounds, soft, no peritoneal signs. Absent: distended, tenderness - Extremities Exam Extremities exam: Present: warm, radial pulses palpable and symetrical. Absent : calf tenderness, cyanotic, pedal edema - Neurological Exam Neurological exam: Present: CN II-XII intact, oriented X3, no focal deficits. Absent: pronater drift, facial droop, speech deficit - Skin Skin exam: Present: dry, intact Internal Medicine: Result - Labs CBC & Chem 7: 05/09/17 04:00 10/25/16 04:00 Labs: Short CBC 10/25/16 Range/Units 04:00 WBC 6.1 (4.3-11.1) K/mcL Hgb 9.1 L D (11.5-15.4) g/dL Hct 29.0 L (35.3-44.9) % Plt Count 114 L (140-400) K/mcL Neutrophils # 4.3 (1.6-8.9) K/mcL BMP 10/25/16 04:00 Sodium 134 L Potassium 3.9 Chloride 100 Carbon Dioxide 30 H BUN 33 H Creatinine 2.89 H Glucose 93 Calcium 8.2 L - ABG Interpretation ABG results: PT/INR, D-dimer PT 10.7 Seconds (9.4-12.1) 10/25/16 04:00 - Impressions Impressions Guidance Needle Placement Ultrasound 10/25/16 00:00 IMPRESSION: Successful permacath placement using both ultrasound and fluoroscopy guidance. D/ /25/2016 16:10:08 Deandra Mathews MD / Cathi Larkin Interpreting Provider: Deandra Mathews MD Insertion Tunneled Catheter 10/25/16 00:00 IMPRESSION: Successful permacath placement using both ultrasound and fluoroscopy guidance. D/ /25/2016 16:10:08 Deandra Mathews MD / Cathi Larkin Interpreting Provider: Deandar Mathews MD Consult Discharge Plan - Plan Referrals: William Galvan MD [Primary Care Provider] - (Patient most likely will go to [facility])
[2016-10-26 04:46] LABS: Basophils # 0.1 K/mcL (0.0-0.2); Basophils % 1.3 %; Eosinophils # 0.1 K/mcL (0.0-0.6); Eosinophils % 2.1 %; Hematocrit 25.8 % (35.3-44.9); Hemoglobin 8.3 g/dL (11.5-15.4); Immature Granulocytes % 0.3 % (0-4); Lymphocytes # 0.9 K/mcL (0.6-4.6); Lymphocytes % 14.4 %; Mean Corpuscular HGB Conc 32.2 g/dL (31.6-35.5); Mean Corpuscular Volume 90.2 fL (83.0-100.0); Monocytes # 0.6 K/mcL (0.0-1.3); Monocytes % 9.6 %; Neutrophils # 4.4 K/mcL (1.6-8.9); Platelet Count 110 K/mcL (140-400); Red Blood Count 2.86 M/mcL (3.82-4.97); Red Cell Distribution Width 14.6 % (11.5-14.5); Segmented Neutrophils % 72.3 %
[2016-10-26 05:01] LABS: Calcium 8.1 mg/dL (8.6-10.8); Potassium 4.2 mEq/L (3.5-4.5)
[2016-10-26] MEDS: *HR* Heparin 5,000 UNIT/ML VIAL SQ SCH ×2 (05:54→17:30)
[2016-10-26] MEDS: Silvasorb 44.4 ML TUBE TP SCH (06:01)
[2016-10-26] MEDS: Beclomethasone 40mcg MDI IH SCH ×2 (07:42→21:06)
[2016-10-26] MEDS: Aspirin 81 MG TAB.CHEW PO SCH (10:13)
[2016-10-26] MEDS: hydrALAZINE 25 MG TABLET PO SCH ×3 (10:14→21:28)
[2016-10-26] MEDS: Cyanocobalamin (B-12) 1,000 MCG TABLET PO SCH (10:14)
[2016-10-26] MEDS: Magnesium Oxide 400 MG TABLET PO SCH (10:14)
--- NOTE | 2016-10-26 13:37 | Nephrology Progress Note ---
Date of Encounter: 10/26/16 - Assessment and Plan (1) EBONIE (acute kidney injury) Current Visit: No Status: Acute SCr slightly better at 2.29, GFR 16 likely from transfusion pRBCs yesterday which is promising for signs of renal recovery UOP documented at 500cc in the past 24hrs which is also reassuring Will proceed with permcath today and possibly HD tomorrow if no further improvement in SCr Continue to avoid nephrotoxins if possible (2) Anemia Current Visit: No Status: Acute Hgb improved after trnasfusion of pRBCs to 9.1, will monitor Qualifiers: Anemia type: other cause Other causes of anemia: chronic disease, kidney Qualified Code(s): N18.9 - Chronic kidney disease, unspecified; D63.1 - Anemia in chronic kidney disease (3) CKD (chronic kidney disease), stage III Current Visit: No Status: Chronic Baseline prior to last month was GFR 30-40s, Not clear if new baseline established now (4) Hypomagnesemia Current Visit: Yes Status: Acute Mg normalized at 1.6, continue mgoxide daily Subjective Principal diagnosis: EBONIE on CKD Interval history: Pt seen and examined. HD held yesterday due to catheter problems but received transfusion as planned. awaiting permacath today. Objective - Vital Signs Vital signs: Vital Signs Temp Pulse Resp BP Pulse Ox 10/26/16 10:54 98.3 F 66 16 157/69 95 10/26/16 10:18 77 10/26/16 07:46 16 92 10/26/16 06:54 98.9 F 67 16 153/68 97 10/26/16 05:43 98.2 F 69 16 160/64 90 10/26/16 00:36 98.1 F 62 16 135/38 98 10/25/16 22:23 16 93 10/25/16 19:55 97.5 F L 59 16 147/68 97 10/25/16 15:00 97.4 F L 62 16 152/69 94 Intake and Output 10/25/16 10/26/16 10/26/16 23:59 07:59 15:59 Intake Total 240 / 240 480 / 480 Output Total 1020 / 1020 Balance 240 / 240 -1020 / -1020 480 / 480 Intake: Oral 240 / 240 480 / 480 Output: Urine 1020 / 1020 Other: Meal Dinner Breakfast Percent of Meal Consumed 100% 90% # Voids 4 Weight 73.301 kg Patient Weight 10/26/16 23:59 Weight 73.301 kg - Lab 10/26/16 04:08 10/26/16 04:08 Most recent lab results Calcium 8.1 mg/dL (8.6-10.8) L 10/26/16 04:08 Phosphorus 2.3 mg/dL (2.3-4.7) 10/25/16 04:00 Magnesium 1.6 mg/dL (1.6-2.6) 10/25/16 04:00 Consult Discharge Plan - Plan Referrals: William Galvan MD [Primary Care Provider] - (Patient most likely will go to [facility])
--- NOTE | 2016-10-26 15:54 | Internal Med Progress Note ---
Date of Encounter: 10/26/16 Time of Encounter: 12:00 - Assessment and plan (1) EBONIE (acute kidney injury) Current Visit: No Status: Acute Assessment and plan: gfr got better, will continue with nephorlogy recommendations. DALJIT Manley, permacath insertion yesterday, hold HD for now, will monitor renal funcion tomorrow, if improvement might not need HD soial worker following for possible outpatient hd. (2) Anemia Current Visit: No Status: Acute Qualifiers: Anemia type: other cause Other causes of anemia: chronic disease, kidney Qualified Code(s): N18.9 - Chronic kidney disease, unspecified; D63.1 - Anemia in chronic kidney disease - Subjective Interval history: patient seen and examined, her at bedside. afebrile. s/p permacath placement. no new complaints, good urine output. - Constitutional Vitals: Temp Pulse Resp BP Pulse Ox 97.7 F 66 18 149/71 95 10/26/16 15:11 10/26/16 15:11 10/26/16 15:11 10/26/16 15:11 10/26/16 15:11 General appearance: Present: cooperative, A&O X 3, pleasant, no acute distress, answers questions appropriately - Head Head exam: Present: atraumatic, normocephalic - Eye Eye exam: Present: PERRL, conjuntiva pink, sclera anicteric Pupils: Present: PERRL - Neck Neck exam general surgery: Present: supple, trachea midline. Absent: lymphadenopathy - Respiratory Respiratory exam: Present: CTAB. Absent: accessory muscle use, rales, rhonchi, wheezes - Cardiovascular Cardiovascular exam: Present: RRR, +S1, +S2. Absent: diastolic murmur, gallop, rubs, systolic murmur - GI/Abdominal GI/Abdominal exam: Present: normal bowel sounds, soft, no peritoneal signs. Absent: distended, tenderness - Extremities Exam Extremities exam: Present: warm, radial pulses palpable and symetrical. Absent : calf tenderness, cyanotic, pedal edema - Neurological Exam Neurological exam: Present: CN II-XII intact, oriented X3, no focal deficits. Absent: pronater drift, facial droop, speech deficit - Skin Skin exam: Present: dry, intact Internal Medicine: Result - Labs CBC & Chem 7: 10/26/16 04:08 10/26/16 04:08 Labs: Short CBC 10/26/16 Range/Units 04:08 WBC 6.1 (4.3-11.1) K/mcL Hgb 8.3 L (11.5-15.4) g/dL Hct 25.8 L (35.3-44.9) % Plt Count 110 L (140-400) K/mcL Neutrophils # 4.4 (1.6-8.9) K/mcL BMP 10/26/16 04:08 Sodium 135 L Potassium 4.2 Chloride 102 Carbon Dioxide 27 BUN 37 H Creatinine 2.79 H Glucose 86 Calcium 8.1 L - ABG Interpretation ABG results: PT/INR, D-dimer PT 10.7 Seconds (9.4-12.1) 10/25/16 04:00 - Impressions Impressions Guidance Needle Placement Ultrasound 10/25/16 00:00 IMPRESSION: Successful permacath placement using both ultrasound and fluoroscopy guidance. D/ /25/2016 16:10:08 Deandra Mathews MD / Cathi Larkin Interpreting Provider: Deandra Mathews MD Insertion Tunneled Catheter 10/25/16 00:00 IMPRESSION: Successful permacath placement using both ultrasound and fluoroscopy guidance. D/ /25/2016 16:10:08 Deandra Mathews MD / Cathi Larkin Interpreting Provider: Deandra Mathews MD Consult Discharge Plan - Plan Referrals: William Galvan MD [Primary Care Provider] - (Patient most likely will go to F)
[2016-10-27 05:44] LABS: Basophils # 0.1 K/mcL (0.0-0.2); Basophils % 1.2 %; Eosinophils # 0.2 K/mcL (0.0-0.6); Eosinophils % 2.2 %; Hematocrit 26.1 % (35.3-44.9); Hemoglobin 8.4 g/dL (11.5-15.4); Immature Granulocytes % 0.3 % (0-4); Lymphocytes # 0.9 K/mcL (0.6-4.6); Lymphocytes % 13.9 %; Mean Corpuscular HGB Conc 32.2 g/dL (31.6-35.5); Mean Corpuscular Hemoglobin 29.4 pg (28.0-33.3); Mean Corpuscular Volume 91.3 fL (83.0-100.0); Mean Platelet Volume 11.1 fL (9.4-12.4); Monocytes # 0.8 K/mcL (0.0-1.3); Monocytes % 12.4 %; Neutrophils # 4.7 K/mcL (1.6-8.9); Platelet Count 111 K/mcL (140-400); Red Blood Count 2.86 M/mcL (3.82-4.97); Red Cell Distribution Width 14.8 % (11.5-14.5)
[2016-10-27] MEDS: *HR* Heparin 5,000 UNIT/ML VIAL SQ SCH (05:58)
[2016-10-27 06:01] LABS: Calcium 8.6 mg/dL (8.6-10.8); Potassium 4.2 mEq/L (3.5-4.5)
[2016-10-27] MEDS: Beclomethasone 40mcg MDI IH SCH (08:06)
[2016-10-27] MEDS: Magnesium Oxide 400 MG TABLET PO SCH (09:19)
[2016-10-27] MEDS: Cyanocobalamin (B-12) 1,000 MCG TABLET PO SCH (09:19)
[2016-10-27] MEDS: Aspirin 81 MG TAB.CHEW PO SCH (09:19)
--- NOTE | 2016-10-27 10:43 | Nephrology Progress Note ---
Date of Encounter: 10/27/16 Time of Encounter: 10:40 - Assessment and Plan (1) EBONIE (acute kidney injury) Current Visit: No Status: Acute Scr a little worse today-2.90, up from 2.79; GFR 19, was 20 Have held HD for last 2 days UOP more than doubled yesterday to 1020ml From kidney standpoint, patient can be discharged today with plans to dialyze at [facility] starting tomorrow; patient has a chair time of 4:00pm ALEENA Gibbs at [facility] has been notified patient is EBONIE and to drawn weekly Scr levels. Continue renal diet Avoid nephrotoxins (2) Anemia Current Visit: No Status: Acute Hgb 8.4 Will monitor closely Qualifiers: Anemia type: other cause Other causes of anemia: chronic disease, kidney Qualified Code(s): N18.9 - Chronic kidney disease, unspecified; D63.1 - Anemia in chronic kidney disease (3) CKD (chronic kidney disease), stage III Current Visit: No Status: Chronic Baseline GFR 30-40s Subjective Principal diagnosis: EBONIE on CKD Interval history: Patient seen and examined. at bedside; patient up in chair, states she is feeling well today. Objective - Vital Signs Vital signs: Vital Signs Temp Pulse Resp BP Pulse Ox 10/27/16 09:26 97 10/27/16 06:56 98.6 F 75 14 144/53 97 10/27/16 04:27 98.3 F 72 16 165/71 97 10/26/16 23:17 98.6 F 70 16 135/58 99 10/26/16 21:07 14 97 10/26/16 19:59 98.2 F 68 16 154/63 100 10/26/16 15:11 97.7 F 66 18 149/71 95 10/26/16 10:54 98.3 F 66 16 157/69 95 Intake and Output 10/26/16 10/27/16 10/27/16 23:59 07:59 15:59 Intake Total 120 / 120 420 / 420 Balance 120 / 120 420 / 420 Intake: Oral 120 / 120 420 / 420 Other: Meal Dinner Breakfast Percent of Meal Consumed 100% 100% Weight 73.845 kg Patient Weight 10/27/16 23:59 Weight 73.845 kg - General Appearance General appearance: Present: well-developed, well-nourished EENT: Present: ATNC, mucous membranes moist, hearing intact, vision intact Neck: Present: supple Respiratory: Present: clear Cardiology: Present: edema (BLL edema-better), normal S1, normal S2 Dialysis Vascular Access: Venous Catheter Gastrointestinal: Present: normoactive bowel sounds, no tenderness, no guarding Integumentary: Present: warm and dry Neurologic: Present: alert and oriented x3 Psychiatric: Present: mood/affect appropriate, cooperative - Lab 10/27/16 04:40 10/27/16 04:40 Most recent lab results Calcium 8.6 mg/dL (8.6-10.8) 10/27/16 04:40 Phosphorus 2.3 mg/dL (2.3-4.7) 10/25/16 04:00 Magnesium 1.6 mg/dL (1.6-2.6) 10/25/16 04:00 Consult Discharge Plan - Plan Referrals: William Galvan MD [Primary Care Provider] - 11/02/16 1:15 pm (Please follow up as schedule..)
[2016-10-27 11:14] VITALS: BP 161/72
[2016-10-27] MEDS: hydrALAZINE 25 MG TABLET PO SCH (11:18)
[2016-10-27] MEDS: Silvasorb 44.4 ML TUBE TP SCH (11:59)
--- NOTE | 2016-10-27 12:40 | Discharge Summary ---
Date of Encounter: 10/27/16 Time of Encounter: 12:38 - Discharge Diagnosis (1) EBONIE (acute kidney injury) Priority: Primary Status: Acute (2) Anemia Priority: Secondary Status: Acute Qualifiers: Anemia type: other cause Other causes of anemia: chronic disease, kidney Qualified Code(s): N18.9 - Chronic kidney disease, unspecified; D63.1 - Anemia in chronic kidney disease - Discharge Medications Home Medications: Aspirin 81 mg PO DAILY 04/06/15 [History] Atorvastatin [Lipitor] 40 mg PO DAILY 04/06/15 [History] Isosorbide DInitrate [Isosorbide Dinitrate] 20 mg PO TID 04/06/15 [History] Nitroglycerin 0.4 mg SL Q5MIN PRN 04/06/15 [History] HydrALAZINE 50 mg PO TID #0 04/07/15 [Rx] Beclomethasone Diprop 40mcg [QVAR 40 mcg] 1 puff IH BID 02/02/16 [History] Ipratropium/Albuterol Neb [Duoneb] 3 ml IH TID 02/02/16 [History] Oxygen 3 l NS HS 02/02/16 [History] Carvedilol [Coreg] 25 mg PO BID PRN 09/16/16 [History] Cyanocobalamin (B-12) [Vitamin B12] 1,000 mcg PO DAILY 09/16/16 [History] Ergocalciferol (VITAMIN D2) [Vitamin D2] 50,000 unit PO QWEEK 09/16/16 [History] Ondansetron ODT [Zofran ODT] 4 mg PO TID PRN 09/16/16 [History] Darbepoetin [Aranesp] 40 mcg SQ QWEEK 30 Days 10/13/16 [Rx] Omeprazole [PriLOSEC] 20 mg PO DAILY@0630 30 Days 10/13/16 [Rx] Saline Nasal [place] [[place] Nasal [place]] 2 spray NS Q2H PRN 30 Days 10/13/16 [Rx] Chlorthalidone 25 mg PO QAM 10/19/16 [History] Ferrous Sulfate [Ferrous Sulfate] 325 mg PO DAILY 10/19/16 [History] Furosemide [Lasix] 40 mg PO Q48H 10/19/16 [History] Losartan Potassium [Cozaar] 50 mg PO BID 10/19/16 [History] Allergies/Adverse Reactions: Allergies amlodipine [From [facility]] Allergy (Verified 10/19/16 18:26) SWELLING IN LEGS lisinopril Allergy (Verified 10/19/16 18:26) Cough Procedures/tests Complete & Pending: Procedures Performed prior 72 hours Category Date Time Status IR cvc insrt tunnel wo prt/graphic designer [IR] Routine IR 10/25/16 Completed IR us guide needle place [IR] Routine IR 10/25/16 Completed Date of admission: 10/19/16 22:01 Primary care physician: William Galvan MD Consults: 10/19/16 22:36 Consult to It Data Architect [CONS] Routine Reason for SW Consult: HAS IVAN HH,O2 THERAPY AND PHYSICAL THERAPY 10/19/16 23:49 Consult to Nutrition [CONS] Routine Comment: Consulting Provider: NUTRITION Reason for Dietary Consult: Other Other:: worsening renal failure and edema Consult to Wound Care [CONS] Routine Reason for Consult: stage 2 coccyx Call Completed: No 10/20/16 10:12 Consult to Interventional Radiology [CONS] Routine Consulting Provider: Radiology Interventional Cols Reason for Consult: Temorary dialysis catheter placement. Call Completed: No 10/20/16 12:15 Consult to Dialysis [CONS] ONCE 10/21/16 07:45 Consult to Dialysis [CONS] ONCE 10/22/16 14:15 Consult to Dialysis [CONS] ONCE 10/24/16 09:30 Consult to Dialysis [CONS] ONCE 10/24/16 10:36 Consult to It Data Architect [CONS] Routine Reason for SW Consult: Please arrange chair time for patient at [facility] 10/24/16 10:41 Consult to Interventional Radiology [CONS] Routine Consulting Provider: Radiology Interventional Cols Reason for Consult: permacath tomorrow Call Completed: Yes Discharging clinician: Larry [place] Anticipated date of discharge: 10/27/16 - Patient Status Disposition: Home, Self-Care Condition: Good Functional capacity at discharge: independent ambulation Overall status at discharge: patient is back to baseline - Discharge Instructions Follow Up With: William Galvan MD [Primary Care Provider] - 11/02/16 1:15 pm (Please follow up as schedule..) - Diet and Activity Activity: increase activity as tolerated Interval History: as per HPI: Ms. Strickland is a 86 year old female with a known history of CKD sent to ER from her nephrology Dr. Ortiz's office for worsening renal function. Patient has recently discharged from hospital. She has a long and complicated hospitalization course for SBO recently. During hospitalization, her kidney function getting worse and she had to have temporarily hemodialysis during last hospitalization. She was discharge from last Monday and follow up with nephrology today. Her creatinine level increased from 3.17 to 5.29. She was advised to go to emergency room and be admitted for further management. Patient denies chest pain, shortness of breath, abdominal pain, nausea, and vomiting. She had no fever. She has a mild nonproductive cough. She has chronic leg swelling bilaterally. I discussed with patient for code status the emergency room. She is full code. Hospital course: Ms. Strickland is a 86 year old female, had a permacath insertion 2 days ago. Scr a little worse today-2.90, up from 2.79; GFR 19, was 20 Have held HD for last 2 days UOP more than doubled yesterday to 1020ml Patient will be discharged today with plans to dialyze at [facility] starting tomorrow; patient has a chair time of 4:00pm ALEENA Gibbs at [facility] has been notified patient is EBONIE and to drawn weekly Scr levels. Continue renal diet Avoid nephrotoxins. 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 - Time Spent with Patient Total time spent providing and/or coordinating discharge services: - Constitutional Vitals: Temp Pulse Resp BP Pulse Ox 97.6 F 67 14 161/72 95 10/27/16 11:10 10/27/16 11:10 10/27/16 11:10 10/27/16 11:10 10/27/16 11:10 General appearance: Present: cooperative, A&O X 3, pleasant, no acute distress, answers questions appropriately - Head Head exam: Present: atraumatic, normocephalic - Eye Eye exam: Present: PERRL, conjuntiva pink, sclera anicteric Pupils: Present: PERRL - Neck Neck exam general surgery: Present: supple, trachea midline. Absent: lymphadenopathy - Respiratory Respiratory exam: Present: CTAB. Absent: accessory muscle use, rales, rhonchi, wheezes - Cardiovascular Cardiovascular exam: Present: RRR, +S1, +S2. Absent: diastolic murmur, gallop, rubs, systolic murmur - GI/Abdominal GI/Abdominal exam: Present: normal bowel sounds, soft, no peritoneal signs. Absent: distended, tenderness - Extremities Exam Extremities exam: Present: warm, radial pulses palpable and symetrical. Absent : calf tenderness, cyanotic, pedal edema - Neurological Exam Neurological exam: Present: CN II-XII intact, oriented X3, no focal deficits. Absent: pronater drift, facial droop, speech deficit - Skin Skin exam: Present: dry, intact
--- NOTE | 2016-10-27 13:00 | Physician Discharge Referral ---
Home Health/Hosp Referral Info Transfer to: Home Health - Diagnosis (1) EBONIE (acute kidney injury) Status: Acute (2) Anemia Status: Acute - Respiratory Orders Oxygen / L per min (2) Smoking Cessation: Smoking cessation has been advised. For more information, call the [place] Tobacco Quit Line at 6-839-LJSH-NOW. - Diet/Nutrition Diet/Nutrition Orders: Renal - Activity Activity Orders: Ambulate - Services Needed Following services are medically necessary services: Nursing, Home Health Aide, Physical Therapy - Transfer Medications Home Medications: Aspirin 81 mg PO DAILY 04/06/15 [History] Atorvastatin [Lipitor] 40 mg PO DAILY 04/06/15 [History] Isosorbide DInitrate [Isosorbide Dinitrate] 20 mg PO TID 04/06/15 [History] Nitroglycerin 0.4 mg SL Q5MIN PRN 04/06/15 [History] HydrALAZINE 50 mg PO TID #0 04/07/15 [Rx] Beclomethasone Diprop 40mcg [QVAR 40 mcg] 1 puff IH BID 02/02/16 [History] Ipratropium/Albuterol Neb [Duoneb] 3 ml IH TID 02/02/16 [History] Oxygen 3 l NS HS 02/02/16 [History] Carvedilol [Coreg] 25 mg PO BID PRN 09/16/16 [History] Cyanocobalamin (B-12) [Vitamin B12] 1,000 mcg PO DAILY 09/16/16 [History] Ergocalciferol (VITAMIN D2) [Vitamin D2] 50,000 unit PO QWEEK 09/16/16 [History] Ondansetron ODT [Zofran ODT] 4 mg PO TID PRN 09/16/16 [History] Darbepoetin [Aranesp] 40 mcg SQ QWEEK 30 Days 10/13/16 [Rx] Omeprazole [PriLOSEC] 20 mg PO DAILY@0630 30 Days 10/13/16 [Rx] Saline Nasal [place] [[place] Nasal [place]] 2 spray NS Q2H PRN 30 Days 10/13/16 [Rx] Chlorthalidone 25 mg PO QAM 10/19/16 [History] Ferrous Sulfate [Ferrous Sulfate] 325 mg PO DAILY 10/19/16 [History] Furosemide [Lasix] 40 mg PO Q48H 10/19/16 [History] Losartan Potassium [Cozaar] 50 mg PO BID 10/19/16 [History] Allergies/Adverse Reactions: Allergies amlodipine [From [facility]] Allergy (Verified 10/19/16 18:26) SWELLING IN LEGS lisinopril Allergy (Verified 10/19/16 18:26) Cough Certification: Further, I certify that my clinical findings support that this patient is homebound (i.e. absences from home require considerable and taxing effort and are for medical reasons or catholic services or infrequently or short duration when for other reasons) because: Homebound Reason: Leaving home requires considerable and taxing effort due to condition, Severity of cardiac or pulmonary status limits activity tolerance Attestation: My signature below is to certify that this patient is under my care and that I, or nurse practitioner, or a physician's assistant case manager working with me, has a face-to -face encounter with this patient.
== END 2016-10-27 14:13 | disposition home or self-care (01) | DRG 684 ==
LOC: 2ANU 16:14 → EMEROO 16:14 → 2ANU 21:04 → SUATTDRO 22:01
PROVIDERS: ADMIT Internal Medicine; ATTEND Internal Medicine
PROC: IRPERMA (2016-10-25 12:00)

== ENCOUNTER 2018-01-19 14:55 | Observation (INO) ==
[2018-01-19] MEDS ORDERED: Nitroglycerin 0.4 MG TAB.SUBL SL PRN (16:01)
[2018-01-19] MEDS ORDERED: Ondansetron 4 MG/2 ML VIAL IVP ONE (16:01)
[2018-01-19] MEDS ORDERED: Aspirin 81 MG TAB.CHEW PO ONE (16:01)
--- NOTE | 2018-01-19 16:04 | Emergency Department Note ---
Disposition Clinical Impression: Chest pain Qualifiers: Chest pain type: unspecified Qualified Code(s): R07.9 - Chest pain, unspecified Chronic kidney disease Qualifiers: Chronic kidney disease stage: unspecified stage Qualified Code(s): N18.9 - Chronic kidney disease, unspecified Disposition: Admitted As Inpatient Condition: Fair Referrals: William Galvan MD [Primary Care Provider] - Forms: ED Satisfaction Letter Chest Pain HPI - General Chief Complaint: ED Chest Pain Stated Complaint: N/V & Chest Discomfort Time Seen by Provider: 01/19/18 15:50 Source: patient Mode of arrival: ambulatory Limitations: no limitations Vital Signs Reviewed: Yes Nursing Notes Reviewed: Yes - History of Present Illness HPI Narrative: 87-year-old female with a history of hypertension, ACS status post stent 3 years ago presents for evaluation of chest pain. Patient states that she developed anterior sternal chest pain approximately 4 hours prior to ED arrival. Sates that the pain was constant in nature. Noted to be dull. No radiation. Patient states that the pain gradually resolved. Patient did have an episode of emesis. No dyspnea. No fevers or cough. Patient states that she took an aspirin. Denies any abdominal pain. Severity scale (1-10): 0 - Related Data Home Medications Medication Instructions Recorded Confirmed Aspirin 81 mg PO DAILY 04/06/15 01/19/18 Atorvastatin [Lipitor] 40 mg PO DAILY 04/06/15 01/19/18 Isosorbide DInitrate [Isosorbide 20 mg PO TID 04/06/15 01/19/18 Dinitrate] Nitroglycerin 0.4 mg SL Q5MIN PRN 04/06/15 01/19/18 Ipratropium/Albuterol Neb [Duoneb] 3 ml IH TID 02/02/16 01/19/18 Oxygen 3 l NS HS 02/02/16 01/19/18 Carvedilol [Coreg] 25 mg PO BID PRN 09/16/16 01/19/18 Cyanocobalamin (B-12) [Vitamin B12] 1,000 mcg PO DAILY 09/16/16 01/19/18 Ergocalciferol (VITAMIN D2) 50,000 unit PO QWEEK 09/16/16 01/19/18 [Vitamin D2] Ferrous Sulfate [Ferrous Sulfate] 325 mg PO DAILY 10/19/16 01/19/18 Furosemide [Lasix] 40 mg PO Q48H 10/19/16 01/19/18 Losartan Potassium [Cozaar] 50 mg PO BID 10/19/16 01/19/18 Beclomethasone Dipropionate [Qvar 1 puff IH BID 01/19/18 01/19/18 Redihaler] Darbepoetin [Aranesp] 60 mcg SQ QMONTH 01/19/18 01/19/18 Previous Rx's Medication Instructions Recorded HydrALAZINE 50 mg PO TID #0 04/07/15 Omeprazole [PriLOSEC] 20 mg PO DAILY@0630 30 Days 10/13/16 capsule.dr Allergies Allergy/AdvReac Type Severity Reaction Status Date / Time amlodipine [From [facility]] Allergy SWELLING Verified 10/19/16 18:26 IN LEGS lisinopril Allergy Cough Verified 10/19/16 18:26 All systems ED: reviewed and negative except as stated. Constitutional: Denies: fever Cardiovascular: Reports: chest pain Respiratory: Denies: cough, dyspnea Gastrointestinal: Reports: nausea, vomiting. Denies: abdominal pain Chest Pain PMH - Past Medical History Medical history: Reports: arthritis, coronary artery disease, hyperlipidemia, hypertension, renal disease Surgical history: Reports: angioplasty/stent, appendectomy, cataract, hysterectomy Psychiatric history: Reports: no psych history - Social History Smoking Status: Never smoker Alcohol use: Reports: none Drug use: Reports: none Physical Exam - General Limitations: no limitations General appearance: alert - Head Head exam: atraumatic, normocephalic, normal inspection - Eye Eye exam: Present: normal appearance, EOMI - ENT ENT exam: normal exam, mucous membranes moist - Neck Neck exam: Present: normal inspection, trachea midline - Chest Chest inspection: Present: normal inspection, symmetric chest wall rise - Respiratory Respiratory exam: Present: normal lung sounds bilaterally. Absent: respiratory distress - Cardiovascular Cardiovascular exam: Present: normal rhythm, bradycardia. Absent: systolic murmur - Abdominal Exam Abdominal exam: Present: soft, Non-Tender - Extremities Exam Extremities exam: Present: normal inspection. Absent: pedal edema - Expanded Lower Extremity Exam Neurovascular/Tendon exam: Present: normal capillary refill - Neurological Exam Neurological exam: Present: alert, oriented X3 - Skin Skin exam: Present: warm, dry, intact, normal color Course Course Narrative: Patient seen and examined. Patient presents with complaint of chest pain nausea vomiting. Patient does have a cardiac history. Patient get it cardiac evaluation likely admission for ACS. - Reevaluation(s) Reevaluation #1: Patient seen and examined. Patient's resting comfortably. No chest pain at time of examination. Patient was updated on plan of care. Patient does have a history of chronic kidney disease which appears to be at baseline. Initial troponin is negative with 4 hour onset of chest pain. Given the patient's history she would likely need further evaluation. Time: 16:52 Vital Signs Temperature 98.6 F 01/19/18 14:58 Pulse Rate 53 01/19/18 14:58 Respiratory Rate 16 01/19/18 14:58 Blood Pressure 153/75 01/19/18 14:58 O2 Sat by Pulse Oximetry 94 01/19/18 14:58 Temperature 98.6 F 01/19/18 16:04 Pulse Rate 51 01/19/18 16:45 Respiratory Rate 18 01/19/18 16:45 Blood Pressure 176/88 01/19/18 16:45 O2 Sat by Pulse Oximetry 98 01/19/18 16:45 Oxygen Delivery Oxygen Delivery Room Air Chest Pain - MDM Narrative Medical decision making narrative: Patient presents for concern of chest pain. Patient does have a concerning history of ACS etiology. Patient was chest pain-free during the ED course however onset of chest pain was 4 hours prior to ED arrival. Patient's EKG shows sinus bradycardia with PVC and a left bundle. Patient did have a left bundle and the past. Patient labs reveal chronic kidney disease which appeals to be at her baseline. Patient continued to urinate. No significant joint abnormalities. Patient history is less likely suspicious for pulmonary embolism. Patient will be admitted for further cardiopulmonary evaluation likely provocative testing. - Medical Records Medical records reviewed: Yes I reviewed the patient's medical records. Impressions: LVEF 60%. Normal LV chamber size and function. Mild concentric left ventricular hypertrophy. Mild left ventricular diastolic dysfunction. Atypical septal motion consistent with bundle branch block. Normal right ventricular structure and function. No evidence of PFO with agitated saline contrast. Severe pulmonary hypertension. Estimated RVSP is 67 mmHg. Mild pulmonic regurgitation. - Lab Data Lab results reviewed: Yes I reviewed the patient's lab results. Result diagrams: 01/19/18 15:05 01/19/18 15:05 Lab Results 01/19/18 01/19/18 01/19/18 Range/Units 15:05 15:05 15:53 WBC 4.8 (4.3-11.1) K/mcL RBC 3.70 L (3.82-4.97) M/mcL Hgb 11.4 L (11.5-15.4) g/dL Hct 35.4 (35.3-44.9) % MCV 95.7 (83.0-100.0) fL MCH 30.8 (28.0-33.3) pg MCHC 32.2 (31.6-35.5) g/dL RDW 15.0 H (11.5-14.5) % Plt Count 155 (140-400) K/mcL MPV 11.2 (9.4-12.4) fL Sodium 140 (136-145) mEq/L Potassium 3.8 (3.5-5.1) mEq/L Chloride 99 (98-107) mEq/L Carbon Dioxide 32 H (23-29) mEq/L BUN 41 H (8-23) mg/dL Creatinine 2.40 H (0.60-1.20) mg/dL Est GFR ( Amer) 23 L (> 60) Est GFR (Non-Af Amer) 19 L (> 60) BUN/Creatinine Ratio 17 (6-26) Glucose 149 H (70-105) mg/dL Calculated Osmolality 303 H (280-300) Calcium 9.9 (8.6-10.3) mg/dL Phosphorus 4.3 (2.7-4.5) mg/dL Magnesium 2.1 (1.6-2.6) mg/dL Troponin I < 0.03 (< 0.04) ng/mL TSH 0.505 (0.340-5.600) mcIU/mL - Radiology Data Radiology results reviewed: Yes I reviewed the patient's radiology results. Chest X-Ray 01/19/18 15:53 IMPRESSION: Stable cardiomegaly. No acute pulmonary finding. D/ / Christoph Peters MD / Christoph Peters MD Interpreting Provider: Christoph Peters MD - EKG Data EKG attestation: Yes I reviewed and interpreted this EKG. EKG shows normal: sinus rhythm Rate: bradycardia Rhythm: NSR [place]/QRS: normal, LBBB Voltage: increased voltage throughout Ectopy: PVC (unifocal) Interpretation: no acute changes, unchanged when compared to prior tracing (date ) (2016), nonspecific ST-T wave changes Heart Score - Score History: Highly Suspicious EKG: Non Specific repolarisation Disturbance Age: Greater than 65 Risk Factors: Equal/Greater than 3 risk factor or history of atherosclerotic disease Troponin: Less than normal limit HEART Score Total: 7 S.B.A.Steve - S.B.ADeanna Situation: Demographics Background: Presenting Complaint Assessment: Vital Signs, Course and respsone to treatment, Patient/Family Expectation Recommendation: Barrier(s) to disposition, Recommendation based on pending studies, treatments, or consults S.B.A.Steve Report Given to: Dr. Dmitriy Beth Repor Time: 16:57
--- NOTE | 2018-01-19 16:05 | Emergency Department Note ---
Disposition Clinical Impression: Chest pain, Chronic kidney disease Disposition: Admitted As Inpatient Condition: Fair Referrals: William Galvan MD [Primary Care Provider] - Forms: ED Satisfaction Letter General Adult HPI - General Chief complaint: ED Chest Pain Stated complaint: N/V & Chest Discomfort Time Seen by Provider: 01/19/18 15:50 - History of Present Illness Pain Scale: 0 - Related Data Home Medications Medication Instructions Recorded Confirmed Aspirin 81 mg PO DAILY 04/06/15 01/19/18 Atorvastatin [Lipitor] 40 mg PO DAILY 04/06/15 01/19/18 Isosorbide DInitrate [Isosorbide 20 mg PO TID 04/06/15 01/19/18 Dinitrate] Nitroglycerin 0.4 mg SL Q5MIN PRN 04/06/15 01/19/18 Ipratropium/Albuterol Neb [Duoneb] 3 ml IH TID 02/02/16 01/19/18 Oxygen 3 l NS HS 02/02/16 01/19/18 Carvedilol [Coreg] 25 mg PO BID PRN 09/16/16 01/19/18 Cyanocobalamin (B-12) [Vitamin B12] 1,000 mcg PO DAILY 09/16/16 01/19/18 Ergocalciferol (VITAMIN D2) 50,000 unit PO QWEEK 09/16/16 01/19/18 [Vitamin D2] Ferrous Sulfate [Ferrous Sulfate] 325 mg PO DAILY 10/19/16 01/19/18 Furosemide [Lasix] 40 mg PO Q48H 10/19/16 01/19/18 Losartan Potassium [Cozaar] 50 mg PO BID 10/19/16 01/19/18 Beclomethasone Dipropionate [Qvar 1 puff IH BID 01/19/18 01/19/18 Redihaler] Darbepoetin [Aranesp] 60 mcg SQ QMONTH 01/19/18 01/19/18 Previous Rx's Medication Instructions Recorded HydrALAZINE 50 mg PO TID #0 04/07/15 Omeprazole [PriLOSEC] 20 mg PO DAILY@0630 30 Days 10/13/16 capsule. Allergies Allergy/AdvReac Type Severity Reaction Status Date / Time amlodipine [From [facility]] Allergy SWELLING Verified 10/19/16 18:26 IN LEGS lisinopril Allergy Cough Verified 10/19/16 18:26 Past Medical History - Past Medical History Medical history: Reports: arthritis, coronary artery disease, hyperlipidemia, hypertension, renal disease Surgical history: Reports: angioplasty/stent, appendectomy, cataract, hysterectomy Psychiatric history: Reports: no psych history - Social History Smoking Status: Never smoker Smokeless Tobacco Status: No Alcohol use: Reports: none Drug use: Reports: none Course Vital Signs Temperature 98.6 F 01/19/18 14:58 Pulse Rate 53 01/19/18 14:58 Respiratory Rate 16 01/19/18 14:58 Blood Pressure 153/75 01/19/18 14:58 O2 Sat by Pulse Oximetry 94 01/19/18 14:58 Temperature 98.6 F 01/19/18 16:04 Pulse Rate 51 01/19/18 16:45 Respiratory Rate 18 01/19/18 16:45 Blood Pressure 176/88 01/19/18 16:45 O2 Sat by Pulse Oximetry 98 01/19/18 16:45 Oxygen Delivery Oxygen Delivery Room Air Medical Decision Making - Lab Data Result diagrams: 01/19/18 15:05 01/19/18 15:05 Lab Results 01/19/18 01/19/18 01/19/18 Range/Units 15:05 15:05 15:53 WBC 4.8 (4.3-11.1) K/mcL RBC 3.70 L (3.82-4.97) M/mcL Hgb 11.4 L (11.5-15.4) g/dL Hct 35.4 (35.3-44.9) % MCV 95.7 (83.0-100.0) fL MCH 30.8 (28.0-33.3) pg MCHC 32.2 (31.6-35.5) g/dL RDW 15.0 H (11.5-14.5) % Plt Count 155 (140-400) K/mcL MPV 11.2 (9.4-12.4) fL Sodium 140 (136-145) mEq/L Potassium 3.8 (3.5-5.1) mEq/L Chloride 99 (98-107) mEq/L Carbon Dioxide 32 H (23-29) mEq/L BUN 41 H (8-23) mg/dL Creatinine 2.40 H (0.60-1.20) mg/dL Est GFR ( Amer) 23 L (> 60) Est GFR (Non-Af Amer) 19 L (> 60) BUN/Creatinine Ratio 17 (6-26) Glucose 149 H (70-105) mg/dL Calculated Osmolality 303 H (280-300) Calcium 9.9 (8.6-10.3) mg/dL Phosphorus 4.3 (2.7-4.5) mg/dL Magnesium 2.1 (1.6-2.6) mg/dL Troponin I < 0.03 (< 0.04) ng/mL B-Natriuretic Peptide (Less than 100) pg/mL TSH 0.505 (0.340-5.600) mcIU/mL 01/19/18 Range/Units 15:58 WBC (4.3-11.1) K/mcL RBC (3.82-4.97) M/mcL Hgb (11.5-15.4) g/dL Hct (35.3-44.9) % MCV (83.0-100.0) fL MCH (28.0-33.3) pg MCHC (31.6-35.5) g/dL RDW (11.5-14.5) % Plt Count (140-400) K/mcL MPV (9.4-12.4) fL Sodium (136-145) mEq/L Potassium (3.5-5.1) mEq/L Chloride (98-107) mEq/L Carbon Dioxide (23-29) mEq/L BUN (8-23) mg/dL Creatinine (0.60-1.20) mg/dL Est GFR ( Amer) (> 60) Est GFR (Non-Af Amer) (> 60) BUN/Creatinine Ratio (6-26) Glucose (70-105) mg/dL Calculated Osmolality (280-300) Calcium (8.6-10.3) mg/dL Phosphorus (2.7-4.5) mg/dL Magnesium (1.6-2.6) mg/dL Troponin I (< 0.04) ng/mL B-Natriuretic Peptide 280 H (Less than 100) pg/mL TSH (0.340-5.600) mcIU/mL Attestation Statement - Attestation Attestation: I examined this patient and my medical decision-making was reviewed with the Resident Physician. I agree with the documented findings, disposition and treatment plan as described except to the extent set forth below. [id number] time provided Patient arrives complaining of chest discomfort. She has known history of coronary artery disease with previous angioplasty and stent appointment. EKG reviewed by me. Patient appears in no acute distress. She was evaluated in conjunction with the resident physician Dr. Peck
[2018-01-19 16:12] LABS: Hematocrit 35.4 % (35.3-44.9); Hemoglobin 11.4 g/dL (11.5-15.4); Mean Corpuscular HGB Conc 32.2 g/dL (31.6-35.5); Mean Corpuscular Hemoglobin 30.8 pg (28.0-33.3); Mean Corpuscular Volume 95.7 fL (83.0-100.0); Mean Platelet Volume 11.2 fL (9.4-12.4); Platelet Count 155 K/mcL (140-400)
[2018-01-19 16:33] LABS: Magnesium 2.1 mg/dL (1.6-2.6); Phosphorous 4.3 mg/dL (2.7-4.5)
[2018-01-19 16:35] LABS: BUN/Creatinine Ratio 17 (6-26); Blood Urea Nitrogen 41 mg/dL (8-23); Calcium 9.9 mg/dL (8.6-10.3); Carbon Dioxide 32 mEq/L (23-29); Chloride 99 mEq/L (98-107); Glucose 149 mg/dL (70-105); Osmolality,Calculated 303 (280-300); Potassium 3.8 mEq/L (3.5-5.1); Sodium 140 mEq/L (136-145); eGFR For Non-African Americans 19 (> 60)
[2018-01-19 16:36] LABS: Troponin I < 0.03 ng/mL (< 0.04)
[2018-01-19 16:50] LABS: Thyroid Stimulating Hormone 0.505 mcIU/mL (0.340-5.600)
[2018-01-19] MEDS ORDERED: Naloxone 0.4 MG/ML INJ IVP PRN (18:36)
[2018-01-19] MEDS ORDERED: Ondansetron 4 MG/2 ML VIAL IVP PRN (18:42)
--- NOTE | 2018-01-19 18:54 | Internal Med History&Physical ---
<ThiernoamberjocelineChristoph - Last Filed: 01/19/18 19:30> Date of Encounter: 01/19/18 Time of Encounter: 17:30 Internal Medicine - H&P: HPI Chief complaint: CP Admitted From: Emergency Dept Plans for Post Hospital Care: Home History of present illness: Ms. Strickland is a 87 year old female w/PMH of arthritis, CAD, HLD, HTN, and CK D , and stent placement 1 presents from the ED with chief complaint of chest pain today that patient describes a centralized in chest and qualifies as a throbbing pressure. Patient states symptoms came on at rest. Patient also reports her BP dropped to a systolic level of 98 and then began slowly climbing to the 100s. Patient also became bradycardic. States she took aspirin and laid down without resolve. Associated symptoms: Nausea and vomiting 3, dizziness. Patient denies SOB and diaphoresis. Patient reports dizziness but denies recent illness, fever, chills, headache, changes in vision, palpitations , cough, chest congestion, abdominal pain, diarrhea, constipation, palpitations , numbness, tingling, pre-syncope, or syncope. Past Med Surg Social Fam HX - Past Medical History Source: patient, old records reviewed, obtained from family Medical history: arthritis, coronary artery disease, hyperlipidemia, hypertension, renal disease Additional medical history: LEFT BBB Psychiatric history: no psych history - Past Surgical History Surgical History: angioplasty/stent (x1), appendectomy, cataract (Bilateral), hysterectomy (Partial) Additional surgical history: stent times 1 - Social History Smoking Status: Never smoker Smokeless Tobacco Status: No Alcohol use: none Drug use: none Current living situation: Home, With Family Activity Level: Independent ambulation Recent Out of Country Travel Within the Last 8 Weeks: No Exposure or Possible Exposure to Illness During Travel: No - Family History Brother Adopted: No Race: Family Member Ethnicity: Non- Living Status: Age at : 66 Cause of : Bome cancer Hx Family Cancer: Yes (Bone) Sister Race: Family Member Ethnicity: Non- Living Status: Cause of : Goiter/Thyroid cancer Hx Family Cancer: Yes (Thyroid) Hx Family Endocrine Disorder: Yes (Goiter) Father Race: Family Member Ethnicity: Non- Living Status: Age at : 79 Cause of : Dementia Hx Family Neurologic Disorders: Yes (Dementia) Mother Race: Family Member Ethnicity: Non- Living Status: Age at : 86 Cause of : Cancer (Type unknown) Hx Family Cardiac Disorders: Yes (CAD) Hx Family Cancer: Yes Internal Medicine - H&P: Meds Aspirin 81 mg PO DAILY 04/06/15 [History] Atorvastatin [Lipitor] 40 mg PO DAILY 04/06/15 [History] Isosorbide DInitrate [Isosorbide Dinitrate] 20 mg PO TID 04/06/15 [History] Nitroglycerin 0.4 mg SL Q5MIN PRN 04/06/15 [History] HydrALAZINE 50 mg PO TID #0 04/07/15 [Rx] Ipratropium/Albuterol Neb [Duoneb] 3 ml IH TID 02/02/16 [History] Oxygen 3 l NS HS 02/02/16 [History] Carvedilol [Coreg] 25 mg PO BID PRN 09/16/16 [History] Cyanocobalamin (B-12) [Vitamin B12] 1,000 mcg PO DAILY 09/16/16 [History] Ergocalciferol (VITAMIN D2) [Vitamin D2] 50,000 unit PO QWEEK 09/16/16 [History] Omeprazole [PriLOSEC] 20 mg PO DAILY@0630 30 Days capsule. 10/13/16 [Rx] Ferrous Sulfate [Ferrous Sulfate] 325 mg PO DAILY 10/19/16 [History] Furosemide [Lasix] 40 mg PO Q48H 10/19/16 [History] Losartan Potassium [Cozaar] 50 mg PO BID 10/19/16 [History] Beclomethasone Dipropionate [Qvar Redihaler] 1 puff IH BID 01/19/18 [History] Darbepoetin [Aranesp] 60 mcg SQ QMONTH 01/19/18 [History] 3 Allergy/AdvReac Type Severity Reaction Status Date / Time amlodipine [From [facility]] Allergy SWELLING Verified 10/19/16 18:26 IN LEGS lisinopril Allergy Cough Verified 10/19/16 18:26 All Systems PM: A 10-system review of systems was performed and is negative for pertinent findings except as documented above in the HPI. - Constitutional Constitutional: as per HPI, no chills, no fever(s), no night sweats - EENT Eyes: no change in vision, no discharge, no pain, no photophobia Ears: no ear discharge, no ear pain, no tinnitus Nose, mouth and throat: no dysphagia, no nasal discharge, no neck pain, no sore throat - Breasts Breasts: as per HPI - Cardiovascular Cardiovascular ROS IM: as per HPI, chest pain, lightheadedness, no diaphoresis, no dyspnea, no palpitations, no syncope - Respiratory Respiratory: as per HPI, no cough, no dyspnea, no wheezing, no excessive phlegm production - Gastrointestinal Gastrointestinal: as per HPI, nausea, vomiting, no abdominal pain, no diarrhea, no hematemesis, no hematochezia, no melena - Genitourinary Genitourinary: no change in urinary stream, no dysuria, no flank pain, no hematuria Menstruation: as per HPI, post hysterectomy - Musculoskeletal Musculoskeletal ROS IM: as per HPI, arthralgias, no numbness, no tingling - Integumentary Integumentary IM: no rash, no unusual bruising - Neurological Neurological ROS: as per HPI, dizziness, no confusion, no convulsions, no focal weakness, no numbness, no tingling, no tremor(s) - Psychiatric Psychiatric: as per HPI - Endocrine Endocrine IM: as per HPI - Hematologic/Lymphatic Hematologic/Lymphatic: as per HPI, no easy bruising - Allergic/Immunologic Allergic/Immunologic: as per HPI - Constitutional Vitals: Temp Pulse Resp BP Pulse Ox 98.6 F 51 18 176/88 98 01/19/18 16:04 01/19/18 16:45 01/19/18 16:45 01/19/18 16:45 01/19/18 16:45 General appearance: Present: cooperative, A&O X 3, pleasant, no acute distress, underweight, answers questions appropriately - Head Head exam: Present: atraumatic, normocephalic - Eye Eye exam: Present: PERRL, conjuntiva pink, sclera anicteric Pupils: Present: PERRL - ENT ENT exam: Present: normal exam - Neck Neck exam general surgery: Present: normal inspection, supple, trachea midline. Absent: lymphadenopathy - Respiratory Respiratory exam: Present: CTAB. Absent: accessory muscle use, rales, rhonchi, wheezes - Cardiovascular Cardiovascular exam: Present: bradycardia - GI/Abdominal GI/Abdominal exam: Present: normal bowel sounds, soft, no peritoneal signs. Absent: distended, tenderness - Rectal Rectal exam: Present: deferred - Additional comments: exam deferred. - Extremities Exam Extremities exam: Present: warm, radial pulses palpable and symmetrical. Absent : calf tenderness, cyanotic, pedal edema - Back Exam Back exam: Present: normal inspection - Neurological Exam Neurological exam: Present: alert, CN II-XII intact, oriented X3, no focal deficits. Absent: pronater drift, facial droop, speech deficit - Psychiatric Psychiatric exam: Present: normal affect, normal mood - Skin Skin exam: Present: dry, intact Internal Med - H&P Results - Labs CBC & Chem 7: 01/19/18 15:05 01/19/18 15:05 - EKG Data EKG shows normal: sinus rhythm Rate: bradycardia - EKG Data Prior EKG available for review: yes EKG comments: 01/19/18 19:00 EKG dated 10/13/16 shows sinus rhythm with intraventricular conduction delay. EKG dated 01/19/18 shows sinus bradycardia with occasional ventricular premature complexes, marked left axis deviation, intraventricular conduction delay. - Diagnostic Studies Chest x-ray Additional comments: Impressions Chest X-Ray 01/19/18 15:05 IMPRESSION: No acute cardiopulmonary disease. Cardiomegaly without overt failure. Mild dependent left basilar atelectasis. D/ / Zeferino Treadwell MD / Zeferino Treadwell MD Interpreting Provider: Zeferino Treadwell MD Chest X-Ray 01/19/18 15:53 IMPRESSION: Stable cardiomegaly. No acute pulmonary finding. D/ / Christoph Peters MD / Christoph Peters MD Interpreting Provider: Christoph Peters MD - Assessment and plan (1) Chest pain Current Visit: Yes Status: Acute Assessment and plan: Acute CP that began today that patient describes a centralized in chest and qualifies as a throbbing pressure. Patient states symptoms came on at rest. Patient also reports her BP dropped to a systolic level of 98 and then began slowly climbing to the 100s. Patient also became bradycardic. States she took aspirin and laid down without resolve. Associated symptoms: Nausea and vomiting 3, dizziness. Patient denies SOB and diaphoresis. Patient reports dizziness. Hx of stent placement x1. Initial troponin <0.03. Will trend. Echocardiogram. Continuous cardiac telemetry. Supplemental O2 with titration and SPO2 monitoring. Nothing by mouth at midnight for a.m. nuclear pharm stress test if troponins remain WNL. Consider Cardiology consult if troponins, Echocardiogram, and/or stress test results abnormal. Pt. discussed w/Dr. Izaguirre agrees with plan of care. Patient is high risk for further morbidity and cardiac event based on current symptoms, history of stent placement 1, current bradycardia and hypotension, familial history of CAD; and risk factors of CAD, HLD, HTN, and CKD stage IV. Observation. Qualifiers: Chest pain type: other chest pain Qualified Code(s): R07.89 - Other chest pain; R07.8 - Other chest pain (2) Dizziness Current Visit: Yes Status: Acute Assessment and plan: Acute dizziness w/CP sx. Bilateral carotid Dopplers ordered. Orthostatic BPs and vital signs. Falls/safety precautions and up with assist only. PT/OT consults ordered due to difficulty with ambulation. (3) HTN (hypertension) Current Visit: Yes Status: Chronic Assessment and plan: Hx of chronic HTN. Monitor patient vital signs. Patient currently bradycardic and hypotensive on admission. Hold patient's BP medications for now. Hydralazine IVP 10 mg every 6 hours when necessary with parameters ordered. Communication order to notify provider prior to administering BP medications due to hypotension. Qualifiers: Hypertension type: essential hypertension Qualified Code(s): I10 - Essential (primary) hypertension (4) HLD (hyperlipidemia) Current Visit: Yes Status: Chronic Assessment and plan: Hx of chronic HLD. Lipid panel in a.m. labs. Continue pts. PO Lipitor. Qualifiers: Hyperlipidemia type: pure hypercholesterolemia Qualified Code(s): E78.00 - Pure hypercholesterolemia, unspecified; E78.0 - Pure hypercholesterolemia (5) CKD (chronic kidney disease) stage 4, GFR 15-29 ml/min Current Visit: Yes Status: Chronic Assessment and plan: Hx of CKD. Now stage 4 w/GFR of 19 and creatinine of 2.40 on admission. Patient reports she was on dialysis previously in August 2016 for less than 2 months due to emergent surgery. Denies dialysis since that time. Monitor I&O and daily weight. Will use IV fluids judiciously if warranted. Avoid nephrotoxins. Nephrology consult ordered in the ED and I appreciate the consult and recommendations. Monitor pt. and f/u labs. (6) CAD (coronary artery disease) Current Visit: Yes Status: Chronic Assessment and plan: Hx of chronic CAD. Stent placement x1 and balloon x1. Continuous cardiac telemetry. Lipid panel in a.m. labs and continue patient's statin. Patient is currently bradycardic and hypotensive so we will hold patient's BP medications and add IVPB hydralazine every 6 hour when necessary with parameters. Continue aspirin and Plavix. Qualifiers: Coronary Disease-Associated Artery/Lesion type: [place] artery [place] vs. transplanted heart: [place] heart Associated angina: with unstable angina Qualified Code(s): I25.110 - Atherosclerotic heart disease of [place] coronary artery with unstable angina pectoris (7) DVT prophylaxis Current Visit: Yes Status: Acute Assessment and plan: Heparin 5000 units SQ every 8 hour for DVT prophylaxis. Monitor patient for signs of bleeding. (8) Nausea and vomiting Current Visit: Yes Status: Acute Assessment and plan: Acute N/V w/CP sx. IVP Zofran 4 mg every 6 hours when necessary for nausea and vomiting. Monitor I&O. Qualifiers: Vomiting type: cyclical vomiting Vomiting Intractability: non-intractable Qualified Code(s): G43.A0 - Cyclical vomiting, not intractable - Time Spent With Patient Total time spent is greater than 50% in coordination of care (as documented) at patient's floor/unit and/or counseling patient: Greater than 35 minutes <Leonel Izaguirre - Last Filed: 01/20/18 14:27> Date of Encounter: 01/19/18 Internal Medicine - H&P: HPI History of present illness: Ms. Strickland is a 87 year old female All Systems PM: A 10-system review of systems was performed and is negative for pertinent findings except as documented above in the HPI. - Constitutional Vitals: Temp Pulse Resp BP Pulse Ox 97.4 F L 58 17 154/75 98 01/20/18 10:52 01/20/18 10:52 01/20/18 10:52 01/20/18 10:52 01/20/18 10:52 Internal Med - H&P Results - Labs CBC & Chem 7: 01/20/18 03:19 01/20/18 03:19 Labs: Short CBC 01/20/18 Range/Units 03:19 WBC 3.9 L (4.3-11.1) K/mcL Hgb 10.6 L (11.5-15.4) g/dL Hct 33.0 L (35.3-44.9) % Plt Count 140 (140-400) K/mcL Neutrophils # 2.1 (1.6-8.9) K/mcL BMP 01/20/18 03:19 Sodium 143 Potassium 3.6 Chloride 102 Carbon Dioxide 32 H BUN 40 H Creatinine 2.33 H Glucose 104 Calcium 9.2 Cardiac Enzymes 01/19/18 01/20/18 Range/Units 22:12 03:19 Troponin I < 0.03 < 0.03 (< 0.04) ng/mL Liver Function 01/20/18 Range/Units 03:19 Total Bilirubin 0.6 (0.3-1.0) mg/dL AST 12 L (13-39) Units/L ALT 5 L (7-52) Units/L Alkaline Phosphatase 93 (34-104) Units/L Albumin 3.5 (3.5-5.7) g/dL - Attending Attestation I SAW/EXAMINED AND EVALUATED THE PATIENT WITH THE SIDE TRIMMER/PA ON THE DAY OF ADMISSION. THE CASE WAS DISCUSSED WITH HIM/HER. I AGREE WITH THE FINDINGS/PLAN , DOCUMENTED IN THE SIDE TRIMMER/PA'S H&P. THE DOCUMENT WAS EDITED BY ME TO CORRECT ERRORS AND ADD MISSING DATA. - Assessment and plan (1) CAD (coronary artery disease) Current Visit: Yes Status: Chronic Qualifiers: Coronary Disease-Associated Artery/Lesion type: [place] artery [place] vs. transplanted heart: [place] heart Associated angina: with unstable angina Qualified Code(s): I25.110 - Atherosclerotic heart disease of [place] coronary artery with unstable angina pectoris (2) Chest pain Current Visit: Yes Status: Acute Qualifiers: Chest pain type: other chest pain Qualified Code(s): R07.89 - Other chest pain; R07.8 - Other chest pain (3) DVT prophylaxis Current Visit: Yes Status: Acute (4) HTN (hypertension) Current Visit: Yes Status: Chronic Qualifiers: Hypertension type: essential hypertension Qualified Code(s): I10 - Essential (primary) hypertension (5) HLD (hyperlipidemia) Current Visit: Yes Status: Chronic Qualifiers: Hyperlipidemia type: pure hypercholesterolemia Qualified Code(s): E78.00 - Pure hypercholesterolemia, unspecified; E78.0 - Pure hypercholesterolemia (6) CKD (chronic kidney disease) stage 4, GFR 15-29 ml/min Current Visit: Yes Status: Chronic (7) Dizziness Current Visit: Yes Status: Acute (8) Nausea and vomiting Current Visit: Yes Status: Acute Qualifiers: Vomiting type: cyclical vomiting Vomiting Intractability: non-intractable Qualified Code(s): G43.A0 - Cyclical vomiting, not intractable - Time Spent With Patient Total time spent is greater than 50% in coordination of care (as documented) at patient's floor/unit and/or counseling patient:
[2018-01-19] MEDS: Ipratropium/Albuterol Neb 3 ML IH SCH ×2 (19:55→23:24)
[2018-01-19] MEDS: *HR* Heparin 5,000 UNIT/ML VIAL SQ SCH (21:45)
[2018-01-19] MEDS: Beclomethasone 80mcg MDI IH SCH (23:25)
[2018-01-20 04:28] LABS: Eosinophils # 0.2 K/mcL (0.0-0.6); Eosinophils % 4.1 %; Hemoglobin 10.6 g/dL (11.5-15.4); Immature Granulocytes % 0.3 % (0-4); Lymphocytes # 1.1 K/mcL (0.6-4.6); Lymphocytes % 28.1 %; Mean Corpuscular HGB Conc 32.1 g/dL (31.6-35.5); Mean Corpuscular Hemoglobin 30.5 pg (28.0-33.3); Mean Corpuscular Volume 95.1 fL (83.0-100.0); Mean Platelet Volume 11.7 fL (9.4-12.4); Monocytes # 0.5 K/mcL (0.0-1.3); Monocytes % 13.8 %; Neutrophils # 2.1 K/mcL (1.6-8.9); Platelet Count 140 K/mcL (140-400); Red Blood Count 3.47 M/mcL (3.82-4.97); Red Cell Distribution Width 14.9 % (11.5-14.5); Segmented Neutrophils % 52.7 %
[2018-01-20 04:48] LABS: Alanine Aminotransferase 5 Units/L (7-52); Albumin 3.5 g/dL (3.5-5.7); Albumin/Globulin Ratio 1.3 (1.1-2.2); Alkaline Phosphatase 93 Units/L (34-104); Aspartate Amino Transferase 12 Units/L (13-39); BUN/Creatinine Ratio 17 (6-26); Bilirubin,Total 0.6 mg/dL (0.3-1.0); Blood Urea Nitrogen 40 mg/dL (8-23); Calcium 9.2 mg/dL (8.6-10.3); Carbon Dioxide 32 mEq/L (23-29); Chloride 102 mEq/L (98-107); Chol/HDL Ratio 2.6 (0-4.9); Cholesterol 118 mg/dL (< 200); Globulin 2.6 g/dL (2.4-3.5); Glucose 104 mg/dL (70-105); HDL Cholesterol 46 mg/dL (40-59); LDL Cholesterol,Calculated 62 mg/dL (0-99); Osmolality,Calculated 306 (280-300); Potassium 3.6 mEq/L (3.5-5.1); Sodium 143 mEq/L (136-145); Total Protein 6.1 g/dL (6.4-8.9); Triglycerides 52 mg/dL (< 150); Troponin I < 0.03 ng/mL (< 0.04); eGFR For Non-African Americans 20 (> 60)
[2018-01-20] MEDS: *HR* Heparin 5,000 UNIT/ML VIAL SQ SCH ×3 (06:27→21:00)
[2018-01-20] MEDS ORDERED: Regadenoson 0.4 MG/5 ML SYRINGE IVP ONE (07:07)
[2018-01-20 07:20] LABS: Estimated Average Glucose 137 mg/dl; Hemoglobin A1C 6.4 %
[2018-01-20] MEDS: Beclomethasone 80mcg MDI IH SCH ×2 (10:40→23:51)
[2018-01-20] MEDS: Ipratropium/Albuterol Neb 3 ML IH SCH ×3 (10:41→23:51)
[2018-01-20] MEDS: Cyanocobalamin (B-12) 1,000 MCG TABLET PO SCH (10:51)
[2018-01-20] MEDS: Aspirin 81 MG TAB.CHEW PO SCH (10:51)
--- NOTE | 2018-01-20 16:14 | Internal Med Progress Note ---
Hospitalist Progress Note - Encounter Date of Encounter: 01/20/18 Time of Encounter: 10:30 - Subjective Interval History: Patient was seen and assessed at bedside at 10:30 AM at bedside. Patient reports sudden onset midsternal pressure/throat pain without radiation while at rest. Patient states the pain lasted about 45 minutes she denies any shortness of breath. She says the pain was relieved with rest. She also had associated vomiting 3 and dizziness. She states that she recently stopped taking hydralazine per recommendation of cardiology. He has been pain-free, no dizziness, no nausea or vomiting, blood pressure has been well controlled. Patient reports that she had stenting and angioplasty 2015 has been symptom- free since that time. - Exam Vitals: Temp Pulse Resp BP Pulse Ox 97.5 F L 48 17 128/65 97 01/20/18 15:57 01/20/18 15:57 01/20/18 15:57 01/20/18 15:57 01/20/18 15:57 - Assessment and Plan (1) CAD (coronary artery disease) Current Visit: Yes Status: Chronic Assessment and Plan: Chronic. Stent and angioplasty in 2014. Lipids within normal limits. Telemetry Patient was bradycardic and hypotensive on arrival, blood pressure medicines were held. Continue aspirin, Lipitor and Plavix Patient remains bradycardic, blood pressure is a little elevated, we will restart home medications that not affect pulse. (2) Chest pain Current Visit: Yes Status: Acute Assessment and Plan: Pt denies chest pain today. Stress test negative for ischemia or infarct, patient had apical thinning artifact. Patient has a gated EF of 36%. Echocardiogram shows severe global hypokinesis of LV with an EF of 30-35%, there is mild concentric LVH with mild LVE, mild to moderate MR, moderately severe pulmonary hypertension. She had an echocardiogram in Oct, 2016 with ejection fraction of 60%, normal LV chamber size and function, mild concentric LVH, mild LV DD. Troponins are negative. Chest x-ray is negative. This is a significant change in echocardiogram, cardiology has been consulted. Echo results discussed with patient and son, agree to stay emergency cardiology. Continue telemetry Continue to monitor labs and vital signs (3) DVT prophylaxis Current Visit: Yes Status: Acute Assessment and Plan: Heparin 5000 3 times daily.. (4) HTN (hypertension) Current Visit: Yes Status: Chronic Assessment and Plan: Chronic. Stable. Medications have been restarted. Monitor vital signs. (5) HLD (hyperlipidemia) Current Visit: Yes Status: Chronic Assessment and Plan: Chronic. Continue home dose of Lipitor. (6) CKD (chronic kidney disease) stage 4, GFR 15-29 ml/min Current Visit: Yes Status: Chronic Assessment and Plan: Chronic. Patient states that she sees Dr. Ortiz. Patient had slight improvement in terms of her 89 with creatinine 2.33, GFR 24. Continue to avoid nephrotoxins. Apparently nephrology was consulted the emergency department. Monitor patient and labs. (7) Dizziness Current Visit: Yes Status: Acute Assessment and Plan: Denies. Carotids show right distal greater than 6079% stenosis, left has nonstenotic plaque. Patient will need to follow with vascular after discharge. Echo as above. Likely secondary to hypotension and bradycardia. Cardiology is being consulted. (8) Nausea and vomiting Current Visit: Yes Status: Resolved Assessment and Plan: Resolved. Labs are stable. Anti-Emetics as needed. - Time Spent with Patient Total time spent is greater than 50% in coordination of care (as documented) at patient's floor/unit and/or counseling patient: less than 15 minutes Plan of Care Discussed with: patient Internal Medicine: Result - Labs CBC & Chem 7: 01/20/18 03:19 01/20/18 03:19 Labs: Short CBC 01/20/18 Range/Units 03:19 WBC 3.9 L (4.3-11.1) K/mcL Hgb 10.6 L (11.5-15.4) g/dL Hct 33.0 L (35.3-44.9) % Plt Count 140 (140-400) K/mcL Neutrophils # 2.1 (1.6-8.9) K/mcL BMP 01/20/18 03:19 Sodium 143 Potassium 3.6 Chloride 102 Carbon Dioxide 32 H BUN 40 H Creatinine 2.33 H Glucose 104 Calcium 9.2 Cardiac Enzymes 01/19/18 01/20/18 Range/Units 22:12 03:19 Troponin I < 0.03 < 0.03 (< 0.04) ng/mL Liver Function 01/20/18 Range/Units 03:19 Total Bilirubin 0.6 (0.3-1.0) mg/dL AST 12 L (13-39) Units/L ALT 5 L (7-52) Units/L Alkaline Phosphatase 93 (34-104) Units/L Albumin 3.5 (3.5-5.7) g/dL - Impressions Impressions Echocardiogram 01/20/18 18:25 Impressions: Severe global hypokinesis of LV. EF 30-35% Mild concentric LVH with mild LVE. Mild to moderate MR. Moderately severe pulmonary HTN. RVSP 61mmHg Left Ventricular Wall Motion: Rest Echo Findings The apex, apical inferior, mid inferior, basal inferior, apical anterior, mid anterior, basal anterior, apical septal, mid inferior septal, basal inferior septal, apical lateral, mid anterior lateral, basal anterior lateral, mid anterior septal, mid inferior lateral, basal anterior septal and basal inferior lateral perales were hypokinetic. Findings: Study Quality * Technically adequate exam. ECG Findings * Sinus rhythm with BBB. * Sinus bradycardia. Left Ventricle * LVEF 30-35%. * Mildly dilated left ventricle. * Mild concentric left ventricular hypertrophy. * Severe left ventricular systolic dysfunction. * Mild left ventricular diastolic dysfunction. * Atypical septal motion consistent with bundle branch block. Right Ventricle * Mild right ventricular hypokinesis. * Mildly dilated right ventricle. Left Atrium * Mildly dilated left atrium. Right Atrium * Mildly dilated right atrium. Interatrial Septum * Interatrial septum not well evaluated. Aortic Valve * Trileaflet aortic valve. * Trileaflet aortic valve with normal function. * No aortic regurgitation. * No aortic stenosis. Mitral Valve * Normal mitral valve structure. * Mild-moderate mitral regurgitation. Tricuspid Valve * Normal tricuspid valve structure. * Moderate tricuspid regurgitation. * Moderate-severe pulmonary hypertension. * Estimated RVSP is 61 mmHg. Pulmonic Valve * Normal pulmonic valve structure. * Mild-moderate pulmonic regurgitation. Aorta * Normally sized aortic root. Pericardium * There is a trivial pericardial effusion present. * There is no echocardiographic evidence of tamponade. IVC * Normal IVC dimensions and inspiratory collapse. Consult Discharge Plan - Plan Referrals: William Galvan MD [Primary Care Provider] - (1) CAD (coronary artery disease) Qualifiers: Coronary Disease-Associated Artery/Lesion type: [place] artery [place] vs. transplanted heart: [place] heart Associated angina: with unstable angina Qualified Code(s): I25.110 - Atherosclerotic heart disease of [place] coronary artery with unstable angina pectoris (2) Chest pain Qualifiers: Chest pain type: other chest pain Qualified Code(s): R07.89 - Other chest pain; R07.8 - Other chest pain (4) HTN (hypertension) Qualifiers: Hypertension type: essential hypertension Qualified Code(s): I10 - Essential (primary) hypertension (5) HLD (hyperlipidemia) Qualifiers: Hyperlipidemia type: pure hypercholesterolemia Qualified Code(s): E78.00 - Pure hypercholesterolemia, unspecified; E78.0 - Pure hypercholesterolemia (8) Nausea and vomiting Qualifiers: Vomiting type: cyclical vomiting Vomiting Intractability: non-intractable Qualified Code(s): G43.A0 - Cyclical vomiting, not intractable
[2018-01-20] MEDS: Furosemide 40 MG TABLET PO SCH (17:14)
--- NOTE | 2018-01-20 19:00 | Nephrology Consult Note ---
Date of Encounter: 01/20/18 Time of Encounter: 18:57 Assessment and Plan (1) CKD (chronic kidney disease) stage 4, GFR 15-29 ml/min Current Visit: Yes Status: Chronic Patient with chronic kidney disease stage IV. Her creatinine right now seems to be stable. Avoid nephrotoxins and adjust medication for renal function. (2) CAD (coronary artery disease) Current Visit: Yes Status: Chronic Patient in with symptoms concerning for unstable angina. Stress test was negative for ischemia, but she has a history of multivessel coronary artery disease status post stent placement 2. Of significant concern is a decrease in her ejection fraction over 2 years from 50-60% down to 30%. Patient also now has bradycardia. Her troponins negative. Awaiting cardiology evaluation. Qualifiers: Coronary Disease-Associated Artery/Lesion type: [place] artery [place] vs. transplanted heart: [place] heart Associated angina: with unstable angina Qualified Code(s): I25.110 - Atherosclerotic heart disease of [place] coronary artery with unstable angina pectoris History of Present Illness - Reason for Consult Consult date: 01/20/18 Chronic Kidney Disease - Chief Complaint CKD - History of Present Illness Ms. Strickland is an 87-year-old woman with a history of chronic kidney disease as well as coronary artery disease who presented secondary to chest discomfort, nausea, vomiting and symptomatic bradycardia. She was admitted to rule out myocardial infarction. At the time my evaluation she was accompanied by her as well as her daughter. At the time my evaluation she is not having any chest pain. She reports that she has had increased dyspnea on exertion and fatigue that she does not report any one. The morning of admission she had chest discomfort along with nausea vomiting and this was associated with symptomatic bradycardia with a heart rate that went as low as 38. Past Med Surg Social Fam HX - Past Medical History Medical history: arthritis, coronary artery disease, hyperlipidemia, hypertension, renal disease Additional medical history: LEFT BBB. Bowel Obsytruction 2017 Psychiatric history: no psych history - Past Surgical History Surgical History: angioplasty/stent, appendectomy, cataract, hysterectomy Additional surgical history: stent times 1 - Social History Smoking Status: Never smoker Smokeless Tobacco Status: No Alcohol use: none Drug use: none - Family History Brother Adopted: No Race: Family Member Ethnicity: Non- Living Status: Age at : 64 Cause of : Bome cancer Hx Family Cardiac Disorders: Yes Hx Family Respiratory Disorders: No Hx Family Cancer: Yes (bone cancer) Hx Family GI Disorders: No Hx Family Genitourinary Disorders: No Hx Family Endocrine Disorder: No Hx Family Musculoskeletal Disorders: No Hx Family Neuromuscular Disorders: No Hx Family Neurologic Disorders: Yes (dementia) Hx Family HEENT Disorders: No Hx Family Autoimmune Disorders: No Hx Family Reproductive Disorders: No Hx Family Psychosocial Disorders: No Hx Family Medical Disorders: No Sister Race: Family Member Ethnicity: Non- Living Status: Age at : 60 Cause of : cancer Hx Family Cardiac Disorders: No Hx Family Respiratory Disorders: No Hx Family Cancer: Yes (thyroid) Hx Family Endocrine Disorder: Yes (goiter) Father Adopted: No Race: Family Member Ethnicity: Non- Living Status: Age at : 79 Cause of : Dementia Hx Family Cardiac Disorders: No Hx Family Respiratory Disorders: No Hx Family GI Disorders: Yes Hx Family Genitourinary Disorders: No Hx Family Endocrine Disorder: No Hx Family Musculoskeletal Disorders: No Hx Family Neuromuscular Disorders: No Hx Family Neurologic Disorders: No Hx Family HEENT Disorders: No Hx Family Autoimmune Disorders: No Hx Family Reproductive Disorders: No Hx Family Psychosocial Disorders: No Hx Family Medical Disorders: No Mother Adopted: No Age: 86 Race: Family Member Ethnicity: Non- Living Status: Age at : 86 Cause of : Cancer (Type unknown) Hx Family Cardiac Disorders: Yes Hx Family Respiratory Disorders: No Hx Family Cancer: Yes (leukemia) Hx Family GI Disorders: No Hx Family Genitourinary Disorders: No Hx Family Endocrine Disorder: No Hx Family Musculoskeletal Disorders: No Hx Family Neuromuscular Disorders: No Hx Family Neurologic Disorders: No Hx Family HEENT Disorders: No Hx Family Autoimmune Disorders: No Hx Family Reproductive Disorders: No Hx Family Psychosocial Disorders: No Hx Family Medical Disorders: No Medications and Allergies Aspirin 81 mg PO DAILY 04/06/15 [History] Atorvastatin [Lipitor] 40 mg PO DAILY 04/06/15 [History] Isosorbide DInitrate [Isosorbide Dinitrate] 20 mg PO TID 04/06/15 [History] Nitroglycerin 0.4 mg SL Q5MIN PRN 04/06/15 [History] HydrALAZINE 50 mg PO TID #0 04/07/15 [Rx] Ipratropium/Albuterol Neb [Duoneb] 3 ml IH TID 02/02/16 [History] Oxygen 3 l NS HS 02/02/16 [History] Carvedilol [Coreg] 25 mg PO BID PRN 09/16/16 [History] Cyanocobalamin (B-12) [Vitamin B12] 1,000 mcg PO DAILY 09/16/16 [History] Ergocalciferol (VITAMIN D2) [Vitamin D2] 50,000 unit PO QWEEK 09/16/16 [History] Omeprazole [PriLOSEC] 20 mg PO DAILY@0630 30 Days capsule. 10/13/16 [Rx] Ferrous Sulfate [Ferrous Sulfate] 325 mg PO DAILY 10/19/16 [History] Furosemide [Lasix] 40 mg PO Q48H 10/19/16 [History] Losartan Potassium [Cozaar] 50 mg PO BID 10/19/16 [History] Beclomethasone Dipropionate [Qvar Redihaler] 1 puff IH BID 01/19/18 [History] Darbepoetin [Aranesp] 60 mcg SQ QMONTH 01/19/18 [History] 3 Allergy/AdvReac Type Severity Reaction Status Date / Time amlodipine [From [facility]] Allergy SWELLING Verified 10/19/16 18:26 IN LEGS lisinopril Allergy Cough Verified 10/19/16 18:26 Review of Systems All Systems: reviewed and no additional remarkable complaints except as stated ( As documented in the history of present illness.) Exam - Vital Signs Vital signs: Initial Vital Signs Temp Pulse Resp BP Pulse Ox 98.6 F 53 16 153/75 94 01/19/18 14:58 01/19/18 14:58 01/19/18 14:58 01/19/18 14:58 01/19/18 14:58 Vital Signs - Last 8 Hours Temp Pulse Resp BP Pulse Ox 01/20/18 16:38 17 97 01/20/18 15:57 97.5 F L 48 17 128/65 97 Intake and Output 01/20/18 01/20/18 01/20/18 07:59 15:59 23:59 Other: Meal Breakfast Percent of Meal Consumed 0% Weight 61.5 kg Patient Weight 01/20/18 23:59 Weight 61.5 kg - General Appearance General appearance: well-developed, well-nourished EENT: ATNC Cardiology: regular rate Integumentary: warm and dry Neurologic: alert and oriented x3 Psychiatric: mood/affect appropriate Results - Lab Results 01/20/18 03:19 01/20/18 03:19 Most recent lab results Calcium 9.2 mg/dL (8.6-10.3) 01/20/18 03:19 Phosphorus 4.3 mg/dL (2.7-4.5) 01/19/18 15:53 Magnesium 2.1 mg/dL (1.6-2.6) 01/19/18 15:53 Consult Discharge Plan - Plan Referrals: William Galvan MD [Primary Care Provider] -
[2018-01-20] MEDS: hydrALAZINE 25 MG TABLET PO SCH (21:00)
[2018-01-21] MEDS: *HR* Heparin 5,000 UNIT/ML VIAL SQ SCH ×3 (05:48→21:40)
[2018-01-21 07:11] LABS: Eosinophils # 0.2 K/mcL (0.0-0.6); Eosinophils % 4.4 %; Hemoglobin 9.5 g/dL (11.5-15.4); Immature Granulocytes % 0.2 % (0-4); Lymphocytes # 1.5 K/mcL (0.6-4.6); Lymphocytes % 35.6 %; Mean Corpuscular HGB Conc 31.7 g/dL (31.6-35.5); Mean Corpuscular Volume 94.6 fL (83.0-100.0); Mean Platelet Volume 11.3 fL (9.4-12.4); Monocytes # 0.6 K/mcL (0.0-1.3); Monocytes % 13.8 %; Neutrophils # 1.9 K/mcL (1.6-8.9); Platelet Count 135 K/mcL (140-400); Red Blood Count 3.17 M/mcL (3.82-4.97); Red Cell Distribution Width 14.9 % (11.5-14.5)
[2018-01-21] MEDS: hydrALAZINE 25 MG TABLET PO SCH ×3 (08:45→21:40)
[2018-01-21] MEDS: Aspirin 81 MG TAB.CHEW PO SCH (08:45)
[2018-01-21] MEDS: Cyanocobalamin (B-12) 1,000 MCG TABLET PO SCH (08:45)
[2018-01-21] MEDS: Beclomethasone 80mcg MDI IH SCH ×2 (09:37→19:46)
[2018-01-21] MEDS: Ipratropium/Albuterol Neb 3 ML IH SCH ×2 (09:37→16:34)
--- NOTE | 2018-01-21 09:44 | Cardiology Consult Note ---
Date of Encounter: 01/21/18 Time of Encounter: 09:40 Assessment and Plan (1) Cardiomyopathy Current Visit: Yes Status: Acute EF previously noted to be 60%, now 30-35%. [place] etiology although has known CAD, S/P PCI. Would recommend left heart cath although risk to kidneys should be considered. She would like to discuss with Dr. Ortiz. Otherwise would add back BP meds as tolerated, wiill probably require lower doses of most meds including coreg. Qualifiers: Cardiomyopathy type: unspecified Qualified Code(s): I42.9 - Cardiomyopathy , unspecified (2) CAD (coronary artery disease) Current Visit: Yes Status: Chronic Qualifiers: Coronary Disease-Associated Artery/Lesion type: [place] artery [place] vs. transplanted heart: [place] heart Associated angina: with unstable angina Qualified Code(s): I25.110 - Atherosclerotic heart disease of [place] coronary artery with unstable angina pectoris Discussion w patient/family: The assessment and plan as outlined above was discussed with the patient and/or family members who expressed understanding and agreement. All questions were answered. Thank you for involving us in the care of your patient. Please call with any questions. History of Present Illness Consult date: 01/21/18 Requesting physician: Leonel Izaguirre Consult reason: Dyspnea History of present illness: Ms. Strickland is a 87 year old female with several medical problems including CRI and CAD S/P PCI. She presented with dizziness and low heart rate. It appears she has been having low BP recently and BP meds have been adjusted. Workup has included an echo and stress which have revealed evidence of a new cardiomyopathy of unknown etiology. Past Med Surg Social Fam HX - Past Medical History Medical history: arthritis, coronary artery disease, hyperlipidemia, hypertension, renal disease Additional medical history: LEFT BBB. Bowel Obsytruction 2017 Psychiatric history: no psych history - Past Surgical History Surgical History: angioplasty/stent, appendectomy, cataract, hysterectomy Additional surgical history: stent times 1 - Social History Smoking Status: Never smoker Smokeless Tobacco Status: No Alcohol use: none Drug use: none - Family History Brother Adopted: No Race: Family Member Ethnicity: Non- Living Status: Age at : 64 Cause of : Bome cancer Hx Family Cardiac Disorders: Yes Hx Family Respiratory Disorders: No Hx Family Cancer: Yes (bone cancer) Hx Family GI Disorders: No Hx Family Genitourinary Disorders: No Hx Family Endocrine Disorder: No Hx Family Musculoskeletal Disorders: No Hx Family Neuromuscular Disorders: No Hx Family Neurologic Disorders: Yes (dementia) Hx Family HEENT Disorders: No Hx Family Autoimmune Disorders: No Hx Family Reproductive Disorders: No Hx Family Psychosocial Disorders: No Hx Family Medical Disorders: No Sister Race: Family Member Ethnicity: Non- Living Status: Age at : 60 Cause of : cancer Hx Family Cardiac Disorders: No Hx Family Respiratory Disorders: No Hx Family Cancer: Yes (thyroid) Hx Family Endocrine Disorder: Yes (goiter) Father Adopted: No Race: Family Member Ethnicity: Non- Living Status: Age at : 79 Cause of : Dementia Hx Family Cardiac Disorders: No Hx Family Respiratory Disorders: No Hx Family GI Disorders: Yes Hx Family Genitourinary Disorders: No Hx Family Endocrine Disorder: No Hx Family Musculoskeletal Disorders: No Hx Family Neuromuscular Disorders: No Hx Family Neurologic Disorders: No Hx Family HEENT Disorders: No Hx Family Autoimmune Disorders: No Hx Family Reproductive Disorders: No Hx Family Psychosocial Disorders: No Hx Family Medical Disorders: No Mother Adopted: No Age: 86 Race: Family Member Ethnicity: Non- Living Status: Age at : 86 Cause of : Cancer (Type unknown) Hx Family Cardiac Disorders: Yes Hx Family Respiratory Disorders: No Hx Family Cancer: Yes (leukemia) Hx Family GI Disorders: No Hx Family Genitourinary Disorders: No Hx Family Endocrine Disorder: No Hx Family Musculoskeletal Disorders: No Hx Family Neuromuscular Disorders: No Hx Family Neurologic Disorders: No Hx Family HEENT Disorders: No Hx Family Autoimmune Disorders: No Hx Family Reproductive Disorders: No Hx Family Psychosocial Disorders: No Hx Family Medical Disorders: No Medications and Allergies Aspirin 81 mg PO DAILY 04/06/15 [History] Atorvastatin [Lipitor] 40 mg PO DAILY 04/06/15 [History] Isosorbide DInitrate [Isosorbide Dinitrate] 20 mg PO TID 04/06/15 [History] Nitroglycerin 0.4 mg SL Q5MIN PRN 04/06/15 [History] HydrALAZINE 50 mg PO TID #0 04/07/15 [Rx] Ipratropium/Albuterol Neb [Duoneb] 3 ml IH TID 02/02/16 [History] Oxygen 3 l NS HS 02/02/16 [History] Carvedilol [Coreg] 25 mg PO BID PRN 09/16/16 [History] Cyanocobalamin (B-12) [Vitamin B12] 1,000 mcg PO DAILY 09/16/16 [History] Ergocalciferol (VITAMIN D2) [Vitamin D2] 50,000 unit PO QWEEK 09/16/16 [History] Omeprazole [PriLOSEC] 20 mg PO DAILY@0630 30 Days capsule. 10/13/16 [Rx] Ferrous Sulfate [Ferrous Sulfate] 325 mg PO DAILY 10/19/16 [History] Furosemide [Lasix] 40 mg PO Q48H 10/19/16 [History] Losartan Potassium [Cozaar] 50 mg PO BID 10/19/16 [History] Beclomethasone Dipropionate [Qvar Redihaler] 1 puff IH BID 01/19/18 [History] Darbepoetin [Aranesp] 60 mcg SQ QMONTH 01/19/18 [History] 3 Allergy/AdvReac Type Severity Reaction Status Date / Time amlodipine [From [facility]] Allergy SWELLING Verified 10/19/16 18:26 IN LEGS lisinopril Allergy Cough Verified 10/19/16 18:26 All Systems Review: The remainder of the systems were reviewed and are negative Physical Examination Vital Signs, Last 4 Hours Temp Pulse Resp BP Pulse Ox 01/21/18 06:53 97.6 F 53 18 153/65 100 General: Conversant, No Apparent Distress HEENT: Atraumatic, Normocephaly, Mucus Membranes Moist Neck: No JVD, Normal carotid pulses Cardiac: Reg Rate and Rhythm, Normal S1 and S2, No Murmur Lungs: Normal Breath Sounds, No Wheeze, Rales, Rhonchi Neuro: Alert and responsive, No focal deficits noted Abdomen: Soft, Non-Tender Skin: No rashes noted on visualized skin Musculoskeletal: No Chest Wall Tenderness Extremities: No Clubbing, No Cyanosis, No Edema, Normal Pulses Results 01/21/18 06:39 01/20/18 03:19 Lab Results 01/21/18 06:39 WBC 4.1 L Hgb 9.5 L Hct 30.0 L Plt Count 135 L Consult Discharge Plan - Plan Referrals: William Galvan MD [Primary Care Provider] -
[2018-01-21 09:57] LABS: Albumin 3.3 g/dL (3.5-5.7); Albumin/Globulin Ratio 1.3 (1.1-2.2); Bilirubin,Total 0.6 mg/dL (0.3-1.0); Calcium 9.2 mg/dL (8.6-10.3); Globulin 2.6 g/dL (2.4-3.5); Potassium 3.8 mEq/L (3.5-5.1); Total Protein 5.9 g/dL (6.4-8.9)
--- NOTE | 2018-01-21 15:16 | Internal Med Progress Note ---
Hospitalist Progress Note - Encounter Date of Encounter: 01/21/18 Time of Encounter: 08:50 - Subjective Interval History: Patient was seen and assessed at bedside at 0850 AM at bedside. SHe has been pain-free, no dizziness, no nausea or vomiting, blood pressure has been well controlled. Pt states that she is concerned about her renal function and having to go back on dialysis. She and were going to discuss options with children. - Exam Vitals: Temp Pulse Resp BP Pulse Ox 97.3 F L 57 16 121/69 100 01/21/18 11:25 01/21/18 11:25 01/21/18 11:25 01/21/18 11:25 01/21/18 11:25 - Assessment and Plan (1) CAD (coronary artery disease) Current Visit: Yes Status: Chronic Assessment and Plan: Chronic. Stent and angioplasty in 2014. Lipids within normal limits. Blood pressure is stable, pt remains bradycardic. Continue aspirin, Lipitor and Plavix Continue telemetry (2) Chest pain Current Visit: Yes Status: Acute Assessment and Plan: Pt denies chest pain today. Stress test negative for ischemia or infarct, patient had apical thinning artifact. Patient has a gated EF of 36%. Echocardiogram shows severe global hypokinesis of LV with an EF of 30-35%, there is mild concentric LVH with mild LVE, mild to moderate MR, moderately severe pulmonary hypertension. She had an echocardiogram in Oct, 2016 with ejection fraction of 60%, normal LV chamber size and function, mild concentric LVH, mild LV DD. Troponins are negative. Chest x-ray is negative. Cardiology is following, will have [facility] tomorrow, nephro is following for renal function. Continue telemetry Continue to monitor labs and vital signs (3) DVT prophylaxis Current Visit: Yes Status: Acute (4) HTN (hypertension) Current Visit: Yes Status: Chronic Assessment and Plan: Chronic. Well controlled. Medications have been restarted. Monitor vital signs. (5) HLD (hyperlipidemia) Current Visit: Yes Status: Chronic Assessment and Plan: Chronic. Continue home dose of Lipitor. (6) CKD (chronic kidney disease) stage 4, GFR 15-29 ml/min Current Visit: Yes Status: Chronic Assessment and Plan: Chronic. Appears to be near baseline. Continue to avoid nephrotoxins. Nephrology, Dr. Ortiz following, I appreciate his recommendations. Monitor patient and labs. (7) Dizziness Current Visit: Yes Status: Acute Assessment and Plan: Denies. Carotids show right distal greater than 6079% stenosis, left has nonstenotic plaque. Patient will need to follow with vascular after discharge. Echo as above. Likely secondary to hypotension and bradycardia. Monitor for safety and falls. (8) Nausea and vomiting Current Visit: Yes Status: Resolved Assessment and Plan: Resolved. DVT Prophylaxis: Heparin SQ - Time Spent with Patient Total time spent is greater than 50% in coordination of care (as documented) at patient's floor/unit and/or counseling patient: less than 15 minutes Plan of Care Discussed with: patient Internal Medicine: Result - Labs CBC & Chem 7: 01/21/18 06:39 01/21/18 06:39 Labs: Short CBC 01/21/18 Range/Units 06:39 WBC 4.1 L (4.3-11.1) K/mcL Hgb 9.5 L (11.5-15.4) g/dL Hct 30.0 L (35.3-44.9) % Plt Count 135 L (140-400) K/mcL Neutrophils # 1.9 (1.6-8.9) K/mcL BMP 01/21/18 06:39 Sodium 143 Potassium 3.8 Chloride 102 Carbon Dioxide 34 H BUN 43 H Creatinine 2.44 H Glucose 97 Calcium 9.2 Liver Function 01/21/18 Range/Units 06:39 Total Bilirubin 0.6 (0.3-1.0) mg/dL AST 12 L (13-39) Units/L ALT 6 L (7-52) Units/L Alkaline Phosphatase 84 (34-104) Units/L Albumin 3.3 L (3.5-5.7) g/dL Consult Discharge Plan - Plan Referrals: William Galvan MD [Primary Care Provider] - (1) CAD (coronary artery disease) Qualifiers: Coronary Disease-Associated Artery/Lesion type: [place] artery [place] vs. transplanted heart: [place] heart Associated angina: with unstable angina Qualified Code(s): I25.110 - Atherosclerotic heart disease of [place] coronary artery with unstable angina pectoris (2) Chest pain Qualifiers: Chest pain type: other chest pain Qualified Code(s): R07.89 - Other chest pain; R07.8 - Other chest pain (4) HTN (hypertension) Qualifiers: Hypertension type: essential hypertension Qualified Code(s): I10 - Essential (primary) hypertension (5) HLD (hyperlipidemia) Qualifiers: Hyperlipidemia type: pure hypercholesterolemia Qualified Code(s): E78.00 - Pure hypercholesterolemia, unspecified; E78.0 - Pure hypercholesterolemia (8) Nausea and vomiting Qualifiers: Vomiting type: cyclical vomiting Vomiting Intractability: non-intractable Qualified Code(s): G43.A0 - Cyclical vomiting, not intractable
[2018-01-22] MEDS: Ipratropium/Albuterol Neb 3 ML IH SCH ×4 (03:54→22:09)
[2018-01-22 05:17] LABS: Basophils % 0.9 %; Eosinophils # 0.2 K/mcL (0.0-0.6); Hematocrit 30.4 % (35.3-44.9); Hemoglobin 9.8 g/dL (11.5-15.4); Immature Granulocytes % 0.2 % (0-4); Lymphocytes # 1.5 K/mcL (0.6-4.6); Lymphocytes % 32.4 %; Mean Corpuscular HGB Conc 32.2 g/dL (31.6-35.5); Mean Corpuscular Hemoglobin 30.7 pg (28.0-33.3); Mean Corpuscular Volume 95.3 fL (83.0-100.0); Monocytes # 0.6 K/mcL (0.0-1.3); Monocytes % 12.9 %; Neutrophils # 2.2 K/mcL (1.6-8.9); Platelet Count 133 K/mcL (140-400); Red Blood Count 3.19 M/mcL (3.82-4.97); Segmented Neutrophils % 48.6 %
[2018-01-22] MEDS: *HR* Heparin 5,000 UNIT/ML VIAL SQ SCH ×3 (05:19→20:04)
[2018-01-22 05:43] LABS: Albumin 3.4 g/dL (3.5-5.7); Albumin/Globulin Ratio 1.4 (1.1-2.2); Bilirubin,Total 0.5 mg/dL (0.3-1.0); Globulin 2.5 g/dL (2.4-3.5); Total Protein 5.9 g/dL (6.4-8.9)
[2018-01-22] MEDS: Aspirin 81 MG TAB.CHEW PO SCH (08:10)
[2018-01-22] MEDS: Cyanocobalamin (B-12) 1,000 MCG TABLET PO SCH (08:10)
[2018-01-22] MEDS: hydrALAZINE 25 MG TABLET PO SCH ×3 (08:10→20:02)
--- NOTE | 2018-01-22 08:58 | Electrocardiograph Report ---
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
[2018-01-22] MEDS: *HR* Acetylcysteine 20% 600 MG/3 ML ORAL SYRINGE PO SCH ×2 (09:17→21:50)
[2018-01-22] MEDS ORDERED: 0.9 % Sodium Chloride 1,000 ML ONE ×2 (09:25→10:30)
[2018-01-22] MEDS ORDERED: ISOVUE-370 200 ML INFUS..BTL IV ONE (09:25)
[2018-01-22] MEDS ORDERED: Heparin 1,000 UNITS/500 mL 500 ML ONE (09:25)
[2018-01-22] MEDS ORDERED: *HR* Heparin 10,000 UNIT/10 ML VIAL ONE (09:25)
--- NOTE | 2018-01-22 10:17 | Event Note ---
Date of Encounter: 01/22/18 Time of Encounter: 10:06 - Cardiology Event Note Patient agreeable to [facility] to evaluate new cardiomyopathy. R/B/A of LHC reviewed including worsening kidney function. She agrees to proceed and discussed with her hot kettle tender and IV fluid and mucomyst recommended pavithra-procedure. Orders were placed. Plan for C today. Vital Signs Temp Pulse Resp BP Pulse Ox 01/22/18 08:12 100 01/22/18 06:39 97.9 F 57 14 167/72 100 01/22/18 03:58 97.7 F 55 16 154/69 100 01/22/18 03:54 16 100 01/21/18 22:54 97.9 F 60 16 135/64 100 01/21/18 19:46 16 98 01/21/18 19:28 97.6 F 60 15 132/64 98 01/21/18 16:34 14 97 01/21/18 15:27 97.5 F L 66 16 129/58 96 01/21/18 11:25 97.3 F L 57 16 121/69 100 Intake and Output 01/21/18 01/22/18 01/22/18 23:59 07:59 15:59 Intake Total 478 / 478 Output Total 300 / 300 275 / 275 Balance 478 / 478 -300 / -300 -275 / -275 Intake: Oral 478 / 478 Output: Urine 300 / 300 275 / 275 Other: Meal Dinner Percent of Meal Consumed 100% # Voids 1 Weight 65.4 kg Patient Weight 01/22/18 23:59 Weight 65.4 kg
[2018-01-22] MEDS ORDERED: *HR* Midazolam HCl 2 MG/2 ML VIAL ONE (10:21)
[2018-01-22] MEDS ORDERED: Nitroglycerin 1,000 MCG/10 ML VIAL IV ONE (10:21)
[2018-01-22] MEDS: Beclomethasone 80mcg MDI IH SCH ×2 (10:26→22:09)
--- NOTE | 2018-01-22 10:44 | Pre-Sedation Evaluation ---
Pre-sedation evaluation - Pre-sedation checklist Date of procedure: 01/22/18 Procedure: left heart cath/possible Recent Vitals: Last Vital Signs Temp 97.9 F 01/22/18 06:39 Pulse 57 01/22/18 06:39 Resp 14 01/22/18 06:39 BP 167/72 01/22/18 06:39 Pulse Ox 100 01/22/18 08:12 H&P (including ROS) documented in medical record: Yes Previous reaction to sedatives/anesthetics: No Dietary Status: NPO after Midnight Airway Assessment: Patient can open mouth completely, TMJ function normal Dentition: No loose teeth or bridges Possible difficult airway: No ASA Classification *see protocol: CLASS III-Severe systemic disease Plan of Care: Pt appropriate candidate for procedure/moderate/conscious sedation , Risks/benefits of procedure/sedation discussed w/ patient/family, If not NPO; Risk of intake outweiged by necessity to perform procedure Cardiac Registry (Cardio Only) - Functional Capacity Functional Capacity: >=4 METS with symptoms - Clincal Frailty Scale Clinical Frailty Scale: Managing Well
--- NOTE | 2018-01-22 11:40 | Invasive Diagnostic Lab Proc ---
Name: Nancy Strickland Date of Study: 01/22/2018 Date: 1930 Ht: 65.0in Medical Record#: [id number] Age: 87 Wt: 143.30lb Gender: Female BSA: 1.72 Order #: [id number] BMI: 23.88 Physicians Procedure Physician: Júnior Traylor DO Referring MD: Referring MD: Staff Name Position Time In Nimesh Butts RT (R) Monitor 10:25 AM BenjamínSukumar RT (R) Scrub 10:25 AM Veda Arndt RN Rocket Motor Tester 10:25 AM Indications Indication Unstable Angina Procedures Performed Procedure L HRT ARTERY/VENTRICLE ANGIO Pre-Procedure Checklist Informed consent is complete signed and on chart. H&P is on chart. ID band is on and ID verified with patient. Patient NPO for procedure The procedure was described for the patient and questions were answered. Blood Pressure: 182/92 ECG is on chart. Rhythm: NSR Plan of Care Patient will tolerate the procedure without complications. Adequate level of comfort will be maintained. Hemodynamics will remain stable Patient will recover from procedure without complications. Respiratory function will be maintained. Cardiac rhythm will remain stable. Patient temperature will be maintained. Patient and/or family have verbalized understanding of the procedure. Patient Education Chief Complaint/Reason for Test: Cardiac Cath Developmental Category: Geriatric (65+ years) Developmentally Appropriate for Age: Yes Learning Barriers: None Education Needs: Procedure Education Method: Verbal Information Taught: Cardiac Cath Educational Evaluation: Able to repeat information Intravenous Access Time IV Size Location DC'd Fluid/Drip Rate Units RN 10:24 AM 20g 1 1/4" Patent On Arrival Rt Arm 0.9NaCl 25 ml/hr Veda Arndt RN Allergies Norvasc lisinopril amlodipine Vital Signs Time BP (mmHg) HR (bpm) O2 Sat. RR (bpm) LOC 10:26 AM 182 / 92 67 98 % 16 5 = Fully awake and oriented or at pre-proc level 10:26 AM / % 4 = Oriented but drowsy 10:41 AM / % 4 = Oriented but drowsy 10:56 AM / % 4 = Oriented but drowsy 10:33 AM 182 / 92 60 97 % 21 10:38 AM 180 / 90 75 100 % 12 10:43 AM 158 / 75 73 100 % 20 10:48 AM 160 / 80 70 100 % 18 10:53 AM 158 / 74 61 100 % 20 10:58 AM 159 / 62 52 100 % 19 11:03 AM 151 / 73 60 100 % 24 11:08 AM 159 / 78 69 100 % 17 11:13 AM 158 / 77 66 100 % 42 11:18 AM 163 / 76 65 100 % 28 11:23 AM 159 / 76 59 100 % 20 Procedural Medications Time Medication Dose Units Method Given By 10:33 AM Oxygen 2 L/min nasal cannula Veda Arndt RN 10:36 AM Versed 2 mg Intravenous Veda Arndt RN 10:55 AM Lidocaine 2% 10 ml Subcutaneous Júnior Traylor DO ASA Classification: CLASS III- Severe systemic disease (i.e. prior AMI, diabetes with vascular complications, morbid obesity) Zeke Score Preprocedure Postprocedure Activity 2- Moves 4 extremities sustained head lift Activity 2- Moves 4 extremities sustained head lift Circulation 2- SBP +/= 20 points of pre-anesthetic level Circulation 2- SBP +/= 20 points of pre-anesthetic level Consciousness 2- Awake and alert oriented x 3 Consciousness 2- Awake and alert oriented x 3 O2 Saturation 2- Able to maintain O2 satruation of 92% on room air O2 Saturation 2- Able to maintain O2 satruation of 92% on room air Respiratory 2- Able to deep breathe and cough well Respiratory 2- Able to deep breathe and cough well Total Score 10 Total Score 10 Contrast Agent: Isovue Diagnostic Contrast: 60 ml Total Contrast: 60 ml Fluoro Dose: 2765 mGy Procedure Log Time Note Enter By 10:23 AM CathStat 10:25 AM Pt arrived to photonic laboratory technician 2 at 10:25 [email or web address] 10:25 AM Patient charges- Angio tray pack, Navilyst 3mm J, Pulse Oximetry and ACIST tubing and transducer [email or web address] 10:25 AM Nimesh Butts RT (R) Position: Monitor Time in: 10:25 [email or web address] 10:25 AM Sukumar Butts RT (R) Position: Scrub Time in: 10:25 [email or web address] 10:25 AM Veda Arndt RN Position: Rocket Motor Tester Time in: 10:25 [email or web address] 10:25 AM Case Delayed No [email or web address] 10:25 AM Time: 10:25 Patient comfortable and pain free: Yes [email or web address] 10:26 AM Time: :LOC: 5 = Fully awake and oriented or at pre-proc level [email or web address] 10: AM Physician arrived 10: [email or web address] 10: AM Meet and marilin completed [email or web address] 10: AM Sign in performed according to hospital policy. [email or web address] 10: AM Procedure start 10: [email or web address] 10: AM ASA Class CLASS III- Severe systemic disease (i.e. prior AMI, diabetes with vascular complications, morbid obesity) [email or web address] 10:27 AM Clinical Presentation: Unstable angina [email or web address] 10:29 AM Hair removed from procedure site in procedure lab using clippers. Bilateral groin prepped with Chloraprep by Sukumar Butts), then patient was draped. Skin intact. [email or web address] [id number] 10:32 AM Vitals capture started with the following parameters, Patient=Adult, Interval=5 min, Initial Sgolqvfe=594 mmHg, Deflation Rate=5 mmHg, Cuff placed on Right Arm 10:32 AM Recorded ECG: HR=70 Condition=Condition 1 10:33 AM Time: 10:33 Oxygen on at 2 L/min per nasal cannula by Veda Arndt RN [email or web address] [id number] 10:33 AM HR=60 bpm, MXNO=462/92 mmhg, SpO2=97.0 %, Resp=21 B/min 10:37 AM Time: 10:36 Versed 2 mg Intravenous Given by Veda Arndt RN [place] [id number] 10:38 AM HR=75 bpm, NKXW=741/90 mmhg, KeB2=961.0 %, Resp=12 B/min 10:41 AM Time: 10:25 Patient comfortable and pain free: Yes [place] [id number] 10:41 AM Time: :LOC: 4 = Oriented but drowsy [email or web address] [id number] 10:41 AM Pressure channel 2 zeroed. 10:43 AM HR=73 bpm, AERO=472/75 mmhg, HcQ9=554.0 %, Resp=20 B/min 10:48 AM HR=70 bpm, WEAJ=978/80 mmhg, LqF8=677.0 %, Resp=18 B/min 10:53 AM HR=61 bpm, BIOP=945/74 mmhg, ZbE4=530.0 %, Resp=20 B/min 10:54 AM Time out performed according to hospital policy [place] [id number] 10:55 AM Time: 10:55 10 ml Lidocaine 2% to right groin Subcutaneous Given by Júnior Traylor, [email or web address] 10:56 AM Time: 10:41LOC: 4 = Oriented but drowsy [email or web address] 10:56 AM Time: 10:41 Patient comfortable and pain free: Yes [email or web address] 10:56 AM Micro-Introducer Kit utilized for sheath placement [email or web address] 10:57 AM Access obtained by percutaneous puncture. 6Fr 10cm Terumo Morrice sheath placed in right Femoral artery. [id number] [email or web address] 10:57 AM 0.035 145cm Navilyst 3mmJ wire [id number] [email or web address] 10:58 AM HR=52 bpm, LEUB=770/62 mmhg, XtN9=865.0 %, Resp=19 B/min 10:58 AM 6Fr FR 4 catheter inserted over the wire [email or web address] 10:59 AM Catheter selectively placed in left ventricle [email or web address] 10:59 AM hand injected LV Gram [email or web address] 10:59 AM Recorded Pressure: LV, HR=61, Condition=Condition 1 (Left Ventricle) LV 35/8/7 11:00 AM Recorded Pressure: LV, Ao, HR=60, Condition=Condition 1 (Left Ventricle) LV 168/11/18, (Aorta) Ao 180/26/91 11:00 AM RCA angiography performed in multiple views. 2 11:00 AM Coronary Dominance: right [email or web address] 11:00 AM Catheter removed ilson 11:01 AM 5Fr FL 4 catheter inserted over the wire [email or web address] 11:01 AM LCA angiography performed in multiple views. [email or web address] 11:02 AM Recorded Pressure: Ao, HR=62, Condition=Condition 1 (Aorta) Ao 161/61/99 11:03 AM HR=60 bpm, FSTE=198/73 mmhg, OqI3=034.0 %, Resp=24 B/min 11:06 AM Physician reviewing films [email or web address] 11:06 AM Hand inject left femoral angiogram [email or web address] 11:06 AM Cardiothoracic surgeon consulted by physician [email or web address] 11:07 AM Lesion found in Distal LMCA. Pre Stenosis: 70 Pre LIBAN Flow: [email or web address] 11:07 AM Left Main Coronary Artery with 70% stenosis [email or web address] 11:07 AM Lesion found in Proximal LAD. Pre Stenosis: 80 Pre LIBAN Flow: [email or web address] 11:07 AM Proximal Left Anterior Descending Coronary Artery with 80% stenosis. If graft is supplying this territory, 0 % stenosis. [email or web address] 11:07 AM Lesion found in Proximal Circumflex. Pre Stenosis: 80 Pre LIBAN Flow: [email or web address] 11:07 AM Procedure completed at 11:07 01/22/2018 [email or web address] 11:08 AM HR=69 bpm, MBMW=755/78 mmhg, ZoL0=527.0 %, Resp=17 B/min 11:08 AM Sign out completed: Radiation Dose 330.65 mGy, 2764.73 cGy/cm2 Fluoro Time: 3.2 Isovue 370 - 200ml contrast 60 ml given by Júnior Traylor DO. Complications: NoneCardiac Rehab Consult needed: NoConfirmed administered medications: Yes [email or web address] 11:08 AM Isovue 370 - 200ml,1 Bottle(s) used. [email or web address] 11:08 AM Estimated Blood Loss: less than 20cc [email or web address] 11:08 AM Post ECG NSR [email or web address] 11:08 AM Post Blood Pressure 159/78 [email or web address] 11:08 AM Information taught Cardiac Cath [email or web address] 11:09 AM Education needs Procedure, Plan of Care, and Disease Process [email or web address] 11:09 AM Learning barriers :Sedated [email or web address] 11:09 AM Education Methods Verbal [email or web address] 11:09 AM Education evaluation Needs further instruction [email or web address] 11:09 AM Delay to floor No [email or web address] 11:09 AM Family placed in consult room. [email or web address] 11:09 AM Complications: None [email or web address] 11:10 AM Arterial using manual compression and V+ Pad by Sukumar Butts RT (R) [email or web address] 11:11 AM Time: 10:56 Patient comfortable and pain free: Yes [email or web address] 11:11 AM Time: 10:56LOC: 4 = Oriented but drowsy [email or web address] 11:[address] Rogers consulted [email or web address] 11:13 AM HR=66 bpm, UICM=793/77 mmhg, IdV4=584.0 %, Resp=42 B/min 11:[address] Rogers in Lab looking at films. [email or web address] 11:16 AM Report given to jose m FLOOD Pt taken to 3B Room #11. 11:15 [email or web address] 11:18 AM HR=65 bpm, CJHS=774/76 mmhg, MsB2=196.0 %, Resp=28 B/min 11:23 AM HR=59 bpm, ZYKX=336/76 mmhg, ZhE3=596.0 %, Resp=20 B/min 11:28 AM manual pressure held 20 mins. sukumar butts rt(r) [email or web address] 11:28 AM Site status No bleeding/hematoma - Rt Groin as reported by Sukumar Butts RT (R) at 11:28 [email or web address] 11:28 AM Opsite applied [email or web address] 11:29 AM 11:29 Post Pulses Bilateral DP & PT 1+ [email or web address] 11:30 AM Patient out of room: 11:30 [email or web address] Complications Complication None None Hemodynamics Pressures Site Systolic/A Wave Diastolic/V Wave Mean LV 35 8 7 LV 168 11 18 AO 180 26 91 AO 161 61 99 Post Procedure Information Blood Pressure: 159/78 mmHg Rhythm: NSR Post procedural instructions were given Surgery consult for CABG Closure Device Time Device Success/Fail 01/22/2018 11:12:00 AM Manual Compression Successful Site Checks Time Location Status Staff Sheath In? Note 11:28 AM Rt Groin No bleeding/hematoma Sukumar Butts RT (R) Pulses Time Site Pre-Procedure Post-Procedure Note 01/22/2018 10:24:00 AM Bilateral DP & PT 1+ 01/22/2018 10:24:00 AM Bilateral radial 2+ 11:29:00 AM Bilateral DP & PT 1+ Updated by Nimesh Butts RT (R) on 01/22/2018 11:31:08 AM RT Andrea electronically signed on 01/22/2018 11:31:35 AM with status of Final
[2018-01-22] MEDS: 0.9 % Sodium Chloride 1,000 ML IVC SCH ×2 (12:02→21:46)
[2018-01-22 12:49] LABS: INR 0.9; Prothrombin Time 10.5 Seconds (9.4-12.1)
--- NOTE | 2018-01-22 14:54 | Event Note ---
Date of Encounter: 01/22/18 Time of Encounter: 14:52 - Cardiology Event Note Ms. Strickland was found to have severe CAD including LMCA. No intervention. CT surgery consulted for evaluation for bypass surgery. On asa and statin. No bb due to bradycardia.
--- NOTE | 2018-01-22 15:18 | Nephrology Progress Note ---
Date of Encounter: 01/22/18 Time of Encounter: 13:00 - Assessment and Plan (1) CKD (chronic kidney disease) stage 4, GFR 15-29 ml/min Current Visit: Yes Status: Chronic She was off the floor earlier today (getting the [facility]), but I returned this afternoon. Agree with IVF and recommend monitoring SCr tomorrow. Of note, she will also need renal labs checked later this week -- sometimes JOE can occur even 72hr after contrast exposure. Continue to follow a renal protective strategy. (2) CAD (coronary artery disease) Current Visit: Yes Status: Chronic S/p LHC. 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 Qualifiers: Coronary Disease-Associated Artery/Lesion type: [place] artery [place] vs. transplanted heart: [place] heart Associated angina: with unstable angina Qualified Code(s): I25.110 - Atherosclerotic heart disease of [place] coronary artery with unstable angina pectoris Subjective Principal diagnosis: CKD stage IV Interval history: The pt was s/e this afternoon after her LHC. She did not affirm N/V/D or CP or groin pain. Her was at the bedside and he asked me questions about open heart surgery, which I politely deferred. Objective - Vital Signs Vital signs: Vital Signs Temp Pulse Resp BP Pulse Ox 01/22/18 14:40 97.7 F 74 16 183/77 95 01/22/18 13:40 65 18 181/80 96 01/22/18 13:10 66 18 182/77 95 01/22/18 12:40 58 18 179/72 97 01/22/18 12:25 63 18 178/73 95 01/22/18 12:10 65 18 173/67 95 01/22/18 11:55 62 18 173/77 96 01/22/18 11:40 97.9 F 66 18 182/86 97 01/22/18 08:12 100 01/22/18 06:39 97.9 F 57 14 167/72 100 01/22/18 03:58 97.7 F 55 16 154/69 100 01/22/18 03:54 16 100 01/21/18 22:54 97.9 F 60 16 135/64 100 01/21/18 19:46 16 98 01/21/18 19:28 97.6 F 60 15 132/64 98 01/21/18 16:34 14 97 01/21/18 15:27 97.5 F L 66 16 129/58 96 Intake and Output 01/21/18 01/22/18 01/22/18 23:59 07:59 15:59 Intake Total 478 / 478 Output Total 300 / 300 575 / 575 Balance 478 / 478 -300 / -300 -575 / -575 Intake: Oral 478 / 478 Output: Urine 300 / 300 575 / 575 Other: Meal Dinner Percent of Meal Consumed 100% # Voids 1 Weight 65.4 kg Patient Weight 01/22/18 23:59 Weight 65.4 kg - General Appearance General appearance: Present: well-developed, well-nourished, appears started age EENT: Present: ATNC, PERRL, mucous membranes moist Neck: Present: supple Respiratory: Present: clear Cardiology: Present: holosystolic murmur, no edema, normal S1, normal S2 Gastrointestinal: Present: normoactive bowel sounds, no tenderness, no guarding Integumentary: Present: warm and dry Neurologic: Present: no focal deficit, no asterixis, alert and oriented x3 Musculoskeletal: Present: no deformities, no clubbing Psychiatric: Present: mood/affect appropriate, cooperative - Lab 01/22/18 04:35 01/22/18 04:35 Most recent lab results Calcium 9.0 mg/dL (8.6-10.3) 01/22/18 04:35 Phosphorus 4.3 mg/dL (2.7-4.5) 01/19/18 15:53 Magnesium 2.1 mg/dL (1.6-2.6) 01/19/18 15:53 Consult Discharge Plan - Plan Referrals: William Galvan MD [Primary Care Provider] - (Your appointment has been requested. Our offices will call you with a time and date. )
--- NOTE | 2018-01-22 15:18 | Internal Med Progress Note ---
Hospitalist Progress Note - Encounter Date of Encounter: 01/22/18 Time of Encounter: 08:00 - Subjective Interval History: Patient was seen and assessed at bedside at 0800 AM. SHe has been pain-free, no dizziness, no nausea or vomiting, blood pressure has been well controlled. Pt states that she is nervous about [facility] today. I saw pt again after [facility], she is to have CABG in the next couple of days. She continues to deny chest pain and again states that she is concerned about CABG and renal failure. - Exam Vitals: Temp Pulse Resp BP Pulse Ox 97.7 F 74 16 183/77 95 01/22/18 14:40 01/22/18 14:40 01/22/18 14:40 01/22/18 14:40 01/22/18 14:40 - Assessment and Plan (1) CAD (coronary artery disease) Current Visit: Yes Status: Chronic Assessment and Plan: Chronic. Stent and angioplasty in 2014. Lipids within normal limits. Continue aspirin, Lipitor and Plavix, BB held for bradycardia [facility] 01/22- severe CAD, no intervention. Pt will stay for cardiothoracic consultation for CABG. Continue telemetry (2) Chest pain Current Visit: Yes Status: Resolved Assessment and Plan: Pt denies chest pain today. Stress test negative for ischemia or infarct, patient had apical thinning artifact. Patient has a gated EF of 36%. Echocardiogram shows severe global hypokinesis of LV with an EF of 30-35%, there is mild concentric LVH with mild LVE, mild to moderate MR, moderately severe pulmonary hypertension. She had an echocardiogram in Oct, 2016 with ejection fraction of 60%, normal LV chamber size and function, mild concentric LVH, mild LV DD. Troponins are negative. Chest x-ray is negative. 01/22- [facility] today shows severe CAD. Cardiothoracic surgeon consulted for CABG. Pt continues to deny chest pain. Nephrology following. Continue telemetry Continue to monitor labs and vital signs (3) DVT prophylaxis Current Visit: Yes Status: Acute Assessment and Plan: Heparin SQ TID. Pt is ambulatory in the room. (4) HTN (hypertension) Current Visit: Yes Status: Chronic Assessment and Plan: Chronic. Well controlled. BB held for bradycardia. Continue current medications. (5) HLD (hyperlipidemia) Current Visit: Yes Status: Chronic Assessment and Plan: Chronic. Continue home dose of Lipitor. (6) CKD (chronic kidney disease) stage 4, GFR 15-29 ml/min Current Visit: Yes Status: Chronic Assessment and Plan: Chronic. Appears to be near baseline. Continue to avoid nephrotoxins. Nephrology following. Pt will need close monitoring for renal function after [facility] today. IVF .09 NS @ 100ml/hr Monitor patient and labs. (7) Dizziness Current Visit: Yes Status: Resolved (8) Nausea and vomiting Current Visit: Yes Status: Resolved DVT Prophylaxis: Heparin - Time Spent with Patient Total time spent is greater than 50% in coordination of care (as documented) at patient's floor/unit and/or counseling patient: less than 15 minutes Plan of Care Discussed with: patient Internal Medicine: Result - Labs CBC & Chem 7: 01/22/18 04:35 01/22/18 04:35 Labs: Short CBC 01/22/18 Range/Units 04:35 WBC 4.6 (4.3-11.1) K/mcL Hgb 9.8 L (11.5-15.4) g/dL Hct 30.4 L (35.3-44.9) % Plt Count 133 L (140-400) K/mcL Neutrophils # 2.2 (1.6-8.9) K/mcL BMP 01/22/18 04:35 Sodium 140 Potassium 4.0 Chloride 102 Carbon Dioxide 32 H BUN 50 H Creatinine 2.49 H Glucose 103 Calcium 9.0 Liver Function 01/22/18 Range/Units 04:35 Total Bilirubin 0.5 (0.3-1.0) mg/dL AST 12 L (13-39) Units/L ALT 4 L (7-52) Units/L Alkaline Phosphatase 97 (34-104) Units/L Albumin 3.4 L (3.5-5.7) g/dL - ABG Interpretation ABG results: PT/INR, D-dimer PT 10.5 Seconds (9.4-12.1) 01/22/18 12:20 Consult Discharge Plan - Plan Referrals: William Galvan MD [Primary Care Provider] - (Your appointment has been requested. Our offices will call you with a time and date. ) (1) CAD (coronary artery disease) Qualifiers: Coronary Disease-Associated Artery/Lesion type: [place] artery [place] vs. transplanted heart: [place] heart Associated angina: with unstable angina Qualified Code(s): I25.110 - Atherosclerotic heart disease of [place] coronary artery with unstable angina pectoris (2) Chest pain Qualifiers: Chest pain type: other chest pain Qualified Code(s): R07.89 - Other chest pain; R07.8 - Other chest pain (4) HTN (hypertension) Qualifiers: Hypertension type: essential hypertension Qualified Code(s): I10 - Essential (primary) hypertension (5) HLD (hyperlipidemia) Qualifiers: Hyperlipidemia type: pure hypercholesterolemia Qualified Code(s): E78.00 - Pure hypercholesterolemia, unspecified; E78.0 - Pure hypercholesterolemia (8) Nausea and vomiting Qualifiers: Vomiting type: cyclical vomiting Vomiting Intractability: non-intractable Qualified Code(s): G43.A0 - Cyclical vomiting, not intractable
[2018-01-22] MEDS: Furosemide 40 MG TABLET PO SCH (15:29)
--- NOTE | 2018-01-22 18:11 | Cardiothoracic Consult Note ---
Date of Encounter: 01/22/18 Time of Encounter: 18:08 Assessment and Plan (1) CAD (coronary artery disease) Current Visit: Yes Status: Chronic The patient is an 87-year-old hypertensive lady with hypercholesterolemia, known CAD, and CKD , Stage IV. She was evaluated at [facility] on 01/19/2017 after experiencing epigastric discomfort and nausea and vomiting 3. The patient ruled out for an acute coronary syndrome; however, given her cardiac history, presenting symptoms, and cardiac risk profile she was admitted for further cardiac workup. A transthoracic echocardiogram revealed an LVEF 30% with concentric LVH and moderately severe pulmonary hypertension. A transthoracic echocardiogram performed 10/20/2016 had revealed an LVEF 60% with severe pulmonary hypertension. The patient now suffers ischemic cardiomyopathy. Although a nuclear stress test revealed no evidence of ischemia or infarction, she underwent cardiac catheterization today was found to have severe three-vessel CAD. In particular, the patient has an 70-80 % distal left main lesion, an 80% proximal LAD lesion, an 80% proximal LCx lesion. The RCA has mild luminal irregularities with no flow-limiting lesions. I have been asked to evaluate the patient for possible high risk CABG. The STS risk calculator reveals an operative mortality risk of 9.63%, deep sternal wound infection risk 0.44%, permanent stroke risk 3.69%, renal failure risk 21.49%, and reoperation risk 13.52%. Given the patient's severe pulmonary hypertension and her CKD, Stage IV, I do not believe that she is an acceptable operative risk. The patient wishes to discuss high risk PCI with Impella support with the activities assistant. The assessment and plan as outlined above was discussed with the patient and/or family members who expressed understanding and agreement. All questions were answered. Qualifiers: Coronary Disease-Associated Artery/Lesion type: [place] artery [place] vs. transplanted heart: [place] heart Associated angina: with unstable angina Qualified Code(s): I25.110 - Atherosclerotic heart disease of [place] coronary artery with unstable angina pectoris - History of Present Illness Consult date: 01/22/18 Requesting physician: Júnior Traylor Consult reason: CABG evaluation Chief complaint: Substernal chest pain, shortness of breath History of present illness: Ms. Strickland is a 87 year old hypertensive lady with hypercholesterolemia, known CAD, and CKD, Stage IV. The patient's cardiac history dates back to 07/31/2015 at which time she underwent cardiac catheterization and PCI with LAD and D1 stent placement. She did well until 01/19/2018 when she had sudden onset of epigastric discomfort and nausea and vomiting 3. The patient was evaluated at [facility] emergency department and found to have normal troponin I levels. However given the patient's previous cardiac history and her cardiac risk profile, she was admitted for further cardiac workup. The patient underwent a transthoracic echocardiogram which revealed an LVEF 30% with mild concentric LVH. Mild to moderate mitral regurgitation was noted with moderately severe pulmonary hypertension. By comparison, a transthoracic echocardiogram performed 10/20/2016 revealed an LVEF 60% and severe pulmonary hypertension. She then underwent a nuclear stress test which revealed an LVEF 36% with left ventricular dilatation and no evidence of ischemia or infarct. Cardiac catheterization performed today revealed severe 2 vessel CAD and it LVEF 30%. In particular, the patient has a 70-80% distal left main lesion, a 80 % proximal LAD lesion, and an 80% proximal LCx lesion. I have been asked to evaluate the patient for possible high risk CABG. Past Med Surg Social Fam HX - Past Medical History Medical history: arthritis, coronary artery disease, hyperlipidemia, hypertension, renal disease (CKD, Stage IV) Additional medical history: LEFT BBB. Bowel Obsytruction 2016 Psychiatric history: no psych history - Past Surgical History Surgical History: angioplasty/stent, appendectomy, cataract, hysterectomy, other (Exploratory laparotomy with lysis of adhesions, left oophrectomy, right salpingo-oophorectomy) Additional surgical history: stent times 1 - Social History Smoking Status: Never smoker Smokeless Tobacco Status: No Alcohol use: none Drug use: none Occupational status: retired Current living situation: Home - Independent Activity Level: Independent ambulation Recent Out of Country Travel Within the Last 8 Weeks: No Exposure or Possible Exposure to Illness During Travel: No - Family History Brother Adopted: No Race: Family Member Ethnicity: Non- Living Status: Age at : 66 Cause of : Bome cancer Hx Family Cardiac Disorders: Yes Hx Family Respiratory Disorders: No Hx Family Cancer: Yes (bone cancer) Hx Family GI Disorders: No Hx Family Genitourinary Disorders: No Hx Family Endocrine Disorder: No Hx Family Musculoskeletal Disorders: No Hx Family Neuromuscular Disorders: No Hx Family Neurologic Disorders: Yes (dementia) Hx Family HEENT Disorders: No Hx Family Autoimmune Disorders: No Hx Family Reproductive Disorders: No Hx Family Psychosocial Disorders: No Hx Family Medical Disorders: No Sister Race: Family Member Ethnicity: Non- Living Status: Age at : 60 Cause of : cancer Hx Family Cardiac Disorders: No Hx Family Respiratory Disorders: No Hx Family Cancer: Yes (thyroid) Hx Family Endocrine Disorder: Yes (goiter) Father Adopted: No Race: Family Member Ethnicity: Non- Living Status: Age at : 79 Cause of : Dementia Hx Family Cardiac Disorders: No Hx Family Respiratory Disorders: No Hx Family GI Disorders: Yes Hx Family Genitourinary Disorders: No Hx Family Endocrine Disorder: No Hx Family Musculoskeletal Disorders: No Hx Family Neuromuscular Disorders: No Hx Family Neurologic Disorders: No Hx Family HEENT Disorders: No Hx Family Autoimmune Disorders: No Hx Family Reproductive Disorders: No Hx Family Psychosocial Disorders: No Hx Family Medical Disorders: No Mother Adopted: No Age: 86 Race: Family Member Ethnicity: Non- Living Status: Age at : 86 Cause of : Cancer (Type unknown) Hx Family Cardiac Disorders: Yes Hx Family Respiratory Disorders: No Hx Family Cancer: Yes (leukemia) Hx Family GI Disorders: No Hx Family Genitourinary Disorders: No Hx Family Endocrine Disorder: No Hx Family Musculoskeletal Disorders: No Hx Family Neuromuscular Disorders: No Hx Family Neurologic Disorders: No Hx Family HEENT Disorders: No Hx Family Autoimmune Disorders: No Hx Family Reproductive Disorders: No Hx Family Psychosocial Disorders: No Hx Family Medical Disorders: No Medications and Allergies Aspirin 81 mg PO DAILY 04/06/15 [History] Atorvastatin [Lipitor] 40 mg PO DAILY 04/06/15 [History] Isosorbide DInitrate [Isosorbide Dinitrate] 20 mg PO TID 04/06/15 [History] Nitroglycerin 0.4 mg SL Q5MIN PRN 04/06/15 [History] HydrALAZINE 50 mg PO TID #0 04/07/15 [Rx] Ipratropium/Albuterol Neb [Duoneb] 3 ml IH TID 02/02/16 [History] Oxygen 3 l NS HS 02/02/16 [History] Carvedilol [Coreg] 25 mg PO BID PRN 09/16/16 [History] Cyanocobalamin (B-12) [Vitamin B12] 1,000 mcg PO DAILY 09/16/16 [History] Ergocalciferol (VITAMIN D2) [Vitamin D2] 50,000 unit PO QWEEK 09/16/16 [History] Omeprazole [PriLOSEC] 20 mg PO DAILY@0630 30 Days capsule. 10/13/16 [Rx] Ferrous Sulfate [Ferrous Sulfate] 325 mg PO DAILY 10/19/16 [History] Furosemide [Lasix] 40 mg PO Q48H 10/19/16 [History] Losartan Potassium [Cozaar] 50 mg PO BID 10/19/16 [History] Beclomethasone Dipropionate [Qvar Redihaler] 1 puff IH BID 01/19/18 [History] Darbepoetin [Aranesp] 60 mcg SQ QMONTH 01/19/18 [History] 3 Allergy/AdvReac Type Severity Reaction Status Date / Time amlodipine [From [facility]] Allergy SWELLING Verified 10/19/16 18:26 IN LEGS lisinopril Allergy Cough Verified 10/19/16 18:26 All Systems Review: The remainder of the systems were reviewed and are negative Physical Examination Vital Signs, Last 4 Hours Temp Pulse Resp BP Pulse Ox 01/22/18 15:53 16 96 01/22/18 15:33 97.9 F 62 14 134/64 95 01/22/18 14:40 97.7 F 74 16 183/77 95 General: Conversant, No Apparent Distress HEENT: Atraumatic, Normocephaly, Trachea midline Neck: No JVD, Normal carotid pulses Cardiac: Reg Rate and Rhythm, Normal S1 and S2, No Murmur Lungs: Normal Breath Sounds, No Wheeze, Rales, Rhonchi Neuro: Alert and responsive, No focal deficits noted, Motor nerves intact, Sensory nerves intact Vascular: Normal capillary refill Abdomen: Soft, Non-tender Skin: No rashes noted on visualized skin Musculoskeletal: No Chest Wall Tenderness Extremities: No Clubbing, No Cyanosis, No Edema Results 01/22/18 04:35 01/22/18 04:35 Lab Results, Last 24 hours 01/22/18 01/22/18 01/22/18 04:35 04:35 12:20 WBC 4.6 Hgb 9.8 L Hct 30.4 L Plt Count 133 L INR 0.9 Sodium 140 Potassium 4.0 Chloride 102 Carbon Dioxide 32 H BUN 50 H Creatinine 2.49 H Glucose 103 Calcium 9.0 Total Bilirubin 0.5 AST 12 L ALT 4 L Alkaline Phosphatase 97 - Imaging Chest Xray: image reviewed (Mild to moderate cardiomegaly. No active pulmonary disease.) Consult Discharge Plan - Plan Referrals: William Galvan MD [Primary Care Provider] - (Your appointment has been requested. Our offices will call you with a time and date. )
[2018-01-23 05:30] LABS: Basophils % 0.7 %; Eosinophils # 0.2 K/mcL (0.0-0.6); Eosinophils % 3.9 %; Hematocrit 28.9 % (35.3-44.9); Hemoglobin 9.2 g/dL (11.5-15.4); Immature Granulocytes % 0.2 % (0-4); Lymphocytes # 1.1 K/mcL (0.6-4.6); Lymphocytes % 23.9 %; Mean Corpuscular HGB Conc 31.8 g/dL (31.6-35.5); Mean Corpuscular Hemoglobin 30.1 pg (28.0-33.3); Mean Corpuscular Volume 94.4 fL (83.0-100.0); Mean Platelet Volume 11.5 fL (9.4-12.4); Monocytes # 0.7 K/mcL (0.0-1.3); Monocytes % 14.1 %; Neutrophils # 2.6 K/mcL (1.6-8.9); Platelet Count 126 K/mcL (140-400); Red Blood Count 3.06 M/mcL (3.82-4.97); Red Cell Distribution Width 15.5 % (11.5-14.5); Segmented Neutrophils % 57.2 %
[2018-01-23] MEDS: *HR* Heparin 5,000 UNIT/ML VIAL SQ SCH ×3 (05:38→21:18)
[2018-01-23 05:52] LABS: Calcium 8.9 mg/dL (8.6-10.3); Potassium 4.7 mEq/L (3.5-5.1)
[2018-01-23] MEDS: Cyanocobalamin (B-12) 1,000 MCG TABLET PO SCH (08:42)
[2018-01-23] MEDS: hydrALAZINE 25 MG TABLET PO SCH ×3 (08:42→21:17)
[2018-01-23] MEDS: Aspirin 81 MG TAB.CHEW PO SCH (08:42)
[2018-01-23] MEDS: *HR* Acetylcysteine 20% 600 MG/3 ML ORAL SYRINGE PO SCH ×2 (09:45→21:24)
--- NOTE | 2018-01-23 10:28 | Cardiology Progress Note ---
Date of Encounter: 01/23/18 Time of Encounter: 10:24 Assessment and Plan (1) Cardiomyopathy Current Visit: Yes Status: Acute EF previously noted to be 60%, now 30-35%. [facility] completed and revealed severe CAD with 70% stenosis in the LMCA. She was evaluated by CT surgery and was deemed poor candidate for CABG with known pulmonary hypertension, reduced EF, and CKD. She was recommended to undergo PCI with the use of impella. I reviewed risk, benefits, and adverse events. Patient and reports having a very detailed discussion last night and she has decided to proceed with PCI. Plan for PCI later this week. Kidney function remains stable. Appreciate nephrology recommendation. Noted that Hgb is down trending. Denies signs of bleeding. She is hemodynamically stable. H/o chronic anemia due to chronic disease. Takes arnesp as needed. We will continue to monitor and plan for PCI later this week. Continue asa and stain. No bb due to HR in the 50's. Qualifiers: Cardiomyopathy type: unspecified Qualified Code(s): I42.9 - Cardiomyopathy , unspecified (2) CAD (coronary artery disease) Current Visit: Yes Status: Chronic See plan above. LHC showed 70% stenosis distal LMCA, 80% stenosis pLAD, 80% stenosis pLCx artery. There is a 70% stenosis in the Distal LMCA. The RCA was free of disease. TTE 01/20/18-Severe global hypokinesis of LV. EF 30-35% Mild concentric LVH with mild LVE. Mild to moderate MR. Moderately severe pulmonary HTN. RVSP 61mmHg Qualifiers: Coronary Disease-Associated Artery/Lesion type: [place] artery [place] vs. transplanted heart: [place] heart Associated angina: with unstable angina Qualified Code(s): I25.110 - Atherosclerotic heart disease of [place] coronary artery with unstable angina pectoris Discussion w patient/family: The assessment and plan as outlined above was discussed with the patient and/or family members who expressed understanding and agreement. All questions were answered. Thank you for involving us in the care of your patient. Please call with any questions. Subjective Principal diagnosis: Severe left main CAD Interval history: Ms. Strickland is s/p [facility]. She was evaluated by CT surgery and deemed poor candidate for CABG. She is now recommended for PCI with the use of impella. at bedside. Objective Vital Signs Temp Pulse Resp BP Pulse Ox 01/23/18 06:24 98.1 F 63 16 166/70 95 01/23/18 03:33 99.1 F 69 16 130/61 98 01/22/18 22:44 98.1 F 76 15 146/68 99 01/22/18 22:09 16 95 01/22/18 18:25 98.8 F 79 16 159/73 96 01/22/18 15:53 16 96 01/22/18 15:33 97.9 F 62 14 134/64 95 01/22/18 14:40 97.7 F 74 16 183/77 95 01/22/18 13:40 65 18 181/80 96 01/22/18 13:10 66 18 182/77 95 01/22/18 12:40 58 18 179/72 97 01/22/18 12:25 63 18 178/73 95 01/22/18 12:10 65 18 173/67 95 01/22/18 11:55 62 18 173/77 96 01/22/18 11:40 97.9 F 66 18 182/86 97 Intake and Output 01/22/18 01/23/18 01/23/18 23:59 07:59 15:59 Intake Total 1000 / 1000 480 / 480 Output Total 400 / 400 Balance 1000 / 1000 -400 / -400 480 / 480 Intake: IV Fluids 1000 / 1000 0.9 % Sodium Chloride 1,000 ML 1000 / 1000 @ 100 mls/hr IVC .Q10H [facility] Rx#: [id number] Oral 480 / 480 Output: Urine 400 / 400 Other: Meal Dinner Breakfast Percent of Meal Consumed 100% 85% Weight 66.8 kg Patient Weight 01/23/18 23:59 Weight 66.8 kg General: Conversant, No Apparent Distress HEENT: Atraumatic, Normocephaly, Mucus Membranes Moist Neck: No JVD, Normal carotid pulses Cardiac: Reg Rate and Rhythm, Normal S1 and S2, No Murmur Lungs: Normal Breath Sounds, No Wheeze, Rales, Rhonchi Neuro: Alert and responsive, No focal deficits noted Abdomen: Soft, Non-Tender Skin: No rashes noted on visualized skin Musculoskeletal: No Chest Wall Tenderness Extremities: No Clubbing, No Cyanosis, No Edema, Normal Pulses, Other (Right femoral access dressing removed. No hematoma. Mildly tender to palpation. ) Results 01/23/18 05:07 08/07/18 05:07 Lab Results 01/22/18 01/23/18 01/23/18 12:20 05:07 05:07 WBC 4.6 Hgb 9.2 L Hct 28.9 L Plt Count 126 L INR 0.9 Sodium 145 Potassium 4.7 Chloride 109 H Carbon Dioxide 31 H BUN 49 H Creatinine 2.38 H Glucose 110 H Calcium 8.9 - Imaging and Cardiology Echo: report reviewed - EKG Interpretation EKG results cardiology: personally reviewed Consult Discharge Plan - Plan Referrals: Easton Ortiz MD [Partnered Physician] - 02/15/18 2:55 pm William Galvan MD [Primary Care Provider] - 01/29/18 9:45 am ()
[2018-01-23] MEDS: Beclomethasone 80mcg MDI IH SCH ×2 (10:48→20:49)
[2018-01-23] MEDS: Ipratropium/Albuterol Neb 3 ML IH SCH ×2 (10:48→16:21)
--- NOTE | 2018-01-23 11:02 | Nephrology Progress Note ---
Date of Encounter: 01/23/18 Time of Encounter: 10:30 - Assessment and Plan (1) CKD (chronic kidney disease) stage 4, GFR 15-29 ml/min Current Visit: Yes Status: Chronic S/p LHC. SCr trending better and dilutional anemia with elevated BPs: would rec holding IVF for a while. If she were to proceed with a follow up LHC during this admission, then would recommend 0.45% saline before the next LHC. (2) CAD (coronary artery disease) Current Visit: Yes Status: Chronic Qualifiers: Coronary Disease-Associated Artery/Lesion type: [place] artery [place] vs. transplanted heart: [place] heart Associated angina: with unstable angina Qualified Code(s): I25.110 - Atherosclerotic heart disease of [place] coronary artery with unstable angina pectoris Subjective Principal diagnosis: Severe left main CAD Interval history: The pt was s/e earlier today. She reported having a restful night and did not affirm CP, N/V/D or difficulty urinating. Objective - Vital Signs Vital signs: Vital Signs Temp Pulse Resp BP Pulse Ox 01/23/18 10:50 16 96 01/23/18 06:24 98.1 F 63 16 166/70 95 01/23/18 03:33 99.1 F 69 16 130/61 98 01/22/18 22:44 98.1 F 76 15 146/68 99 01/22/18 22:09 16 95 01/22/18 18:25 98.8 F 79 16 159/73 96 01/22/18 15:53 16 96 01/22/18 15:33 97.9 F 62 14 134/64 95 01/22/18 14:40 97.7 F 74 16 183/77 95 01/22/18 13:40 65 18 181/80 96 01/22/18 13:10 66 18 182/77 95 01/22/18 12:40 58 18 179/72 97 01/22/18 12:25 63 18 178/73 95 01/22/18 12:10 65 18 173/67 95 01/22/18 11:55 62 18 173/77 96 01/22/18 11:40 97.9 F 66 18 182/86 97 Intake and Output 01/22/18 01/23/18 01/23/18 23:59 07:59 15:59 Intake Total 1000 / 1000 480 / 480 Output Total 400 / 400 Balance 1000 / 1000 -400 / -400 480 / 480 Intake: IV Fluids 1000 / 1000 0.9 % Sodium Chloride 1,000 ML 1000 / 1000 @ 100 mls/hr IVC .Q10H [facility] Rx#: [id number] Oral 480 / 480 Output: Urine 400 / 400 Other: Meal Dinner Breakfast Percent of Meal Consumed 100% 85% Weight 66.8 kg Patient Weight 01/23/18 23:59 Weight 66.8 kg - General Appearance General appearance: Present: well-developed, well-nourished, appears started age EENT: Present: ATNC, PERRL, mucous membranes moist Neck: Present: supple Respiratory: Present: clear Cardiology: Present: holosystolic murmur, no edema, regular rate, normal S1, normal S2 Gastrointestinal: Present: normoactive bowel sounds, no tenderness, no guarding Integumentary: Present: warm and dry Neurologic: Present: no focal deficit, no asterixis, alert and oriented x3 Musculoskeletal: Present: no deformities, no erythema, no cyanosis Psychiatric: Present: mood/affect appropriate, cooperative - Lab 01/23/18 05:07 01/23/18 05:07 Most recent lab results Calcium 8.9 mg/dL (8.6-10.3) 01/23/18 05:07 Phosphorus 4.3 mg/dL (2.7-4.5) 01/19/18 15:53 Magnesium 2.1 mg/dL (1.6-2.6) 01/19/18 15:53 Consult Discharge Plan - Plan Referrals: Easton Ortiz MD [Partnered Physician] - 02/15/18 2:55 pm William Galvan MD [Primary Care Provider] - 01/29/18 9:45 am ()
--- NOTE | 2018-01-23 12:43 | Internal Med Progress Note ---
Hospitalist Progress Note - Encounter Date of Encounter: 01/23/18 Time of Encounter: 12:41 - Subjective Interval History: And examined at bedside today, No acute changes overnight. Denies any chest pain or shortness of breath. Discussed plan of care and high risk PCI later this week. Patient verbalizes understanding denies any further questions at this time. - Exam Vitals: Temp Pulse Resp BP Pulse Ox 99.2 F 70 14 155/70 95 01/23/18 11:30 01/23/18 11:30 01/23/18 11:30 01/23/18 11:30 01/23/18 11:30 Exam: PHYSICAL EXAMINATION: GENERAL: The patient is an elderly female in no apparent distress. She is alert and oriented x3. HEENT: Head is normocephalic and atraumatic. Extraocular muscles are intact. Pupils are equal, round, and reactive to light and accommodation. NECK: Supple. No carotid bruits. No lymphadenopathy or thyromegaly. LUNGS: Clear to auscultation. HEART: Regular rate and rhythm without murmur ABDOMEN: Soft, nontender, and nondistended. Positive bowel sounds. No hepatosplenomegaly was noted. EXTREMITIES: Without any cyanosis, clubbing, rash, lesions or edema. NEUROLOGIC: No facial droop or slurred speech - Assessment and Plan (1) Chest pain Current Visit: Yes Status: Resolved Assessment and Plan: Admitted with chest pain, has resolved at this time Underwent stress test was found to be negative for ischemia or infarct. EF 30- 35%, prior EF 60% Echocardiogram shows severe global hypokinesis of LV with an EF of 30-35%, there is mild concentric LVH with mild LVE, mild to moderate MR, moderately severe pulmonary hypertension [facility] 01/22 revealed severe three-vessel CAD, poor candidate for CABG, cardiology discussed with family about high risk PCI with Impella device later this week, patient and family amendable to High risk PCI Continue telemetry Continue to monitor labs and vital signs (2) CAD (coronary artery disease) Current Visit: Yes Status: Chronic Assessment and Plan: Chronic. Stent and angioplasty in 2014 [facility] 01/22 revealing severe three-vessel CAD, high surgical risk per CTS Plan for high risk PCI later this week with Impella , Continue aspirin, Lipitor, Cozaar, Isordil (3) HTN (hypertension) Current Visit: Yes Status: Chronic Assessment and Plan: Chronic. SBP in the 150s, given patient's advanced age continue to monitor. BB held for bradycardia. Continue current anti-HTN medications. (4) HLD (hyperlipidemia) Current Visit: Yes Status: Chronic Assessment and Plan: Chronic, continue Lipitor (5) CKD (chronic kidney disease) stage 4, GFR 15-29 ml/min Current Visit: Yes Status: Chronic Assessment and Plan: History of CKD 4, SCr downtrending. Continue to closely monitor renal function , avoid nephrotoxins. At the recommendations of nephrology I will refrain from additional IVF at this time. Patient would need 0.45% saline before next [facility] (6) Dizziness Current Visit: Yes Status: Resolved (7) Nausea and vomiting Current Visit: Yes Status: Resolved (8) DVT prophylaxis Current Visit: Yes Status: Acute Assessment and Plan: Continue Heparin SQ TID. Pt is ambulatory in the room. - Time Spent with Patient Total time spent is greater than 50% in coordination of care (as documented) at patient's floor/unit and/or counseling patient: 25 - 35 minutes Plan of Care Discussed with: patient Internal Medicine: Result - Labs CBC & Chem 7: 01/23/18 05:07 01/23/18 05:07 Labs: Short CBC 01/23/18 Range/Units 05:07 WBC 4.6 (4.3-11.1) K/mcL Hgb 9.2 L (11.5-15.4) g/dL Hct 28.9 L (35.3-44.9) % Plt Count 126 L (140-400) K/mcL Neutrophils # 2.6 (1.6-8.9) K/mcL BMP 01/23/18 05:07 Sodium 145 Potassium 4.7 Chloride 109 H Carbon Dioxide 31 H BUN 49 H Creatinine 2.38 H Glucose 110 H Calcium 8.9 - ABG Interpretation ABG results: PT/INR, D-dimer PT 10.5 Seconds (9.4-12.1) 01/22/18 12:20 Consult Discharge Plan - Plan Referrals: Easton Ortiz MD [Partnered Physician] - 02/15/18 2:55 pm William Galvan MD [Primary Care Provider] - 01/29/18 9:45 am () (1) Chest pain Qualifiers: Chest pain type: other chest pain Qualified Code(s): R07.89 - Other chest pain; R07.8 - Other chest pain (2) CAD (coronary artery disease) Qualifiers: Coronary Disease-Associated Artery/Lesion type: [place] artery [place] vs. transplanted heart: [place] heart Associated angina: with unstable angina Qualified Code(s): I25.110 - Atherosclerotic heart disease of [place] coronary artery with unstable angina pectoris (3) HTN (hypertension) Qualifiers: Hypertension type: essential hypertension Qualified Code(s): I10 - Essential (primary) hypertension (4) HLD (hyperlipidemia) Qualifiers: Hyperlipidemia type: pure hypercholesterolemia Qualified Code(s): E78.00 - Pure hypercholesterolemia, unspecified; E78.0 - Pure hypercholesterolemia (7) Nausea and vomiting Qualifiers: Vomiting type: cyclical vomiting Vomiting Intractability: non-intractable Qualified Code(s): G43.A0 - Cyclical vomiting, not intractable
[2018-01-24] MEDS: Ipratropium/Albuterol Neb 3 ML IH SCH ×4 (00:46→22:23)
[2018-01-24] MEDS: *HR* Heparin 5,000 UNIT/ML VIAL SQ SCH ×3 (05:46→20:40)
[2018-01-24 05:52] LABS: Basophils % 0.8 %; Eosinophils # 0.3 K/mcL (0.0-0.6); Eosinophils % 5.3 %; Hematocrit 28.8 % (35.3-44.9); Hemoglobin 9.2 g/dL (11.5-15.4); Immature Granulocytes % 0.2 % (0-4); Lymphocytes # 1.2 K/mcL (0.6-4.6); Lymphocytes % 22.9 %; Mean Corpuscular HGB Conc 31.9 g/dL (31.6-35.5); Mean Corpuscular Hemoglobin 30.3 pg (28.0-33.3); Mean Corpuscular Volume 94.7 fL (83.0-100.0); Mean Platelet Volume 12.4 fL (9.4-12.4); Monocytes # 0.8 K/mcL (0.0-1.3); Monocytes % 14.2 %; Platelet Count 125 K/mcL (140-400); Red Blood Count 3.04 M/mcL (3.82-4.97); Red Cell Distribution Width 15.6 % (11.5-14.5); Segmented Neutrophils % 56.6 %
[2018-01-24 06:11] LABS: Calcium 9.4 mg/dL (8.6-10.3); Potassium 4.4 mEq/L (3.5-5.1)
[2018-01-24] MEDS: Cyanocobalamin (B-12) 1,000 MCG TABLET PO SCH (09:28)
[2018-01-24] MEDS: Aspirin 81 MG TAB.CHEW PO SCH (09:28)
[2018-01-24] MEDS: hydrALAZINE 25 MG TABLET PO SCH ×3 (09:28→20:35)
[2018-01-24] MEDS: Beclomethasone 80mcg MDI IH SCH ×2 (09:56→22:23)
--- NOTE | 2018-01-24 10:00 | Nephrology Progress Note ---
Date of Encounter: 01/24/18 Time of Encounter: 08:35 - Assessment and Plan (1) CKD (chronic kidney disease) stage 4, GFR 15-29 ml/min Current Visit: Yes Status: Chronic Renal function actually doing quite, and slightly better than baseline (most likely from the recent IVF). Will continue to follow along with you. If PCI is planned for tomorrow, then I' d recommend adding 0.45% saline about 6 hr before the contrast exposure to help minimize JOE risks. +/- NAC. Thank you. (2) CAD (coronary artery disease) Current Visit: Yes Status: Chronic Appreciate Cardiology. Qualifiers: Coronary Disease-Associated Artery/Lesion type: [place] artery [place] vs. transplanted heart: [place] heart Associated angina: with unstable angina Qualified Code(s): I25.110 - Atherosclerotic heart disease of [place] coronary artery with unstable angina pectoris Subjective Principal diagnosis: Severe left main CAD Interval history: The pt was s/e earlier today. She reported having a restful night and did not affirm CP, N/V/D or difficulty urinating. Objective - Vital Signs Vital signs: Vital Signs Temp Pulse Resp BP Pulse Ox 01/24/18 09:57 16 98 01/24/18 06:49 98.0 F 67 16 144/63 98 01/24/18 03:55 98.4 F 72 16 153/71 98 01/24/18 00:46 19 98 01/23/18 22:56 98.6 F 94 16 133/58 96 01/23/18 20:50 18 96 01/23/18 18:19 98.5 F 62 16 169/76 96 01/23/18 16:21 18 95 01/23/18 16:17 98.3 F 72 15 130/73 95 01/23/18 11:30 99.2 F 70 14 155/70 95 01/23/18 10:50 16 96 Intake and Output 01/23/18 01/24/18 01/24/18 23:59 07:59 15:59 Output Total 500 / 500 600 / 600 Balance -500 / -500 -600 / -600 Output: Urine 500 / 500 600 / 600 Other: Weight 69.9 kg Patient Weight 01/24/18 23:59 Weight 69.9 kg - General Appearance General appearance: Present: well-developed, well-nourished, appears started age EENT: Present: ATNC, PERRL, mucous membranes moist Neck: Present: supple Respiratory: Present: clear Cardiology: Present: no edema, regular rate, normal S1, normal S2 Gastrointestinal: Present: normoactive bowel sounds, no tenderness, no guarding Integumentary: Present: warm and dry Neurologic: Present: no focal deficit, no asterixis, alert and oriented x3 Musculoskeletal: Present: no deformities, no erythema, no cyanosis Psychiatric: Present: mood/affect appropriate, cooperative - Lab 01/24/18 04:05 01/24/18 04:05 Most recent lab results Calcium 9.4 mg/dL (8.6-10.3) 01/24/18 04:05 Phosphorus 4.3 mg/dL (2.7-4.5) 01/19/18 15:53 Magnesium 2.1 mg/dL (1.6-2.6) 01/19/18 15:53 Consult Discharge Plan - Plan Referrals: Easton Ortiz MD [Partnered Physician] - 02/15/18 2:55 pm William Galvan MD [Primary Care Provider] - 01/29/18 9:45 am ()
[2018-01-24] MEDS: *HR* Acetylcysteine 20% 600 MG/3 ML ORAL SYRINGE PO SCH (10:22)
--- NOTE | 2018-01-24 12:14 | Cardiology Progress Note ---
Date of Encounter: 01/24/18 Time of Encounter: 12:11 Assessment and Plan (1) Cardiomyopathy Current Visit: Yes Status: Acute EF previously noted to be 60%, now 30-35%. [facility] completed and revealed severe CAD with 70% stenosis in the LMCA. She was evaluated by CT surgery and was deemed poor candidate for CABG with known pulmonary hypertension, reduced EF, and CKD. She was recommended to undergo PCI with impella. Case reviewed by Dr. Morrison and he spoke with patient independently. Options including high risk PCI risk verses medical management discussed. She prefers medical management at this time. Kidney function remains stable. Appreciate nephrology recommendation. Hgb stable. She denies chest pain or SOB since admission. Ambulated in the hallway with no symptoms. She is currently euvolemic. Plan: Continue asa, stain, arb, isordil. HR improved will add low dose bb. BB stopped by primary team on admission for low HR, B/p,and dizziness. Symptoms resolved. Restart Carvedilol 3.25 mg BID. Add plavix 75 mg daily. Add ranexa 500 mg BID. Close out-pt f/u will be scheduled. Qualifiers: Cardiomyopathy type: unspecified Qualified Code(s): I42.9 - Cardiomyopathy , unspecified (2) CAD (coronary artery disease) Current Visit: Yes Status: Chronic See plan above. LHC showed 70% stenosis distal LMCA, 80% stenosis pLAD, 80% stenosis pLCx artery. There is a 70% stenosis in the Distal LMCA. The RCA was free of disease. TTE 01/20/18-Severe global hypokinesis of LV. EF 30-35% Mild concentric LVH with mild LVE. Mild to moderate MR. Moderately severe pulmonary HTN. RVSP 61mmHg. Medical managment as stated above. Qualifiers: Coronary Disease-Associated Artery/Lesion type: [place] artery [place] vs. transplanted heart: [place] heart Associated angina: with unstable angina Qualified Code(s): I25.110 - Atherosclerotic heart disease of [place] coronary artery with unstable angina pectoris Discussion w patient/family: The assessment and plan as outlined above was discussed with the patient and/or family members who expressed understanding and agreement. All questions were answered. Thank you for involving us in the care of your patient. Please call with any questions. Subjective Principal diagnosis: Severe left main CAD Interval history: Ms. Strickland denies chest pain or SOB. No recurrent nausea. at bedside. Patient is considering medical management due to procedure being high risk. Objective Vital Signs, Last 4 Hours Resp Pulse Ox 01/24/18 09:57 16 98 Vital Signs Temp Pulse Resp BP Pulse Ox 01/24/18 09:57 16 98 01/24/18 06:49 98.0 F 67 16 144/63 98 01/24/18 03:55 98.4 F 72 16 153/71 98 01/24/18 00:46 19 98 01/23/18 22:56 98.6 F 94 16 133/58 96 01/23/18 20:50 18 96 01/23/18 18:19 98.5 F 62 16 169/76 96 01/23/18 16:21 18 95 01/23/18 16:17 98.3 F 72 15 130/73 95 Intake and Output 01/23/18 01/24/18 01/24/18 23:59 07:59 15:59 Output Total 500 / 500 600 / 600 Balance -500 / -500 -600 / -600 Output: Urine 500 / 500 600 / 600 Other: Weight 69.9 kg Patient Weight 01/24/18 23:59 Weight 69.9 kg General: Conversant, No Apparent Distress HEENT: Atraumatic, Normocephaly, Mucus Membranes Moist Neck: No JVD, Normal carotid pulses Cardiac: Reg Rate and Rhythm, Normal S1 and S2, No Murmur Lungs: Normal Breath Sounds, No Wheeze, Rales, Rhonchi Neuro: Alert and responsive, No focal deficits noted Abdomen: Soft, Non-Tender Skin: No rashes noted on visualized skin Musculoskeletal: No Chest Wall Tenderness Extremities: No Clubbing, No Cyanosis, No Edema, Normal Pulses Results 01/24/18 04:05 01/24/18 04:05 Lab Results 01/24/18 01/24/18 04:05 04:05 WBC 5.3 Hgb 9.2 L Hct 28.8 L Plt Count 125 L Sodium 143 Potassium 4.4 Chloride 107 Carbon Dioxide 30 H BUN 43 H Creatinine 2.06 H Glucose 105 Calcium 9.4 - Imaging and Cardiology Stress Test: report reviewed Echo: report reviewed Cardiac cath: report reviewed - EKG Interpretation EKG results cardiology: personally reviewed (LBBB) Consult Discharge Plan - Plan Referrals: Easton Ortiz MD [Partnered Physician] - 02/15/18 2:55 pm William Galvan MD [Primary Care Provider] - 01/29/18 9:45 am ()
--- NOTE | 2018-01-24 12:59 | Internal Med Progress Note ---
Hospitalist Progress Note - Encounter Date of Encounter: 01/24/18 Time of Encounter: 12:56 - Subjective Interval History: And examined at bedside today, No acute changes overnight. Denies any chest pain or shortness of breath. Discussed plan of care and high risk PCI later this week. Patient verbalizes understanding denies any further questions at this time. - Exam Vitals: Temp Pulse Resp BP Pulse Ox 98.0 F 67 16 144/63 98 01/24/18 06:49 01/24/18 06:49 01/24/18 09:57 01/24/18 06:49 01/24/18 09:57 Exam: PHYSICAL EXAMINATION: GENERAL: The patient is an ill appeaaring female in no apparent distress. She is alert and oriented x3. HEENT: Head is normocephalic and atraumatic. Extraocular muscles are intact. Pupils are equal, round, and reactive to light and accommodation. Nares appeared normal. Mouth is well hydrated and without lesions. Mucous membranes are moist. NECK: Supple. No carotid bruits. No lymphadenopathy or thyromegaly. LUNGS: Clear to auscultation. HEART: Regular rate and rhythm without murmur. ABDOMEN: Soft, nontender, and nondistended. Positive bowel sounds. No hepatosplenomegaly was noted. EXTREMITIES: Without any cyanosis, clubbing, rash, lesions or edema. NEUROLOGIC: Cranial nerves II through XII are grossly intact. - Assessment and Plan (1) Chest pain Current Visit: Yes Status: Resolved Assessment and Plan: Admitted with chest pain,; resolved. Able to ambulate in hallways without chest pain, shortness of breath. Underwent stress test was found to be negative for ischemia or infarct. EF 30- 35%, prior EF 60% Echocardiogram shows severe global hypokinesis of LV with an EF of 30-35%, there is mild concentric LVH with mild LVE, mild to moderate MR, moderately severe pulmonary hypertension [facility] 01/22 revealed severe three-vessel CAD-- LHC showed 70% stenosis distal LMCA , 80% stenosis pLAD, 80% stenosis pLCx artery. There is a 70% stenosis in the Distal LMCA-- poor candidate for CABG, cardiology discussed with family regarding high risk PCI vs medical management; Patient and family has opted for medical management at this time Continue telemetry Continue to monitor labs and vital signs (2) CAD (coronary artery disease) Current Visit: Yes Status: Chronic Assessment and Plan: Chronic. Stent and angioplasty in 2014 [facility] 01/22 revealing severe three-vessel CAD, high surgical risk per CTS Plan for high risk PCI later this week with Impella Continue aspirin, Lipitor, Cozaar, Isordil [facility]-- showed 70% stenosis distal LMCA, 80% stenosis pLAD, 80% stenosis pLCx artery. There is a 70% stenosis in the Distal LMCA. The RCA was free of disease. TTE-- 02/03-Severe global hypokinesis of LV. EF 30-35% Mild concentric LVH with mild LVE. Mild to moderate MR. Moderately severe pulmonary HTN. RVSP 61mmHg (3) HTN (hypertension) Current Visit: Yes Status: Chronic Assessment and Plan: Chronic. BB held for bradycardia. Continue current anti-HTN medications. (4) HLD (hyperlipidemia) Current Visit: Yes Status: Chronic Assessment and Plan: Chronic, continue Lipitor--adjust per recommendations of cardiology (5) CKD (chronic kidney disease) stage 4, GFR 15-29 ml/min Current Visit: Yes Status: Chronic Assessment and Plan: History of CKD 4, SCr downtrending. Continue to closely monitor renal function , avoid nephrotoxins. At the recommendations of nephrology I will refrain from additional IVF at this time. Patient would need 0.45% saline before next [facility] 01/24--renal function is continuing to improve and appears to be better than patient's average baseline. Continue to closely monitor. (6) Dizziness Current Visit: Yes Status: Resolved Assessment and Plan: Denies. Carotids show right distal greater than 6079% stenosis, left has nonstenotic plaque. Patient will need to follow with vascular after discharge. Echo as above. Likely secondary to hypotension and bradycardia. Monitor for safety and falls. (7) Nausea and vomiting Current Visit: Yes Status: Resolved Assessment and Plan: Resolved. (8) DVT prophylaxis Current Visit: Yes Status: Acute Assessment and Plan: Continue Heparin SQ TID. Pt is ambulatory in the room. (9) Cardiomyopathy Current Visit: Yes Status: Acute Assessment and Plan: Patient presented with chest pain which has now resolved. Return pain throughout this admission. EF previously noted 60% now 34-35%. Left heart catheter revealing severe triple-vessel disease as stated previously. Declined CABG, not a candidate for CABG. High risk for PCI with imPella device. Patient opting for medical management at this time. Cardiology following with recommendations of adding Plavix, low-dose beta [id number]-[id number] 12.5 mg daily , and Ranexa. To follow up with cardiology in the clinic in one week. Patient able to ambulate hallway today without any return of chest pain or shortness of breath. Should she tolerate medication changes overnight consider discharge in the morning. (10) Chronic kidney disease Current Visit: Yes Status: Acute Assessment and Plan: History of CKD 4, not in acute exacerbation. Renal function stable. Continue to monitor closely and avoid nephrotoxins. - Time Spent with Patient Total time spent is greater than 50% in coordination of care (as documented) at patient's floor/unit and/or counseling patient: Greater than 35 minutes Internal Medicine: Result - Labs CBC & Chem 7: 01/24/18 04:05 01/24/18 04:05 Labs: Short CBC 01/24/18 Range/Units 04:05 WBC 5.3 (4.3-11.1) K/mcL Hgb 9.2 L (11.5-15.4) g/dL Hct 28.8 L (35.3-44.9) % Plt Count 125 L (140-400) K/mcL Neutrophils # 3.0 (1.6-8.9) K/mcL BMP 01/24/18 04:05 Sodium 143 Potassium 4.4 Chloride 107 Carbon Dioxide 30 H BUN 43 H Creatinine 2.06 H Glucose 105 Calcium 9.4 - ABG Interpretation ABG results: PT/INR, D-dimer PT 10.5 Seconds (9.4-12.1) 01/22/18 12:20 Consult Discharge Plan - Plan Referrals: Easton Ortiz MD [Partnered Physician] - 02/15/18 2:55 pm William Galvan MD [Primary Care Provider] - 01/29/18 9:45 am () (1) Chest pain Qualifiers: Chest pain type: other chest pain Qualified Code(s): R07.89 - Other chest pain; R07.8 - Other chest pain (2) CAD (coronary artery disease) Qualifiers: Coronary Disease-Associated Artery/Lesion type: [place] artery [place] vs. transplanted heart: [place] heart Associated angina: with unstable angina Qualified Code(s): I25.110 - Atherosclerotic heart disease of [place] coronary artery with unstable angina pectoris (3) HTN (hypertension) Qualifiers: Hypertension type: essential hypertension Qualified Code(s): I10 - Essential (primary) hypertension (4) HLD (hyperlipidemia) Qualifiers: Hyperlipidemia type: pure hypercholesterolemia Qualified Code(s): E78.00 - Pure hypercholesterolemia, unspecified; E78.0 - Pure hypercholesterolemia (7) Nausea and vomiting Qualifiers: Vomiting type: cyclical vomiting Vomiting Intractability: non-intractable Qualified Code(s): G43.A0 - Cyclical vomiting, not intractable (9) Cardiomyopathy Qualifiers: Cardiomyopathy type: unspecified Qualified Code(s): I42.9 - Cardiomyopathy, unspecified (10) Chronic kidney disease Qualifiers: Chronic kidney disease stage: unspecified stage Qualified Code(s): N18.9 - Chronic kidney disease, unspecified
[2018-01-24] MEDS: Ranolazine 500 MG TAB.ER.12H PO SCH ×2 (14:18→20:35)
[2018-01-24] MEDS: Furosemide 40 MG TABLET PO SCH (17:17)
[2018-01-25] MEDS: *HR* Acetylcysteine 20% 600 MG/3 ML ORAL SYRINGE PO SCH (00:31)
[2018-01-25] MEDS: 0.9 % Sodium Chloride 1,000 ML IVC SCH (02:02)
[2018-01-25 03:50] LABS: Basophils # 0.1 K/mcL (0.0-0.2); Basophils % 0.8 %; Eosinophils # 0.3 K/mcL (0.0-0.6); Eosinophils % 4.7 %; Hematocrit 28.7 % (35.3-44.9); Hemoglobin 9.2 g/dL (11.5-15.4); Immature Granulocytes % 0.2 % (0-4); Lymphocytes # 1.2 K/mcL (0.6-4.6); Lymphocytes % 19.9 %; Mean Corpuscular HGB Conc 32.1 g/dL (31.6-35.5); Mean Corpuscular Hemoglobin 30.3 pg (28.0-33.3); Mean Corpuscular Volume 94.4 fL (83.0-100.0); Mean Platelet Volume 11.8 fL (9.4-12.4); Monocytes # 0.7 K/mcL (0.0-1.3); Monocytes % 11.4 %; Neutrophils # 3.9 K/mcL (1.6-8.9); Platelet Count 120 K/mcL (140-400); Red Blood Count 3.04 M/mcL (3.82-4.97); Red Cell Distribution Width 15.4 % (11.5-14.5)
[2018-01-25 04:03] LABS: Calcium 9.3 mg/dL (8.6-10.3); Potassium 4.3 mEq/L (3.5-5.1)
[2018-01-25] MEDS: *HR* Heparin 5,000 UNIT/ML VIAL SQ SCH (06:08)
[2018-01-25] MEDS: Ipratropium/Albuterol Neb 3 ML IH SCH (07:32)
[2018-01-25] MEDS: Beclomethasone 80mcg MDI IH SCH (07:32)
--- NOTE | 2018-01-25 08:19 | Cardiology Progress Note ---
Date of Encounter: 01/25/18 Time of Encounter: 08:15 Assessment and Plan (1) Cardiomyopathy Current Visit: Yes Status: Acute Per Cardiology: EF previously noted to be 60%, now 30-35%. Euvolemic on exam. On beta dylon and ARB. Qualifiers: Cardiomyopathy type: unspecified Qualified Code(s): I42.9 - Cardiomyopathy , unspecified (2) CAD (coronary artery disease) Current Visit: Yes Status: Chronic Per Cardiology: TTE 01/20/18-Severe global hypokinesis of LV. EF 30-35% Mild concentric LVH with mild LVE. Mild to moderate MR. Moderately severe pulmonary HTN. RVSP 61mmHg. LHC showed 70% stenosis distal LMCA, 80% stenosis pLAD, 80% stenosis pLCx artery. There is a 70% stenosis in the Distal LMCA. The RCA was free of disease. CT surgery deemed poor candidate for CABG with known pulmonary hypertension, reduced EF, and CKD. She was recommended to consider PCI with impella: high risk PCI risk vs. medical management discussed. She prefers medical management at this time. On aspirin, statin, beta dylon, Plavix, ARB , Ranexa, and long-acting nitrates. Chest pain-free with ambulating in hallway. Cardiology will sign off, reconsult as needed, follow-up arranged. All questions answered. Qualifiers: Coronary Disease-Associated Artery/Lesion type: [place] artery [place] vs. transplanted heart: [place] heart Associated angina: with unstable angina Qualified Code(s): I25.110 - Atherosclerotic heart disease of [place] coronary artery with unstable angina pectoris Discussion w patient/family: The assessment and plan as outlined above was discussed with the patient and/or family members who expressed understanding and agreement. All questions were answered. Thank you for involving us in the care of your patient. Please call with any questions. Subjective Principal diagnosis: Severe left main CAD Interval history: Patient denies any chest pain, shortness of breath, palpitations. Reports and related hallway a few different times with no symptoms. Denies any concerns from her right groin site. Objective Vital Signs, Last 4 Hours Temp Pulse Resp BP Pulse Ox 01/25/18 07:32 16 92 01/25/18 07:25 98.3 F 78 13 157/72 92 General: Conversant, No Apparent Distress HEENT: Atraumatic, Normocephaly, Mucus Membranes Moist Neck: No JVD, Normal carotid pulses Cardiac: Reg Rate and Rhythm, Normal S1 and S2, No Murmur Lungs: Normal Breath Sounds, No Wheeze, Rales, Rhonchi Neuro: Alert and responsive, No focal deficits noted Abdomen: Soft, Non-Tender Skin: No rashes noted on visualized skin Musculoskeletal: No Chest Wall Tenderness Extremities: No Clubbing, No Cyanosis, No Edema, Normal Pulses Results 01/25/18 03:05 01/25/18 03:05 Lab Results Laboratory Tests 01/25/18 01/25/18 03:05 03:05 Hgb 9.2 L Hct 28.7 L Creatinine 2.06 H Est GFR (Non-Af Amer) 23 L ITS Impressions Chest X-Ray 01/19/18 15:05 IMPRESSION: No acute cardiopulmonary disease. Cardiomegaly without overt failure. Mild dependent left basilar atelectasis. D/ / Zeferino Treadwell MD / Zeferino Treadwell MD Interpreting Provider: Zeferino Treadwell MD Chest X-Ray 01/19/18 15:53 IMPRESSION: Stable cardiomegaly. No acute pulmonary finding. D/ / Christoph Peters MD / Christoph Peters MD Interpreting Provider: Christoph Peters MD Echocardiogram 01/20/18 18:25 Impressions: Severe global hypokinesis of LV. EF 30-35% Mild concentric LVH with mild LVE. Mild to moderate MR. Moderately severe pulmonary HTN. RVSP 61mmHg Left Ventricular Wall Motion: Rest Echo Findings The apex, apical inferior, mid inferior, basal inferior, apical anterior, mid anterior, basal anterior, apical septal, mid inferior septal, basal inferior septal, apical lateral, mid anterior lateral, basal anterior lateral, mid anterior septal, mid inferior lateral, basal anterior septal and basal inferior lateral perales were hypokinetic. Findings: Study Quality * Technically adequate exam. ECG Findings * Sinus rhythm with BBB. * Sinus bradycardia. Left Ventricle * LVEF 30-35%. * Mildly dilated left ventricle. * Mild concentric left ventricular hypertrophy. * Severe left ventricular systolic dysfunction. * Mild left ventricular diastolic dysfunction. * Atypical septal motion consistent with bundle branch block. Right Ventricle * Mild right ventricular hypokinesis. * Mildly dilated right ventricle. Left Atrium * Mildly dilated left atrium. Right Atrium * Mildly dilated right atrium. Interatrial Septum * Interatrial septum not well evaluated. Aortic Valve * Trileaflet aortic valve. * Trileaflet aortic valve with normal function. * No aortic regurgitation. * No aortic stenosis. Mitral Valve * Normal mitral valve structure. * Mild-moderate mitral regurgitation. Tricuspid Valve * Normal tricuspid valve structure. * Moderate tricuspid regurgitation. * Moderate-severe pulmonary hypertension. * Estimated RVSP is 61 mmHg. Pulmonic Valve * Normal pulmonic valve structure. * Mild-moderate pulmonic regurgitation. Aorta * Normally sized aortic root. Pericardium * There is a trivial pericardial effusion present. * There is no echocardiographic evidence of tamponade. IVC * Normal IVC dimensions and inspiratory collapse. Active Medications Acetylcysteine (Acetylcysteine 20%) 600 mg PO BID [facility] Stop: 07/24/18 09:16 Last Admin: 01/25/18 00:31 Dose: 600 mg Albuterol/Ipratropium (Duoneb) 3 ml IH [id number] [facility] Stop: 07/21/18 19:01 Last Admin: 01/25/18 07:32 Dose: 3 ml Aspirin (Aspirin) 81 mg PO DAILY [facility] Stop: 07/22/18 09:01 Last Admin: 01/24/18 09:28 Dose: 81 mg Atorvastatin Calcium (Lipitor) 80 mg PO HS [facility] Stop: 07/26/18 21:01 Last Admin: 01/24/18 20:36 Dose: 80 mg Beclomethasone Dipropionate (Qvar 80 Mcg) 1 puff IH BIDRESP [facility] Stop: 07/21/18 22:01 Last Admin: 01/25/18 07:32 Dose: 1 puff Carvedilol (Coreg) 3.125 mg PO BIDWM [facility] PRN Reason: Protocol Stop: 07/26/18 17:01 Last Admin: 01/24/18 17:16 Dose: 3.125 mg Clopidogrel Bisulfate (Plavix) 75 mg PO DAILY [facility] Stop: 07/26/18 13:16 Last Admin: 01/24/18 14:18 Dose: 75 mg Cyanocobalamin (Vitamin B12) 1,000 mcg PO DAILY [facility] Stop: 07/22/18 09:01 Last Admin: 01/24/18 09:28 Dose: 1,000 mcg Ferrous Sulfate (Ferrous Sulfate) 325 mg PO DAILY [facility] Stop: 07/22/18 09:01 Last Admin: 01/24/18 09:28 Dose: 325 mg Furosemide (Lasix) 40 mg PO Q48H [facility] Stop: 07/22/18 16:31 Last Admin: 01/24/18 17:17 Dose: 40 mg Heparin Sodium (Porcine) (Heparin) 5,000 unit SQ Q8HCO [facility] Stop: 07/21/18 22:01 Last Admin: 01/25/18 06:08 Dose: 5,000 unit Hydralazine HCl (Hydralazine) 10 mg IVP Q6HR PRN PRN Reason: Hypertension Stop: 07/21/18 18:47 Hydralazine HCl (Hydralazine) 50 mg PO TID [facility] Stop: 07/22/18 21:01 Last Admin: 01/24/18 20:35 Dose: 50 mg Isosorbide Dinitrate (Isordil) 20 mg PO TID [facility] Stop: 07/22/18 21:01 Last Admin: 01/24/18 20:35 Dose: 20 mg Losartan Potassium (Cozaar) 50 mg PO BID [facility] Stop: 07/22/18 21:01 Last Admin: 01/24/18 20:36 Dose: 50 mg Naloxone HCl (Narcan) 0.4 mg IVP Q2MIN PRN PRN Reason: SEE COMMENTS Stop: 07/21/18 18:37 Nitroglycerin (Nitroglycerin) 0.4 mg SL Q5MIN PRN PRN Reason: Chest Pain Stop: 07/21/18 16:02 Omeprazole (Prilosec) 20 mg PO DAILY@0630 [facility] PRN Reason: Protocol Stop: 07/22/18 06:31 Last Admin: 01/25/18 06:08 Dose: 20 mg Ondansetron HCl (Zofran) 4 mg IVP Q6HR PRN; Protocol PRN Reason: Nausea And Vomiting Stop: 07/21/18 18:43 Ranolazine (Ranexa) 500 mg PO BID [facility] Stop: 07/26/18 13:16 Last Admin: 01/24/18 20:35 Dose: 500 mg - Imaging and Cardiology Echo: report reviewed Cardiac cath: report reviewed - VTE Documentation of Mechanical Device: Intermittent pneumatic compression device Consult Discharge Plan - Plan Referrals: Easton Ortiz MD [Partnered Physician] - 02/15/18 2:55 pm William Galvan MD [Primary Care Provider] - 01/29/18 9:45 am ()
[2018-01-25] MEDS: Aspirin 81 MG TAB.CHEW PO SCH (09:08)
[2018-01-25] MEDS: Ranolazine 500 MG TAB.ER.12H PO SCH (09:08)
[2018-01-25] MEDS: Cyanocobalamin (B-12) 1,000 MCG TABLET PO SCH (09:09)
[2018-01-25] MEDS: hydrALAZINE 25 MG TABLET PO SCH (09:09)
--- NOTE | 2018-01-25 09:40 | Nephrology Progress Note ---
Date of Encounter: 01/25/18 Time of Encounter: 09:37 - Assessment and Plan (1) CKD (chronic kidney disease) stage 4, GFR 15-29 ml/min Current Visit: Yes Status: Chronic Renal function stable Has routine follow up appointment with Dr Ortiz on 02/15 If patient decides in future to do PCI heart cath recommend IVF 6 hours before procedure and 6 hours after to minimize risks (2) CAD (coronary artery disease) Current Visit: Yes Status: Chronic Patient states she has decided to do medical management of her heart issues. per cardiology team Qualifiers: Coronary Disease-Associated Artery/Lesion type: [place] artery [place] vs. transplanted heart: [place] heart Associated angina: with unstable angina Qualified Code(s): I25.110 - Atherosclerotic heart disease of [place] coronary artery with unstable angina pectoris Subjective Principal diagnosis: Severe left main CAD Interval history: Patient seen and examined. States she is suppose to go home today Objective - Vital Signs Vital signs: Vital Signs Temp Pulse Resp BP Pulse Ox 01/25/18 07:32 16 92 01/25/18 07:25 98.3 F 78 13 157/72 92 01/25/18 03:15 98.3 F 76 14 143/74 98 01/24/18 23:37 98.3 F 78 16 168/76 99 01/24/18 22:26 18 97 01/24/18 19:07 98.0 F 78 14 179/82 94 01/24/18 17:19 98.2 F 75 16 163/74 96 01/24/18 16:09 16 96 01/24/18 15:45 163/66 01/24/18 09:57 16 98 Intake and Output 01/24/18 01/25/18 01/25/18 23:59 07:59 15:59 Intake Total 480 / 480 Output Total 900 / 900 Balance -900 / -900 480 / 480 Intake: Oral 480 / 480 Output: Urine 900 / 900 Other: Meal Breakfast Percent of Meal Consumed 95% Weight 68.3 kg Patient Weight 01/25/18 23:59 Weight 68.3 kg - General Appearance General appearance: Present: well-developed, well-nourished EENT: Present: ATNC, mucous membranes moist, hearing intact, vision intact Neck: Present: supple Respiratory: Present: clear Cardiology: Present: no edema, normal S1, normal S2 Gastrointestinal: Present: no tenderness, no guarding Integumentary: Present: warm and dry Neurologic: Present: alert and oriented x3 Psychiatric: Present: mood/affect appropriate, cooperative - Lab 01/25/18 03:05 01/25/18 03:05 Most recent lab results Calcium 9.3 mg/dL (8.6-10.3) 01/25/18 03:05 Phosphorus 4.3 mg/dL (2.7-4.5) 01/19/18 15:53 Magnesium 2.1 mg/dL (1.6-2.6) 01/19/18 15:53 - VTE Documentation of Mechanical Device: Intermittent pneumatic compression device Consult Discharge Plan - Plan Referrals: Easton Ortiz MD [Partnered Physician] - 02/15/18 2:55 pm William Galvan MD [Primary Care Provider] - 01/29/18 9:45 am ()
[2018-01-25 11:39] VITALS: BP 176/79
--- NOTE | 2018-01-25 11:51 | Discharge Summary ---
- NOTES TO OUTPATIENT PROVIDER Notes to Outpatient Provider: Patient admitted w/CP and found to have severe left main CAD for which she has chosen to do medical mgmt. Will f/u w/ Cardiology w/i one week and will see Dr. Ortiz on 02/15 for routine f/u appt. Orders not resulted at time of discharge: Pending orders 01/19/18 18:35 NM leo perf SPECT multi [NM] Routine Date of Encounter: 01/25/18 Time of Encounter: 11:49 - Discharge Diagnosis (1) CAD (coronary artery disease) Priority: Primary Status: Chronic Qualifiers: Coronary Disease-Associated Artery/Lesion type: [place] artery [place] vs. transplanted heart: [place] heart Associated angina: with unstable angina Qualified Code(s): I25.110 - Atherosclerotic heart disease of [place] coronary artery with unstable angina pectoris (2) Chest pain Priority: Primary Status: Resolved Qualifiers: Chest pain type: other chest pain Qualified Code(s): R07.89 - Other chest pain; R07.8 - Other chest pain (3) DVT prophylaxis Priority: Secondary Status: Acute (4) Chronic kidney disease Priority: Secondary Status: Acute Qualifiers: Chronic kidney disease stage: unspecified stage Qualified Code(s): N18.9 - Chronic kidney disease, unspecified (5) HTN (hypertension) Priority: Secondary Status: Chronic Qualifiers: Hypertension type: essential hypertension Qualified Code(s): I10 - Essential (primary) hypertension (6) HLD (hyperlipidemia) Priority: Secondary Status: Chronic Qualifiers: Hyperlipidemia type: pure hypercholesterolemia Qualified Code(s): E78.00 - Pure hypercholesterolemia, unspecified; E78.0 - Pure hypercholesterolemia (7) CKD (chronic kidney disease) stage 4, GFR 15-29 ml/min Priority: Secondary Status: Chronic (8) Dizziness Priority: Primary Status: Resolved (9) Nausea and vomiting Priority: Primary Status: Resolved Qualifiers: Vomiting type: cyclical vomiting Vomiting Intractability: non-intractable Qualified Code(s): G43.A0 - Cyclical vomiting, not intractable (10) Cardiomyopathy Priority: Secondary Status: Acute Qualifiers: Cardiomyopathy type: unspecified Qualified Code(s): I42.9 - Cardiomyopathy , unspecified Hospital course: Ms. Strickland is a 87 year old female who presented w/CP and found to have severe triple-vessel disease. Not a CABG candidate. Initial discussion regarding high risk PCI versus medical management. Patient's decision to pursue medical management. Patient instructed to keep cardiology appointment within 1 week for follow-up as well as scheduled nephrology appointment on 02/[address] Ortiz. Patient states she is able to ambulate down the [place] without chest pain and states she is currently symptom-free and ready to go home. Patient instructed to come to the ED with any further chest pain symptoms or chest discomfort. Patient and instructed about cardiac diet and also instructed to think of any further questions for cardiology appointment. Patient and expressed understanding the plan of care. Discharge discussed with: patient, family - Time Spent with Patient Total time spent providing and/or coordinating discharge services: Less than 30 minutes - Discharge Medications Home Medications: Aspirin 81 mg PO DAILY 04/06/15 [History] Atorvastatin [Lipitor] 40 mg PO DAILY 04/06/15 [History] Isosorbide DInitrate [Isosorbide Dinitrate] 20 mg PO TID 04/06/15 [History] Nitroglycerin 0.4 mg SL Q5MIN PRN 04/06/15 [History] HydrALAZINE 50 mg PO TID #0 04/07/15 [Rx] Ipratropium/Albuterol Neb [Duoneb] 3 ml IH TID 02/02/16 [History] Oxygen 3 l NS HS 02/02/16 [History] Carvedilol [Coreg] 25 mg PO BID PRN 09/16/16 [History] Cyanocobalamin (B-12) [Vitamin B12] 1,000 mcg PO DAILY 09/16/16 [History] Ergocalciferol (VITAMIN D2) [Vitamin D2] 50,000 unit PO QWEEK 09/16/16 [History] Omeprazole [PriLOSEC] 20 mg PO DAILY@0630 30 Days capsule. 10/13/16 [Rx] Ferrous Sulfate 325 mg PO DAILY 10/19/16 [History] Furosemide [Lasix] 40 mg PO Q48H 10/19/16 [History] Losartan Potassium [Cozaar] 50 mg PO BID 10/19/16 [History] Beclomethasone Dipropionate [Qvar Redihaler] 1 puff IH BID 01/19/18 [History] Darbepoetin [Aranesp] 60 mcg SQ QMONTH 01/19/18 [History] Allergies/Adverse Reactions: 3 Allergy/AdvReac Type Severity Reaction Status Date / Time amlodipine [From [facility]] Allergy SWELLING Verified 10/19/16 18:26 IN LEGS lisinopril Allergy Cough Verified 10/19/16 18:26 Date of admission: 01/19/18 18:10 Primary care physician: William Galvan MD Consults: 01/19/18 18:38 Consult to Occupational Therapy [CONS] Routine Comment: Evaluate, develop and implement POC Reason for Consult: Patient reports transient dizziness which affects her ambulation safety. Please assess patient stimulation for safety, stability, strength, and possible home assistive/ rehabilitation needs for post-discharge planning. Does patient have active BEDREST order?: No Is patient medically & hemodynamically stable?: Yes Patient assessed for mobility or mobilized this visit?: No Consult to [employer] [CONS] Routine Reason for SW Consult: Please assess patient for possible home needs for post -discharge planning. 01/19/18 18:39 Consult to Physical Therapy [CONS] Routine Comment: Evaluate, develop and implement POC Reason for Consult: Patient reports transient dizziness which affects her ambulation safety. Please assess patient stimulation for safety, stability, strength, and possible home assistive/ rehabilitation needs for post-discharge planning. Does patient have active BEDREST order?: No Is patient medically & hemodynamically stable?: Yes Patient assessed for mobility or mobilized this visit?: No 01/19/18 18:48 Consult to Nutrition [CONS] Routine Comment: Chocolate Ensure Consulting Provider: NUTRITION Reason for Dietary Consult: PO Supplementation 01/20/18 16:10 Consult to Cardiology [CONS] Routine Comment: Consulting Provider: Cardiology Christina Reason for Consult: Reduced EF from 1 year ago. Pt admitted with chest pain. Stress negative. 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 Call Completed: Yes Discharging clinician: Christoph Barry Anticipated date of discharge: 01/25/18 - Constitutional Vitals: Temp Pulse Resp BP Pulse Ox 97.5 F L 74 14 176/79 94 01/25/18 11:38 01/25/18 11:38 01/25/18 11:38 01/25/18 11:38 01/25/18 11:38 General appearance: Present: cooperative, A&O X 3, pleasant, no acute distress, underweight, answers questions appropriately - Head Head exam: Present: atraumatic, normocephalic - Eye Eye exam: Present: PERRL, conjuntiva pink, sclera anicteric Pupils: Present: PERRL - ENT ENT exam: Present: normal exam - Neck Neck exam general surgery: Present: supple, trachea midline. Absent: lymphadenopathy - Respiratory Respiratory exam: Present: CTAB. Absent: accessory muscle use, rales, rhonchi, wheezes - Cardiovascular Cardiovascular exam: Present: RRR, +S1, +S2. Absent: diastolic murmur, gallop, rubs, systolic murmur - GI/Abdominal GI/Abdominal exam: Present: normal bowel sounds, soft, no peritoneal signs. Absent: distended, tenderness - Rectal Rectal exam: Present: deferred - Additional comments: exam deferred. - Extremities Exam Extremities exam: Present: warm, radial pulses palpable and symmetrical. Absent : calf tenderness, cyanotic, pedal edema - Back Exam Back exam: Present: normal inspection - Neurological Exam Neurological exam: Present: alert, CN II-XII intact, oriented X3, no focal deficits. Absent: pronater drift, facial droop, speech deficit - Psychiatric Psychiatric exam: Present: normal affect, normal mood - Skin Skin exam: Present: dry, intact - Patient Status Disposition: Home, Self-Care Condition: Fair Functional capacity at discharge: independent ambulation Overall status at discharge: patient is progressing back to baseline - Discharge Instructions Follow Up With: Easton Ortiz MD [Partnered Physician] - 02/15/18 2:55 pm William Galvan MD [Primary Care Provider] - 01/29/18 9:45 am () - Diet and Activity Activity: increase activity as tolerated Diet: other (Cardiac/low salt diet) - VTE Documentation of Mechanical Device: Intermittent pneumatic compression device
== END 2018-01-25 12:48 | disposition home or self-care (01) ==
LOC: 3BNU 14:55 → EMEROO 14:55 → 3BNU 18:49
PROVIDERS: ADMIT Internal Medicine; ATTEND Internal Medicine